=== PATIENT | female | born 1970 | race Caucasian/White ===

== ENCOUNTER 2023-01-17 15:17 | Outpatient (REF) | payer OTHER, SELFPAY ==
[2023-01-22 10:11] LABS: Age Gdln ACOG Testing Note (.); HPV Aptima Negative (Negative); IGP, Aptima HPV, rfx 16/18,45 Note (.)
== END 2023-01-17 15:18 | disposition home or self-care (01) ==
LOC: LAB 15:17
PROVIDERS: PCP Obstetrics & Gynecology; Visit Provider Obstetrics & Gynecology
DX: Z01.419 Encounter for gynecological examination (general) (routine) without abnormal findings (principal)
CPT/HCPCS: 87624; G0145

== ENCOUNTER 2024-01-23 20:02 | Outpatient (REF) | payer OTHER, SELFPAY ==
--- OUTSIDE RECORDS SUMMARY | 2024-01-23 20:06 | XMS_ITS | CCD ---
Author Organization [facility] Care Team Providers Care Associate Store Director Name Role Phone Chuckie Edward Jr. Unavailable [phone] Yaa Car Unavailable Hal Harry Unavailable Chuckie Edward Unavailable Demario Gimenez Unavailable Thom Beck Unavailable Porfirio Kent Unavailable Dex Mcclellan Unavailable DO Hal Harry Primary Care Provider MD Chuckie Edward Attending Provider [phone] WILEY Barry Emergency Provider DO Redd Morales Attending Provider XOCHILT Mcclellan Attending Provider [phone] DR NAMRATA ISAACS Admitting Unavailable DR NAMRATA ISAACS Attending Unavailable REQUEST, NONE LISTED Primary Care Unavaila DR NAMRATA Edwards Consulting Unavailable Armando Voss Unavailable DO Hal Harry Primary Care Provider XOCHILT Mcclellan Attending Provider DO Hal Harry Primary Care Provider MD Chuckie Edward Attending Provider DO Redd Morales Attending Provider Self, Referral Attending Provider Unavailable DO Hal Harry Primary Care Provider MD Chuckie Edward Attending Provider [phone] DO Hal Harry Primary Care Provider [phone] MD Terese Sneed Emergency Provider [phone] MD Ruiz Steward Admit Provider MD Ruiz Steward Attending Provider [phone] MD Denzel Lenz Attending Provider MapusKASSIEN Dex Pena Attending Provider [facility], DO Redd Miramontes Attending Provider [place]us, Dex K Admitting Unavailable Eleuterio, Tondra K Attending Unavailable Hal Harry Primary Care Unavailable Hal Harry Primary Care Unavailable Self, Referral Admitting Unavailable Self, Referral Attending Unavailable Piero Hal Primary Care Unavailable Ruiz Steward Admitting Unavailable Denzel Lenz [facility]ending [facility] Unavailable [facility], Redd Miramontes Attending Unavailable Piero Hal Primary Care Unavailable Piero Hal Primary Care Unavailable Chuckie Edward Admitting Unavailable Chuckie Edward Attending Unavailable Medications Current Medications Medication Drug Class(es) Dates Sig (Normalized) Sig (Original) acetaminophen 500 mg oral tablet (5 sources) Start: 11-03-2023 take 1000 mg by mouth every eight hours Acetaminophen Active 1000 MG PO Q8H 45 15 November 03, 2023 12:00am Allopurinol (20 sources) Xanthine Oxidase Inhibitor Start: 12-05-2023 take 1 tablet by mouth once daily Allopurinol Active 0 .ROUTE .COMPLEX December 05, 2023 8:13am TAKE 1 TABLET BY MOUTH ONCE DAILY FOR 90 DAYS Start: 06-22-2017 End: 12-05-2023 take 100 mg by mouth once daily Allopurinol Discontinued 100 MG PO Daily 90 90 May 04, 2023 11:13am October 20, 2023 10:48am FreeStyle Riky 14 Day Senso r - (17 sources) Start: 03-26-2020 FreeStyle Libr e 14 Day Sensor - 1 sensor SQ Change every 14 days for 84 days Mar, Active Start: 03-26-2020 FreeStyle Libr e 14 Day Sensor - 1 sensor Every 14 days for 84 days Mar, Active FreeStyle Riky 3 Sensor - (14 sources) Start: 02-10-2022 FreeStyle Libr e 3 Sensor - as directed SQ changed every 14 days for 28 days Jan, Active FreeStyle Riky 3 Sensor - USE DIRECTED SUBCUTANEOUSLY CHANGING EVERY 14 DAYS for 28 Active FreeStyle Riky 3 Sensor - as directed SQ changed every 14 days for 28 days Active 3 ml liraglutide 6 mg/ml pen injector (20 sources) GLP-1 Receptor Agonist Start: 12-04-2023 Liraglutide (Victoza 3-Raza) 0.6 mg/0.1 mL (18 mg/3 mL) pen injector Active 0 .ROUTE .COMPLEX December 04, 2023 3:28pm ADMINISTER 1.8mg SUBCUTANEOUSLY ONCE DAILY Start: 11-02-2023 End: 12-04-2023 Liraglutide (Victoza 3-Raza) 0.6 mg/0.1 mL (18 mg/3 mL) pen injector Discontinued 1.2 MG SUBCUT .daily November 03, 2023 12:00am December 04, 2023 3:28pm Start: 05-04-2023 End: 11-03-2023 Liraglutide (Victoza 3-Raza) 0.6 mg/0.1 mL (18 mg/3 mL) pen injector Discontinued 1.8 MG SUBCUT Daily November 02, 2023 12:00am November 03, 2023 2:31am Start: 10-27-2021 inject 1.8 mg by sub cutaneous injection once daily Victoza 18 MG/3ML 1.8mg Subcutaneous once daily for 90 day(s) Oct, Active inject 0.6 mg by sub cutaneous injection every week Saxenda 18 MG/3ML 0.6 mg and may increase weekly to full dose if no side effects and if necessary. Subcutaneous once daily for 30 day(s) Not-Taking metFORMIN hydrochloride 1000 mg oral tablet (20 sources) Biguanide Start: 05-04-2023 End: 08-18-2023 take 1000 mg by mouth twice daily at mealtime Metformin Active 1000 MG PO Twice daily with meals 180 August 18, 2023 10:06am Start: 06-22-2017 End: 05-04-2023 take 1000 mg by mouth once daily Metformin Discontinued 1000 MG PO Daily June 22, 2017 12:00am May 04, 2023 11:16am take 1 tablet by rodolfo th twice daily metFORMIN HCl 1000 MG 1 tablet with meal Orally bid Active 24 hr metoprolol succinate 100 mg extended release oral tablet (20 sources) beta-Adrenergic Eileen Start: 10-20-2023 take 1 tablet by mouth once daily Metoprolol Succinate Active 0 .ROUTE .COMPLEX October 20, 2023 8:00am TAKE 1 TABLET BY MOUTH ONCE DAILY FOR 90 DAYS Start: 05-04-2023 End: 10-20-2023 take 1 tablet by mouth once daily Metoprolol Succinate Discontinued 100 MG PO Daily May 04, 2023 11:17am October 20, 2023 8:00am FreeTextSi tablet Orally Once a day; Note: Source Status: Taking; Refills: 1; Qty: 90 Tablet; Provider: Piero Ibarra Start: 06-22-2017 End: 05-04-2023 take 50 mg by mouth once daily Metoprolol Succinate Di scontinued 50 MG PO Daily May 04, 2023 11:14am May 04, 2023 11:16am take 1 tablet by rodolfo every twenty-four hours Metoprolol Succinate ER 100 MG 1 tablet Orally Once a day for 90 days Active omeprazole 20 mg delayed release oral capsule (20 sources) Proton Pump Inhibitor Start: 07-28-2021 take 20 mg by mouth once daily Omeprazole Active 20 MG PO Daily July 28, 2021 12:00am Spironolactone (20 sources) Aldosterone Antagonist Start: 12-05-2023 take 1 tablet by mouth once daily Spironolactone Active 0 .ROUTE .COMPLEX December 05, 2023 8:13am TAKE 1 TABLET BY MOUTH ONCE DAILY FOR 90 DAYS Start: 06-22-2017 End: 12-05-2023 take 50 mg by mouth once daily Spironolactone Discontinued 50 MG PO Daily May 04, 2023 11:14am October 20, 2023 10:48am sucralfate 1000 mg oral tablet (20 sources) Aluminum Complex Start: 05-04-2023 take 1 tablet by mouth once daily Sucralfate (Carafate) 1 gram tablet Active 1 GM PO Daily May 04, 2023 1:00am FreeTextSi TABLET Orally ONE TIME A DAY; Note: Source Status: Refill; Refills: 11; Qty: 30 Tablet; Provider: Shanika Renteria Start: 07-30-2021 take 1 tablet by mouth once da enoch Carafate 1 GM 1 TABLET Orally ONE TIME A DAY for 30 days July, Active Start: 07-30-2021 take 1 tablet by mouth once da enoch Carafate 1 GM 1 TABLET Orally ONE TIME A DAY for 30 days July, Active Start: 07-30-2021 take 1 tablet by rodolfo th every eight hours Carafate 1 GM 1 TABLET Orally THREE TIMES A DAY for 30 day(s) July, Active Vitamin B-12 1000 MCG (3 sources) take 1 tablet by ordolfo th once daily Vitamin B-12 1000 MCG 1 tablet Orally Once a day for 30 day(s) Active Completed/Discontinued Medications Medication Drug Class(es) Dates Sig (Normalized) Sig (Original) [id number] 200 actuat albuterol 0.09 mg/actuat metered dose inhaler (13 sources) beta2-Adrenergic Agonist Start: 07-06-2017 End: 06-19-2018 take 1 puff(s) by inhalation every four to six hours Albuterol Sulfate (Proventil Hfa) 90 mcg/actuation Hfa Aerosol Inhaler Discontinued 2 PUFF INHALATION EVERY 4-6 HOURS July 06, 2017 12:00am June 19, 2018 3:37am with spacer amoxicillin 875 mg / clavulanate 125 mg oral tablet (9 sources) Penicillin-class Antibacterial Start: 11-03-2023 End: 11-09-2023 take 1 tablet by mouth twice daily Amoxicillin-Pot Clavulanate Discontinued 1 TAB PO Twice daily 02 16November 03, 2023 12:00am November 09, 2023 2:33pm Start: 04-26-2022 take 1 tablet by rodolfo th every twelve hours Amoxicillin-Pot Clavulanate 875-125 MG 1 tablet Orally every 12 hrs for 10 day(s) Apr, Active cephalexin 500 mg oral capsule (13 sources) Cephalosporin Antibacterial Start: 10-29-2021 End: 10-20-2023 take 500 mg by mouth every eight hours Cephalexin Discontinued 500 MG PO Q8H 01 10October 29, 2021 12:00am October 20, 2023 9:36am colestipol hydrochloride 1000 mg oral tablet (6 sources) Bile Acid Sequestrant Start: 07-30-2021 take 2 tablets by mouth every twenty-four hours Colestid 1 GM 2 tablets Orally Once a day for 30 day(s) July, Not-Taking diclofenac sodium 0.01 mg/mg topical gel (13 sources) Nonsteroidal Anti-inflammatory Drug Start: 03-06-2019 End: 08-13-2019 apply 4 g topically four times daily as needed Diclofenac Sodium (Voltaren) 1 % gel Discontinued 4 GM TOPICAL Four times daily March 06, 2019 1:00am August 13, 2019 7:21am apply to neck prn dicyclomine hydrochloride 20 mg oral tablet (8 sources) Anticholinergic Start: 07-07-2021 take 1 tablet by mouth every twelve hours Dicyclomine HCl 20 MG 1 tablet Orally bid for 30 day(s) Jun, Not-Taking famotidine 20 mg oral tablet (13 sources) Histamine-2 Receptor Antagonist Start: 06-22-2017 End: 06-19-2018 take 1 tablet by mouth twice daily Famotidine (Pepcid) 20 mg Tablet Discontinued 20 MG PO Twice daily June 22, 2017 12:00am June 19, 2018 3:37am FreeStyle Riky 14 Day [place] - (16 sources) Start: 03-26-2020 FreeStyle Riky 14 Day [place] - Use with 14 day sensor Daily for 365 days Mar, Not-Taking Start: 03-26-2020 FreeStyle Libr e 14 Day [place] - Use with 14 day sensor Daily for 365 days Mar, Active ibuprofen 200 mg oral tablet (13 sources) Nonsteroidal Anti-inflammatory Drug Start: 06-22-2017 End: 06-19-2018 Ibuprofen (Motrin Ib) 200 mg Tablet Discontinued 600 MG PO As Directed June 22, 2017 12:00am June 19, 2018 3:37am lisinopril 10 mg oral tablet (10 sources) Angiotensin Converting Enzyme Inhibitor Start: 07-10-2022 End: 10-20-2023 take 10 mg by mouth once daily Lisinopril Discontinued 10 MG PO Daily July 10, 2022 12:00am October 20, 2023 9:36am metaxalone 800 mg oral tablet (13 sources) Start: 03-06-2019 End: 08-13-2019 take 1 tablet by mouth three times daily Metaxalone (Skelaxin) 800 mg Tablet Discontinued 800 MG PO Three times daily March 06, 2019 1:00am August 13, 2019 7:21am predniSONE 10 mg oral tablet (13 sources) Start: 07-06-2017 End: 06-19-2018 take 60 mg by mouth once daily at mealtime Prednisone Discontinued 60 MG PO Daily July 06, 2017 12:00am June 19, 2018 3:37am administer with food or milk vitamin b12 0.05 mg oral tablet (20 sources) Vitamin B12 Start: 07-28-2021 End: 10-20-2023 take 1 tablet by mouth once daily Cyanocobalamin (Vitamin B-12) (Vitamin B-12) 50 mcg Tablet Discontinued 50 MCG PO Daily July 28, 2021 12:00am October 20, 2023 9:36am take 1 tablet by rodolfo th every twenty-four hours Vitamin B-12 1000 MCG 1 tablet Orally Once a day for 30 day(s) Active Problems Active Problems Problem Classification Problem Date Documented Da te Episodic/Chronic Abdominal pain (11 sources) Unspecified abdominal pain; Translations: [Left upper quadrant pain] Onset: 2 Resolved: 2 Episodic Administrative/social admission (11 sources) Dietary counseling and surveillance; Translations: [Patient encounter status] Onset: 1 Resolved: 2 Episodic Asthma (4 sources) Asthma; Translations: [Unspecified asthma, uncomplicated] 11-07-2023 Chronic Cardiac dysrhythmias (20 sources) Palpitations; Translations: [Palpitations] Onset: 4 08-13-2019 Episodic Chronic obstructive pulmonary disease and bronchiectasis (9 sources) Bronchitis; Translations: [Bronchitis, not specified as acute or chronic] 07-06-2017 Episodic Deficiency and other anemia (20 sources) Iron 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; Translations: [Iron deficiency anemia secondary to blood loss (chronic)] 11-07-2023 Chronic Deficiency and other anemia (9 sources) Iron deficiency anemia; Translations: [Iron deficiency anemia, unspecified] 07-28-2021 Episodic Diabetes mellitus with complications (20 sources) Hyperglycemia due to type 2 diabetes mellitus; Translations: [Type 2 diabetes mellitus with hyperglycemia] Onset: 1 Resolved: 2 Chronic Diabetes mellitus without complication (20 sources) Type 2 diabetes mellitus without complication; Translations: [Type 2 diabetes mellitus without complications] Onset: 2 Resolved: 2 Chronic Disorders of lipid metabolism (20 sources) Mixed hyperlipidemia; Translations: [Mixed hyperlipidemia] Onset: 1 Resolved: 2 Chronic E Codes: Natural/environment (6 sources) Dog bite - wound; Translations: [Bitten by dog, initial encounter] Onset: 4 11-03-2023 Episodic Esophageal disorders (20 sources) Gastroesophageal reflux disease; Translations: [Gastro-esophageal reflux disease without esophagitis] Onset: 2 Resolved: 2 Chronic Essential hypertension (20 sources) Essential hypertension; Translations: [Essential (primary) hypertension] Onset: 1 Resolved: 2 Chronic Gout and other crystal arthropathies (20 sources) Gout; Translations: [Gout, unspecified] Chronic Hypertension with complications and secondary hypertension (10 sources) Hypertensive urgency ; Translations: [Hypertensive urgency] 07-10-2022 Chronic Immunizations and screening for infectious disease (3 sources) Encounter for immunization; Translations: [Encounter for screening for human papillomavirus (HPV)] Onset: 1 Resolved: 2 Episodic Malaise and fatigue (9 sources) Asthenia; Translations: [Weakness] 11-26-2020 Episodic Menstrual disorders (20 sources) Menorrhagia; Translations: [Excessive and frequent menstruation with regular cycle] 11-07-2023 Chronic Nutritional deficiencies (20 sources) Vitamin D deficiency; Translations: [Vitamin D deficiency, unspecified] 11-07-2023 Chronic Nutritional deficiencies (19 sources) Deficiency of other specified B group vitamins; Translations: [Cobalamin deficiency] Onset: 1 Resolved: 2 Episodic Osteoarthritis (20 sources) Osteoarthritis of knee; Translations: [Osteoarthritis of knee, unspecified] Onset: 1 Resolved: 2 Chronic Other connective tissue disease (20 sources) Fibromyalgia; Translations: [Fibromyalgia] 11-07-2023 Episodic Other endocrine disorders (20 sources) Polycystic ovaries; Translations: [Polycystic ovarian syndrome] Chronic Other endocrine disorders (2 sources) Polycystic ovarian syndrome; Translations: [PCOS (polycystic ovarian syndrome) E28.2] Onset: 1 Resolved: 2 Chronic Other endocrine disorders (4 sources) Polycystic ovary syndrome; Translations: [Polycystic ovarian syndrome] 11-07-2023 Chronic Other gastrointestinal disorders (20 sources) Irritable bowel syndrome with diarrhea; Translations: [Irritable bowel syndrome with diarrhea] 11-07-2023 Chronic Other gastrointestinal disorders (3 sources) Irritable bowel syndrome with diarrhea Onset: 2 Resolved: 2 Chronic Other gastrointestinal disorders (20 sources) Diarrhea; Translations: [Diarrhea, unspecified] Episodic Other liver diseases (20 sources) Steatosis of liver; Translations: [Fatty (change of) liver, not elsewhere classified] 11-07-2023 Chronic Other liver diseases (2 sources) Fatty (change of) liver, not elsewhere classified; Translations: [Fatty liver K76.0] Onset: 1 Resolved: 2 Chronic Other lower respiratory disease (5 sources) Dyspnea on exertion; Translations: [Other forms of dyspnea] 11-03-2023 Episodic Other lower respiratory disease (5 sources) Other forms of dyspnea; Translations: [Other respiratory abnormalities] 11-03-2023 Episodic Other nervous system disorders (20 sources) Loss of taste; Translations: [Parageusia] Episodic Other nervous system disorders (20 sources) Sensory disorder of smell and/or taste; Translations: [Anosmia] Episodic Other nervous system disorders (20 sources) Paresthesia; Translations: [Paresthesia of skin] Episodic Other nutritional; endocrine; and metabolic disorders (20 sources) Metabolic disease; Translations: [Metabolic syndrome] Chronic Other nutritional; endocrine; and metabolic disorders (20 sources) Metabolic syndrome X; Translations: [Metabolic syndrome] 11-07-2023 Chronic Other nutritional; endocrine; and metabolic disorders (20 sources) Body mass index 40+ - severely obese; Translations: [Body mass index (BMI) 45.0-49.9, adult] 11-02-2023 Chronic Other nutritional; endocrine; and metabolic disorders (20 sources) Obesity; Translations: [Obesity, unspecified] Chronic Other nutritional; endocrine; and metabolic disorders (2 sources) Body mass index (BMI) 40.0-44.9, adult; Translations: [BMI 40.0-44.9, adult Z68.41] Onset: 1 Resolved: 2 Chronic Other nutritional; endocrine; and metabolic disorders (2 sources) Metabolic syndrome; Translations: [Metabolic syndrome E88.81] Onset: 1 Resolved: 2 Chronic Other nutritional; endocrine; and metabolic disorders (5 sources) Body mass index (BMI) 45.0-49.9, adult; Translations: [Body Mass Index 45.0-49.9, adult] Chronic Other screening for suspected conditions (not mental disorders or infectious disease) (20 sources) Encounter for screening for malignant neoplasm of cervix; Translations: [Raised cardiac enzyme or marker] Onset: 2 Episodic Residual codes; unclassified (20 sources) Obstructive sleep apnea syndrome; Translations: [Obstructive sleep apnea (adult) (pediatric)] 11-07-2023 Chronic Residual codes; unclassified (5 sources) Obstructive sleep apnea (adult) (pediatric); Translations: [Obstructive sleep apnea (adult)(pediatric)] Onset: 1 Resolved: 2 Chronic Spondylosis; intervertebral disc disorders; other back problems (20 sources) Cervical arthritis; Translations: [Spondylosis without myelopathy or radiculopathy, cervical region] Onset: 2 Resolved: 2 Chronic Spondylosis; intervertebral disc disorders; other back problems (11 sources) Spinal stenosis, cervical region; Translations: [Cervicalgia] Onset: 2 Resolved: 2 Episodic Sprains and strains (13 sources) Strain of neck muscle; Translations: [Strain of muscle, fascia and tendon at neck level, initial encounter] 03-06-2019 Episodic Unclassified (1 source) Encounter for screening mammogram for malignant neoplasm of breast; Translations: [Encounter for screening mammogram for malignant neoplasm of breast] Onset: 3 Urinary tract infections (9 sources) Urinary tract infectious disease; Translations: [Urinary tract infection, site not specified] 10-29-2021 Episodic Past or Other Problems Problem Classification Problem Date Documented Da te Episodic/Chronic Genitourinary symptoms and ill-defined conditions (1 source) Hematuria, unspecified Onset: 06-10-2021 Resolved: 06-10-2021 Episodic Other connective tissue disease (2 sources) Fibromyalgia; Translations: [Fibromyalgia M79.7] Onset: 01-09-2021 Resolved: 04-28-2021 Episodic Other nervous system disorders (1 source) Paresthesia of skin Onset: 04-06-2021 Resolved: 04-06-2021 Episodic Unclassified (1 source) Contact with and (suspected) exposure to covid-19 Z20.822 Onset: 09-10-2021 Resolved: 09-10-2021 Viral infection (1 source) COVID-19 Onset: 09-10-2021 Resolved: 09-10-2021 Results Test Name Value Interpretation Reference Range Facility Alanine aminotransferase [En zymatic activity/volume] in Serum or PlasmaOrdered By: Dex Mcclellan on 12-08-2023 ALT [Catalytic activity/Vol] 37 U/L Normal 7-52 [facility] Comment on above: Performed By: #### C KIMBERLY BLOUNT B12 ####[facility] [place] [address] Albumin [Mass/volume] in Ser um or Plasma by Bromocresol green (BCG) dye binding methoOrdered By: Dex Mcclellan on 12-08-2023 Albumin BCG dye [Mass/Vol] 4.0 g/dL 3.5-5.7 [facility] Alkaline phosphatase [Enzyma tic activity/volume] in Serum or PlasmaOrdered By: Dex Mcclellan on 12-08-2023 ALP [Catalytic activity/Vol] 60 U/L Normal 34-104 [facility] Comment on above: Performed By: #### C KIMBERLY BLOUNT B12 ####[facility] [id number] Aspartate aminotransferase [ Enzymatic activity/volume] in Serum or PlasmaOrdered By: Dex Mcclellan on 12-08-2023 AST [Catalytic activity/Vol] 33 U/L Normal 13-39 [facility] Comment on above: Performed By: #### C MP, KIMBERLY, B12 ####[address] Automated basophil %Ordered By: Redd Morales on 12-08-2023 Basophils/100 WBC (Bld) 0.5 % Normal . [facility] Comment on above: Order Comment: [email or web address] Performed By: #### P ILLAR CBC, PILLAR LIPID, PILLAR BMP, EBS A1C, PILLAR TSH ####[address] Automated basophil countOrde red By: Redd Morales on 12-08-2023 Basophils (Bld) [#/Vol] 0.1 10*3/uL Normal 0.0-0.2 [facility] Comment on above: Order Comment: [email or web address] Result Comment: PERF ORMED BY: [facility] [address] [place] [id number] PATHOLOGIST CALCIMINER KIRIT VARGAS M.D. Performed By: #### P ILLAR CBC, PILLAR LIPID, PILLAR BMP, EBS A1C, PILLAR TSH ####[address] Automated blood monocyte cou ntOrdered By: Redd Morales on 12-08-2023 Monocytes (Bld) [#/Vol] 0.4 10*3/uL Normal 0.0-0.8 [facility] Comment on above: Order Comment: [email or web address] Performed By: #### P ILLAR CBC, PILLAR LIPID, PILLAR BMP, EBS A1C, PILLAR TSH ####[address] Automated eosinophil %Ordere d By: Redd Morales on 12-08-2023 Eosinophils/100 WBC (Bld) 0.1 % Normal . [facility] Comment on above: Order Comment: [email or web address] Performed By: #### P ILLAR CBC, PILLAR LIPID, PILLAR BMP, EBS A1C, PILLAR TSH ####[place] [id number] [address] Automated eosinophil countOr dered By: Redd Morales on 12-08-2023 Eosinophils (Bld) [#/Vol] 0.0 10*3/uL Normal 0.0-0.45 [facility] Comment on above: Order Comment: [email or web address] Performed By: #### P ILLAR CBC, PILLAR LIPID, PILLAR BMP, EBS A1C, PILLAR TSH ####[address] Automated monocyte %Ordered By: Redd Morales on 12-08-2023 Monocytes/100 WBC (Bld) 4.1 % Normal . [facility] Comment on above: Order Comment: [email or web address] Performed By: #### P ILLAR CBC, PILLAR LIPID, PILLAR BMP, EBS A1C, PILLAR TSH ####[address] Automated neutrophil %Ordere d By: Redd Morales on 12-08-2023 Neutrophils/100 WBC (Bld) 65.4 % Normal . [facility] Comment on above: Order Comment: [email or web address] Performed By: #### P ILLAR CBC, PILLAR LIPID, PILLAR BMP, EBS A1C, PILLAR TSH ####[address] Bilirubin.total [Mass/volume ] in Serum or PlasmaOrdered By: Tondra Eleuterio on 12-08-2023 Bilirubin [Mass/Vol] 0.4 mg/dL Normal 0.3-1.0 [facility] Comment on above: Performed By: #### C KIMBERLY BLOUNT, B12 ####[address] Calcium [Mass/volume] in Ser um or PlasmaOrdered By: Tondra Mapus on 12-08-2023 Calcium [Mass/Vol] 9.3 mg/dL Normal 8.6-10.3 [facility] Comment on above: Performed By: #### C KIMBERLY BLOUNT B12 ####[address] [address] [place] Calcium [Mass/volume] in Ser um or PlasmaOrdered By: Redd Morales on 12-08-2023 Calcium [Mass/Vol] 9.3 mg/dL Normal 8.6-10.3 [facility] Comment on above: Order Comment: KEIRA ALEJOKW Performed By: #### P ILLAR CBC, PILLAR LIPID, PILLAR BMP, EBS A1C, PILLAR TSH ####[address] [address] [place] Carbon dioxide, total [Moles /volume] in Serum or PlasmaOrdered By: Dex Mcclellan on 12-08-2023 CO2 [Moles/Vol] 32.4 mmol/L High 21.0-31.0 [facility] Comment on above: Performed By: #### C KIMBERLY BLOUNT B12 ####[place] [id number] [facility] Carbon dioxide, total [Moles /volume] in Serum or PlasmaOrdered By: Redd Morales on 12-08-2023 CO2 [Moles/Vol] 31.2 mmol/L High 21.0-31.0 [facility] Comment on above: Order Comment: KEIRA ALEJOKW Performed By: #### P ILLAR CBC, PILLAR LIPID, PILLAR BMP, EBS A1C, PILLAR TSH ####[place] [id number] [place] Chloride [Moles/volume] in S roxie or PlasmaOrdered By: Tona Eleuterio on 12-08-2023 Chloride [Moles/Vol] 101 mmol/L Normal 98-107 [facility] Comment on above: Performed By: #### C KIMBERLY BLOUNT, B12 ####[address] [address] [place] Chloride [Moles/volume] in S roxie or PlasmaOrdered By: Redd Morales on 12-08-2023 Chloride [Moles/Vol] 100 mmol/L Normal 98-107 [facility] Comment on above: Order Comment: FASTCharbel [email or web address] Performed By: #### P ILLAR CBC, PILLAR LIPID, PILLAR BMP, EBS A1C, PILLAR TSH ####[facility] Cholesterol [Mass/volume] in Serum or PlasmaOrdered By: Redd Morales on 12-08-2023 Cholesterol [Mass/Vol] 172 mg/dL Normal 140-200 [facility] Comment on above: Chol less than 200 m g/dl low riskChol 201-239 mg/dl borderline riskChol 240 mg/dl and greater high risk Order Comment: FASTI [email or web address] Result Comment: Chol less than 200 mg/dl low risk Chol 201-239 mg/dl borderline risk Chol 240 mg/dl and greater high risk Performed By: #### P ILLAR CBC, PILLAR LIPID, PILLAR BMP, EBS A1C, PILLAR TSH ####[place] [id number] [address] Cholesterol in LDL Calc [Mas s/Vol]Ordered By: Redd Morales on 12-08-2023 Cholesterol in LDL [Mass/Vol] 87 mg/dL 0-100 [facility] Comment on above: LDL ATP III CLASSIFI CATIONLDL less than 100 mg/dL OptimalLDL 100-129 mg/dL Near or above optimalLDL 130-159 mg/dL Borderline highLDL 160-189 mg/dL HighLDL greater than 189 mg/dL Very high Cholesterol in VLDL Calc [Ma ss/Vol]Ordered By: Redd Morales on 12-08-2023 Cholesterol in VLDL [Mass/Vol] 49 mg/dL [facility] Comprehensive Metabolic Pane [place] 12-08-2023 Albumin [Mass/Vol] 4.0 g/dL Normal 3.5-5.7 [facility] Comment on above: Performed By: #### C KIMBERLY BLOUNT, B12 ####[place] [id number] [place] [id number] [facility] GFR/1.73 sq M.predicted MDRD (S/P/Bld) [Vol rate/Area] mL/min/{1.73_m2} Normal [facility] Comment on above: Performed By: #### C MINE, KIMBERLY, B12 ####[place] [id number] [facility] Creatinine [Mass/volume] in Serum or PlasmaOrdered By: Tondra Eleuterio on 12-08-2023 Creatinine [Mass/Vol] 0.70 mg/dL Normal 0.60-1.20 [facility] Comment on above: Performed By: #### C MINE, KIMBERLY, B12 ####[place] [id number] [facility] Creatinine [Mass/volume] in Serum or PlasmaOrdered By: Redd Morales on 12-08-2023 Creatinine [Mass/Vol] 0.70 mg/dL Normal 0.60-1.20 [facility] Comment on above: Order Comment: KEIRA CALDERAW Performed By: #### P ILLAR CBC, PILLAR LIPID, PILLAR BMP, EBS A1C, PILLAR TSH ####[place] [id number] [facility] Creatinine [Mass/volume] in UrineOrdered By: Dex Mcclellan on 12-08-2023 Creatinine (U) [Mass/Vol] 187.00 mg/dL [facility] Comment on above: No reference range e stablished EBS A1C with Estimated Ave G luon 12-08-2023 Glucose [Mass/Vol] 148 mg/dL Normal [facility] Comment on above: Result Comment: PERF ORMED BY: [facility] [address] [place] [id number] PATHOLOGIST CALCIMINER KIRIT VARGAS M.D. Performed By: #### P ILLAR CBC, PILLAR LIPID, PILLAR BMP, EBS A1C, PILLAR TSH ####[place] [id number] [facility] EBS A1C with Estimated Ave G luOrdered By: Redd Morales on 12-08-2023 HbA1c (Bld) [Mass fraction] 6.8 % High 4.3-5.6 [facility] Comment on above: Increased risk for d iabetes: 5.7 - 6.4diabetes: >6.4glycemic control for adults with diabetes: <7.0 Result Comment: Incr eased risk for diabetes: 5.7 - 6.4 diabetes: >6.4 glycemic control for adults with diabetes: <7.0 Performed By: #### P ILLAR CBC, PILLAR LIPID, PILLAR BMP, EBS A1C, PILLAR TSH ####[place] [phone] [address] Employee Basic Metabolic [place] 12-08-2023 GFR/1.73 sq M.predicted MDRD (S/P/Bld) [Vol rate/Area] mL/min/{1.73_m2} Normal [facility] Comment on above: Order Comment: [email or web address] [email or web address] Performed By: #### P ILLAR CBC, PILLAR LIPID, PILLAR BMP, EBS A1C, PILLAR TSH ####[place] [phone] [address] Employee Complete Blood Coun ton 12-08-2023 Mean Corpuscular HGB Conc 32.6 g/dL Normal 32.0-35.0 [facility] Comment on above: Order Comment: [email or web address] [email or web address] Performed By: #### P ILLAR CBC, PILLAR LIPID, PILLAR BMP, EBS A1C, PILLAR TSH ####[place] [phone] [address] NRBC% 0.1 /100{WBC} Normal 0-0.5 The [facility] Comment on above: Order Comment: [email or web address] [email or web address] Performed By: #### P ILLAR CBC, PILLAR LIPID, PILLAR BMP, EBS A1C, PILLAR TSH ####[place] [address] [place] [id number] [facility] Employee Lipid Profileon LDL Cholesterol,Calculated 87 mg/dL Normal 0-100 [facility] Comment on above: Order Comment: [email or web address] [email or web address] Result Comment: LDL ATP III CLASSIFICATION LDL less than 100 mg/dL Optimal LDL 100-129 mg/dL Near or above optimal LDL 130-159 mg/dL Borderline high LDL 160-189 mg/dL High LDL greater than 189 mg/dL Very high Performed By: #### P ILLAR CBC, PILLAR LIPID, PILLAR BMP, EBS A1C, PILLAR TSH ####[place] [phone] [address] Triglyceride w/Reflex 247 mg/dL High 0-149 [facility] Comment on above: Order Comment: [email or web address] [email or web address] Result Comment: TRIG ATP III CLASSIFICATION TRIG less than 150 mg/dL Normal TRIG 150-199 mg/dL Borderline high TRIG 200-500 mg/dL High TRIG greater than 500 mg/dL Very high Standard traceable to the Center for Disease Conrtrol and Prevention (CDC) test method. Performed By: #### P ILLAR CBC, PILLAR LIPID, PILLAR BMP, EBS A1C, PILLAR TSH ####[address] VLDL CHOLESTEROL 49 mg/dL Normal The [facility] Comment on above: Order Comment: [email or web address] [email or web address] Performed By: #### P ILLAR CBC, PILLAR LIPID, PILLAR BMP, EBS A1C, PILLAR TSH ####[address] Employee Thyroid Stim Hormon santos 12-08-2023 Employee Thyroid Stim Hormone 4.42 u[iU]/mL Normal 0.45-5.33 [facility] Comment on above: Order Comment: [email or web address] [email or web address] Result Comment: PERF ORMED BY: [facility] [address] [facility] [place] [address] PATHOLOGIST CALCIMINER KIRIT VARGAS M.D. Performed By: #### P ILLAR CBC, PILLAR LIPID, PILLAR BMP, EBS A1C, PILLAR TSH ####[place] [phone] [facility] Erythrocyte distribution wid th [Ratio] by Automated countOrdered By: Redd Morales on 12-08-2023 Erythrocyte distribution width (RBC) [Ratio] 16.3 % High 11.9-15.3 [facility] Comment on above: Order Comment: [email or web address] [email or web address] Performed By: #### P ILLAR CBC, PILLAR LIPID, PILLAR BMP, EBS A1C, PILLAR TSH ####[facility] [id number] [place] [address] [facility] Erythrocytes [#/volume] in B lood by Automated countOrdered By: Redd Morales on 12-08-2023 RBC (Bld) [#/Vol] 5.03 10*6/uL High 3.60-5.00 [facility] Comment on above: Order Comment: [email or web address] [email or web address] Performed By: #### P ILLAR CBC, PILLAR LIPID, PILLAR BMP, EBS A1C, PILLAR TSH ####[facility] [id number] [place] [address] [place] Glucose [Mass/volume] in Ser um or PlasmaOrdered By: Dex Mcclellan on 12-08-2023 Glucose [Mass/Vol] 137 mg/dL High 70-100 [facility] Comment on above: ADA recommended refe rence rangeRandom Glucose Reference Range is dependent on time and content of last meal. Glucose of more than 200 mg/dL in a nonstressed, ambulatory subject supports the diagnosis of Diabetes Mellitus. Result Comment: [place] Glucose Reference Range is dependent on time and content of last meal. Glucose of more than 200 mg/dL in a nonstressed, ambulatory subject supports the diagnosis of Diabetes Mellitus. ADA recommended reference range Performed By: #### C KIMBERLY BLOUNT, B12 ####[facility] [id number] [place] [address] [facility] Glucose [Mass/volume] in Ser um or PlasmaOrdered By: Redd Morales on 12-08-2023 Glucose [Mass/Vol] 136 mg/dL High 70-100 [facility] Comment on above: ADA recommended refe rence range Order Comment: [email or web address] [email or web address] Result Comment: ADA recommended reference range Performed By: #### P ILLAR CBC, PILLAR LIPID, PILLAR BMP, EBS A1C, PILLAR TSH ####[facility] [place] [address] [facility] Glucose mean value [Mass/vol ume] in Blood Estimated from glycated hemoglobinOrdered By: Redd Morales on 12-08-2023 Average glucose Estimated from glycated hemoglobin (Bld) [Mass/Vol] 148 mg/dL [facility] Hematocrit [Volume Fraction] of Blood by Automated countOrdered By: Redd Morales on 12-08-2023 Hematocrit (Bld) [Volume fraction] 38.6 % Normal 34.0-46.4 [facility] Comment on above: Order Comment: KEIRA PRATER.[email or web address] Performed By: #### P ILLAR CBC, PILLAR LIPID, PILLAR BMP, EBS A1C, PILLAR TSH ####[facility] [id number] [place] [id number] [facility] Hemoglobin [Mass/volume] in BloodOrdered By: Redd Morales on 12-08-2023 Hemoglobin (Bld) [Mass/Vol] 12.6 g/dL Normal 11.8-15.4 [facility] Comment on above: Order Comment: KEIRA PRATER.MyraKW Performed By: #### P ILLAR CBC, PILLAR LIPID, PILLAR BMP, EBS A1C, PILLAR TSH ####[place] [id number] [place] [phone] [facility] Leukocytes [#/volume] correc danyell for nucleated erythrocytes in Blood by Automated counOrdered By: Redd Morales on 12-08-2023 WBC corrected for nucl RBC Auto (Bld) [#/Vol] 10.7 10*3/uL 3.8-11.6 [facility] Leukocytes [#/volume] in Blo od by Automated countOrdered By: Redd Morales on 12-08-2023 WBC (Bld) [#/Vol] 10.7 10*3/uL Normal 3.8-11.6 [facility] Comment on above: Order Comment: KEIRA [email or web address].JKW Performed By: #### P ILLAR CBC, PILLAR LIPID, PILLAR BMP, EBS A1C, PILLAR TSH ####[facility] [id number] [place] [phone] [place] Lymphocytes [#/volume] in Bl ood by Automated countOrdered By: Redd Morales on 12-08-2023 Lymphocytes (Bld) [#/Vol] 3.2 10*3/uL Normal 1.00-4.8 [facility] Comment on above: Order Comment: KEIRA [email or web address].JKW Performed By: #### P ILLAR CBC, PILLAR LIPID, PILLAR BMP, EBS A1C, PILLAR TSH ####[address] Lymphocytes/100 leukocytes i n Blood by Automated countOrdered By: Redd Morales on 12-08-2023 Lymphocytes/100 WBC (Bld) 29.9 % Normal . [facility] Comment on above: Order Comment: [email or web address] [email or web address] Performed By: #### P ILLAR CBC, PILLAR LIPID, PILLAR BMP, EBS A1C, PILLAR TSH ####[address] MCH [Entitic mass] by Automa danyell countOrdered By: Redd Morales on 12-08-2023 MCH (RBC) [Entitic mass] 25.0 pg Normal 24.7-34.3 [facility] Comment on above: Order Comment: [email or web address] [email or web address] Performed By: #### P ILLAR CBC, PILLAR LIPID, PILLAR BMP, EBS A1C, PILLAR TSH ####[address] MCHC Auto (RBC) [Mass/Vol]Or dered By: Redd Morales on 12-08-2023 MCHC (RBC) [Mass/Vol] 32.6 g/dL 32.0-35.0 [facility] MCV [Entitic volume] by Auto mated countOrdered By: Redd Morales on 12-08-2023 MCV (RBC) [Entitic vol] 76.6 fL Low 80-100 [facility] Comment on above: Order Comment: [email or web address] [email or web address] Performed By: #### P ILLAR CBC, PILLAR LIPID, PILLAR BMP, EBS A1C, PILLAR TSH ####[address] MicroAlb Creat Ratio,Uon Creatinine, Urine (Random) 187.00 mg/dL Normal [facility] Comment on above: Result Comment: No r eference range established Performed By: #### C MP, URMACRERAT, B12 ####[address] Microalbumin/Creatinin e Ratio 5.9 mg/g Normal 0.0-30.0 [facility] Comment on above: Result Comment: 30-3 00 mg/g indicates an increased risk for diabetic nephropathy. Greater than 300 mg/g is consistent with clinical nephropathy. (Am. J. Kidney Disease 1995, 25:107) PERFORMED BY: [facility] [address] [place] [address] PATHOLOGIST CALCIMINER KIRIT VARGAS M.D. Performed By: #### C KIMBERLY BLOUNT, B12 ####[address] Microalbumin [Mass/volume] i n UrineOrdered By: Dex Mcclellan on 12-08-2023 Albumin DL <= 20 mg/L (U) [Mass/Vol] 1.1 mg/dL Normal 0.0-1.8 [facility] Comment on above: Performed By: #### C KIMBERLY BLOUNT, B12 ####[address] Neutrophils [#/volume] in Bl ood by Automated countOrdered By: Redd Morales on 12-08-2023 Neutrophils (Bld) [#/Vol] 7.0 10*3/uL Normal 1.8-7.7 [facility] Comment on above: Order Comment: KEIRA PRATER.MyraKW Performed By: #### P ILLAR CBC, PILLAR LIPID, PILLAR BMP, EBS A1C, PILLAR TSH ####[address] No Panel InformationOrdered By: Dex Mcclellan on 12-08-2023 Estimated GFR (CKD-EPI) > 60.0 mL/Min [facility] Creatinine Clearance (Chem N/A [facility] No Panel InformationOrdered By: Redd Morales on 12-08-2023 Estimated GFR (CKD-EPI) > 60.0 mL/Min [facility] Creatinine Clearance (Chem N/A [facility] Nucleated erythrocytes [Pres ence] in Blood by Automated countOrdered By: Redd Morales on 12-08-2023 Nucleated RBC Auto Ql (Bld) 0.1 /100{WBC} 0-0.5 [facility] Platelet mean volume [Entiti c volume] in Blood by Automated countOrdered By: Redd Morales on 12-08-2023 Platelet mean volume (Bld) [Entitic vol] 8.6 fL Normal 6.3-10.7 [facility] Comment on above: Order Comment: KEIRA PRATER.MyraKW Performed By: #### P ILLAR CBC, PILLAR LIPID, PILLAR BMP, EBS A1C, PILLAR TSH ####[address] [address] [place] Platelets [#/volume] in Bloo d by Automated countOrdered By: Redd Morales on 12-08-2023 Platelets (Bld) [#/Vol] 262 10*3/uL Normal 150-450 [facility] Comment on above: Order Comment: KEIRA PRTAER.MyraKW Performed By: #### P ILLAR CBC, PILLAR LIPID, PILLAR BMP, EBS A1C, PILLAR TSH ####[address] [address] [place] Potassium [Moles/volume] in Serum or PlasmaOrdered By: Dex Mcclellan on 12-08-2023 Potassium [Moles/Vol] 4.5 mmol/L Normal 3.5-5.1 [facility] Comment on above: Performed By: #### C MPKIMBERLY, B12 ####[address] [address] [place] Potassium [Moles/volume] in Serum or PlasmaOrdered By: Redd Morales on 12-08-2023 Potassium [Moles/Vol] 4.5 mmol/L Normal 3.5-5.1 [facility] Comment on above: Order Comment: KEIRA PRATER.JKW Performed By: #### P ILLAR CBC, PILLAR LIPID, PILLAR BMP, EBS A1C, PILLAR TSH ####[address] [address] [place] Protein [Mass/volume] in Ser um or PlasmaOrdered By: Dex Mcclellan on 12-08-2023 Protein [Mass/Vol] 6.9 g/dL Normal 6.4-8.9 [facility] Comment on above: Performed By: #### C KIMBERLY BLOUNT, B12 ####[address] Serum globulin measurement b y calculation (mass/volume)Ordered By: Dex Mcclellan on 12-08-2023 Globulin (S) [Mass/Vol] 2.9 g/dL [facility] Comment on above: Performed By: #### C KIMBERLY BLOUNT, B12 ####[address] Serum or plasma albumin/glob ulin mass ratioOrdered By: Dex Mcclellan on 12-08-2023 Albumin/Globulin [Mass ratio] 1.4 {ratio} [facility] Comment on above: Performed By: #### C KIMBERLY BLOUNT, B12 ####[address] Serum or plasma anion gap de terminationOrdered By: Dex Mcclellan on 12-08-2023 Anion gap [Moles/Vol] 11.1 mmol/L Normal 6.0-15.0 [facility] Comment on above: Performed By: #### C KIMBERLY BLOUNT, B12 ####[address] Serum or plasma anion gap de terminationOrdered By: Redd Morales on 12-08-2023 Anion gap [Moles/Vol] 12.3 mmol/L Normal 6.0-15.0 [facility] Comment on above: Order Comment: KEIRA SOTELO Performed By: #### P ILLAR CBC, PILLAR LIPID, PILLAR BMP, EBS A1C, PILLAR TSH ####[address] Serum or plasma high density lipoprotein (HDL) cholesterol measurementOrdered By: Redd Morales on 12-08-2023 Cholesterol in HDL [Mass/Vol] 36 mg/dL Normal 23-92 [facility] Comment on above: HDL CHOL ATP-III CLA SSIFICATION Cardiovascular RiskHDL > or equal to 60 mg/dL LOWHDL < 40 mg/dL HIGH Order Comment: KEIRA ALEJOKW Result Comment: HDL CHOL ATP-III CLASSIFICATION Cardiovascular Risk HDL > or equal to 60 mg/dL LOW HDL < 40 mg/dL HIGH Performed By: #### P ILLAR CBC, PILLAR LIPID, PILLAR BMP, EBS A1C, PILLAR TSH ####[place] [address] [place] [id number] [facility] Serum or plasma total choles terol/high density lipoprotein (HDL) cholesterol mass ratOrdered By: Redd Morales on 12-08-2023 Cholesterol.total/Chol esterol in HDL [Mass ratio] 4.8 {ratio} Normal <5.0 [facility] Comment on above: Order Comment: KEIRA ALEJOKW Performed By: #### P ILLAR CBC, PILLAR LIPID, PILLAR BMP, EBS A1C, PILLAR TSH ####[place] [id number] [facility] Sodium [Moles/volume] in Ser um or PlasmaOrdered By: Dex Mcclellan on 12-08-2023 Sodium [Moles/Vol] 140 mmol/L Normal 136-145 [facility] Comment on above: Performed By: #### C MPKIMBERLY, B12 ####[place] [id number] [facility] Sodium [Moles/volume] in Ser um or PlasmaOrdered By: Redd Morales on 12-08-2023 Sodium [Moles/Vol] 139 mmol/L Normal 136-145 [facility] Comment on above: Order Comment: KEIRA CALDERAW Performed By: #### P ILLAR CBC, PILLAR LIPID, PILLAR BMP, EBS A1C, PILLAR TSH ####[place] [id number] [facility] Thyrotropin [Units/volume] i n Serum or PlasmaOrdered By: Redd Morales on 12-08-2023 TSH Qn 4.42 m[IU]/L 0.45-5.33 [facility] Triglyceride [Mass/volume] i n Serum or PlasmaOrdered By: Redd Morales on 12-08-2023 Triglyceride [Mass/Vol] 247 mg/dL High 0-149 [facility] Comment on above: TRIG ATP III CLASSIF ICATIONTRIG less than 150 mg/dL NormalTRIG 150-199 mg/dL Borderline highTRIG 200-500 mg/dL High TRIG greater than 500 mg/dL Very highStandard traceable to the Center for Disease Conrtrol and Prevention (CDC) test method. Urea nitrogen [Mass/volume] in Serum or PlasmaOrdered By: Dex Mcclellan on 12-08-2023 Urea nitrogen [Mass/Vol] 11 mg/dL Normal 10-05 [facility] Comment on above: Performed By: #### C MP, URMACRERAT, B12 ####[place] [id number] [address] Urea nitrogen [Mass/volume] in Serum or PlasmaOrdered By: Redd Morales on 12-08-2023 Urea nitrogen [Mass/Vol] 11 mg/dL Normal 10-05 [facility] Comment on above: Order Comment: KEIRA CALDERAW Performed By: #### P ILLAR CBC, PILLAR LIPID, PILLAR BMP, EBS A1C, PILLAR TSH ####[facility] [id number] Urine microalbumin/creatinin e mass ratioOrdered By: Dex Mcclellan on 12-08-2023 Albumin/Creatinine DL <= 20 mg/L (U) [Mass ratio] 5.9 mg/g 0.0-30.0 [facility] Comment on above: 30-300 mg/g indicate s an increased risk for diabetic nephropathy. Greater than 300 mg/g is consistent with clinical nephropathy. (Am. J. Kidney Disease 1995, 25:107) Vitamin B12 ser/plasOrdered By: Dex Mcclellan on 12-08-2023 Cobalamin (Vitamin B12) [Mass/Vol] 195 pg/mL Normal 180-914 [facility] Comment on above: Result Comment: PERF ORMED BY: [facility] [address] [place] [id number] PATHOLOGIST CALCIMINER KIRIT VARGAS M.D. Performed By: #### C KIMBERLY BLOUNT, [facility] ####[facility] [id number] [place] [id number] [facility] Capillary blood glucose art urement by glucometer (mass/volume)Ordered By: Denzel Lenz on 11-03-2023 Glucose [Mass/Vol] 209 mg/dL Normal [facility] Comment on above: Random Glucose Refer ence Range is dependent on time and content of last meal. Glucose of more than 200 mg/dL in a nonstressed, ambulatory subject supports the diagnosis of Diabetes Mellitus. Result Comment: [place] om Glucose Reference Range is dependent on time and content of last meal. Glucose of more than 200 mg/dL in a nonstressed, ambulatory subject supports the diagnosis of Diabetes Mellitus. Performed By: #### G LULS ####Point of Care testing, Cholesterol [Mass/volume] in Serum or PlasmaOrdered By: Joann Del Cid on 11-03-2023 Cholesterol [Mass/Vol] 141 mg/dL Normal 140-200 [facility] Comment on above: Chol less than 200 m g/dl low riskChol 201-239 mg/dl borderline riskChol 240 mg/dl and greater high risk Result Comment: Chol less than 200 mg/dl low risk Chol 201-239 mg/dl borderline risk Chol 240 mg/dl and greater high risk Performed By: #### L IPID, HS TROP ####[facility] [id number] [place] [address] [facility] Cholesterol in LDL Calc [Mas s/Vol]Ordered By: Joann Del Cid on 11-03-2023 Cholesterol in LDL [Mass/Vol] 78 mg/dL 0-100 [facility] Comment on above: LDL ATP III CLASSIFI CATIONLDL less than 100 mg/dL OptimalLDL 100-129 mg/dL Near or above optimalLDL 130-159 mg/dL Borderline highLDL 160-189 mg/dL HighLDL greater than 189 mg/dL Very high Cholesterol in VLDL Calc [Ma ss/Vol]Ordered By: Joann Del Cid on 11-03-2023 Cholesterol in VLDL [Mass/Vol] 31 mg/dL [facility] ECH echo transthoracicon [facility] echo transthoracic [facility] [place] [address] [place] [address] Echocardiogram Signed Patient: Becki Messer MR#: [id number] 3 : 1970 Acct:[id number] Age/Sex: 53 / F ADM Date: 11/03/23 Loc: Room: [address] [place] [address] Type: ADM INOo Attending Dr: Denzel Lenz MD Ordering Provider: Denzel Lenz MD Date of Service: 11/03/23 [facility] transthoracic: baseline EF, pending discharge Copies to: MD Nico Stahl MD BSA: 2.4 m2 BP: 162/88 mmHg HR: 74 Reason For Study: baseline EF, pending discharge History: HLD, YOVANY, DM, HTN, tachycardia Interpretation Summary The left ventricular wall motion is normal. The left ventricular size and thickness are normal. Ejection Fraction = 50-55%. The LV ejection fraction is low normal . There is trace mitral regurgitation. There is trace tricuspid regurgitation. There is no comparison study available. Procedure/Quality: A two-dimensional transthoracic echocardiogram with color flow, Doppler and injection of contrast agent Definity was performed. A two- dimensional transthoracic echocardiogram with color flow and Doppler was performed. The study was technically good in quality. Left Ventricle: The left ventricular size and thickness are normal. Ejection Fraction = 50-55%. The LV ejection fraction is low normal . The left ventricular wall motion is normal. Left Atrium: The left atrium appears normal in size. The atrial septum appears normal. Right Atrium: The right atrium appears normal in size. Right Ventricle: The right ventricular size, thickness and function are normal. Aortic Valve: The aortic valve is normal in structure and function. No aortic regurgitation is present. Mitral Valve: The mitral valve is normal in structure and function. There is trace mitral regurgitation. Tricuspid Valve: The tricuspid valve is normal in structure and function. There is trace tricuspid regurgitation. Pulmonic Valve: The pulmonic valve is normal in structure and function. Arteries: The aortic root is normal size. Pericardium/Pleura: No pericardial effusion seen. There is no pleural effusion. IVC/Hepatic Veins: The inferior vena cava is normal in size, with a normal collapsibility index. Measurements with Normals IVSd: 0.93 cm (0.7-1.1 cm)LVIDd: 5.1 cm (3.7-5.4 cm) LVPWd: 0.89 cm (0.7-1.1 cm)LVIDs: 3.6 cm (2.3-3.6 cm) LA dimension: 3.5 cm (2.3-4.0 cm)Ao root diam: 3.1 cm(2.0-3.6 cm) asc Aorta Diam: 3.7 cm(2.1-3.4cm) Doppler with Normals RVSP(TR): 22.6 mmHg (18-35mmHg) LV V1 max: 87.8 cm/sec (0.7-1.7m/s)MV E max alexandru: 72.8 cm/sec(0.8-1.3m/s) MV A max alexandru: 57.8 cm/sec(0.0-0.0m/s) MV E/A: 1.3 (<1.5) MMode/2D Measurements Calculations TAPSE: 1.9 cm FS: 28.9 % Ao root area: LVOT diam: 2.0 cm RV S Alexandru: EDV(Teich): 7.7 cm2 LVOT area: 3.1 cm2 13.8 cm/sec 122.4 ml ESV(Teich): 54.8 ml EF(Teich): 55.2 % __ LVLd ap4: 8.2 cm SV(MOD-sp4): LAV(MOD-sp4): LA A2 area: 16.2 cm2 EDV(MOD-sp4): 73.0 ml 34.0 ml 139.0 ml LAV(MOD-sp2): LA A4 area: 15.1 cm2 LVLs ap4: 7.5 cm 40.3 ml LA length (vol): ESV(MOD-sp4): 5.2 cm 66.0 ml LA vol: 40.0 ml EF(MOD-sp4): 52.5 % LA vol index: 16.9 ml/m2 Doppler Measurements Calculations MV dec time: MV max PG: E/E' lat: 8.5 MV dec slope: 0.18 sec 64.0 mmHg E/E' med: 10.7 399.7 cm/sec2 __ Ao V2 max: LV V1 max PG: MR max alexandru: TV max P.0 mmHg 119.9 cm/sec 3.1 mmHg 399.7 cm/sec Ao max P.7 mmHgLV V1 mean PG: MR max PG: Ao mean P.9 mmHg 63.9 mmHg 3.9 mmHg LV V1 mean: Ao V2 mean: 66.6 cm/sec 95.3 cm/sec LV V1 VTI: 17.8 cm Ao V2 VTI: 24.4 cm DORIE(I,D): 2.2 cm2 DORIE(V,D): 2.2 cm2 __ TR max alexandru: 209.9 cm/sec TR max P.6 mmHg RAP systole: 5.0 mmHg ___ Transcribed By: HARDY Performed At: 11/03/23 1353 Signed By: Nico Munson MD 11/03/23 1537 Normal [facility] - [facility] Glucose Poct Glucometerson 0 11-03-2023 Commemt1 Glu2: Cleaned Meter Normal [facility] Comment on above: Result Comment: PERF ORMED BY: [facility] [address] [place] [address] PATHOLOGIST CALCIMINER KIRIT VARGAS M.D. Performed By: #### G LULS ####Point of Care testing, Glucose [Mass/Vol] 131 mg/dL Normal [facility] Comment on above: Result Comment: [place] Glucose Reference Range is dependent on time and content of last meal. Glucose of more than 200 mg/dL in a nonstressed, ambulatory subject supports the diagnosis of Diabetes Mellitus. PERFORMED BY: [facility] [address] [place] [address] PATHOLOGIST CALCIMINER KIRIT VARGAS M.D. Performed By: #### G LULS #### Point of Care testing , Lipid Panelon 11-03-2023 LDL Cholesterol,Calculated 78 mg/dL Normal 0-100 [facility] Comment on above: Result Comment: LDL ATP III CLASSIFICATION LDL less than 100 mg/dL Optimal LDL 100-129 mg/dL Near or above optimal LDL 130-159 mg/dL Borderline high LDL 160-189 mg/dL High LDL greater than 189 mg/dL Very high Performed By: #### L IPID, HS TROP ####[facility] [id number] Triglyceride w/Reflex 159 mg/dL High 0-149 [facility] Comment on above: Result Comment: TRIG ATP III CLASSIFICATION TRIG less than 150 mg/dL Normal TRIG 150-199 mg/dL Borderline high TRIG 200-500 mg/dL High TRIG greater than 500 mg/dL Very high Standard traceable to the Center for Disease Conrtrol and Prevention (CDC) test method. Performed By: #### L IPID, HS TROP ####[place] [id number] [place] [id number] [facility] VLDL CHOLESTEROL 31 mg/dL Normal [facility] Comment on above: Performed By: #### L IPID, HS TROP ####[facility] [place] [id number] [facility] No Panel InformationOrdered By: Denzel Lenz on 11-03-2023 Bedside Glucose Comment Glu2: cleaned meter [facility] Serum or plasma high density lipoprotein (HDL) cholesterol measurementOrdered By: Joann Del Cid on 11-03-2023 Cholesterol in HDL [Mass/Vol] 31 mg/dL Normal 23-92 [facility] Comment on above: HDL CHOL ATP-III CLA SSIFICATION Cardiovascular RiskHDL > or equal to 60 mg/dL LOWHDL < 40 mg/dL HIGH Result Comment: HDL CHOL ATP-III CLASSIFICATION Cardiovascular Risk HDL > or equal to 60 mg/dL LOW HDL < 40 mg/dL HIGH Performed By: #### L IPID, HS TROP ####[facility] [id number] [place] [id number] [facility] Serum or plasma total choles terol/high density lipoprotein (HDL) cholesterol mass ratOrdered By: Joann Del Cid on 11-03-2023 Cholesterol.total/Chol esterol in HDL [Mass ratio] 4.5 {ratio} Normal <5.0 [facility] Comment on above: Result Comment: PERF ORMED BY: [facility] [address] [address] PATHOLOGIST CALCIMINER KIRIT VARGAS M.D. Performed By: #### L IPID, HS TROP ####[place] [id number] [facility] Triglyceride [Mass/volume] i n Serum or PlasmaOrdered By: Joann Del Cid on 11-03-2023 Triglyceride [Mass/Vol] 159 mg/dL High 0-149 [facility] Comment on above: TRIG ATP III CLASSIF ICATIONTRIG less than 150 mg/dL NormalTRIG 150-199 mg/dL Borderline highTRIG 200-500 mg/dL High TRIG greater than 500 mg/dL Very highStandard traceable to the Center for Disease Conrtrol and Prevention (CDC) test method. Troponin I High Sensitivityo n 11-03-2023 Troponin I High Sensitivity 15.7 pg/mL High 0.0-15.0 [facility] Comment on above: Result Comment: PERF ORMED BY: [facility] [address] [place] [address] PATHOLOGIST CALCIMINER KIRIT VARGAS M.D. Performed By: #### L IPID, HS TROP ####[place] [id number] [facility] Troponin I High Sensitivity 17.5 pg/mL High 0.0-15.0 [facility] Comment on above: Result Comment: PERF ORMED BY: [facility] [address] [place] [address] PATHOLOGIST CALCIMINER KIRIT VARGAS M.D. Performed By: #### H S TROP ####[place] [id number] [facility] Troponin I.cardiac [Mass/vol ume] in Serum or Plasma by Detection limit <= 0.01 ng/Ordered By: Joann Del Cid on 11-03-2023 Troponin I.cardiac DL <= 0.01 ng/mL [Mass/Vol] 15.7 pg/mL High 0.0-15.0 [facility] Troponin I.cardiac [Mass/vol ume] in Serum or Plasma by Detection limit <= 0.01 ng/Ordered By: Terese Sneed on 11-03-2023 Troponin I.cardiac DL <= 0.01 ng/mL [Mass/Vol] 17.5 pg/mL High 0.0-15.0 [facility] XR chest 2V*on 11-03-2023 XR chest 2V* [address] [address] XRay Report Signed Patient: Becki Messer MR#: [id number] 3 : 1970 Acct:[id number] Age/Sex: 53 / F ADM Date: 11/03/23 Loc: Room: [address] [place] [address] Type: ADM INOo Attending Dr: Denzel Lenz MD Copies to: MD Denzel Kevin MD Ordering Provider: Terese Sneed MD Date of Service: 11/02/23 XR/XR chest 2V*: Animal Bite XR chest 2V* 11/02/2023 10:32 PM SIGNS AND SYMPTOMS: Animal Bite PROTOCOL: Frontal and lateral radiographs of the chest COMPARISON: 07/10/2022 FINDINGS: The trachea is midline. The heart and mediastinal structures are within normal limits. The lung parenchyma is clear. The bony thorax is intact. XR/XR chest 2V* IMPRESSION: No acute cardiopulmonary pathology. Impression dictated by: Devante Pat M.D.11/03/2023 9:42 AM Dictation Location: [place] [address] Transcribed By: [facility] 11/03/2342 Dictated By: Devante Pat II, MD 11/03/2341 Signed By: 11/03/23 09 Normal [facility] XR forearm LT 2V*on 11-03-19 XR forearm LT 2V* [address] [address] XRay Report Signed Patient: Becki Messer MR#: [id number] 3 : 1970 Acct:[id number] Age/Sex: 53 / F ADM Date: 11/03/23 Loc: Room: [address] [place] [address] Type: ADM INOo Attending Dr: Denzel Lenz MD Copies to: MD Denzel Kevin MD Ordering Provider: Terese Sneed MD Date of Service: 11/02/23 XR/XR forearm LT 2V*: Animal Bite, assess for FB XR forearm LT 2V* 11/02/2023 10:28 PM SIGNS AND SYMPTOMS: Animal Bite, assess for FB PROTOCOL: Frontal and lateral radiograph of the left forearm COMPARISON: None FINDINGS: The bones are in anatomic alignment. The joint spaces are preserved. There is no fracture. No radiopaque foreign body. There is nonspecific soft tissue swelling along the forearm. XR/XR forearm LT 2V* IMPRESSION: No fracture. No abnormal radiopaque foreign body. Impression dictated by: Devante Pat M.D.11/03/2023 9:41 AM Dictation Location: [place] [address] Transcribed By: [facility] 11/03/23 0941 Dictated By: Devante Pat II, MD 11/03/23940 Signed By: 11/03/23940 Normal [facility] Activated partial thrombopla stin time (aPTT) in platelet poor plasma by coagulation aOrdered By: Terese Sneed on 11-02-2023 aPTT Coag (PPP) [Time] 27.9 s 25.1-36.5 [facility] Comment on above: A hematocrit value g reater than 55% may lead to inaccurate results in coagulation testing. Patients having hematocrit values >55% require a special collection tube for coagulation studies. Please contact the laboratory at [phone] for redraw instructions. Automated basophil %Ordered By: Terese Sneed on 11-02-2023 Basophils/100 WBC (Bld) 0.7 % Normal . [facility] Comment on above: Performed By: #### H CGQUAL, TSH3, DDIMER, HS TROP, BMP, PT, CK, BNP, PTT, T4F, CBC #### [address] Automated basophil countOrde red By: Terese Sneed on 11-02-2023 Basophils (Bld) [#/Vol] 0.1 10*3/uL Normal 0.0-0.2 [facility] Comment on above: Result Comment: PERF ORMED BY: [place] [address] PATHOLOGIST CALCIMINER KIRIT VARGAS M.D. Performed By: #### H CGQUAL, TSH3, DDIMER, HS TROP, BMP, PT, CK, BNP, PTT, T4F, CBC #### [address] Automated blood monocyte cou ntOrdered By: Terese Sneed on 11-02-2023 Monocytes (Bld) [#/Vol] 0.4 10*3/uL Normal 0.0-0.8 [facility] Comment on above: Performed By: #### H CGQUAL, TSH3, DDIMER, HS TROP, BMP, PT, CK, BNP, PTT, T4F, CBC #### [address] Automated eosinophil %Ordere d By: Terese Sneed on 11-02-2023 Eosinophils/100 WBC (Bld) 0.1 % Normal . [facility] Comment on above: Performed By: #### H CGQUAL, TSH3, DDIMER, HS TROP, BMP, PT, CK, BNP, PTT, T4F, CBC #### [address] Automated eosinophil countOr dered By: Terese Sneed on 11-02-2023 Eosinophils (Bld) [#/Vol] 0.0 10*3/uL Normal 0.0-0.45 [facility] Comment on above: Performed By: #### H CGQUAL, TSH3, DDIMER, HS TROP, BMP, PT, CK, BNP, PTT, T4F, CBC #### [address] Automated monocyte %Ordered By: Terese Sneed on 11-02-2023 Monocytes/100 WBC (Bld) 4.3 % Normal . [facility] Comment on above: Performed By: #### H CGQUAL, TSH3, DDIMER, HS TROP, BMP, PT, CK, BNP, PTT, T4F, CBC #### [address] Automated neutrophil %Ordere d By: Terese Sneed on 11-02-2023 Neutrophils/100 WBC (Bld) 67.6 % Normal . [facility] Comment on above: Performed By: #### H CGQUAL, TSH3, DDIMER, HS TROP, BMP, PT, CK, BNP, PTT, T4F, CBC #### [address] BNP ser/plasOrdered By: Eugenia Sneed on 11-02-2023 Natriuretic peptide B (Bld) [Mass/Vol] 31.0 pg/mL Normal 5-100 [facility] Comment on above: Result Comment: PERF ORMED BY: [place] [address] PATHOLOGIST CALCIMINER KIRIT VARGAS M.D. Performed By: #### H CGQUAL, TSH3, DDIMER, HS TROP, BMP, PT, CK, BNP, PTT, T4F, CBC #### [address] Basic Metabolic Panelon 10-13 Creatinine Clr Calc Pharmacy 101.41 Normal [facility] Comment on above: Performed By: #### H CGQUAL, TSH3, DDIMER, HS TROP, BMP, PT, CK, BNP, PTT, T4F, CBC #### [address] GFR/1.73 sq M.predicted MDRD (S/P/Bld) [Vol rate/Area] mL/min/{1.73_m2} Normal [facility] Comment on above: Performed By: #### H CGQUAL, TSH3, DDIMER, HS TROP, BMP, PT, CK, BNP, PTT, T4F, CBC #### [address] [place] [address] [place] Calcium [Mass/volume] in Ser um or PlasmaOrdered By: Terese Sneed on 11-02-2023 Calcium [Mass/Vol] 8.9 mg/dL Normal 8.6-10.3 [facility] Comment on above: Performed By: #### H CGQUAL, TSH3, DDIMER, HS TROP, BMP, PT, CK, BNP, PTT, T4F, CBC #### [facility] [address] Carbon dioxide, total [Moles /volume] in Serum or PlasmaOrdered By: Terese Sneed on 11-02-2023 CO2 [Moles/Vol] 29.2 mmol/L Normal 21.0-31.0 [facility] Comment on above: Performed By: #### H CGQUAL, TSH3, DDIMER, HS TROP, BMP, PT, CK, BNP, PTT, T4F, CBC #### [facility] [address] Chloride [Moles/volume] in S roxie or PlasmaOrdered By: Terese Sneed on 11-02-2023 Chloride [Moles/Vol] 101 mmol/L Normal 98-107 [facility] Comment on above: Performed By: #### H CGQUAL, TSH3, DDIMER, HS TROP, BMP, PT, CK, BNP, PTT, T4F, CBC #### [facility] [address] Choriogonadotropin.beta subu nit [Units/volume] in Serum or PlasmaOrdered By: Terese Sneed on 11-02-2023 HCG.beta subunit Qn Negative [facility] Complete Blood Count Auto Di ffon 11-02-2023 Mean Corpuscular HGB Conc 33.1 g/dL Normal 32.0-35.0 [facility] Comment on above: Performed By: #### H CGQUAL, TSH3, DDIMER, HS TROP, BMP, PT, CK, BNP, PTT, T4F, CBC #### [facility] [address] [place] [address] [place] Monocytes/100 WBC (Bld) 21.09 % High 0.00-20.00 [facility] Comment on above: Result Comment: For adults in ED, MDW > 20.0 may be associated with a higher risk of sepsis during the first 12 hrs of hospital admission Performed By: #### H CGQUAL, TSH3, DDIMER, HS TROP, BMP, PT, CK, BNP, PTT, T4F, CBC #### [facility] [address] NRBC% 0.1 /100{WBC} Normal 0-0.5 [facility] Comment on above: Performed By: #### H CGQUAL, TSH3, DDIMER, HS TROP, BMP, PT, CK, BNP, PTT, T4F, CBC #### [facility] [address] Creatine kinase [Enzymatic a ctivity/volume] in Serum or PlasmaOrdered By: Terese Sneed on 11-02-2023 CK [Catalytic activity/Vol] 66 U/L Normal 30-223 [facility] Comment on above: Performed By: #### H CGQUAL, TSH3, DDIMER, HS TROP, BMP, PT, CK, BNP, PTT, T4F, CBC #### [address] Creatinine [Mass/volume] in Serum or PlasmaOrdered By: Terese Sneed on 11-02-2023 Creatinine [Mass/Vol] 0.93 mg/dL Normal 0.60-1.20 [facility] Comment on above: Performed By: #### H CGQUAL, TSH3, DDIMER, HS TROP, BMP, PT, CK, BNP, PTT, T4F, CBC #### [address] D-Dimer High Sensitivityon 0 11-02-2023 D-Dimer High Sensitivity < 200 Normal 0-243 [facility] Comment on above: Result Comment: The reference range for D-dimer is <243 ng/mL D-dimer units. D-dimer results must be used in conjunction with a clinical pretest probability (PTP) assessment model for deep vein thrombosis (DVT) and pulmonary embolism (PE). Results <230 ng/mL d-dimer units can be used as a negative predictor in patients with low or moderate probability for DVT/PE. Results above the exclusion threshold of 230 ng/ml D-dimer units for DVT/PE may indicate the need for further diagnostic testing. D-Dimer can be increased in hospitalized patients due to co-morbid conditions. A hematocrit value greater than 55% may lead to inaccurate results in coagulation testing. Patients having hematocrit values >55% require a special collection tube for coagulation studies. Please contact the laboratory at [phone] for redraw instructions. PERFORMED BY: [place] [address] PATHOLOGIST CALCIMINER KIRIT VARGAS M.D. Performed By: #### H CGQUAL, TSH3, DDIMER, HS TROP, BMP, PT, CK, BNP, PTT, T4F, CBC ####[facility] [id number] [place] [id number] [facility] ECG 12 lead ECGon 11-02-2023 ECG 12 lead ECG [facility] [place] [address] [place] [address] Electrocardiograph Report Signed Patient: Becki Messer MR#: [id number] 3 : 1970 Acct:[id number] Age/Sex: 53 / F ADM Date: 11/03/23 Loc: Room: [address] [place] [address] Type: DIS INOo Attending Dr: Denzel Lenz MD Ordering Provider: Terese Sneed MD Date of Service: 11/02/23 ECG/ECG 12 lead ECG: duplicate order Copies to: Test Reason : Blood Pressure : */* mmHG Vent. Rate : 127 BPM Atrial Rate : 127 BPM P-R Int : 136 ms QRS Dur : 96 ms QT Int : 336 ms P-R-T Axes : 61 -24 89 degrees QTcB Int : 488 ms Sinus tachycardia Nonspecific ST and T wave abnormality Abnormal ECG When compared with ECG of 02-Nov-2023 22:05, No significant change was found Confirmed by Terese Sneed MD ([id number]) on 11/03/2023 8:03:59 AM Referred By: Electronically Signed By: Terese Sneed MD REVISED DOCUMENT/11/11/2023/kh (corrected order) Transcribed By: MUS Signed By Terese Sneed MD 04/06 0622 Normal [facility] ECG 12 lead ECG [facility] [address] [place] [address] [place] [address] Electrocardiograph Report Signed Patient: Becki Messer MR#: [id number] 3 : 1970 Acct:[id number] Age/Sex: 53 / F ADM Date: 11/02/23 Loc: ER Room: Type: [facility] ER Attending Dr: Ordering Provider: Terese Sneed MD Date of Service: 11/02/23 ECG/ECG 12 lead ECG: Animal Bite Copies to: Test Reason : Blood Pressure : 176/100 mmHG Vent. Rate : 152 BPM Atrial Rate : 153 BPM P-R Int : * ms QRS Dur : 94 ms QT Int : 346 ms P-R-T Axes : * -21 63 degrees QTcB Int : 550 ms Supraventricular tachycardia Nonspecific ST abnormality Abnormal ECG When compared with ECG of 10-Jul-2022 01:27, Criteria for Septal infarct are no longer present st depression lead II, avf, V4-V6 Confirmed by Terese Sneed MD ([id number]) on 11/03/2023 1:30:27 AM Referred By: Electronically Signed By: Terese Sneed MD Transcribed By: MUS Signed By Terese Sneed MD 10/13 05/07 0130 Normal [facility] Erythrocyte distribution wid th [Ratio] by Automated countOrdered By: Terese Sneed on 11-02-2023 Erythrocyte distribution width (RBC) [Ratio] 16.1 % High 11.9-15.3 [facility] Comment on above: Performed By: #### H CGQUAL, TSH3, DDIMER, HS TROP, BMP, PT, CK, BNP, PTT, T4F, CBC #### [facility] [address] [place] [id number] [place] Erythrocytes [#/volume] in B lood by Automated countOrdered By: Terese Sneed on 11-02-2023 RBC (Bld) [#/Vol] 4.70 10*6/uL Normal 3.60-5.00 [facility] Comment on above: Performed By: #### H CGQUAL, TSH3, DDIMER, HS TROP, BMP, PT, CK, BNP, PTT, T4F, CBC #### [facility] [address] [place] [address] [place] Fibrin D-dimer [Presence] in Platelet poor plasma by Latex agglutinationOrdered By: Terese Sneed on 11-02-2023 Fibrin D-dimer LA Ql (PPP) < 200 ng/mL 0-243 [facility] Comment on above: The reference range for D-dimer is <243 ng/mL D-dimer units.D-dimer results must be used in conjunction with a clinicalpretest probability (PTP) assessment model for deep veinthrombosis (DVT) and pulmonary embolism (PE). Results <230ng/mL d-dimer units can be used as a negative predictor inpatients with low or moderate probability for DVT/PE.Results above the exclusion threshold of 230 ng/ml D-dimerunits for DVT/PE may indicate the need for furtherdiagnostic testing.D-Dimer can be increased in hospitalized patients due toco-morbid conditions.A hematocrit value greater than 55% may lead to inaccurate results in coagulation testing. Patients having hematocrit values >55% require a special collection tube for coagulation studies. Please contact the laboratory at [phone] for redraw instructions. Glucose [Mass/volume] in Ser um or PlasmaOrdered By: Terese Sneed on 11-02-2023 Glucose [Mass/Vol] 240 mg/dL High 70-100 [facility] Comment on above: ADA recommended refe rence rangeRandom Glucose Reference Range is dependent on time and content of last meal. Glucose of more than 200 mg/dL in a nonstressed, ambulatory subject supports the diagnosis of Diabetes Mellitus. Result Comment: [place] Glucose Reference Range is dependent on time and content of last meal. Glucose of more than 200 mg/dL in a nonstressed, ambulatory subject supports the diagnosis of Diabetes Mellitus. ADA recommended reference range Performed By: #### H CGQUAL, TSH3, DDIMER, HS TROP, BMP, PT, CK, BNP, PTT, T4F, CBC #### [facility] [address] [place] [address] [facility] HCG,Qualitative Serumon 10-13 HCG,Qualitative Serum Negative Normal [facility] Comment on above: Result Comment: PERF ORMED BY: [place] [address] PATHOLOGIST CALCIMINER KIRIT VARGAS M.D. Performed By: #### H CGQUAL, TSH3, DDIMER, HS TROP, BMP, PT, CK, BNP, PTT, T4F, CBC ####[facility] HbA1c HPLC (Bld) [Mass fract ion]on 11-02-2023 HbA1c (Bld) [Mass fraction] 6.9 % [facility] Hematocrit [Volume Fraction] of Blood by Automated countOrdered By: Terese Sneed on 11-02-2023 Hematocrit (Bld) [Volume fraction] 36.2 % Normal 34.0-46.4 [facility] Comment on above: Performed By: #### H CGQUAL, TSH3, DDIMER, HS TROP, BMP, PT, CK, BNP, PTT, T4F, CBC #### [address] Hemoglobin [Mass/volume] in BloodOrdered By: Terese Sneed on 11-02-2023 Hemoglobin (Bld) [Mass/Vol] 12.0 g/dL Normal 11.8-15.4 [facility] Comment on above: Performed By: #### H CGQUAL, TSH3, DDIMER, HS TROP, BMP, PT, CK, BNP, PTT, T4F, CBC #### [address] INR in Platelet poor plasma by Coagulation assayOrdered By: Terese Sneed on 11-02-2023 INR Coag (PPP) [Relative time] 1.0 {INR} Normal [facility] Comment on above: INR Therapeutic Rang e A) Pre- and Peroperative OAT started two weeks before surgery. NOT HIP SURGERY: 1.5 - 2.5 HIP SURGERY: 2 - 3B) Primary and secondary prevention of venous THROMBOSIS: 2 - 3C) Active venous thrombosis, pulmonary embolismand prevention of recurrent venous thrombosis: 2 - 3D) Prevention of arterial thromboembolismincluding patients with mechanical heart valves: 3 - 4.5 Result Comment: INR Therapeutic Range A) Pre- and Peroperative OAT started two weeks before surgery. NOT HIP SURGERY: 1.5 - 2.5 HIP SURGERY: 2 - 3 B) Primary and secondary prevention of venous THROMBOSIS: 2 - 3 C) Active venous thrombosis, pulmonary embolism and prevention of recurrent venous thrombosis: 2 - 3 D) Prevention of arterial thromboembolism including patients with mechanical heart valves: 3 - 4.5 Performed By: #### H CGQUAL, TSH3, DDIMER, HS TROP, BMP, PT, CK, BNP, PTT, T4F, CBC ####[facility] [id number] Leukocytes [#/volume] correc danyell for nucleated erythrocytes in Blood by Automated counOrdered By: Terese Sneed on 11-02-2023 WBC corrected for nucl RBC Auto (Bld) [#/Vol] 10.0 10*3/uL 3.8-11.6 [facility] Leukocytes [#/volume] in Blo od by Automated countOrdered By: Terese Sneed on 11-02-2023 WBC (Bld) [#/Vol] 10.0 10*3/uL Normal 3.8-11.6 [facility] Comment on above: Performed By: #### H CGQUAL, TSH3, DDIMER, HS TROP, BMP, PT, CK, BNP, PTT, T4F, CBC #### [facility] [address] [place] [address] [place] Lymphocytes [#/volume] in Bl ood by Automated countOrdered By: Terese Sneed on 11-02-2023 Lymphocytes (Bld) [#/Vol] 2.7 10*3/uL Normal 1.00-4.8 [facility] Comment on above: Performed By: #### H CGQUAL, TSH3, DDIMER, HS TROP, BMP, PT, CK, BNP, PTT, T4F, CBC #### [facility] [address] [place] [address] [place] Lymphocytes/100 leukocytes i n Blood by Automated countOrdered By: Terese Sneed on 11-02-2023 Lymphocytes/100 WBC (Bld) 27.3 % Normal . [facility] Comment on above: Performed By: #### H CGQUAL, TSH3, DDIMER, HS TROP, BMP, PT, CK, BNP, PTT, T4F, CBC #### [facility] [address] [place] [address] MCH [Entitic mass] by Automa danyell countOrdered By: Terese Sneed on 11-02-2023 MCH (RBC) [Entitic mass] 25.5 pg Normal 24.7-34.3 [facility] Comment on above: Performed By: #### H CGQUAL, TSH3, DDIMER, HS TROP, BMP, PT, CK, BNP, PTT, T4F, CBC #### [facility] [address] [place] [address] MCHC Auto (RBC) [Mass/Vol]Or dered By: Terese Sneed on 11-02-2023 MCHC (RBC) [Mass/Vol] 33.1 g/dL 32.0-35.0 [facility] MCV [Entitic volume] by Auto mated countOrdered By: Terese Sneed on 11-02-2023 MCV (RBC) [Entitic vol] 77.0 fL Low 80-100 [facility] Comment on above: Performed By: #### H CGQUAL, TSH3, DDIMER, HS TROP, BMP, PT, CK, BNP, PTT, T4F, CBC #### [address] Monocyte distribution width [Entitic volume] in Blood by AutomatedOrdered By: Terese Sneed on 11-02-2023 Monocyte distribution width Auto (Bld) [Entitic vol] 21.09 % High 0.00-20.00 [facility] Comment on above: For adults in ED, MD W > 20.0 may be associated with a higher risk of sepsis during the first 12 hrs of hospital admission Neutrophils [#/volume] in Bl ood by Automated countOrdered By: Terese Sneed on 11-02-2023 Neutrophils (Bld) [#/Vol] 6.8 10*3/uL Normal 1.8-7.7 [facility] Comment on above: Performed By: #### H CGQUAL, TSH3, DDIMER, HS TROP, BMP, PT, CK, BNP, PTT, T4F, CBC #### [facility] [address] No Panel InformationOrdered By: Terese Sneed on 11-02-2023 Estimated GFR (CKD-EPI) > 60.0 mL/Min [facility] Creatinine Clearance (Chem 101.41 [facility] No Panel Informationon 11-01 Bedside Glucose 175 [facility] Nucleated erythrocytes [Pres ence] in Blood by Automated countOrdered By: Terese Sneed on 11-02-2023 Nucleated RBC Auto Ql (Bld) 0.1 /100{WBC} 0-0.5 [facility] Partial Thromboplastin Timeo n 11-02-2023 aPTT Coag (Bld) [Time] 27.9 s Normal 25.1-36.5 Th e [facility] Comment on above: Result Comment: A he matocrit value greater than 55% may lead to inaccurate results in coagulation testing. Patients having hematocrit values >55% require a special collection tube for coagulation studies. Please contact the laboratory at [phone] for redraw instructions. Performed By: #### H CGQUAL, TSH3, DDIMER, HS TROP, BMP, PT, CK, BNP, PTT, T4F, CBC ####[facility] [id number] Platelet mean volume [Entiti c volume] in Blood by Automated countOrdered By: Terese Sneed on 11-02-2023 Platelet mean volume (Bld) [Entitic vol] 7.9 fL Normal 6.3-10.7 [facility] Comment on above: Performed By: #### H CGQUAL, TSH3, DDIMER, HS TROP, BMP, PT, CK, BNP, PTT, T4F, CBC #### [facility] [address] Platelets [#/volume] in Bloo d by Automated countOrdered By: Terese Sneed on 11-02-2023 Platelets (Bld) [#/Vol] 219 10*3/uL Normal 150-450 [facility] Comment on above: Performed By: #### H CGQUAL, TSH3, DDIMER, HS TROP, BMP, PT, CK, BNP, PTT, T4F, CBC #### [facility] [address] Potassium [Moles/volume] in Serum or PlasmaOrdered By: Terese Sneed on 11-02-2023 Potassium [Moles/Vol] 3.9 mmol/L Normal 3.5-5.1 [facility] Comment on above: Performed By: #### H CGQUAL, TSH3, DDIMER, HS TROP, BMP, PT, CK, BNP, PTT, T4F, CBC #### [facility] [address] Prothrombin time (PT)Ordered By: Terese Sneed on 11-02-2023 PT Coag (PPP) [Time] 11.9 s Normal 9.0-12.9 [facility] Comment on above: A hematocrit value g reater than 55% may lead to inaccurate results in coagulation testing. Patients having hematocrit values >55% require a special collection tube for coagulation studies. Please contact the laboratory at [phone] for redraw instructions. Result Comment: A he matocrit value greater than 55% may lead to inaccurate results in coagulation testing. Patients having hematocrit values >55% require a special collection tube for coagulation studies. Please contact the laboratory at [phone] for redraw instructions. Performed By: #### H CGQUAL, TSH3, DDIMER, HS TROP, BMP, PT, CK, BNP, PTT, T4F, CBC ####[facility] Serum or plasma anion gap de terminationOrdered By: Terese Sneed on 11-02-2023 Anion gap [Moles/Vol] 11.7 mmol/L Normal 6.0-15.0 [facility] Comment on above: Performed By: #### H CGQUAL, TSH3, DDIMER, HS TROP, BMP, PT, CK, BNP, PTT, T4F, CBC #### [facility] [address] Sodium [Moles/volume] in Ser um or PlasmaOrdered By: Terese Sneed on 11-02-2023 Sodium [Moles/Vol] 138 mmol/L Normal 136-145 [facility] Comment on above: Performed By: #### H CGQUAL, TSH3, DDIMER, HS TROP, BMP, PT, CK, BNP, PTT, T4F, CBC #### [facility] [address] Thyrotropin [Units/volume] i n Serum or PlasmaOrdered By: Terese Sneed on 11-02-2023 TSH Qn 5.24 m[IU]/L Normal 0.45-5.33 [facility] Comment on above: Performed By: #### H CGQUAL, TSH3, DDIMER, HS TROP, BMP, PT, CK, BNP, PTT, T4F, CBC ####[facility] [id number] Thyroxine (T4) free [Mass/vo lume] in Serum or PlasmaOrdered By: Terese Sneed on 11-02-2023 Free T4 [Mass/Vol] 0.76 ng/dL Normal 0.61-1.12 [facility] Comment on above: Performed By: #### H CGQUAL, TSH3, DDIMER, HS TROP, BMP, PT, CK, BNP, PTT, T4F, CBC ####[facility] [id number] Troponin I High Sensitivityo n 11-02-2023 Troponin I High Sensitivity 7.0 pg/mL Normal 0.0-15.0 [facility] Comment on above: Result Comment: PERF ORMED BY: [place] [address] PATHOLOGIST CALCIMINER KIRIT VARGAS M.D. Performed By: #### H CGQUAL, TSH3, DDIMER, HS TROP, BMP, PT, CK, BNP, PTT, T4F, CBC #### [facility] [address] Urea nitrogen [Mass/volume] in Serum or PlasmaOrdered By: Terese Sneed on 11-02-2023 Urea nitrogen [Mass/Vol] 12 mg/dL Normal 7-25 [facility] Comment on above: Performed By: #### H CGQUAL, TSH3, DDIMER, HS TROP, BMP, PT, CK, BNP, PTT, T4F, CBC #### [facility] [address] [place] [id number] [place] A1C HEMOGLOBINon 04-20-2023 HbA1c (Bld) [Mass fraction] 7.0 % [employer] Other Glucose - FINGER STICKon Glucose [Mass/Vol] 119 mg/dL [facility] [employer] Other HbA1c (Bld) [Mass fraction]o n 04-20-2023 A1C HEMOGLOBIN [facility] [employer] Other MM screening mammo BI w/CADo n 02-04-2023 MM screening mammo BI w/CAD [facility] [place] [address] [place] [id number] Mammography Report Signed Patient: Becki Messer MR#: [id number] 3 : 1970 Acct:[id number] Age/Sex: 52 / F ADM Date: 02/04/23 Loc: [place] Room: Type: [facility] Attending Dr: Referral Self Copies to: Hal Harry, SELF,REFERRAL Ordering Provider: SELF,REFERRAL Date of Service: 02/04/23 MM/MM screening mammo BI w/CAD: SCREENING CLINICAL DATA: Screening for malignancy. SCREENING MAMMOGRAM - FULL FIELD DIGITAL WITH TOMOSYNTHESIS AND CAD COMPARISON:Mammograms dating back to 2018 Tomosynthesis craniocaudal and mediolateral oblique views of both breasts were obtained using low- dose digital technique. This examination was reviewed with the aid of CAD. The breast tissue is composed of scattered fibroglandular densities. There are no dominant masses, typically malignant calcifications or architectural distortion. There has been no significant interval change. MM/MM screening mammo BI w/CAD IMPRESSION: NO MAMMOGRAPHIC EVIDENCE OF MALIGNANCY. ROUTINE FOLLOW-UP IS RECOMMENDED IN ONE YEAR. RESULT CODE: 1 Negative DENSITY CODE: 2 (approximately 25-50% glandular) FOLLOW UP: 1YR The false-negative rate of mammography is approximately 10-percent. Management of a palpable abnormality must be based on clinical grounds. Patient was entered into a reminder system with a target due date for the next mammogram. Impression dictated by: Nitesh Brantley Jr., D.O.02/04/2023 10:06 AM Dictation Location: [facility] Transcribed By: [facility] 02/04/23 1006 Dictated By: Nitesh Brantley Jr, DO 02/04/23 1002 Signed By: 02/04/23 1006 Normal [facility] Alanine aminotransferase [En zymatic activity/volume] in Serum or PlasmaOrdered By: Redd Morales on 12-17-2022 ALT [Catalytic activity/Vol] 36 U/L 7-52 [facility] Albumin [Mass/volume] in Ser um or Plasma by Bromocresol green (BCG) dye binding methoOrdered By: Redd Morales on 12-17-2022 Albumin BCG dye [Mass/Vol] 3.9 g/dL 3.5-5.7 [facility] Alkaline phosphatase [Enzyma tic activity/volume] in Serum or PlasmaOrdered By: Redd Morales on 12-17-2022 ALP [Catalytic activity/Vol] 57 U/L 34-104 [facility] Aspartate aminotransferase [ Enzymatic activity/volume] in Serum or PlasmaOrdered By: Redd Morales on 12-17-2022 AST [Catalytic activity/Vol] 27 U/L 13-39 [facility] Basophils Auto (Bld) [#/Vol] Ordered By: Redd Morales on 12-17-2022 Basophils (Bld) [#/Vol] 0.0 10*3/uL 0.0-0.2 [facility] Basophils/100 WBC Auto (Bld) Ordered By: Redd Morales on 12-17-2022 Basophils/100 WBC (Bld) 0.3 % . [facility] Bilirubin.total [Mass/volume ] in Serum or PlasmaOrdered By: Redd Morales on 12-17-2022 Bilirubin [Mass/Vol] 0.4 mg/dL 0.3-1.0 [facility] Calcium [Mass/volume] in Ser um or PlasmaOrdered By: Redd Morales on 12-17-2022 Calcium [Mass/Vol] 8.6 mg/dL 8.6-10.3 [facility] Carbon dioxide, total [Moles /volume] in Serum or PlasmaOrdered By: Redd Morales on 12-17-2022 CO2 [Moles/Vol] 29.1 mmol/L 21.0-31.0 [facility] Chloride [Moles/volume] in S roxie or PlasmaOrdered By: Redd Morales on 12-17-2022 Chloride [Moles/Vol] 101 mmol/L 98-107 [facility] Cholesterol [Mass/volume] in Serum or PlasmaOrdered By: Redd Morales on 12-17-2022 Cholesterol [Mass/Vol] 158 mg/dL 140-200 [facility] Comment on above: Chol less than 200 m g/dl low riskChol 201-239 mg/dl borderline riskChol 240 mg/dl and greater high risk Cholesterol in LDL Calc [Mas s/Vol]Ordered By: Redd Morales on 12-17-2022 Cholesterol in LDL [Mass/Vol] 80 mg/dL 0-100 [facility] Comment on above: LDL ATP III CLASSIFI CATIONLDL less than 100 mg/dL OptimalLDL 100-129 mg/dL Near or above optimalLDL 130-159 mg/dL Borderline highLDL 160-189 mg/dL HighLDL greater than 189 mg/dL Very high Cholesterol in VLDL Calc [Ma ss/Vol]Ordered By: Redd Morales on 12-17-2022 Cholesterol in VLDL [Mass/Vol] 41 mg/dL [facility] Creatinine [Mass/volume] in Serum or PlasmaOrdered By: Redd Morales on 12-17-2022 Creatinine [Mass/Vol] 0.77 mg/dL 0.60-1.20 [facility] Eosinophils Auto (Bld) [#/Vo l]Ordered By: Redd Morales on 12-17-2022 Eosinophils (Bld) [#/Vol] 0.0 10*3/uL 0.0-0.45 [facility] Eosinophils/100 WBC Auto (Bl d)Ordered By: Redd Morales on 12-17-2022 Eosinophils/100 WBC (Bld) 0.2 % . [facility] Erythrocyte distribution wid th Auto (RBC) [Ratio]Ordered By: Redd Morales on 12-17-2022 Erythrocyte distribution width (RBC) [Ratio] 15.9 % 11.9-15.3 [facility] Globulin Calc (S) [Mass/Vol] Ordered By: Redd Morales on 12-17-2022 Globulin (S) [Mass/Vol] 3.0 g/dL [facility] Glucose [Mass/volume] in Ser um or PlasmaOrdered By: Redd Morales on 12-17-2022 Glucose [Mass/Vol] 123 mg/dL 70-100 [facility] Comment on above: ADA recommended refe rence range Glucose mean value [Mass/vol ume] in Blood Estimated from glycated hemoglobinOrdered By: Redd Morales on 12-17-2022 Average glucose Estimated from glycated hemoglobin (Bld) [Mass/Vol] 154 mg/dL [facility] Hematocrit Auto (Bld) [Volum e fraction]Ordered By: Redd Morales on 12-17-2022 Hematocrit (Bld) [Volume fraction] 37.1 % 34.0-46.4 [facility] Hemoglobin [Mass/volume] in BloodOrdered By: Redd Morales on 12-17-2022 Hemoglobin (Bld) [Mass/Vol] 12.2 g/dL 11.8-15.4 [facility] Laboratory - Hematology and Cell countsOrdered By: Redd Morales on 12-17-2022 HbA1c (Bld) [Mass fraction] 7.0 % 4.3-5.6 [facility] Comment on above: Increased risk for d iabetes: 5.7 - 6.4diabetes: >6.4glycemic control for adults with diabetes: <7.0 Leukocytes [#/volume] correc danyell for nucleated erythrocytes in Blood by Automated counOrdered By: Redd Morales on 12-17-2022 WBC corrected for nucl RBC Auto (Bld) [#/Vol] 9.6 10*3/uL 3.8-11.6 [facility] Lymphocytes Auto (Bld) [#/Vo l]Ordered By: Redd Morales on 12-17-2022 Lymphocytes (Bld) [#/Vol] 2.8 10*3/uL 1.00-4.8 [facility] Lymphocytes/100 WBC Auto (Bl d)Ordered By: Redd Morales on 12-17-2022 Lymphocytes/100 WBC (Bld) 29.2 % . [facility] MCH Auto (RBC) [Entitic mass ]Ordered By: Redd Morales on 12-17-2022 MCH (RBC) [Entitic mass] 25.6 pg 24.7-34.3 [facility] MCHC Auto (RBC) [Mass/Vol]Or dered By: Redd Morales on 12-17-2022 MCHC (RBC) [Mass/Vol] 32.8 g/dL 32.0-35.0 [facility] MCV Auto (RBC) [Entitic vol] Ordered By: Redd Morales on 12-17-2022 MCV (RBC) [Entitic vol] 78.2 fL 80-100 [facility] Monocytes Auto (Bld) [#/Vol] Ordered By: Redd Morales on 12-17-2022 Monocytes (Bld) [#/Vol] 0.5 10*3/uL 0.0-0.8 [facility] Monocytes/100 WBC Auto (Bld) Ordered By: Redd Morales on 12-17-2022 Monocytes/100 WBC (Bld) 5.2 % . [facility] Neutrophils Auto (Bld) [#/Vo l]Ordered By: Redd Morales on 12-17-2022 Neutrophils (Bld) [#/Vol] 6.3 10*3/uL 1.8-7.7 [facility] Neutrophils/100 WBC Auto (Bl d)Ordered By: Redd Morales on 12-17-2022 Neutrophils/100 WBC (Bld) 65.1 % . [facility] No Panel InformationOrdered By: Redd Morales on 12-17-2022 Estimated GFR (CKD-EPI) > 60.0 mL/Min [facility] Nicotine Metabolite Negative Cutoff=25 [facility] Comment on above: Performed at: [address] [id number] Director: Don Camargo MD, Phone: [phone] Pharmacy Creatinine Clearance (Chem N/A [facility] Nucleated erythrocytes [Pres ence] in Blood by Automated countOrdered By: Redd Morales on 12-17-2022 Nucleated RBC Auto Ql (Bld) 0.1 /100{WBC} 0-0.5 [facility] Platelet mean volume Auto (B ld) [Entitic vol]Ordered By: Redd Morales on 12-17-2022 Platelet mean volume (Bld) [Entitic vol] 8.3 fL 6.3-10.7 [facility] Platelets Auto (Bld) [#/Vol] Ordered By: Redd Morales on 12-17-2022 Platelets (Bld) [#/Vol] 209 10*3/uL 150-450 [facility] Potassium [Moles/volume] in Serum or PlasmaOrdered By: Redd Morales on 12-17-2022 Potassium [Moles/Vol] 4.3 mmol/L 3.5-5.1 [facility] Protein [Mass/volume] in Ser um or PlasmaOrdered By: Redd Morales on 12-17-2022 Protein [Mass/Vol] 6.9 g/dL 6.4-8.9 [facility] RBC Auto (Bld) [#/Vol]Ordere d By: Redd Morales on 12-17-2022 RBC (Bld) [#/Vol] 4.74 10*6/uL 3.60-5.00 [facility] Serum or plasma albumin/glob ulin mass ratioOrdered By: Redd Morales on 12-17-2022 Albumin/Globulin [Mass ratio] 1.3 {ratio} [facility] Serum or plasma anion gap de terminationOrdered By: Redd Morales on 12-17-2022 Anion gap [Moles/Vol] 13.2 mmol/L 6.0-15.0 [facility] Serum or plasma high density lipoprotein (HDL) cholesterol measurementOrdered By: Redd Morales on 12-17-2022 Cholesterol in HDL [Mass/Vol] 37 mg/dL 23-92 [facility] Comment on above: HDL CHOL ATP-III CLA SSIFICATION Cardiovascular RiskHDL > or equal to 60 mg/dL LOWHDL < 40 mg/dL HIGH Serum or plasma total choles terol/high density lipoprotein (HDL) cholesterol mass ratOrdered By: Redd Morales on 12-17-2022 Cholesterol.total/Chol esterol in HDL [Mass ratio] 4.3 {ratio} <5.0 [facility] Sodium [Moles/volume] in Ser um or PlasmaOrdered By: Redd Morales on 12-17-2022 Sodium [Moles/Vol] 139 mmol/L 136-145 [facility] Thyrotropin [Units/volume] i n Serum or PlasmaOrdered By: Redd Morales on 12-17-2022 TSH Qn 3.57 m[IU]/L 0.45-5.33 [facility] Triglyceride [Mass/volume] i n Serum or PlasmaOrdered By: Redd Morales on 12-17-2022 Triglyceride [Mass/Vol] 207 mg/dL 0-149 [facility] Comment on above: TRIG ATP III CLASSIF ICATIONTRIG less than 150 mg/dL NormalTRIG 150-199 mg/dL Borderline highTRIG 200-500 mg/dL High TRIG greater than 500 mg/dL Very highStandard traceable to the Center for Disease Conrtrol and Prevention (CDC) test method. Urea nitrogen [Mass/volume] in Serum or PlasmaOrdered By: Redd Morales on 12-17-2022 Urea nitrogen [Mass/Vol] 11 mg/dL 7-25 [facility] WBC Auto (Bld) [#/Vol]Ordere d By: Redd Morales on 12-17-2022 WBC (Bld) [#/Vol] 9.6 10*3/uL 3.8-11.6 [facility] A1C HEMOGLOBINon 11-03-2022 HbA1c (Bld) [Mass fraction] 6.8 % [employer] Other Glucose - FINGER STICKon Glucose [Mass/Vol] 134 mg/dL [employer] Other HbA1c (Bld) [Mass fraction]o n 11-03-2022 A1C HEMOGLOBIN [employer] Other Creatinine [Mass/volume] in UrineOrdered By: Dex Mcclellan on 11-02-2022 Creatinine (U) [Mass/Vol] 134.0 mg/dL 11.0-20.0 [facility] Microalbumin [Mass/volume] i n UrineOrdered By: Dex Mcclellan on 11-02-2022 Albumin DL <= 20 mg/L (U) [Mass/Vol] 0.9 mg/dL 0.0-1.8 [facility] Urine microalbumin/creatinin e mass ratioOrdered By: Pbdra Mcclellan on 11-02-2022 Albumin/Creatinine DL <= 20 mg/L (U) [Mass ratio] 6.0 mg/g 0.0-30.0 [facility] Comment on above: 30-300 mg/g indicate s an increased risk for diabetic nephropathy. Greater than 300 mg/g is consistent with clinical nephropathy. (Am. J. Kidney Disease 1995, 25:107) Vitamin B12 ser/plasOrdered By: Dex Mcclellan on 11-02-2022 Cobalamin (Vitamin B12) [Mass/Vol] 322 pg/mL 180-914 [facility] A1C HEMOGLOBINon 02-10-2022 HbA1c (Bld) [Mass fraction] 6.7 % [facility] [employer] Other Glucose - FINGER STICKon Glucose [Mass/Vol] 141 mg/dL [facility] [employer] Other HbA1c (Bld) [Mass fraction]o n 02-10-2022 A1C HEMOGLOBIN [facility] [employer] Other PAP ACOG PANEL 2: 30 to 65on 01-17-2022 . . Normal [facility] Comment on above: Result Comment: Perf ormed at: BA Performed By: #### [id number] #### [facility] [address] [place] [address] Dr. Jaron Yu Age Gdln ACOG Testing 30-65 Normal [facility] Comment on above: Performed By: #### [id number] #### [facility] [address] [address] [address] Jaron Yu DIAGNOSIS: Comment [facility] Comment on above: Result Comment: NEGA TIVE FOR INTRAEPITHELIAL LESION OR MALIGNANCY. CELLULAR CHANGES ASSOCIATED WITH ATROPHY ARE PRESENT. Performed at: BA Performed By: #### [id number] #### [facility] [address] [place] [address] Dr. Jaron Yu HPV Aptima Negative Normal Negative [facility] Comment on above: Result Comment: This nucleic acid amplification test detects fourteen high-risk HPV types (16,18,31,33,35,39,45,51,52,56,58,59,66,68) without differentiation. Performed at: =G Performed By: #### [id number] #### [facility] [address] [place] [address] Dr. Jaron Yu HPV Genotype Reflex Comment Normal [facility] Comment on above: Result Comment: Crit eria not met, HPV Genotype not performed. Performed at: BA Performed By: #### [id number] #### [facility] [address] [place] [address] Dr. Jaron Yu Methodology: Comment Normal [facility] Comment on above: Result Comment: This liquid based ThinPrep(R) pap test was screened with the use of an image guided system. Performed at: WB Performed By: #### [id number] #### [facility] [address] [place] [address] Dr. Jaron Yu Note: Comment Normal [facility] Comment on above: Result Comment: The Pap smear is a screening test designed to aid in the detection of premalignant and malignant conditions of the uterine cervix. It is not a diagnostic procedure and should not be used as the sole means of detecting cervical cancer. Both false-positive and false-negative reports do occur. . Performed at: WB Performed By: #### [id number] #### [facility] [address] [place] [address] Dr. Jaron Yu Performed by: Comment Normal [facility] Comment on above: Result Comment: Ev Bey, Peanut Butter Maker Performed at: BA Performed By: #### [id number] #### [facility] [address] [place] [address] Dr. Jaron Yu Specimen adequacy: Comment Normal [facility] Comment on above: Result Comment: Sati sfactory for evaluation. No endocervical component is identified. Performed at: BA Performed By: #### [id number] #### [facility] [address] [place], [place] [address] Dr. Jaron Yu Albumin [Mass/volume] in Ser um or PlasmaOrdered By: Redd Morales on 12-04-2021 Albumin [Mass/Vol] 3.5 g/dL 3.2-5.5 [facility] Basophils Auto (Bld) [#/Vol] Ordered By: Redd Morales on 12-04-2021 Basophils (Bld) [#/Vol] 0.0 10*3/uL 0.0-0.2 [facility] Basophils/100 WBC Auto (Bld) Ordered By: Redd Morales on 12-04-2021 Basophils/100 WBC (Bld) 0.4 % . [facility] Blood hemoglobin measurement (mass/volume)Ordered By: Redd Morales on 12-04-2021 Hemoglobin (Bld) [Mass/Vol] 12.8 g/dL 11.8-15.4 [facility] Blood leukocytes automated c ount (number/volume)Ordered By: Redd Morales on 12-04-2021 WBC (Bld) [#/Vol] 9.0 10*3/uL 4.5-11.0 [facility] Cholesterol [Mass/volume] in Serum or PlasmaOrdered By: Redd Morales on 12-04-2021 Cholesterol [Mass/Vol] 184 mg/dL 140-200 [facility] Comment on above: Chol less than 200 m g/dl low risk Chol 201-239 mg/dl borderline risk Chol 240 mg/dl and greater high risk Cholesterol in LDL Calc [Mas s/Vol]Ordered By: Redd Morales on 12-04-2021 Cholesterol in LDL [Mass/Vol] 107 mg/dL 0-100 [facility] Comment on above: LDL ATP III CLASSIFI CATION LDL less than 100 mg/dL Optimal LDL 100-129 mg/dL Near or above optimal LDL 130-159 mg/dL Borderline high LDL 160-189 mg/dL High LDL greater than 189 mg/dL Very high Cholesterol in VLDL Calc [Ma ss/Vol]Ordered By: Redd Morales on 12-04-2021 Cholesterol in VLDL [Mass/Vol] 40 mg/dL [facility] Creatinine [Mass/volume] in UrineOrdered By: Dex Mcclellan on 12-04-2021 Creatinine (U) [Mass/Vol] 149.8 mg/dL [facility] Comment on above: No reference range e stablished Creatinine and Glomerular fi ltration rate.predicted panel (S/P/Bld)Ordered By: Redd Morales on 12-04-2021 Creatinine [Mass/Vol] 0.82 mg/dL 0.44-1.03 [facility] Eosinophils Auto (Bld) [#/Vo l]Ordered By: Redd Morales on 12-04-2021 Eosinophils (Bld) [#/Vol] 0.0 10*3/uL 0.0-0.45 [facility] Eosinophils/100 WBC Auto (Bl d)Ordered By: Redd Morales on 12-04-2021 Eosinophils/100 WBC (Bld) 0.1 % . [facility] Erythrocyte distribution wid th Auto (RBC) [Ratio]Ordered By: Redd Morales on 12-04-2021 Erythrocyte distribution width (RBC) [Ratio] 16.0 % 11.9-15.3 [facility] Estimated glomerular filtrat ion rate (GFR) non- AmericanOrdered By: Redd Morales on 12-04-2021 GFR/1.73 sq M.predicted among non-blacks MDRD (S/P/Bld) [Vol rate/Area] > 60 mL/Min [facility] Globulin Calc (S) [Mass/Vol] Ordered By: Redd Morales on 12-04-2021 Globulin (S) [Mass/Vol] 3.4 g/dL [facility] Glucose mean value [Mass/vol ume] in Blood Estimated from glycated hemoglobinOrdered By: Redd Morales on 12-04-2021 Average glucose Estimated from glycated hemoglobin (Bld) [Mass/Vol] 146 mg/dL [facility] Hematocrit Auto (Bld) [Volum e fraction]Ordered By: Redd Morales on 12-04-2021 Hematocrit (Bld) [Volume fraction] 39.2 % 34.0-46.4 [facility] Laboratory - Chemistry and C hemistry - challengeOrdered By: Dex Mcclellan on 12-04-2021 Cobalamin (Vitamin B12) [Mass/Vol] 1181 pg/mL 180-914 [facility] - Chemistry and C hemistry - challengeOrdered By: Redd Morales on 12-04-2021 Glucose [Mass/Vol] 129 mg/dL 70-100 [facility] Comment on above: ADA recommended refe rence range Laboratory - Hematology and Cell countsOrdered By: Redd Morales on 12-04-2021 HbA1c (Bld) [Mass fraction] 6.7 % 4.3-5.6 [facility] Comment on above: Increased risk for d iabetes: 5.7 - 6.4 diabetes: >6.4 glycemic control for adults with diabetes: <7.0 Nucleated RBC/100 WBC (Bld) [Ratio] 0.1 % 0-0.5 [facility] Lymphocytes Auto (Bld) [#/Vo l]Ordered By: Redd Morales on 12-04-2021 Lymphocytes (Bld) [#/Vol] 2.3 10*3/uL 1.00-4.8 [facility] Lymphocytes/100 WBC Auto (Bl d)Ordered By: Redd Morales on 12-04-2021 Lymphocytes/100 WBC (Bld) 25.7 % . [facility] MCH Auto (RBC) [Entitic mass ]Ordered By: Redd Morales on 12-04-2021 MCH (RBC) [Entitic mass] 25.5 pg 24.7-34.3 [facility] MCHC Auto (RBC) [Mass/Vol]Or dered By: Redd Morales on 12-04-2021 MCHC (RBC) [Mass/Vol] 32.5 g/dL 32.0-35.0 [facility] MCV Auto (RBC) [Entitic vol] Ordered By: Redd Morales on 12-04-2021 MCV (RBC) [Entitic vol] 78.3 fL 80-100 [facility] Monocyte %Ordered By: Redd Morales on 12-04-2021 Monocyte % 200 mg/dL 35-149 [facility] Comment on above: TRIG ATP III CLASSIF ICATION TRIG less than 150 mg/dL Normal TRIG 150-199 mg/dL Borderline high TRIG 200-500 mg/dL High TRIG greater than 500 mg/dL Very high Standard traceable to the Center for Disease Conrtrol and Prevention (CDC) test method. Monocytes Auto (Bld) [#/Vol] Ordered By: Redd Morales on 12-04-2021 Monocytes (Bld) [#/Vol] 0.5 10*3/uL 0.0-0.8 [facility] Monocytes/100 WBC Auto (Bld) Ordered By: Redd Morales on 12-04-2021 Monocytes/100 WBC (Bld) 5.7 % . [facility] Neutrophils Auto (Bld) [#/Vo l]Ordered By: Redd Morales on 12-04-2021 Neutrophils (Bld) [#/Vol] 6.1 10*3/uL 1.8-7.7 [facility] Neutrophils/100 WBC Auto (Bl d)Ordered By: Redd Morales on 12-04-2021 Neutrophils/100 WBC (Bld) 68.1 % . [facility] No Panel InformationOrdered By: Redd Morales on 12-04-2021 Estimated GFR () > 60 mL/Min [facility] Comment on above: GFR estimated refere nce range: According to KDOQI guidelines, <60 ml/min/1.73m2 is sufficient to diagnose a patient with chronic kidney disease. Pharmacy Creatinine Clearance (Chem N/A [facility] Platelet mean volume Auto (B ld) [Entitic vol]Ordered By: Redd Morales on 12-04-2021 Platelet mean volume (Bld) [Entitic vol] 8.6 fL 6.3-10.7 [facility] Platelets Auto (Bld) [#/Vol] Ordered By: Redd Morales on 12-04-2021 Platelets (Bld) [#/Vol] 245 10*3/uL 150-450 [facility] Protein [Mass/volume] in Ser um or PlasmaOrdered By: Redd Morales on 12-04-2021 Protein [Mass/Vol] 6.9 g/dL 6.1-7.9 [facility] RBC Auto (Bld) [#/Vol]Ordere d By: Redd Morales on 12-04-2021 RBC (Bld) [#/Vol] 5.01 10*6/uL 3.60-5.00 [facility] Serum or plasma alanine marmolejo otransferase measurement without P-5'-P (enzymatic activiOrdered By: Redd Morales on 12-04-2021 ALT No additional P-5'-P [Catalytic activity/Vol] 37 U/L 10-60 [facility] Serum or plasma albumin/glob ulin mass ratioOrdered By: Redd Morales on 12-04-2021 Albumin/Globulin [Mass ratio] 1.0 {ratio} [facility] Serum or plasma alkaline ana sphatase measurement (enzymatic activity/volume)Ordered By: Redd Morales on 12-04-2021 ALP [Catalytic activity/Vol] 67 U/L 32-92 [facility] Serum or plasma anion gap de terminationOrdered By: Redd Morales on 12-04-2021 Anion gap [Moles/Vol] 16.8 mmol/L 6.0-15.0 [facility] Serum or plasma aspartate am inotransferase measurement (enzymatic activity/volume)Ordered By: Redd Morales on 12-04-2021 AST [Catalytic activity/Vol] 27 U/L 10-42 [facility] Serum or plasma calcium art urement (mass/volume)Ordered By: Redd Morales on 12-04-2021 Calcium [Mass/Vol] 9.5 mg/dL 8.2-10.2 [facility] Serum or plasma chloride cheko surement (moles/volume)Ordered By: Redd Morales on 12-04-2021 Chloride [Moles/Vol] 97 mmol/L 95-114 [facility] Serum or plasma high density lipoprotein (HDL) cholesterol measurementOrdered By: Redd Morales on 12-04-2021 Cholesterol in HDL [Mass/Vol] 37 mg/dL 35-85 [facility] Comment on above: HDL CHOL ATP-III CLA SSIFICATION Cardiovascular Risk HDL > or equal to 60 mg/dL LOW HDL < 40 mg/dL HIGH Serum or plasma potassium me asurement (moles/volume)Ordered By: eRdd Morales on 12-04-2021 Potassium [Moles/Vol] 4.2 mmol/L 3.5-5.1 [facility] Serum or plasma sodium measu rement (moles/volume)Ordered By: Redd Morales on 12-04-2021 Sodium [Moles/Vol] 138 mmol/L 136-146 [facility] Serum or plasma total biliru bin measurement (mass/volume)Ordered By: Redd Morales on 12-04-2021 Bilirubin [Mass/Vol] 0.4 mg/dL 0.3-1.2 [facility] Serum or plasma total carbon dioxide measurement (moles/volume)Ordered By: Redd Morales on 12-04-2021 CO2 [Moles/Vol] 28.4 mmol/L 22.0-30.0 [facility] Serum or plasma total choles terol/high density lipoprotein (HDL) cholesterol mass ratOrdered By: Redd Morales on 12-04-2021 Cholesterol.total/Chol esterol in HDL [Mass ratio] 5.0 {ratio} <5.0 [facility] Serum or plasma urea nitroge n measurement (mass/volume)Ordered By: Redd Morales on 12-04-2021 Urea nitrogen [Mass/Vol] 10 mg/dL 12-04 [facility] TSH DL <= 0.005 mIU/L QnOrde red By: Redd Morales on 12-04-2021 TSH Qn 3.10 m[IU]/L 0.45-5.33 [facility] Urine microalbumin measureme nt with detection limit of 20 mg/L or less (mass/volume)Ordered By: Dex Mcclellan on 12-04-2021 Albumin DL <= 20 mg/L (U) [Mass/Vol] 0.4 mg/dL 0.0-1.8 [facility] Urine microalbumin/creatinin e mass ratioOrdered By: Dex Mcclellan on 12-04-2021 Albumin/Creatinine DL <= 20 mg/L (U) [Mass ratio] 2.0 mg/g 0.0-30.0 [facility] Comment on above: 30-300 mg/g indicate s an increased risk for diabetic nephropathy. Greater than 300 mg/g is consistent with clinical nephropathy. (Am. J. Kidney Disease 1995, 25:107) Urine culture routineOrdered By: KRISTINE PARK on 10-31-2021 Bacteria identified Cx Nom (U) 2 Days [facility] Albumin [Mass/volume] in Ser um or PlasmaOrdered By: PROVIDER TEMP on 10-29-2021 Albumin [Mass/Vol] 3.6 g/dL 3.2-5.5 [facility] Automated erythrocytes count in urine sediment (number/area)Ordered By: PROVIDER TEMP on 10-29-2021 RBC Auto (Urine sed) [#/Area] 5-9 [HPF] 0-4 [facility] Automated leukocytes count i n urine sediment (number/area)Ordered By: PROVIDER TEMP on 10-29-2021 WBC Auto (Urine sed) [#/Area] 10-19 [HPF] 0-4 [facility] Basophils Auto (Bld) [#/Vol] Ordered By: PROVIDER TEMP on 10-29-2021 Basophils (Bld) [#/Vol] 0.0 10*3/uL 0.0-0.2 [facility] Basophils/100 WBC Auto (Bld) Ordered By: PROVIDER TEMP on 10-29-2021 Basophils/100 WBC (Bld) 0.3 % . [facility] Bilirubin Test strip Ql (U)O rdered By: PROVIDER TEMP on 10-29-2021 Bilirubin Ql (U) Negative Negative [facility] Blood hemoglobin measurement (mass/volume)Ordered By: PROVIDER TEMP on 10-29-2021 Hemoglobin (Bld) [Mass/Vol] 13.3 g/dL 11.8-15.4 [facility] Blood leukocytes automated c ount (number/volume)Ordered By: PROVIDER TEMP on 10-29-2021 WBC (Bld) [#/Vol] 10.3 10*3/uL 4.5-11.0 [facility] Color Auto (U)Ordered By: WAYNE PARK on 10-29-2021 Color (U) Yellow Yellow [facility] Creatine kinase [Enzymatic a ctivity/volume] in Serum or PlasmaOrdered By: Schuyler Barry on 10-29-2021 CK [Catalytic activity/Vol] 63 U/L 22-269 [facility] Creatinine and Glomerular fi ltration rate.predicted panel (S/P/Bld)Ordered By: PROVIDER TEMP on 10-29-2021 Creatinine [Mass/Vol] 0.91 mg/dL 0.44-1.03 [facility] Eosinophils Auto (Bld) [#/Vo l]Ordered By: PROVIDER TEMP on 10-29-2021 Eosinophils (Bld) [#/Vol] 0.0 10*3/uL 0.0-0.45 [facility] Eosinophils/100 WBC Auto (Bl d)Ordered By: PROVIDER TEMP on 10-29-2021 Eosinophils/100 WBC (Bld) 0.2 % . [facility] Erythrocyte distribution wid th Auto (RBC) [Ratio]Ordered By: PROVIDER TEMP on 10-29-2021 Erythrocyte distribution width (RBC) [Ratio] 16.0 % 11.9-15.3 [facility] Estimated glomerular filtrat ion rate (GFR) non- AmericanOrdered By: PROVIDER TEMP on 10-29-2021 GFR/1.73 sq M.predicted among non-blacks MDRD (S/P/Bld) [Vol rate/Area] > 60 mL/Min [facility] Globulin Calc (S) [Mass/Vol] Ordered By: PROVIDER TEMP on 10-29-2021 Globulin (S) [Mass/Vol] 3.7 g/dL [facility] Hematocrit Auto (Bld) [Volum e fraction]Ordered By: PROVIDER TEMP on 10-29-2021 Hematocrit (Bld) [Volume fraction] 41.1 % 34.0-46.4 [facility] Ketones Auto test strip (U) [Mass/Vol]Ordered By: PROVIDER TEMP on 10-29-2021 Ketones (U) [Mass/Vol] Negative Negative [facility] - Hematology and Cell countsOrdered By: PROVIDER TEMP on 10-29-2021 Nucleated RBC/100 WBC (Bld) [Ratio] 0.1 % 0-0.5 [facility] - UrinalysisOrder ed By: PROVIDER TEMP on 10-29-2021 Hyaline casts LM Ql (Urine sed) 9-19 [LPF] 0-8 [facility] Lymphocytes Auto (Bld) [#/Vo l]Ordered By: PROVIDER TEMP on 10-29-2021 Lymphocytes (Bld) [#/Vol] 2.8 10*3/uL 1.00-4.8 [facility] Lymphocytes/100 WBC Auto (Bl d)Ordered By: PROVIDER TEMP on 10-29-2021 Lymphocytes/100 WBC (Bld) 27.5 % . [facility] MCH Auto (RBC) [Entitic mass ]Ordered By: PROVIDER TEMP on 10-29-2021 MCH (RBC) [Entitic mass] 25.5 pg 24.7-34.3 [facility] MCHC Auto (RBC) [Mass/Vol]Or dered By: PROVIDER TEMP on 10-29-2021 MCHC (RBC) [Mass/Vol] 32.4 g/dL 32.0-35.0 [facility] MCV Auto (RBC) [Entitic vol] Ordered By: PROVIDER TEMP on 10-29-2021 MCV (RBC) [Entitic vol] 78.6 fL 80-100 [facility] Monocytes Auto (Bld) [#/Vol] Ordered By: PROVIDER TEMP on 10-29-2021 Monocytes (Bld) [#/Vol] 0.5 10*3/uL 0.0-0.8 [facility] Monocytes/100 WBC Auto (Bld) Ordered By: PROVIDER TEMP on 10-29-2021 Monocytes/100 WBC (Bld) 5.1 % . [facility] Neutrophils Auto (Bld) [#/Vo l]Ordered By: PROVIDER TEMP on 10-29-2021 Neutrophils (Bld) [#/Vol] 6.9 10*3/uL 1.8-7.7 [facility] Neutrophils/100 WBC Auto (Bl d)Ordered By: PROVIDER TEMP on 10-29-2021 Neutrophils/100 WBC (Bld) 66.9 % . [facility] Nitrite Test strip Ql (U)Ord ered By: PROVIDER TEMP on 10-29-2021 Nitrite Ql (U) Negative Negative [facility] No Panel InformationOrdered By: PROVIDER TEMP on 10-29-2021 Estimated GFR () > 60 mL/Min [facility] Comment on above: GFR estimated refere nce range: According to KDOQI guidelines, <60 ml/min/1.73m2 is sufficient to diagnose a patient with chronic kidney disease. Pharmacy Creatinine Clearance (Chem 104.69 [facility] Platelet mean volume Auto (B ld) [Entitic vol]Ordered By: PROVIDER TEMP on 10-29-2021 Platelet mean volume (Bld) [Entitic vol] 8.4 fL 6.3-10.7 [facility] Platelets Auto (Bld) [#/Vol] Ordered By: PROVIDER TEMP on 10-29-2021 Platelets (Bld) [#/Vol] 248 10*3/uL 150-450 [facility] Protein Auto test strip (U) [Mass/Vol]Ordered By: PROVIDER TEMP on 10-29-2021 Protein (U) [Mass/Vol] Negative Negative Fi [facility] Protein [Mass/volume] in Ser um or PlasmaOrdered By: PROVIDER TEMP on 10-29-2021 Protein [Mass/Vol] 7.3 g/dL 6.1-7.9 [facility] RBC Auto (Bld) [#/Vol]Ordere d By: PROVIDER TEMP on 10-29-2021 RBC (Bld) [#/Vol] 5.23 10*6/uL 3.60-5.00 [facility] Serum or plasma alanine marmolejo otransferase measurement without P-5'-P (enzymatic activiOrdered By: PROVIDER TEMP on 10-29-2021 ALT No additional P-5'-P [Catalytic activity/Vol] 38 U/L 10-60 [facility] Serum or plasma albumin/glob ulin mass ratioOrdered By: PROVIDER TEMP on 10-29-2021 Albumin/Globulin [Mass ratio] 1.0 {ratio} [facility] Serum or plasma alkaline ana sphatase measurement (enzymatic activity/volume)Ordered By: PROVIDER TEMP on 10-29-2021 ALP [Catalytic activity/Vol] 58 U/L 32-92 [facility] Serum or plasma aspartate am inotransferase measurement (enzymatic activity/volume)Ordered By: PROVIDER TEMP on 10-29-2021 AST [Catalytic activity/Vol] 35 U/L 10-42 [facility] Serum or plasma calcium art urement (mass/volume)Ordered By: PROVIDER TEMP on 10-29-2021 Calcium [Mass/Vol] 9.6 mg/dL 8.2-10.2 [facility] Serum or plasma chloride cheko surement (moles/volume)Ordered By: PROVIDER TEMP on 10-29-2021 Chloride [Moles/Vol] 97 mmol/L 95-114 [facility] Serum or plasma creatine kin ase MB (CKMB)/total creatine kinase (CK) ratio by calculaOrdered By: PROVIDER TEMP on 10-29-2021 CK.MB Calc [Catalytic fraction] 2.3 % 0.00-2.50 [facility] Serum or plasma creatine kin ase MB measurement (mass/volume)Ordered By: PROVIDER TEMP on 10-29-2021 CK.MB [Mass/Vol] 1.5 ng/mL 0.6-6.3 [facility] Serum or plasma glucose art urement (mass/volume)Ordered By: PROVIDER TEMP on 10-29-2021 Glucose [Mass/Vol] 148 mg/dL 70-100 [facility] Comment on above: ADA recommended refe rence range Random Glucose Reference Range is dependent on time and content of last meal. Glucose of more than 200 mg/dL in a nonstressed, ambulatory subject supports the diagnosis of Diabetes Mellitus. Serum or plasma potassium me asurement (moles/volume)Ordered By: PROVIDER TEMP on 10-29-2021 Potassium [Moles/Vol] 4.1 mmol/L 3.5-5.1 [facility] Serum or plasma sodium measu rement (moles/volume)Ordered By: PROVIDER TEMP on 10-29-2021 Sodium [Moles/Vol] 136 mmol/L 136-146 [facility] Serum or plasma total biliru bin measurement (mass/volume)Ordered By: PROVIDER TEMP on 10-29-2021 Bilirubin [Mass/Vol] 0.3 mg/dL 0.3-1.2 [facility] Serum or plasma total carbon dioxide measurement (moles/volume)Ordered By: PROVIDER TEMP on 10-29-2021 CO2 [Moles/Vol] 27.6 mmol/L 22.0-30.0 [facility] Serum or plasma urea nitroge n measurement (mass/volume)Ordered By: PROVIDER TEMP on 10-29-2021 Urea nitrogen [Mass/Vol] 11 mg/dL 9-23 [facility] Specific gravity Auto test s trip (U) [Rel density]Ordered By: PROVIDER TEM on 10-29-2021 Specific gravity (U) [Rel density] 1.017 1.001-1.03 0 [facility] Squamous epithelial cells de tection in urine sediment by light microscopyOrdered By: PROVIDER TEMP on 10-29-2021 Epithelial cells.squamous LM Ql (Urine sed) 5-9 [HPF] 0-2 [facility] TSH DL <= 0.005 mIU/L QnOrde red By: Schuyler Barry on 10-29-2021 TSH Qn 1.86 m[IU]/L 0.45-5.33 [facility] Troponin I.cardiac [Mass/vol ume] in Serum or Plasma by High sensitivity methodOrdered By: Schuyler Barry on 10-29-2021 Troponin I.cardiac High sensitivity method [Mass/Vol] 4 pg/mL 0-15 [facility] Urine bacteria detection by automated methodOrdered By: PROVIDER TEMP on 10-29-2021 Bacteria Auto Ql (U) 2+ None Seen [facility] Urine clarity by refractomet ry automatedOrdered By: PROVIDER [facility] on 10-29-2021 Clarity Refractometry automated (U) Cloudy Clear [facility] Urine glucose measurement by automated test strip (mass/volume)Ordered By: PROVIDER TEM on 10-29-2021 Glucose Auto test strip (U) [Mass/Vol] Normal mg/dL Normal [facility] Urine hemoglobin detection b y automated test stripOrdered By: PROVIDER TEMP on 10-29-2021 Hemoglobin Auto test strip Ql (U) Negative Negative [facility] Urine leukocyte esterase det ection by automated test stripOrdered By: PROVIDER TEM on 10-29-2021 Leukocyte esterase Auto test strip Ql (U) 3+ Negative [facility] Urobilinogen Auto test strip (U) [Mass/Vol]Ordered By: PROVIDER TEMP on 10-29-2021 Urobilinogen (U) [Mass/Vol] Normal mg/dL Normal [facility] pH Auto test strip (U)Ordere d By: PROVIDER TEMP on 10-29-2021 pH (U) 6.5 [pH] 5.0-9.0 [facility] Urinalysis - AUTOMATEDon Appearance (U) clear [employer] Other Bilirubin Ql (U) Negative [employer] Other Color (U) yellow [facility] Other Glucose Ql (U) Negative [facility] Other Hemoglobin Ql (U) trace - intact Nor [employer] Other Ketones Ql (U) Negative [facility] Other Leukocyte esterase Test strip Ql (U) trace [facility] Other Nitrite Ql (U) Negative [facility] Other pH (U) 6.5 [pH] [facility] Other Protein Ql (U) Negative [facility] Other Specific gravity (U) [Rel density] 1.020 [facility] Other Urobilinogen (U) [Mass/Vol] 0.2EU/dL [facility] Other Urinalysis - AUTOMATED No rt [employer] Other A1C HEMOGLOBINon 04-28-2021 HbA1c (Bld) [Mass fraction] 6.5 % [facility] Other Glucose - FINGER STICKon Glucose [Mass/Vol] 111 mg/dL [facility] Other HbA1c (Bld) [Mass fraction]o n 04-28-2021 A1C HEMOGLOBIN [facility] Other Glucose - FINGER STICKon Glucose [Mass/Vol] 122 mg/dL [facility] Other Vital Signs Date Time Vital Sign Value Performing Clinician Facility 12-20-2023 16:07-0400 Diastolic blood pressure 86 mm[Hg] DO Hal Diallocki Work Phone: [facility] 12-20-2023 16:07-0400 Systolic blood pressure 128 mm[Hg] DO Hal Branlukascki Work Phone: [facility] 12-20-2023 07:19-0400 Body height 170.18 cm DO Hal Diallocki Work Phone: [facility] 12-20-2023 07:19-0400 Body mass index (BMI) [Ratio] 44.9 kg/m2 DO Hal Diallocki Work Phone: [facility] 12-20-2023 07:19-0400 Body weight 130.18 kg DO Hal Diallocki Work Phone: [facility] 12-20-2023 07:19-0400 Heart rate 98 /min DO Hal Diallocki Work Phone: [facility] 12-20-2023 07:19-0400 Respiratory rate 20 /min DO Hal Diallocki Work Phone: [facility] 11-09-2023 14:30-0400 Body weight 131.54 kg DO Hal Diallocki Work Phone: [facility] 11-09-2023 14:30-0400 Diastolic blood pressure 89 mm[Hg] DO Hal Branlukascki Work Phone: [facility] 11-09-2023 14:30-0400 Heart rate 94 /min DO Hal Branlukascki Work Phone: [facility] 11-09-2023 14:30-0400 Respiratory rate 20 /min DO Hal Branlukascki Work Phone: [facility] 11-09-2023 14:30-0400 SaO2% (BldA) [Mass fraction] 97 % DO Hal Yoelcki Work Phone: [facility] 11-09-2023 14:30-0400 Systolic blood pressure 142 mm[Hg] DO Hal Braniecki Work Phone: [facility] 11-03-2023 11:57-0400 Body temperature 97.8 [degF] DO Hal Braniecki Work Phone: [facility] 11-03-2023 11:57-0400 Diastolic blood pressure 81 mm[Hg] DO Hal Braniecki Work Phone: [facility] 11-03-2023 11:57-0400 Heart rate 75 /min DO Hal Braniecki Work Phone: [facility] 11-03-2023 11:57-0400 Respiratory rate 18 /min DO Hal Branlukascki Work Phone: [facility] 11-03-2023 11:57-0400 SaO2% (BldA) [Mass fraction] 96 % DO Hal Braniecki Work Phone: [facility] 11-03-2023 11:57-0400 Systolic blood pressure 130 mm[Hg] DO Hal Braniecki Work Phone: [facility] 11-03-2023 03:15-0400 Body height 170.18 cm DO Hal Braniecki Work Phone: [facility] 11-03-2023 03:15-0400 Body weight 132 kg DO Hal Braniecki Work Phone: [facility] 11-03-2023 02:31-0400 Diastolic blood pressure 69 mm[Hg] DO Hal Braniecki Work Phone: [facility] 11-03-2023 02:31-0400 Heart rate 86 /min DO Hal Braniecki Work Phone: [facility] 11-03-2023 02:31-0400 Respiratory rate 18 /min DO Hal Harry Work Phone: [facility] 11-03-2023 02:31-0400 SaO2% (BldA) [Mass fraction] 97 % DO Hal Harry Work Phone: [facility] 11-03-2023 02:31-0400 Systolic blood pressure 125 mm[Hg] DO Hal Harry Work Phone: [facility] 11-02-2023 22:01-0400 Body height 170.18 cm DO Hal Harry Work Phone: [facility] 11-02-2023 22:01-0400 Body temperature 98.3 [degF] DO Hal Harry Work Phone: [facility] 11-02-2023 22:01-0400 Body weight 132 kg DO Hal Harry Work Phone: [facility] 11-02-2023 16:18-0400 Diastolic blood pressure 84 mm[Hg] [facility] 11-02-2023 16:18-0400 Systolic blood pressure 129 mm[Hg] [facility] 11-02-2023 16:08-0400 Body height 170.[address] [facility] 11-02-2023 16:08-0400 Body mass index (BMI) [Ratio] 45.6 kg/m2 [facility] 11-02-2023 16:08-0400 Body weight 132.[address] [facility] 11-02-2023 16:08-0400 Heart rate 92 /min [facility] 11-02-2023 16:08-0400 Respiratory rate 18 /min [facility] 11-02-2023 16:08-0400 SaO2% (BldA) [Mass fraction] 96 % [facility] 04-20-2023 15:45-0500 Body height 170.18 cm Dex Mcclellan Other [facility] Other 04-20-2023 15:45-0500 Body mass index (BMI) [Ratio] 46.31 kg/m2 Tondra Mapus Other [facility] Other 04-20-2023 15:45-0500 Body weight 134.13 kg Tondra Mapus Other [facility] Other 04-20-2023 15:45-0500 Diastolic blood pressure 94 mm[Hg] Tondra Mapus Other [facility] Other 04-20-2023 15:45-0500 Respiratory rate 18 /min Tondra Mapus Other [facility] Other 04-20-2023 15:45-0500 SaO2% (BldA) [Mass fraction] 98 % Tondra Mapus Other [facility] Other 04-20-2023 15:45-0500 Systolic blood pressure 149 mm[Hg] Tondra Mapus Other [facility] Other 01-18-2023 11:15-0500 Body height 170.18 cm Armando Voss Other [facility] Other 01-18-2023 11:15-0500 Body mass index (BMI) [Ratio] 44.63 kg/m2 Armando Voss Other [facility] Other 01-18-2023 11:15-0500 Body weight 129.28 kg Armando Voss Other [facility] Other 01-18-2023 11:15-0500 Diastolic blood pressure 84 mm[Hg] Armando Voss Other [facility] Other 01-18-2023 11:15-0500 Systolic blood pressure 138 mm[Hg] Armando Voss Other [facility] Other 12-20-2022 15:30-0400 Body height 170.18 cm Hal Harry Other [facility] Other 12-20-2022 15:30-0400 Body mass index (BMI) [Ratio] 45.73 kg/m2 Hal Harry Other [facility] Other 12-20-2022 15:30-0400 Body weight 132.45 kg Hal Harry Other [facility] Other 12-20-2022 15:30-0400 Diastolic blood pressure 87 mm[Hg] Hal Harry Other [facility] Other 12-20-2022 15:30-0400 Respiratory rate 18 /min Hal Harry Other [facility] Other 12-20-2022 15:30-0400 SaO2% (BldA) [Mass fraction] 100 % Hal Harry Other [facility] Other 12-20-2022 15:30-0400 Systolic blood pressure 132 mm[Hg] Hal Harry Other [facility] Other 11-03-2022 15:45-0400 Body height 170.18 cm Dex Mcclellan Other [facility] Other 11-03-2022 15:45-0400 Body mass index (BMI) [Ratio] 45.34 kg/m2 Tondra Mapus Other [facility] Other 11-03-2022 15:45-0400 Body weight 131.32 kg Tondra Mapus Other [facility] Other 11-03-2022 15:45-0400 Diastolic blood pressure 91 mm[Hg] Tondra Mapus Other [facility] Other 11-03-2022 15:45-0400 Respiratory rate 18 /min Tondra Mapus Other [facility] Other 11-03-2022 15:45-0400 SaO2% (BldA) [Mass fraction] 98 % Tondra Mapus Other [facility] Other 11-03-2022 15:45-0400 Systolic blood pressure 143 mm[Hg] Tondra Mapus Other [facility] Other 02-10-2022 16:15-0500 Body height 170.18 cm Tondra Mapus Other [facility] Other 02-10-2022 16:15-0500 Body mass index (BMI) [Ratio] 46.09 kg/m2 Tondra Mapus Other [facility] Other 02-10-2022 16:15-0500 Body weight 133.49 kg Tondra Mapus Other [facility] Other 02-10-2022 16:15-0500 Diastolic blood pressure 89 mm[Hg] Tondra Mapus Other [facility] Other 02-10-2022 16:15-0500 Respiratory rate 18 /min Tondra Mapus Other [facility] Other 02-10-2022 16:15-0500 SaO2% (BldA) [Mass fraction] 97 % Tondra Mapus Other [facility] Other 02-10-2022 16:15-0500 Systolic blood pressure 155 mm[Hg] Tondra Mapus Other [facility] Other 01-19-2022 10:15-0500 Body height 170.18 cm Armando Voss Other [facility] Other 01-19-2022 10:15-0500 Body mass index (BMI) [Ratio] 46.36 kg/m2 Armando Voss Other [facility] Other 01-19-2022 10:15-0500 Body weight 134.27 kg Armando Voss Other [facility] Other 10-29-2021 22:52-0400 Diastolic blood pressure 97 mm[Hg] DO Hal Harry Work Phone: [facility] 10-29-2021 22:52-0400 Heart rate 80 /min DO Hal Diallocki Work Phone: [facility] 10-29-2021 22:52-0400 Respiratory rate 18 /min DO Hal Diallocki Work Phone: [facility] 10-29-2021 22:52-0400 SaO2% (BldA) [Mass fraction] 98 % DO Hal Vossi Work Phone: [facility] 10-29-2021 22:52-0400 Systolic blood pressure 166 mm[Hg] DO Hal Harry Work Phone: [facility] 10-29-2021 17:07-0400 Body height 170.18 cm DO Hal Harry Work Phone: [facility] 10-29-2021 17:07-0400 Body temperature 98.1 [degF] DO Hal Harry Work Phone: [facility] 10-29-2021 17:07-0400 Body weight 129.3 kg DO Hal Harry Work Phone: [facility] 08-27-2021 10:20-0400 Body height 170.18 cm Thom Beck Other [facility] Other 08-27-2021 10:20-0400 Body mass index (BMI) [Ratio] 45.42 kg/m2 Thom Beck Other [facility] Other 08-27-2021 10:20-0400 Body weight 131.54 kg Thom Beck Other [facility] Other 07-07-2021 16:30-0400 Body height 170.18 cm Demario Gimenez Other [facility] Other 07-07-2021 16:30-0400 Body mass index (BMI) [Ratio] 45.42 kg/m2 Demario Gimenez Other [facility] Other 07-07-2021 16:30-0400 Body weight 131.54 kg Demario Gimenez Other [facility] Other 06-10-2021 16:30-0400 Body height 170.18 cm Hal Harry Other [facility] Other 06-10-2021 16:30-0400 Body mass index (BMI) [Ratio] 45.1 kg/m2 Hal Harry Other [facility] Other 06-10-2021 16:30-0400 Body temperature 97.8 [degF] Hal Harry Other [facility] Other 06-10-2021 16:30-0400 Body weight 130.64 kg Hal Harry Other [facility] Other 06-10-2021 16:30-0400 Diastolic blood pressure 88 mm[Hg] Hal Harry Other [facility] Other 06-10-2021 16:30-0400 Respiratory rate 18 /min Hal Harry Other [facility] Other 06-10-2021 16:30-0400 Systolic blood pressure 130 mm[Hg] Hal Harry Other [facility] Other 04-28-2021 08:30-0500 Body height 170.18 cm Chuckie Edward Other [facility] Other 04-28-2021 08:30-0500 Body mass index (BMI) [Ratio] 46.09 kg/m2 Chuckie Edward Other [facility] Other 04-28-2021 08:30-0500 Body weight 133.49 kg Chuckie Edward Other [facility] Other 04-28-2021 08:30-0500 Diastolic blood pressure 87 mm[Hg] Chuckie Lockediff Other [facility] Other 04-28-2021 08:30-0500 Respiratory rate 18 /min Chuckie Edward Other [facility] Other 04-28-2021 08:30-0500 SaO2% (BldA) [Mass fraction] 99 % Chuckie Edward Other [facility] Other 04-28-2021 08:30-0500 Systolic blood pressure 132 mm[Hg] Chuckie Lockediff Other [facility] Other 04-06-2021 09:00-0500 Body height 170.18 cm Hal Nicoletwila Other [facility] Other 04-06-2021 09:00-0500 Body mass index (BMI) [Ratio] 45.42 kg/m2 Hal Nicoletwila Other [facility] Other 04-06-2021 09:00-0500 Body weight 131.54 kg Hal Nicoletwila Other [facility] Other 04-06-2021 09:00-0500 Diastolic blood pressure 82 mm[Hg] Hal Nicoletwila Other [facility] Other 04-06-2021 09:00-0500 Respiratory rate 20 /min Hal Nicoletwila Other [facility] Other 04-06-2021 09:00-0500 SaO2% (BldA) [Mass fraction] 98 % Hal Piero Other [facility] Other 04-06-2021 09:00-0500 Systolic blood pressure 136 mm[Hg] Hal Harry Other [facility] Other 01-09-2021 08:30-0400 Body height 170.18 cm Chuckie Edward Jr. Other [facility] Other 01-09-2021 08:30-0400 Body mass index (BMI) [Ratio] 44.57 kg/m2 Chuckie Edward Jr. Other [facility] Other 01-09-2021 08:30-0400 Body weight 129.09 kg Chuckie Edward Jr. Other [facility] Other 01-09-2021 08:30-0400 Diastolic blood pressure 84 mm[Hg] Chuckie Edward Jr. Other [facility] Other 01-09-2021 08:30-0400 Respiratory rate 18 /min Chuckie Edward Jr. Other [facility] Other 01-09-2021 08:30-0400 SaO2% (BldA) [Mass fraction] 97 % Chuckie Edward Jr. Other [facility] Other 01-09-2021 08:30-0400 Systolic blood pressure 119 mm[Hg] Chuckie Edward Jr. Other [facility] Other Encounters Encounter Date Encounter Type Care Provider Facility Start: 12-20-2023 End: 12-20-2023 ambulatory DO Hal Harry Work Phone: [facility] Work Phone: Start: 12-20-2023 End: 12-20-2023 Encounter for general adult medical examination without abnormal findings DO Hal Harry Work Phone: [facility] Start: 12-20-2023 End: 12-20-2023 Patient encounter procedure DO Hal Harry Work Phone[facility] Work Phone: Start: 12-08-2023 End: 12-08-2023 Departed Referred DO Hal Harry Work Phone: [facility] Start: 12-08-2023 End: 12-08-2023 Patient encounter procedure DO Hal Harry Work Phone: [facility] Start: 12-08-2023 End: 12-08-2023 ambulatory DO Hal Harry Work Phone: [facility] Work Phone: Start: 11-09-2023 End: 11-09-2023 ambulatory DO Hal Harry Work Phone: [facility] Work Phone: Start: 11-09-2023 End: 11-09-2023 Patient encounter procedure DO Hal Harry Work Phone: [facility] Work Phone: Start: 11-03-2023 End: 11-03-2023 ambulatory Hal Harry Facility:[facility] Start: 11-03-2023 End: 11-03-2023 Evaluation and management of inpatient DO Hal Harry Work Phone: [facility] [place] [facility] Work Phone: Start: 11-03-2023 End: 11-03-2023 observation encounter DO Hal Harry Work Phone: [facility] Work Phone: Start: 11-02-2023 End: 11-02-[address] [facility] Work Phone: Start: 11-02-2023 End: 11-02-2023 Patient encounter procedure [facility] Work Phone: Start: 04-20-2023 End: 04-20-2023 Discharged Recurring DO Hal Harry Work Phone: [facility] Work Phone: Start: 04-20-2023 (DM) Diabetes Tondebi Mcclellan [facility] Start: 04-20-2023 End: 04-20-2023 ambulatory DO Hal Harry Work Phone: [facility] Other Start: 02-04-2023 End: 02-04-2023 Patient encounter procedure DO Hal Harry Work Phone: [facility] Work Phone: Start: 02-04-2023 End: 02-04-2023 ambulatory DO Hal Harry Work Phone: [facility] Work Phone: Start: 01-27-2023 End: 01-27-2023 ambulatory Tondra Alexisus Other [facility] Other Start: 01-27-2023 Telephone encounter Tondra Alexisus [facility] Start: 01-18-2023 End: 01-18-2023 ambulatory Armando Voss Other [facility] Other Start: 01-18-2023 Patient encounter procedure Armando Voss [facility] G[facility] Start: 12-20-2022 End: 12-20-2022 ambulatory Hal Harry Other [facility] Other Start: 12-20-2022 Encounter for genera l adult medical examination without abnormal findings Hal Harry [facility] Start: 12-20-2022 Periodic preventive med est patient 40-64yrs Hal Harry [facility] Start: 12-17-2022 End: 12-17-2022 Departed Referred DO Hal Harry Work Phone: [facility]-Employee Benefit Screening Start: 12-07-2022 End: 12-07-2022 ambulatory Yaa Ponchoreza Other [facility] [employer] Other Start: 12-07-2022 Diabetic care education Yaa Car [facility] Start: 12-07-2022 Registered Recurring DO Yeison Harry Work Phone: [facility] Work Phone: Start: 11-03-2022 (DM) Diabetes Tondra Mapus [facility] Start: 11-03-2022 End: 11-03-2022 ambulatory Tondra Mapus Other [facility] [employer] Other Start: 11-02-2022 End: 11-02-2022 ambulatory DO Hal Harry Work Phone: [facility] Work Phone: Start: 11-02-2022 End: 11-02-2022 Patient encounter procedure DO Hal Harry Work Phone: [facility] [place] Work Phone: Start: 10-27-2022 End: 10-27-2022 ambulatory Hal Harry Other [facility] Other Start: 10-27-2022 Telephone encounter Hal Voss i [facility] Start: 07-22-2022 End: 07-22-2022 ambulatory Hal Harry Other [facility] Other Start: 07-22-2022 Telephone encounter Hal Voss i [facility] Start: 06-23-2022 End: 06-23-2022 ambulatory Hal Harry Other [facility] Other Start: 06-23-2022 Telephone encounter Hal Voss i [facility] Start: 05-13-2022 End: 05-13-2022 ambulatory Tondra Mapus Other [facility] Other Start: 05-13-2022 Telephone encounter Tondra Mapus [facility] Start: 04-29-2022 End: 04-29-2022 ambulatory Tondra Mapus Other [facility] Other Start: 04-29-2022 Telephone encounter Tondra Mapus [facility] Start: 03-01-2022 End: 03-01-2022 ambulatory Hal Harry Other [facility] Other Start: 03-01-2022 Telephone encounter Hal Voss i [facility] Start: 02-10-2022 (DM) Diabetes Tondra Mapus [facility] Start: 02-10-2022 End: 02-10-2022 ambulatory Tondra Mapus Other [facility] Other Start: 01-19-2022 End: 01-19-2022 ambulatory Armando Voss Other [facility] Other Start: 01-19-2022 Patient encounter procedure Armando Ditty [facility] Start: 01-11-2022 End: 01-11-[address] NAMRATA ISAACS Facility:[facility] Start: 12-04-2021 End: 12-04-2021 Patient encounter procedure DO Hal Harry Work Phone: [facility] Start: 12-04-2021 End: 12-04-2021 Departed Referred DO Hal Piero Work Phone: [facility]-Employee Benefit Screening Start: 11-30-2021 End: 11-30-2021 ambulatory Hal Diallomercy Other [facility] Other Start: 11-30-2021 Telephone encounter Hal Voss i [facility] Start: 10-29-2021 End: 10-29-2021 Emergency department patient visit DO Hal Piero Work Phone: [facility]-Emergency Room Start: 10-27-2021 Registered Recurring DO Yeison jacob Piero Work Phone: [facility] Start: 10-26-2021 End: 10-26-2021 ambulatory Tondra Mapus Other [facility] Other Start: 10-26-2021 Telephone encounter Tondra Mcclellan [facility] Start: 10-23-2021 End: 10-23-2021 ambulatory Chuckie Edward Other [facility] Other Start: 10-23-2021 Telephone encounter Chuckie Brewster [facility] Start: 09-10-2021 End: 09-10-2021 ambulatory Porfirio Kent Other [facility] Other Start: 09-10-2021 Office outpatient visit 5 minutes Porfirio Kent [facility] Start: 08-27-2021 End: 08-27-2021 ambulatory Thom Beck Other [facility] Other Start: 08-27-2021 Office outpatient ne w 30 minutes Thom Beck [facility] Start: 07-09-2021 End: 07-09-2021 ambulatory Chuckiewilliam Lockediff Other [facility] Other Start: 07-09-2021 Telephone encounter Chuckie [facility]umann [facility] Start: 07-07-2021 End: 07-07-2021 ambulatory Demario Gimenez Other [facility] Other Start: 07-07-2021 Office outpatient visit 25 minutes Demario Gimenez [facility] Start: 06-26-2021 End: 06-26-2021 ambulatory Chuckie Edward Other [facility] Other Start: 06-26-2021 Telephone encounter Chuckie baumann [facility] Start: 06-19-2021 End: 06-19-2021 ambulatory Hal Harry Other [facility] Other Start: 06-19-2021 Telephone encounter Hal Voss i [employer] Start: 06-10-2021 End: 06-10-2021 ambulatory Hal Harry Other [facility] Other Start: 06-10-2021 Office outpatient visit 25 minutes Hal Harry [facility] Start: 05-15-2021 End: 05-15-2021 ambulatory Hal Harry Other [facility] Other Start: 05-15-2021 Telephone encounter Hal Voss i [facility] Start: 04-28-2021 (DM) Diabetes Chuckie slaughter [facility] Start: 04-28-2021 End: 04-28-2021 ambulatory Chuckie Edward Other [facility] Other Start: 04-06-2021 End: 04-06-2021 ambulatory Hal Harry Other [facility] Other Start: 04-06-2021 Office outpatient visit 25 minutes Hal Piero [facility] [place] Start: 03-16-2021 ([facility] C Vac) [facility] Covid Vaccine Yaa Fitt [facility] Start: 03-16-2021 End: 03-16-2021 ambulatory Yaa Fitt Other [facility] Other Start: 02-10-2021 ([facility] C Vac) [facility] Covid Vaccine Yaa Fitt [facility] Start: 02-10-2021 End: 02-10-2021 ambulatory Yaa Fitt Other [facility] Other Start: 01-09-2021 (DM) Diabetes Chuckie Edward Jr. [facility] Endocrinology Procedures Date Procedure Procedure Detail Performing Clinician Start: 11-02-2023 Plain chest X-ray DO Penny Harry Work Phone: Start: 11-02-2023 Plain X-ray of left forearm DO Hal Dialloshanicecharbel Work Phone: Start: 02-04-2023 Screening mammograph y of bilateral breasts DO Hal Harry Work Phone: Urine culture DO Hal flores Work Phone: Plan of Treatment Date Care Activity Detail Author Start: 11-03-2023 End: 11-03-2023 [facility] Start: 11-03-2023 Hospital admission [facility] Start: 11-03-2023 [facility] Start: 11-02-2023 Plain chest X-ray XR chest 2V* [facility] Start: 11-02-2023 XR Chest 2 Views [facility] Start: 11-02-2023 Plain X-ray of left forearm XR forearm LT 2V* [facility] Start: 11-02-2023 XR Radius and Ulna - left 2 Views [facility] Start: 12-04-2021 [facility] Work Phone: Calculated LDL marely sterol level [facility] Cholesterol.total/Ch oleste rol in HDL [Mass Ratio] in Serum or Plasma [facility] Patient Education [facility] Work Phone: Patient referral [facility] Work Phone: VLDL cholesterol measurement [facility] Immunizations Immunization Date Immunization Notes Care Provider Samy mcdonald 12-14-2021 influenza, seasonal, injectable Hal Harry Other [facility] 03-16-2021 COVID-19 Pfizer Yaa Fitt Other [facility] 02-10-2021 COVID-19 Pfizer Yaa Fitt Other [facility] 12-24-2019 influenza, seasonal, injectable Chuckie Edward Jr. Other [facility] Payers Date Payer Category Payer Self-pay [id number] 1970 Unknown [id number] 1957 Unknown [id number] . [id number] Unknown [id number] [id number] Unknown [id number] Unknown [id number] [id number] Unknown [id number] 2.16.8 [id number] Unknown [id number] [id number] [id number] Social History Date Type Detail Facility Unknown if ever smoked [facility] [employer] Other Sex Assigned At Sex Assigned At Bir th [facility] Other Start: 10-29-2021 End: 11-03-2023 Tobacco smoking status NHIS Never smoked tobacco (finding) [facility] Start: 1970 Sex Assigned At Female F [facility] Medical Equipment Procedure Code Equipment Code Equipment Origin al Text Equipment Identifier Dates Start: 05-09-2019 Goals Date Patient Goal Desired Activity /State Functional Status Date Assessment Result Facility 11-03-2023 Functional status Patient at Baseline [facility] Work Phone: Mental Status Date Assessment Result Facility 11-03-2023 Cognitive function Cognitive Sta tus Patient at Baseline [facility] Work Phone: Clinical Notes 03-14-2019 to 11-03-2023 Note Date & Type Note Facility 11-03-2023 History and physi narendra note Note Date/Time November 03, 2023 2:23am [facility] [address] [place] [address] Hospitalist H&P Signed Patient: Becki Messer MR#: [id number] : 1970 Acct:[id number] Age/Sex: 53 / F Adm Date: 4 Loc: 3T Room: [address] [place] [address] Type: ADM INOo Attending Dr: Ruiz Steward MD Copies to: Hal Harry, MD Joann Dalton, ELEMENTARY ASSISTANT PRINCIPAL~ HPI DATE OF EXAMINATION: 11/03/23 CHIEF COMPLAINT: dog bite HISTORY OF PRESENT ILLNESS: Ms. Messer is a 53-year-old female with a PMH of T2DM, tachycardia, HTN, gout thatpresented to the emergency room for a dog bite to her left forearm. Patient states that her dog started fighting, 2 [place] ochoa's and she attempted to break them up and got bit on the arm. She denies chest pain, shortness of breath, fever or chills, nausea or vomiting. She states that she may have gotten worked up after getting the dogs apart and running around the yard after them. States she felt winded and tends after running after the dogs, denies these feelings at this time. She states that she usually takes her metoprolol at night before she goes to bed. She denies history of heart disease, family history of heart disease. Chest x-ray showed no acute cardiopulmonary process. X-ray of left forearm showed no acute fracture. EKG was sinus tachycardia at 152 bpm. Repeat EKG wassinus tachycardia at 127 bpm. CBC and coags were unremarkable, D-dimer less than 200. CMP with a glucose of 240. Initial troponin was 7, troponin was repeated and it was 17.5. Patient was medicated with Augmentin, 2 L saline bolus, acetaminophen and ibuprofen. She will be admitted as observation to the [facility] telemetry floor. Review of Systems Review of Systems Review of systems: A 10 point review of systems was obtained, negative unless noted in the HPI or below. [facility] Medical History BMI 45.0-49.9, adult Dietary counseling and surveillance Vitamin B 12 deficiency Mixed hyperlipidemia Sleep apnea Osteoarthritis Diabetes Gout Fibromyalgia Tachycardia HTN (hypertension) Surgical History Hx of cholecystectomy Family History Daughter Congenital anomaly of heart Tetralogy of fallot Father Family history of mental disorder [facility] Problem: Diagnosed with Mental Illness Mother Hypertension Other No significant family history Social History Marital Status: Household Members: spouse Housing: house Smoking Status: Never smoker Substance Use Type: None Meds Medications and Allergies Allergies No Known Allergies Allergy (Verified 11/02/23 21:57) Home Medications omeprazole 20 mg capsule,delayed release 20 mg PO DAILY 07/28/21 [History Confirmed 11/03/23] sucralfate 1 gram tablet (Carafate) 1 g PO DAILY 05/04/23 [History Confirmed 11/03/23] metformin 1,000 mg tablet 1,000 mg PO BID.WITH.MEALS #180 tabs 06/06/24 [Rx Confirmed 11/03/23] allopurinol 100 mg tablet 100 mg PO DAILY 90 days #90 tabs 10/20/23 [Rx Confirmed 11/03/23] metoprolol succinate 100 mg tablet,extended release 24 hr See Rx Instructions .Route .COMPLEX #90 tabs 10/20/23 [Rx Confirmed 11/03/23] spironolactone 50 mg tablet 50 mg PO DAILY 90 days #90 tabs 10/20/23 [Rx Confirmed 11/03/23] liraglutide 0.6 mg/0.1 mL (18 mg/3 mL) subcutaneous pen injector (Victoza 3-Raza)1.2 mg subcut .daily hs 11/03/23 [History Confirmed 11/03/23] Exam Physical Exam Vital Signs: Temp Pulse Resp BP Pulse Ox O2 Del Method 98.3 F 89 20 134/63 97 Room Air 11/02/23 22:01 11/03/23 02:00 11/03/23 02:00 11/03/23 02:00 11/03/23 02:00 11/03/23 02:00 Narrative: CONST- Appears well -developed and well nourished. Morbidly obese?BMI 45.6 HEAD - Normocephalic and atraumatic EENT-Sclera nonicteric, conjunctive are non-erythemic, moist oral mucosa, pharynx clear NECK-Supple, no cervical lymphadenopathy CARDIAC-tachycardic, regular rhythm, S1 & S2. PULM-diminished without wheeze or rhonchi, RA, no accessory muscle use or cough noted ABD - Soft. Bowel sounds are normal. No distention. No tenderness EXTREM-no edema BLE calves, nontender SKIN- W/D good turgor, dressing dry and intact to left forearm MS- MAEX4 spontaneously with equal with equal strength NEURO- A&Ox3 speech clear and tongue midline, equal facial symmetry, no focal motor deficits PSYCH-Mood, affect, and behavior appropriate Results - Hospitalist H&P Lab Results Labs: Laboratory Last Values Corrected WBC 10.0 X10E3/uL (3.8-11.6) 11/02/23 22:44 Uncorrected WBC Count 10.0 x10E3/uL (3.8-11.6) 11/02/23 22:44 RBC 4.70 X10E6/uL (3.60-5.00) 11/02/23 22:44 Hgb 12.0 g/dL (11.8-15.4) 11/02/23 22:44 Hct 36.2 % (34.0-46.4) 11/02/23 22:44 MCV 77.0 fl (80-100) L 11/02/23 22:44 MCH 25.5 pg (24.7-34.3) 11/02/23 22:44 MCHC 33.1 g/dL (32.0-35.0) 11/02/23 22:44 RDW 16.1 % (11.9-15.3) H 11/02/23 22:44 Plt Count 219 x10E3/uL (150-450) 11/02/23 22:44 MPV 7.9 fl (6.3-10.7) 11/02/23 22:44 Neut % (Auto) 67.6 % (.) 11/02/23 22:44 Lymph % (Auto) 27.3 % (.) 11/02/23 22:44 [place] % (Auto) 4.3 % (.) 11/02/23 22:44 Eos % (Auto) 0.1 % (.) 11/02/23 22:44 Baso % (Auto) 0.7 % (.) 11/02/23 22:44 Nucleat RBC Rel Count 0.1 /100 WBC (0-0.5) 11/02/23 22:44 Neut # (Auto) 6.8 x10E3/uL (1.8-7.7) 11/02/23 22:44 Lymph # (Auto) 2.7 x10E3/uL (1.00-4.8) 11/02/23 22:44 [place] # (Auto) 0.4 x10E3/uL (0.0-0.8) 11/02/23 22:44 Eos # (Auto) 0.0 x10E3/uL (0.0-0.45) 11/02/23 22:44 Baso # (Auto) 0.1 x10E3/uL (0.0-0.2) 11/02/23 22:44 Monocyte Dist Width 21.09 % (0.00-20.00) H 11/02/23 22:44 PT 11.9 Seconds (9.0-12.9) 11/02/23 22:44 INR 1.0 11/02/23 22:44 APTT 27.9 Seconds (25.1-36.5) 11/02/23 22:44 D-Dimer Quant (PE/DVT) < 200 ng/mL (0-243) 11/02/23 22:44 PHA Creatinine Clear 101.41 11/02/23 22:44 Sodium 138 mmol/L (136-145) 11/02/23 22:44 Potassium 3.9 mmol/L (3.5-5.1) 11/02/23 22:44 Chloride 101 mmol/L (98-107) 11/02/23 22:44 Carbon Dioxide 29.2 mmol/L (21.0-31.0) 11/02/23 22:44 Anion Gap 11.7 mEq/L (6.0-15.0) 11/02/23 22:44 BUN 12 mg/dL (7-25) 11/02/23 22:44 Creatinine 0.93 mg/dL (0.60-1.20) 11/02/23 22:44 Est GFR (CKD-EPI) > 60.0 mL/Min 11/02/23 22:44 Glucose 240 mg/dL (70-100) H 11/02/23 22:44 Calcium 8.9 mg/dL (8.6-10.3) 11/02/23 22:44 Total Creatine Kinase 66 U/L (30-223) 11/02/23 22:44 Troponin I High Sens 17.5 pg/mL (0.0-15.0) H 11/03/23 00:33 B-Natriuretic Peptide 31.0 pg/mL (5-100) 11/02/23 22:44 Free T4 0.76 ng/dL (0.61-1.12) 11/02/23 22:44 TSH 3rd Generation 5.24 uIU/mL (0.45-5.33) 11/02/23 22:44 HCG, Qual Negative 11/02/23 22:44 Assessment & Plan Assessment/Plan (1) Elevated troponin: (2) Tachycardia: (3) Diabetes mellitus: (4) HTN (hypertension): (5) Dog bite: Plan Elevated troponin?7, 17.5, likely demand ischemia from tachycardia ? Troponin in a.m. ? No complaints of chest pain, shortness of breath, back pain. It was reported that the patient had some dyspnea on ambulation to x-ray while in the ER. Tachycardia?initial EKG 152 bpm, patient takes metoprolol nightly, will make sure this is ordered Dog bite: continue Augmentin T2DM?fingersticks ACHS, SSI C, metformin, liraglutide, patient reports that her last A1c was yesterday and it was 6.9 with Tondra Mapus HTN?spironolactone Gout?allopurinol GERD?omeprazole and sucralfate DVT PPx?SCDs, ambulate Diet order?1800 ADA CODE STATUS?full code Attending Physician Attestation: I personally reviewed the history, performed the solis elements of the exam, formulated the plan of care and confirmed the written note. I agree with the findings and plan as documented in this note and have edited it if needed to reflect my findings and plan. Ruiz Barriga MD IP vs OBS Justification Based on differential dx, clinical care plan, and risk of adverse events, if untreated, in my clinical judgement this patient requires an acute care setting as: OBSERVATION because of an expectation of an under 2 midnight stay. Estimated length of stay (# of days): 1 Documented By: Joann Del Cid APRN 11/03/23222 Signed By: <Electronically signed by XOCHILT Del Cid> 11/03/235 <Electronically signed by Ruiz Steward MD> 11/03/23 0325 [facility] Work Phone: [phone]) 243-408402-07-2024 Evaluation note* Encounter Date Diagnosis Assessment Notes Treatment Notes Treatment Clinical Notes Apr, Hyperlipidemia, unspecified hyperlipidemia type (ICD-10 - E78.5) High cholesterol material was published 12/03 ldl 107, trig 200- above target- f/u with pcp for further recommendation. Apr, Type 2 diabetes mellitus without complication, without long-term current use of insulin (ICD-10 - E11.9) Managing type 2 diabetes material was published, Managing type 2 diabetes material was published 1. Controlled, a Type 2 diabetes with A1c of 7.0% 2. Blood glucose slightly higher. According to [employer] 3 cgm download 04/07/23-04/20/23: Avg glucose 144. >250-0%, >180-6%, 70-180-94%. <70-0%, <54-0%. CV 16.7%. Reviewed download with pt, glucose stable. Pt is tolerating ozempic 0.6mg plus 4 extra clicks once daily. Recommend she increase 1 extra click as tolerated until reaches 1.8mg once daily. Reviewed with pt target fasting am/meal to meal glucose 90/130; 2 hours after meal 140-180; bedtime 120/150. Pt verbalizes understanding. 3. Patient is alert, oriented and receptive to making changes or counseling. Notes: Seen for an assessment of current glucose pattern, changes in treatment plan, counseling and coordination of care related to diabetes, risks, and benefits of treatment, medications, side effects. Given handouts to reinforce concepts reviewed during counseling, see scanned notes. TOPICS REVIEWED: 1. Time was spent reviewing: a. Basic concepts of diabetes, progressive beta cell , concepts of basal/bolus/correct sharon insulin requirements. b. Nutrition: Concepts of healthy diet, encouraged to decrease saturated fat in diet and increase non-starchy vegetables and fruits in diet. BMI: Pt. needs to select one small change to decrease caloric intake or increase physical activity to help decrease weight. c. Correct treatment of hypoglycemia, carry a glucose source at all times on your person, in vehicles, and at bedside. Can use glucose tablets/4, four ounces of pop or juice equal to 15 G of carbohydrate. Blood glucose should be 100 mg/dl or higher when driving. d. ADA glucose goals for age and medical complexity reviewed e. Patient questions addressed 2. Activity/exercise: Encouraged to start any form of physical activity. Start low level and increase slowly to a minimal goal of 150 minutes/week. Limit activity to what is allowed by other issues such as cardiac, pulmonary or orthopedic restrictions. 3. Standards of care: Reminded to have an annual dilated eye exam, A1C every 3-6 months, urine testing for microalbumin once/year, check feet daily and report any cuts or sores that do not appear to be healing. 4. Meter: Plan to check blood glucose: Please check blood glucose levels 4 times/day. Back to back meals reveal effectiveness of bolus dosing. 5. [facility] Contact office if any issues or concerns with patterns of hypoglycemia, hyperglycemia, or diabetes medication issues. 6. Pres[place] [facility]. DME: [facility]-None at this time. 7. With use of current diabetes medications could cause anomalies, demise if become . Recommend use of contraception during use of these medications at this time. If considering would recommend stopping these medications and would need to notify provider immediately will need referral to maternal medicine for management of diabetes care. 8. Prescriptions will not be filled unless you are compliant with follow up appointments or have a follow up appointment scheduled as ordered by your provider. Refills should be requested at the time of your visit. 9. Reviewed cmp in [employer] 01/04 gfr >60 Apr, Hypertension, unspecified type (ICD-10 - I10) Hypertension material was published f/u with pcp for further recommendation Apr, Dietary counseling and surveillance (ICD-10 - Z71.3) Healthy eating material was published Apr, Vitamin B 12 deficiency (ICD-10 - E53.8) Good food sources of vitamin B12 material was published 11/03 vit b 12 322 Apr, BMI 45.0-49.9, adult (ICD-10 - Z68.42) Setting weight-loss goals material was published [facility] Other 11-16-2023 Evaluation note* Encounter Date Diagnosis Assessment Notes Treatment Notes Treatment Clinical Notes Jan, Type 2 diabetes mellitus without complication, without long-term current use of insulin (ICD-10 - E11.9) [facility] Other 11-07-2023 Evaluation note* Encounter Date Diagnosis Assessment Notes Treatment Notes Treatment Clinical Notes Jan, Gastroesophageal ref lux disease, esophagitis presence not specified (ICD-10 - K21.9) PATIENT DOING WELL WITH NO COMPLAINTS. PATIENT TO CONTINUE ON THE CRAFATE 1GM DAILY. Jan, Irritable bowel syndrome with diarrhea (ICD-10 - K58.0) [facility] Other 10-09-2023 Evaluation note* Encounter Date Diagnosis Assessment Notes Treatment Notes Treatment Clinical Notes Dec, Essential hypertension (ICD-10 - I10) Controlled. Continue current care. Dec, Wellness examination (ICD-10 - Z00.00) Patient encouraged to continue working on weight loss. Labs reviewed with patient. She is up to date on mammogram and Pap. 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 Dec, Mixed hyperlipidemia (ICD-10 - E78.2) Labs from [facility] screening reviewed -- TGs elevated but stable. Remainder of her labs essentially normal. She is aware of my recommendations to be on a statin, but she declines for now -- she will reconsider going forward. Dec, Gastroesophageal reflux disease, esophagitis presence not specified (ICD-10 - K21.9) Controlled with lifestyle modification. Continue current care. Dec, Obstructive sleep apnea (ICD-10 - G47.33) Contiue with CPAP. Weight loss strongly encouraged. Dec, Type 2 diabetes mellitus without complication, without long-term current use of insulin (ICD-10 - E11.9) Stable. 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 Continue with weight loss efforts. Yearly dilated eye exam. Check feet daily for sores/ulcers. She will notify me if i can be of any assistance. [facility] Other 08-23-2023 Evaluation note* Encounter Date Diagnosis Assessment Notes Treatment Notes Treatment Clinical Notes Oct, Hyperlipidemia, unspecified hyperlipidemia type (ICD-10 - E78.5) High cholesterol material was published 12/03 ldl 107, trig 200- above target- f/u with pcp for further recommendation. Oct, Type 2 diabetes mellitus without complication, without long-term current use of insulin (ICD-10 - E11.9) Managing type 2 diabetes material was published, Managing type 2 diabetes material was published 1. Controlled, a Type 2 diabetes with A1c of 6.8% 2. Blood glucose slightly higher. According to riky 3 cgm download 10/19/22-11/01/22: Avg glucose 143. >250-0%, >180-5%, 70-180-95%. <70-0%, <54-0%. CV 15.3%. Reviewed download with pt, glucose stable. Pt is tolerating ozempic 0.6mg oncde daily. Recommend she increase 1 extra click as tolerated until reaches 1.8mg once daily. Reviewed with pt target fasting am/meal to meal glucose 90/130; 2 hours after meal 140-180; bedtime 120/150. Pt verbalizes understanding. 3. Patient is alert, oriented and receptive to making changes or counseling. Notes: Seen for an assessment of current glucose pattern, changes in treatment plan, counseling and coordination of care related to diabetes, risks, and benefits of treatment, medications, side effects. Given handouts to reinforce concepts reviewed during counseling, see scanned notes. TOPICS REVIEWED: 1. Time was spent reviewing: a. Basic concepts of diabetes, progressive beta cell , concepts of basal/bolus/correct sharon insulin requirements. b. Nutrition: Concepts of healthy diet, encouraged to decrease saturated fat in diet and increase non-starchy vegetables and fruits in diet. BMI: Pt. needs to select one small change to decrease caloric intake or increase physical activity to help decrease weight. c. Correct treatment of hypoglycemia, carry a glucose source at all times on your person, in vehicles, and at bedside. Can use glucose tablets/4, four ounces of pop or juice equal to 15 G of carbohydrate. Blood glucose should be 100 mg/dl or higher when driving. d. ADA glucose goals for age and medical complexity reviewed e. Patient questions addressed 2. Activity/exercise: Encouraged to start any form of physical activity. Start low level and increase slowly to a minimal goal of 150 minutes/week. Limit activity to what is allowed by other issues such as cardiac, pulmonary or orthopedic restrictions. 3. Standards of care: Reminded to have an annual dilated eye exam, A1C every 3-6 months, urine testing for microalbumin once/year, check feet daily and report any cuts or sores that do not appear to be healing. 4. Meter: Plan to check blood glucose: Please check blood glucose levels 4 times/day. Back to back meals reveal effectiveness of bolus dosing. 5. [facility] Contact office if any issues or concerns with patterns of hypoglycemia, hyperglycemia, or diabetes medication issues. 6. Prescriptions: [facility] [place]: Will call when needed. 7. With use of current diabetes medications could cause anomalies, demise if become . Recommend use of contraception during use of these medications at this time. If considering would recommend stopping these medications and would need to notify provider immediately will need referral to maternal medicine for management of diabetes care. 8. Prescriptions will not be filled unless you are compliant with follow up appointments or have a follow up appointment scheduled as ordered by your provider. Refills should be requested at the time of your visit. Oct, Hypertension, unspecified type (ICD-10 - I10) Hypertension material was published f/u with pcp for further recommendation Oct, Dietary counseling and surveillance (ICD-10 - Z71.3) Healthy eating material was published Oct, Vitamin B 12 deficiency (ICD-10 - E53.8) Good food sources of vitamin B12 material was published 11/03 vit b 12 322 Oct, BMI 45.0-49.9, adult (ICD-10 - Z68.42) Setting weight-loss goals material was published [facility] Other 08-16-2023 Evaluation note* Encounter Date Diagnosis Assessment Notes Treatment Notes Treatment Clinical Notes Oct, Essential hypertension (ICD-10 - I10) [facility] Other 05-11-2023 Evaluation note* Encounter Date Diagnosis Assessment Notes Treatment Notes Treatment Clinical Notes July, Tachycardia (ICD-10 - R00.0) [facility] Other 04-12-2023 Evaluation note* Encounter Date Diagnosis Assessment Notes Treatment Notes Treatment Clinical Notes Jun, Essential hypertension (ICD-10 - I10) [facility] Other 02-16-2023 Evaluation note* Encounter Date Diagnosis Assessment Notes Treatment Notes Treatment Clinical Notes Apr, Type 2 diabetes mellitus without complication, without long-term current use of insulin (ICD-10 - E11.9) [facility] Other 12-19-2022 Evaluation note* Encounter Date Diagnosis Assessment Notes Treatment Notes Treatment Clinical Notes Feb, Essential hypertension (ICD-10 - I10) [facility] Other 11-30-2022 Evaluation note* Encounter Date Diagnosis Assessment Notes Treatment Notes Treatment Clinical Notes Jan, Hyperlipidemia, unspecified hyperlipidemia type (ICD-10 - E78.5) High cholesterol material was published 12/03 ldl 107, trig 200- above target- f/u with pcp for further recommendation. Jan, Type 2 diabetes mellitus without complication, without long-term current use of insulin (ICD-10 - E11.9) Managing type 2 diabetes material was published, Managing type 2 diabetes material was published 1. Controlled, a Type 2 diabetes with A1c of 6.7% 2. Blood glucose slightly higher. According to riky cgm download 01/28/22-02/10/22: Avg glucose 148. >250-0%, >180-12%, 70-180-88%. <70-0%, <54-0%. Reviewed download with pt, readings above target from higher glycemic meal. Pt did not start victoza- she reports she thought she would be able to change her eating habits on her own without the medicine; however, she does want to restart. Recommend dosing week 1 0.6 mg once daily; week 2 1.2mg once daily; week 3 and on 1.8mg once daily. Discussed with pt switching over to riky 3 when she finishes with riky 2 sensors- she is agreeable. Reviewed with pt she will need to download riky 3 mary. Pt verbalizes understanding. 3. Patient is alert, oriented and receptive to making changes or counseling. Notes: Seen for an assessment of current glucose pattern, changes in treatment plan, counseling and coordination of care related to diabetes, risks, and benefits of treatment, medications, side effects. Given handouts to reinforce concepts reviewed during counseling, see scanned notes. TOPICS REVIEWED: 1. Time was spent reviewing: a. Basic concepts of diabetes, progressive beta cell , concepts of basal/bolus/correct sharon insulin requirements. b. Nutrition: Concepts of healthy diet, encouraged to decrease saturated fat in diet and increase non-starchy vegetables and fruits in diet. BMI: Pt. needs to select one small change to decrease caloric intake or increase physical activity to help decrease weight. c. Correct treatment of hypoglycemia, carry a glucose source at all times on your person, in vehicles, and at bedside. Can use glucose tablets/4, four ounces of pop or juice equal to 15 G of carbohydrate. Blood glucose should be 100 mg/dl or higher when driving. d. ADA glucose goals for age and medical complexity reviewed e. Patient questions addressed 2. Activity/exercise: Encouraged to start any form of physical activity. Start low level and increase slowly to a minimal goal of 150 minutes/week. Limit activity to what is allowed by other issues such as cardiac, pulmonary or orthopedic restrictions. 3. Standards of care: Reminded to have an annual dilated eye exam, A1C every 3 months, urine testing for microalbumin once/year, check feet daily and report any cuts or sores that do not appear to be healing. 4. Meter: Plan to check blood glucose: Please check blood glucose levels 4 times/day. Back to back meals reveal effectiveness of bolus dosing. 5. [facility] Contact office if any issues or concerns with patterns of hypoglycemia, hyperglycemia, or diabetes medication issues. 6. Prescriptions: [facility] [place] riky 3 cgm. Pt reports she has victoza at home. 7. With use of current diabetes medications could cause anomalies, demise if become . Recommend use of contraception during use of these medications at this time. If considering would recommend stopping these medications and would need to notify provider immediately will need referral to maternal medicine for management of diabetes care. 8. Prescriptions will not be filled unless you are compliant with follow up appointments or have a follow up appointment scheduled as ordered by your provider. Refills should be requested at the time of your visit. Jan, Hypertension, unspecified type (ICD-10 - I10) Hypertension material was published f/u with pcp for further recommendation Jan, Dietary counseling and surveillance (ICD-10 - Z71.3) Healthy eating material was published Jan, Vitamin B 12 deficiency (ICD-10 - E53.8) Good food sources of vitamin B12 material was published 12/03 vit b 12 1181 Jan, BMI 45.0-49.9, adult (ICD-10 - Z68.42) Setting weight-loss goals material was published [facility] Other 11-08-2022 Evaluation note* Encounter Date Diagnosis Assessment Notes Treatment Notes Treatment Clinical Notes Jan, Bile acid esophageal reflux (ICD-10 - K21.9) PATIENT STATES THAT SHE DOES TAKE THE CARAFATE AND NO PROBLEMS AT THIS TIME. Jan, Irritable bowel syndrome with diarrhea (ICD-10 - K58.0) PATIENT STATES THAT SHE IS DOING WELL AT THIS TIME. [facility] Other 09-19-2022 Evaluation note* Encounter Date Diagnosis Assessment Notes Treatment Notes Treatment Clinical Notes Nov, Essential hypertension (ICD-10 - I10) [facility] Other 06-30-2022 Evaluation note* Encounter Date Diagnosis Assessment Notes Treatment Notes Treatment Clinical Notes Aug, Contact with and (suspected) exposure to covid-19 (ICD-10 - Z20.822) covid pos, see above. Aug, COVID (ICD-10 - U07.1) Informed pt of POS covid test. They are to contact the covid employee hotline regarding quarantine and RTW instructions. Pt understood and agreed to tx plan. [facility] Other 06-16-2022 Evaluation note* Encounter Date Diagnosis Assessment Notes Treatment Notes Treatment Clinical Notes Aug, Degenerative disc disease, cervical (ICD-10 - M50.30) Aug, Cervical stenosis of spine (ICD-10 - M48.02) I have independently reviewed the MRI of the cervical spine and the plain x-ray of the cervical spine and reports. The patient has some canal narrowing but no cord compression, no cord signal change, foramen are overall adequate. Clinically the patient has no radicular symptoms, she has more muscular neck pain I recommend she consider anti-inflammatories . She was also previously given tizanidine which she has not taken. I see no evidence for surgical intervention I talked to her about what we do take care of I think she fully understands and agrees. If she ever desires, pain management could be an appropriate referral in the future. Aug, Neck pain (ICD-10 - M54.2) [facility] Other 04-28-2022 Evaluation note* Encounter Date Diagnosis Assessment Notes Treatment Notes Treatment Clinical Notes Jun, Type 2 diabetes mellitus with hyperglycemia, without long-term current use of insulin (ICD-10 - E11.65) [facility] Other 04-26-2022 Evaluation note* Encounter Date Diagnosis Assessment Notes Treatment Notes Treatment Clinical Notes Jun, Irritable bowel syndrome with diarrhea (ICD-10 - K58.0) DOES EXPERIENCE SOME BLOATING UNDER RIBS NEVER A SOLID BOWEL MOVEMENT. Jun, GERD (gastroesophageal reflux disease) (ICD-10 - K21.9) Jun, LUQ abdominal pain (ICD-10 - R10.12) Jun, Other WILL START MEDICATION PROCEED WITH EGD/COLON [facility] Other 03-30-2022 Evaluation note* Encounter Date Diagnosis Assessment Notes Treatment Notes Treatment Clinical Notes May, Abdominal pain (ICD-10 - R10.9) Patient has had abdominal and flank pain intermittently for the past several weeks. She is found to have microscopic hematuria on UA. I have moderate suspicion for renal calculi, so I will send her for CT at this time. She is planning to see GI next month and I've encouraged her to keep that appt pending our findings. Immediate medical attention for change/worsening in the meantime. May, Hematuria, unspecified type (ICD-10 - R31.9) [facility] Other 02-15-2022 Evaluation note* Encounter Date Diagnosis Assessment Notes Treatment Notes Treatment Clinical Notes Apr, Type 2 diabetes mellitus with hyperglycemia, without long-term current use of insulin (ICD-10 - E11.65) 1. Uncontrolled, a Type 2 diabetes with A1c of 6.5 % 2. Blood glucose levels have averaged 107. 3. Patient is alert, oriented and receptive to making changes or counseling. Notes: Seen for an assessment of current glucose pattern, changes in treatment plan, counseling and coordination of care related to diabetes, risks, and benefits of treatment, medications, side effects. Given handouts to reinforce concepts reviewed during counseling, see scanned notes. TOPICS REVIEWED: 1. Time was spent reviewing: a. Basic concepts of diabetes, progressive beta cell , concepts of basal/bolus/correct sharon insulin requirements. b. Nutrition: Concepts of healthy diet, encouraged to decrease saturated fat in diet and increase non-starchy vegetables and fruits in diet. BMI: Pt. needs to select one small change to decrease caloric intake or increase physical activity to help decrease weight. c. Correct treatment of hypoglycemia, carry a glucose source at all times on your person, in vehicles, and at bedside. Can use glucose tablets/4, four ounces of pop or juice equal to 15 G of carbohydrate. Blood glucose should be 100 mg/dl or higher when driving. d. ADA glucose goals for age and medical complexity reviewed e. Patient questions addressed 2. Activity/exercise: Encouraged to start any form of physical activity. Start low level and increase slowly to a minimal goal of 150 minutes/week. Limit activity to what is allowed by other issues such as cardiac, pulmonary or orthopedic restrictions. 3. Standards of care: Reminded to have an annual dilated eye exam, A1C every 3 months, urine testing for microalbumin once/year, check feet daily and report any cuts or sores that do not appear to be healing. 4. Meter: Plan to check blood glucose: Please check blood glucose levels 1-4 times/day. Back to back meals reveal effectiveness of bolus dosing. 5. [facility]. Contact office if any issues or concerns with patterns of hypoglycemia, hyperglycemia, or diabetes medication issues. 6. Prescriptions: Requests 90 day supply of Metformin to [facility]. Apr, Hypertension, unspecified type (ICD-10 - I10) Apr, Mixed hyperlipidemia (ICD-10 - E78.2) Apr, BMI 40.0-44.9, adult (ICD-10 - Z68.41) Apr, Vitamin B12 deficiency (ICD-10 - E53.8) Apr, Dietary counseling and surveillance (ICD-10 - Z71.3) Apr, Fatty liver (ICD-10 - K76.0) Apr, Obstructive sleep apnea (ICD-10 - G47.33) Apr, Knee osteoarthritis (ICD-10 - M17.9) Apr, PCOS (polycystic ovarian syndrome) (ICD-10 - E28.2) Apr, Fibromyalgia (ICD-10 - M79.7) Apr, Metabolic syndrome (ICD-10 - E88.81) [facility] Other 01-24-2022 Evaluation note* Encounter Date Diagnosis Assessment Notes Treatment Notes Treatment Clinical Notes Mar, Essential hypertensi on (ICD-10 - I10) Controlled. Continue current care. Mar, Mixed hyperlipidemia (ICD-10 - E78.2) Labs from [facility] screening reviewed -- TGs elevatedbut stable. Remainder of her labs essentially normal. Mar, Gastroesophageal reflux disease, esophagitis presence not specified (ICD-10 - K21.9) Controlled with lifestyle modification. Continue current care. Mar, Obstructive sleep apnea (ICD-10 - G47.33) Contiue with CPAP. Mar, Type 2 diabetes mellitus without complication, without long-term current use of insulin (ICD-10 - E11.9) Greatly improved under Dr. Edward's management (documentation from most recent visits reviewed). Continue with weight loss efforts. Yearly dilated eye exam. Check feet daily for sores/ulcers. She will notify me if i can be of any assistance. Mar, Paresthesias (ICD-10 - R20.2) Patient is reporting episodes of intermittent dizziness, paresthesias, and weakness. She reports worsening frequency and severity. Exact etiology remains unclear. 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 [facility] Other 01-03-2022 Evaluation note* Encounter Date Diagnosis Assessment Notes Treatment Notes Treatment Clinical Notes Mar, Encounter for immunization (ICD-10 - Z23) Patient presents for COVID-19 vaccination #2. Pre-screening form answers evaluated with patient. Patient denies current illness or allergic reaction to component of COVID-19 vaccine. Patient provided with current copy of EUA. [facility] Other 11-30-2021 Evaluation note* Encounter Date Diagnosis Assessment Notes Treatment Notes Treatment Clinical Notes Jan, Encounter for immunization (ICD-10 - Z23) Patient presents for COVID-19 vaccination #1. Pre-screening form answers evaluated with patient. Patient denies current illness or allergic reaction to component of COVID-19 vaccine. Patient provided with current copy of EUA. PATIENT MONITORED FOR 15 MINUTES POST-VACCINATION WITHOUT ANY REACTION. [facility] Other 10-29-2021 Evaluation note* Encounter Date Diagnosis Assessment Notes Treatment Notes Treatment Clinical Notes Dec, Type 2 diabetes mellitus with hyperglycemia, without long-term current use of insulin (ICD-10 - E11.65) 1. Well controlled Type 2 diabetes with A1c of 6.3% on 11/06/2020 2. Blood glucose levels have good on her riky. 3. Patient is alert, oriented and receptive to making changes or counseling. Notes: Seen for an assessment of current glucose pattern, changes in treatment plan, counseling and coordination of care related to diabetes, risks, and benefits of treatment, medications, side effects. Given handouts to reinforce concepts reviewed during counseling, see scanned notes. TOPICS REVIEWED: 1. Time was spent reviewing: a. Basic concepts of diabetes, progressive beta cell , concepts of basal/bolus/correct sharon insulin requirements. b. Nutrition: Concepts of healthy diet, encouraged to decrease saturated fat in diet and increase non-starchy vegetables and fruits in diet. BMI: Pt. needs to select one small change to decrease caloric intake or increase physical activity to help decrease weight. c. Correct treatment of hypoglycemia, carry a glucose source at all times on your person, in vehicles, and at bedside. Can use glucose tablets/4, four ounces of pop or juice equal to 15 G of carbohydrate. Blood glucose should be 100 mg/dl or higher when driving. d. ADA glucose goals for age and medical complexity reviewed e. Patient questions addressed 2. Activity/exercise: Encouraged to start any form of physical activity. Start low level and increase slowly to a minimal goal of 150 minutes/week. Limit activity to what is allowed by other issues such as cardiac, pulmonary or orthopedic restrictions. 3. Standards of care: Reminded to have an annual dilated eye exam, A1C every 3 months, urine testing for microalbumin once/year, check feet daily and report any cuts or sores that do not appear to be healing. 4. Meter: Plan to check blood glucose: Please check blood glucose levels 1-4 times/day. Back to back meals reveal effectiveness of bolus dosing. 5. [facility]. Contact office if any issues or concerns with patterns of hypoglycemia, hyperglycemia, or diabetes medication issues. 6. Prescriptions: Metformin refill to [facility]. Dec, BMI 40.0-44.9, adult (ICD-10 - Z68.41) Dec, Vitamin B12 deficiency (ICD-10 - E53.8) Dec, Hypertension, unspecified type (ICD-10 - I10) Dec, Mixed hyperlipidemia (ICD-10 - E78.2) Dec, PCOS (polycystic ovarian syndrome) (ICD-10 - E28.2) Dec, Fibromyalgia (ICD-10 - M79.7) Dec, Knee osteoarthritis (ICD-10 - M17.9) Dec, Fatty liver (ICD-10 - K76.0) Dec, Dietary counseling and surveillance (ICD-10 - Z71.3) Dec, Obstructive sleep apnea (ICD-10 - G47.33) Dec, Metabolic syndrome (ICD-10 - E88.81) [facility] Other 01-01-2020 History general Narrative - Reported* Type Description Date Medical History DM II Medical History HTN Medical History Gout Medical History Fibromyalgia Medical History Asthma Surgical History cholecystectomy 2002 Surgical History D&C 03/2019 Surgical History Ablasion 06/08/2019 Hospitalization History kidney infection [facility] [employer] Other Chiil complaint+Reason for visit Narrative* Reason for Visit Diabetes mellitus Dietary counseling and surveillance HTN (hypertension) Mixed hyperlipidemia Vitamin B 12 deficiency [facility] Work Phone: evaluation noteNo InformationNortSCI-[facility] [employer] Payment Other evaluccgby noteNo assessment information available [facility] Work Phone: evaluation note* Diagnosis Onset Date Resolution Status Diabetes mellitus acute Dietary counseling and surveillance acute HTN (hypertension) acute Mixed hyperlipidemia acute Vitamin B 12 deficiency acut e [facility] Work Phone: Evaluation note* Diagnosis Onset Date Resolution Status BMI 45.0-49.9, adult acute Diabetes mellitus acute Dietary counseling and surveillance acute HTN (hypertension) acute Mixed hyperlipidemia acute Vitamin B 12 deficiency acut e Diabetes mellitus acute Dog bite acute Elevated troponin acute HTN (hypertension) acute Tachycardia acute [facility] Work Phone: evaluation note* Diagnosis Onset Date Resolution Status BMI 45.0-49.9, adult acute Diabetes mellitus acute Dietary counseling and surveillance acute HTN (hypertension) acute Mixed hyperlipidemia acute Vitamin B 12 deficiency acut e Diabetes mellitus acute Dog bite acute Dyspnea on exertion acute Elevated troponin acute HTN (hypertension) acute Tachycardia acute [facility] Work Phone: Evaluation note* Diagnosis Onset Date Resolution Status Mixed hyperlipidemia acute Vitamin B 12 deficiency acut e Dyspnea on exertion resolved Elevated troponin resolved [facility] Work Phone: Evaluation note* Diagnosis Onset Date Resolution Status Mixed hyperlipidemia acute Vitamin B 12 deficiency acut e Dyspnea on exertion resolved Elevated troponin resolved Tachycardia resolved Tachycardia resolved Elevated troponin noneactive [facility] Work Phone: Evaluation note* Diagnosis Onset Date Resolution Status Mixed hyperlipidemia acute Vitamin B 12 deficiency acut e Dyspnea on exertion resolved Elevated troponin resolved Tachycardia resolved Tachycardia resolved Elevated troponin noneactive Essential hypertension acute Gastroesophageal reflux disease acute Mixed hyperlipidemia acute Obstructive sleep apnea acut e [id number] acute Screening for colon cancer n oneactive Encounter for wellness examination noneactive Screening for breast cancer noneactive [facility] Work Phone: Hospital Discharge instructions Additional Instructions Continue to monitor glucose levels as before Change dressing daily: left arm- allow vashe moistened gauze soak on wound for 5 min., wipe free loose debris, apply hydrogel to wound bed, top with adaptic, 4x4's and [facility] Work [facility]: Reason for Referral Reason *FU 08/02 Frequent runs of sinus tachycardia Diagnosis 1 Tachycardia (R00.0) Referral Organization [facility] [place] Referring Provider First Name Hal Referring Provider Last Name Piero Referring Provider Specialty Family Prac mac Referred Organization [facility] enter Referred Provider Maria Antonia Parra Referred Address [address] [facility] [address] [place] [address] Referred Provider Specialty Internal Med icine Referral Priority Routine General Notes Lizz Viramontes 12:56:28 PM >received today, notes locked, attachments made, referral faxed Reason Persistent dizz iness, paresthesias, and weakness Diagnosis 1 Paresthesias (R20.2) Referral Organization [facility] [place] Referring Provider First Name Hal Referring Provider Last Name Piero Referring Provider Specialty Family Prac mac Referred Organization [facility] Referred Provider Bhupendra Evans Christophe r Referred Address [address] [place], [place],[address] Referred Provider Specialty Neurology Referral Priority Routine General Notes Lizz Viramontes 09:50:26 AM >received todayLizz Viramontes 04/06/2021 09:53:44 AM >attachments made, waiting for ntoes to be locked to fax Chief Complaint and Reason for Visit Chief Complaint DM shaky, muscle weakness Chief Complaint DM shaky, muscle weakness Pillars Chief Complaint E11.9 E53.8 Chief Complaint DM Pillars Screening Chief Complaint Screening DM Chief Complaint dog bite left arm Reason for Visit BMI 45.0-49.9, adult Diabetes mellitus Dietary counseling and surveillance HTN (hypertension) Mixed hyperlipidemia Vitamin B 12 deficiency Diabetes mellitus Dog bite Elevated troponin HTN (hypertension) Tachycardia Chief Complaint dog bite left arm Reason for Visit BMI 45.0-49.9, adult Diabetes mellitus Dietary counseling and surveillance HTN (hypertension) Mixed hyperlipidemia Vitamin B 12 deficiency Diabetes mellitus Dog bite Dyspnea on exertion Elevated troponin HTN (hypertension) Tachycardia Chief Complaint dog bite left [place] [facility] [place] Reason for Visit Mixed hyperlipidemia Vitamin B 12 deficiency Dyspnea on exertion Elevated troponin Chief Complaint dog bite left arm [facility] [place] bite E11.9 E53.8 just b12 pillars Reason for Visit Mixed hyperlipidemia Vitamin B 12 deficiency Dyspnea on exertion Elevated troponin Tachycardia Tachycardia Elevated troponin Chief Complaint dog bite left arm [facility] [place] bite E11.9 E53.8 just b12 pillars pillars Reason for Visit Mixed hyperlipidemia Vitamin B 12 deficiency Dyspnea on exertion Elevated troponin Tachycardia Tachycardia Elevated troponin Essential hypertension Gastroesophageal reflux disease Mixed hyperlipidemia Obstructive sleep apnea [id number] Screening for colon cancer Encounter for wellness examination Screening for breast cancer Advance Directives Advance Directive Response Recorded Date/ Time Advance Directives No January 10:18am Advance Directive Response Recorded Date/ Time Advance Directives No January 9:18am Summary Purpose Family History Relationship Condition Age at Onset Recorded Date/T jaime Not Specified No pertinent family history Unknown daughter Congenital anomaly of heart Unknown father Unknown Family history of mental disorder Unknown Not Specified Hypertension Unknown No Family History Records Found Additional Source Comments REASON FOR VISIT (unrecogniz ed section and content) DM follow up, pillars put in chartEMPLOYEE [employer] VACCINE #1EMPLOYEE PFIZER VACCINE #2pillars followed, failed BMI, glucose- patient has follow up with Dr Edward next month3 month Follow upReferral-NeuroNo InformationABDOMINAL PAIN, left sided abd pain, [id number] HERE FOR 1 YR FOLLOW UPDLC refill LibreRef by Dr. Evans Cervical Stenosis; [facility] VoicemailTKM ApptNo InformationPT HERE FOR FOLLOW UP EGD & COLONOSCOPY., PATIENT STATES THAT SHE IS DOING WELL ACID IS UNDER CONTROL AND THE DIARRHEA IS GONE.DM Follow up, Type 2 NIDDM riky cgm apt with [employer] ELEMENTARY ASSISTANT PRINCIPAL, KNITTING INSPECTOR-C, BC-ADMrefillTKM SensorsTKM Cancelled apptrefillcardiology referralrefillDM Follow up, Type 2 NIDDM riky 3 cgm apt with [employer] ELEMENTARY ASSISTANT PRINCIPAL, KNITTING INSPECTOR-C, BC-ADMEmployee DSME see LoripillarsPATIENT HERE FOR 1 YEAR FOLLOW UP. PATIENT WAS TO CONTINUE ON THE CARAFATETKM RefillDM 6month Follow up, Type 2 NIDDM riky 3 cgm apt with [employer] ELEMENTARY ASSISTANT PRINCIPAL, KNITTING INSPECTOR-C, BC-ADM Care Teams (unrecognized sec tion and content) Team Status: Active Member Role Status Dates Hal Harry DO Primary Care Provider Active Team Status: Inactive Member Role Status Dates Hal Harry DO Primary Care Provider Active Start: February 04, 2023 End: February 04, 2023 Referral Self Attending Provider Active Start: Zayra alexandra 2022 End: February 04, 2023 Team Status: Inactive Member Role Status Dates Hal Harry DO Primary Care Provider Active Start: April 20, 2023 End: April 20, 2023 Chuckie Edward MD Attending Provider Active Start: April 20, 2023 End: April 20, 2023 Team Status: Active Member Role Status Dates Hal Harry DO Primary Care Provider Active Chuckie Edward MD Attending Provider Active Team Status: Inactive Member Role Status Dates Hal Harry DO Primary Care Provider Active Redd Morales DO [facility] Attending Provider Active Team Status: Inactive Member Role Status Dates Hal Braniecki , DO Primary Care Provider Active Referral Self Attending Provider Active Team Status: Inactive Member Role Status Dates Hal Harry DO Primary Care Provider Active Dex Mcclellan APRN Attending Provider Active Team Status: Inactive Member Role Status Dates Hal Harry , Primary Care Provider Active Schuyler Barry PA-C Emergency Provider Active Team Status: Active Member Role Status Dates Hal Harry DO Primary Care Provider Active Dex Mcclellan APRN Attending Provider Active Team Status: Inactive Member Role Status Dates Hal Harry DO Primary Care Provider Active Start: November 02, 2023 End: November 02, 2023 Dex Mcclellan APRN Attending Provider Active Start: November 02, 2023 End: November 02, 2023 Team Status: Active Member Role Status Dates Hal Harry DO Primary Care Provider Active Start: November 03, 2023 Terese Sneed MD Emergency Provider Active Start: November 03, 2023 Ruiz Steward MD Admit Provider, A ttending Provider Active Start: November 03, 2023 Team Status: Inactive Member Role Status Dates Hal Harry DO Primary Care Provider Active Start: November 03, 2023 End: November 03, 2023 Terese Sneed MD Emergency Provider Active Start: November 03, 2023 End: November 03, 2023 Ruiz Steward MD Admit Provider Active Sta rt: November 03, 2023 End: November 03, 2023 Denzel Lenz MD Attending Provider Active Star t: November 03, 2023 End: November 03, 2023 Team Status: Inactive Member Role Status Dates Hal Harry DO Primary Care Prov ider, Attending Provider Active Start: November 09, 2023 End: November 09, 2023 Team Status: Active Member Role Status Dates Hal Harry DO Primary Care Provider Active Start: December 08, 2023 Dex Mcclellan APRN Attending Provider Active Start: December 08, 2023 Team Status: Inactive Member Role Status Dates Hal Harry DO Primary Care Provider Active Start: December 08, 2023 End: December 08, 2023 Redd JUAREZ , [facility] Attending Provider Active Start: December 08, 2023 End: December 08, 2023 Team Status: Inactive Member Role Status Dates Hal Harry DO Primary Care Provider Active Start: December 08, 2023 End: December 08, 2023 Dex Mcclellan APRN Attending Provider Active Start: December 08, 2023 End: December 08, 2023 Team Status: Inactive Member Role Status Dates Hal Harry DO Primary Care Prov ider, Attending Provider Active Start: December 20, 2023 End: December 20, 2023 Goals (unrecognized section and content) Goals may be documented in a n alternate section INFORMATION SOURCE (unrecogn ized section and content) DATE CREATED AUTHOR 01/17/2022 [facility] DATE CREATED AUTHOR 'S HELENEIZ ATION 12/21/2023 [facility] FOR RECORDS PERTAINING TO PATIENTS WHO ARE OR HAVE BEEN ENROLLED IN A CHEMICAL DEPENDENCY/SUBSTANCEABUSE PROGRAM, SOME INFORMATION MAY BE OMITTED. This clinical summary was aggregated from multiple sources. Caution should be exercised in using it in the provision of clinical care. This summary normalizes information from multiple sources, and as a consequence, information in this document may materially change the coding, format and clinical context of patient data. In addition, data may be omitted in some cases. CLINICAL DECISIONS SHOULD BE BASED ON THE PRIMARY CLINICAL RECORDS. [employer] provides no warranty or guarantee of the accuracy or completeness of information in this document.
== END 2024-01-23 20:03 | disposition home or self-care (01) ==
LOC: LAB 20:02
PROVIDERS: PCP Obstetrics & Gynecology; Visit Provider Obstetrics & Gynecology
DX: Z01.419 Encounter for gynecological examination (general) (routine) without abnormal findings (principal)
CPT/HCPCS: 87624; 88175

== ENCOUNTER 2025-01-29 20:11 | Outpatient (REF) | payer BC, SELFPAY ==
--- OUTSIDE RECORDS SUMMARY | 2025-01-29 20:17 | XMS_ITS | CCD ---
Author Organization [facility] Care Team Providers Care Change Management Manager Name Role Phone Chuckie Edward Jr. Unavailable [phone] Yaa Car Unavailable Yamila Narayanan Unavailable Chuckie Edward Unavailable Demario Gimenez Unavailable Thom Beck Unavailable Porfirio Kent Unavailable Dex Mcclellan Unavailable DO Yamila Narayanan Primary Care Provider MD Chuckie Edward Attending Provider [phone] WILEY Barry Emergency Provider [phone] DO Redd Morales Attending Provider XOCHILT Mcclellan Attending Provider DR PIYUSH CLEVELAND Admitting Unavailable DR PIYUSH CLEVELAND Attending Unavailable REQUEST, NONE LISTED Primary Care Unavaila DR PIYUSH Edwards Consulting Unavailable Armando Voss Unavailable DO Yamila Narayanan Primary Care Provider XOCHILT Mcclellan Attending Provider DO Yamila Narayanan Primary Care Provider MD Chuckie Edward Attending Provider DO Redd Morales Attending Provider Self, Referral Attending Provider Unavailable DO Yamila Narayanan Primary Care Provider MD Chuckie Edward Attending Provider [phone] DO Piero Yamila Primary Care Provider MD Terese Sneed Emergency Provider MD Ruiz Steward Admit Provider MD Ruiz Steward Attending Provider MD Denzel Lenz Attending Provider XOCHILT Mcclellan Attending Provider [facility], DO Redd Miramontes Attending Provider PIYUSH CLEVELAND Attending Unavailable Piero SHEPPARD, Yamila Ibarra Primary Care Provider Piero ORDONEZ, Yamila Primary Care Provider Bentley Solomon APRN Emergency Provider Piero ORDONEZ, Yamila A Primary Care Provider Piero ORDONEZ, Yamila Primary Care Provider Bentley Solomon APRN Emergency Provider Shell Linn MD Attending Provider Antionette Rae DO Emergency Provider SHELL LINN Attending Unavailable YAMILA NARAYANAN Primary Care Unavailable SHELL LINN Attending Unavailable SHELL LINN Referring Unavailable YAMILA NARAYANAN A Primary Care Unavailable Piero ORDONEZ, Yamila Primary Care Provider Shell Linn MD Attending Provider Hattie Brito Attending Provider [phone] Dex Mcclellan APRN Attending Provider Piero ORDONEZ, Yamila Primary Care Provider [facility] Redd ORDONEZ Attending Provider Yamila Narayanan DO Attending Provider Linn, Goff Attending Unavailable Braniecki, Yamila Primary Care Unavailable Linn, Goff Admitting Unavailable Linn, Goff Attending Unavailable Braniecki, Yamila Primary Care Unavailable Linn, Goff Admitting Unavailable Antionette Rae Attending Unavailable Braniecki, Yamila Primary Care Unavailable BrownAntionette M Admitting Unavailable Neha, Bentley Admitting Unavailable Neha, Bentley Attending Unavailable Braniecki, Yamila Primary Care Unavailable [facility], Redd [facility]ending Unavailable Braniecki, Yamila Primary Care Unavailable Kun - [facility], Redd P Admitting [facility] Attending Unavailable Braniecki, Yamila Primary Care Unavailable Braniecki, Yamila Primary Care Unavailable Cristofer, Piyush Admitting Unavailable Cristofer, Piyush Attending Unavailable Cristofer, Piyush Referring Unavailable Branlukascki, Yamila Primary Care Unavailable Mapus, Tondra K Admitting Unavailable Mapus, Tondra K Attending Unavailable Branyvani, Yamila Primary Care Unavailable Mapus, Tondra K Admitting Unavailable Mapus, Tondra K Attending Unavailable Piero ORDONEZ Yamila Primary Care Provider [phone] [place] Dex LEMON Attending Provider [phone] Piero DO Yamila Primary Care Provider [facility] Redd ORDONEZ Attending Provider [place] WRITING MANAGERDex Iverson Attending Provider [phone] YoelYamila madrid DO Attending Provider [phone] Armando Voss MD Attending Provider [phone] Allergies Allergy ClassificationReported Allergen(s)Allergy TypeDate of OnsetReaction(s) Facility (6 sources)methylPREDNISolone; Translations: [methylprednisolone]Drug Allergy 47-08-9039YobhqhmtcnrvEyviouayeMer[facility] ([facility] sources)semaglutide; Translations: [semaglutide]Propensity to adverse lfwwzuhtc62-16-5071SdpmxoVan Wert County Hospital Medications Current Medications MedicationDrug Class(es)DatesSig (Normalized)Sig (Original)amLODIPine 5 mg / valsartan 160 mg oral tablet (8 sources)Dihydropyridine Calcium Channel Lori, Angiotensin 2 Receptor BlockerStart: 06-21-2024 End: 31-93-6222demz 1 tablet by mouth once dailyAmlodipine-Valsartan 5-160 mg tablet Active 1 TAB PO Daily January 17, 2025 12:00am Complies withdrug therapyBlood-Glucose Sensor (Freestyle Riky 3 Plus Sensor) device (10 sources)Start: 25-34-2020Lxehu-Glucose Sensor (Freestyle Riky 3 Plus Sensor) device Active 0 .Route 08 14January 292:00am Type 2 diabetes mellitus without complications Use to monitor BG change every 15 daysStart: 15-45-4004Kxvaa-Glucose Sensor (Freestyle Riky 3 Plus Sensor) device Active 0 .Route 08 14January 2941:00am Type 2 diabetes mellitus without complications Use to monitor BG change every 15 daysStart: 22-06-1907Jmbjo- Glucose Sensor (Freestyle Riky 3 Plus Sensor) device Active 0 .Route January 30, 2024 1:00am Use to monitor BG change every 15 daysStart: 41-31-1521Mferj- Glucose Sensor (Freestyle Riky 3 Plus Sensor) device Active 0 .Route January 30, 2024 12:00am Use to monitor BG change every 15 daysContinuous Blood Gluc Sensor (FreeStyle Riky 3 Sensor) misc (4 sources)Start: 54-86-5534Dydtfbypcp Blood Gluc Sensor (FreeStyle Riky 3 Sensor) misc Inject 1 Units as directed in the morning and 1 Units at noon and 1 Units in the evening and 1 Units before bedtime. 11/01/2022 ActiveFreeStyle Riky 14 Day Sensor - (17 sources)Start: 79-94-6171GffaUsqmj Riky 14 Day Sensor - 1 sensor SQ Change every 14 days for 84 days Mar, ActiveStart: 31-20-8359XyykUnrbi Riky 14 Day Sensor - 1 sensor Every 14 days for 84 days Mar, ActiveFreeStyle Riky 3 Sensor - (14 sources)Start: 03-55-0925JtvxOdtjv Riky 3 Sensor - as directed SQ changed every 14 days for 28 days Jan, ActiveFreeStyle Riky 3 Sensor - USE DIRECTED SUBCUTANEOUSLY CHANGING EVERY 14 DAYS for 28 ActiveFreeStyle Riky 3 Sensor - as directed SQ changed every 14 days for 28 days Zejdvk95 hr metoprolol succinate 100 mg extended release oral tablet (20 sources)beta-Adrenergic BlockerStart: 05-10-2024 End: 08-30-6724zzms 1 tablet by mouth once dailymetoprolol succinate XL (Toprol XL) 200 mg 24 hr tablet Indications: Palpitations Take 1 tablet (200 mg) by mouth once daily. Do not crush or chew. 90 tablet 3 05/10/2024 05/10/2025 Active Start: 10-20-2023 End: 75-43-3665lcmm 1 tablet by mouth once dailyMetoprolol Succinate 100 mg tablet extended release 24 hr Active 0 .ROUTE .COMPLEX 90 April 16, 2024 8:06am TAKE 1 TABLET BY MOUTH ONCE DAILY FOR 90 DAYS Complies with drug therapy Start: 05-04-2023 End: 67-68-2650ywdm 1 tablet by mouth once dailyMetoprolol Succinate 100 mg tablet extended release 24 hr Discontinued 100 MG PO Daily 90 90 May 04, 2023 10:17am October 20, 2023 7:00am FreeTextSi tablet Orally Once a day; Note: Source Status: Taking; Refills: 1; Qty: 90 Tablet; Provider: Piero Hong AStart: 77-34-4787zjxz 1 tablet by mouth every twenty-four hours in the morningmetoprolol succinate XL (Toprol-XL) 100 MG 24 hr tablet Take 100 mg by mouth in the morning. 10/27/2022 ActiveStart: 06-22-2017 End: 14-07-4397ctbo 1 tablet by mouth once dailyMetoprolol Succinate 50 mg tablet extended release 24 hr Discontinued 50 MG PO Daily 90 90 May 04, 2023 10:14am May 04, 2023 10:16amTirzepatide (3 sources)Start: 24-42-0418Bkmjfngnlja (Mounjaro) 7.5 mg/0.5 mL pen injector Active 7.5 MG SUBCUT every week 6 0 December 3:49pm Obstructive sleep apnea syndrome Type 2 diabetes mellitus without complications Obstructive sleep apnea (adult) (pediatric) Complies with drug therapyStart: 01-02-2025 End: 51-69-6439Ozsqzwlrrhn (Mounjaro) 7.5 mg/0.5 mL pen injector Discontinued 7.5 MG SUBCUT every week 6 0 2024 11:00pm January 02, 2025 3:50pm Type 2 diabetes mellitus without complicationsStart: 23-51-1187Mklxpsubfai (Mounjaro) 7.5 mg/0.5 mL pen injector Active 7.5 MG SUBCUT every week 6 0 December 12:00am Type 2 diabetes mellitus without complications Complies with drug therapyVitamin B-12 1000 MCG (3 sources)take 1 tablet by mouth once dailyVitamin B-12 1000 MCG 1 tablet Orally Once a day for 30 day(s) Active Completed/Discontinued Medications MedicationDrug Class(es)DatesSig (Normalized)Sig (Original)acetaminophen 500 mg oral tablet (15 sources)Start: 11-03-2023 End: 23-35-5910rhln 1-3 tablets by mouth every eight hours as needed for pain Acetaminophen 500 mg Tablet Discontinued 1000 MG PO Q8H as needed for Pain Scale 1 - 3 or fever 45 15 0 November 02, 2023 11:00pm June 12, 2024 1:14pmStart: 39-37-6784zfyr 1000 mg by mouth every eight hoursAcetaminophen Active 1000 MG PO Q8H 45 15 November 03, 2023 12:65zwllk817371 200 actuat albuterol 0.09 mg/actuat metered dose inhaler (20 sources)beta2-Adrenergic AgonistStart: 07-06-2017 End: 71-22-6429lnpu 1 puff(s) by inhalation every four to six hours as needed for wheezingAlbuterol Sulfate (Proventil Hfa) 90 mcg/actuation Hfa Aerosol Inhaler Discontinued 2 PUFF INHALATION EVERY 4-6 HOURS as needed for Shortness Of Breath Or Wheezing 1 0 July 05, 2017 11:00pm June 19, 2018 2:37am with spacerallopurinol 100 mg oral tablet (20 sources)Xanthine Oxidase InhibitorStart: 06-20-2024 End: 10-41-8540uglk 1 tablet by mouth once dailyAllopurinol 100 mg tablet Discontinued 100 MG PO Daily 90 1 December 06, 2024 3:43pm December 31, 2024 1:30pmStart: 12-05-2023 End: 35-35-6040fhzn 1 tablet by mouth once dailyAllopurinol 100 mg tablet Discontinued 0 .ROUTE .COMPLEX June 12, 2024 1:14pm June 20, 2024 3:16pm TAKE 1 TABLET BY MOUTH ONCE DAILYStart: 70-54-7637cejb 1 tablet by mouth once dailyAllopurinol Active 0 .ROUTE .COMPLEX December 05, 2023 8:13am TAKE 1 TABLET BY MOUTH ONCE DAILY FOR 90 DAYSStart: 06-22-2017 End: 72-69-9038ruqj 1 tablet by mouth once dailyAllopurinol 100 mg tablet Discontinued 100 MG PO Daily 90 90 May 04, 2023 10:13am October 20, 2023 9:48amamoxicillin 875 mg / clavulanate 125 mg oral tablet (19 sources)Penicillin-class AntibacterialStart: 11-03-2023 End: 29-62-7435pegk 1 tablet by mouth twice dailyAmoxicillin-Pot Clavulanate 875-125 mg Tablet Discontinued 1 TAB PO Twice daily 12 6 0 October 11:00pm November 09, 2023 1:33pmStart: 57-96-8024mxyr 1 tablet by mouth every twelve hoursAmoxicillin-Pot Clavulanate 875-125 MG 1 tablet Orally every 12 hrs for 10 day(s) Apr, Activecephalexin 500 mg oral capsule (20 sources)Cephalosporin AntibacterialStart: 10-29-2021 End: 51-53-8986pcre 1 capsule by mouth every eight hoursCephalexin 500 mg capsule Discontinued 500 MG PO Q8H 21 7 0 October 28, 2021 11:00pm October 20, 2023 8:36amcolestipol hydrochloride 1000 mg oral tablet (6 sources)Bile Acid SequestrantStart: 05-97-0992vikf 2 tablets by mouth every twenty-four hoursColestid 1 GM 2 tablets Orally Once a day for 30 day(s) July, Not-Takingdexamethasone 1 mg oral tablet (8 sources)CorticosteroidStart: 06-12-2024 End: 70-59-8448bxkp 1 tablet by mouth once dailyDexamethasone 1 mg tablet Discontinued 1 MG PO Daily 1 0 June 11, 2024 11:00pm June 20, 2024 10:34am Primary hypertension Essential (primary) hypertensiondiclofenac sodium 0.01 mg/mg topical gel (20 sources)Nonsteroidal Anti-inflammatory DrugStart: 03-06-2019 End: 03-22-7001uznsl 4 g topically four times daily as neededDiclofenac Sodium (Voltaren) 1 % gel Discontinued 4 GM TOPICAL Four times daily 100 0 March 06, 2019 12:00am August 13, 2019 6:21am apply to neck prndicyclomine hydrochloride 20 mg oral tablet (8 sources)AnticholinergicStart: 16-79-5982jjha 1 tablet by mouth every twelve hoursDicyclomine HCl 20 MG 1 tablet Orally bid for 30 day(s) Jun, Not-Takingfamotidine 20 mg oral tablet (20 sources)Histamine-2 Receptor AntagonistStart: 06-22-2017 End: 53-75-6658daak 1 tablet by mouth twice dailyFamotidine (Pepcid) 20 mg Tablet Discontinued 20 MG PO Twice daily 20 0 June 21, 2017 11:00pm June 19, 2018 2:37amFreeStyle Riky 14 Day Lott - (16 sources)Start: 08-68-9459YfsqKzfnb Riky 14 Day Lott - Use with 14 day sensor Daily for 365 days Mar, Not-TakingStart: 79-70-5840WydkMkshe Riky 14 Day Lott - Use with 14 day sensor Daily for 365 days Mar, Activeibuprofen 200 mg oral tablet (20 sources)Nonsteroidal Anti-inflammatory DrugStart: 06-22-2017 End: 77-52-9488Qxfypkwkm (Motrin Ib) 200 mg Tablet Discontinued 600 MG PO As Directed as needed for Pain June 21, 2017 11:00pm June 19, 2018 2:37am3 ml liraglutide 6 mg/ml pen injector (20 sources)GLP-1 Receptor AgonistStart: 09-25-2024 End: 68-47-5555Acdtdcunqsc (Victoza 3-Raza) 0.6 mg/0.1 mL (18 mg/3 mL) pen injector Discontinued 1.8 MG SUBCUT Daily September 25, 2024 2:46pm September 25, 2024 3:31pmStart: 06-20-2024 End: 47-98-8926Agfmstfqasc (Victoza 3-Raza) 0.6 mg/0.1 mL (18 mg/3 mL) pen injector Discontinued 0 MG .ROUTE .COMPLEX June 19, 2024 11:00pm September 25, 2024 2:46pm ADMINISTER 1.6mg SUBCUTANEOUSLY ONCE DAILYStart: 12-04-2023 End: 15-69-9525Ckzmwjzmnth (Victoza 3-Raza) 0.6 mg/0.1 mL (18 mg/3 mL) pen injector Discontinued 0 .ROUTE .COMPLEX 07 06January 30, 2024 9:21am June 20, 2024 10:35am ADMINISTER 1.8mg SUBCUTANEOUSLY ONCE DAILYStart: 11-02-2023 End: 31-43-2154Zomfyutjlex (Victoza 3-Raza) 0.6 mg/0.1 mL (18 mg/3 mL) pen injector Discontinued 1.2 MG SUBCUT .daily November 02, 2023 11:00pm December 04, 2023 2:28pmStart: 05-04-2023 End: 92-91-3066Jflqmsuaujz (Victoza 3-Raza) 0.6 mg/0.1 mL (18 mg/3 mL) pen injector Discontinued 1.8 MG SUBCUT Daily 09 04November 01, 2023 11:00pm November 03, 2023 1:31am Diabetes mellitus Type 2 diabetes mellituswithout complicationsStart: 72-46-9579gukmhg 0.6 mg by subcutaneous injection in the morningVictoza 18 MG/3ML injection Inject 0.6 mg under the skin in the morning. 09/17/2022 ActiveStart: 14-01-3669piyvib 1.8 mg by subcutaneous injection once dailyVictoza 18 MG/3ML 1.8mg Subcutaneous once daily for 90 day(s) Oct, ActiveVictoza 3-Raza 0.6 mg/0.1 mL (18 mg/3 mL) injection Inject 0.1 mL (0.6 mg) under the skin once daily. Activeinject 0.6 mg by subcutaneous injection every weekSaxenda 18 MG/3ML 0.6 mg and may increase weekly to full dose if no side effects and if necessary. Subcutaneous once daily for 30 day(s) Not-Taking lisinopril 10 mg oral tablet (20 sources)Angiotensin Converting Enzyme InhibitorStart: 07-10-2022 End: 71-04-0027gumv 1 tablet by mouth once dailyLisinopril 10 mg tablet Discontinued 10 MG PO Daily 30 0 July 09, 2022 11:00pm October 20, 2023 8 :36ammetaxalone 800 mg oral tablet (20 sources)Start: 03-06-2019 End: 45-43-5452lwxw 1 tablet by mouth three times daily as needed for muscle spasmsMetaxalone (Skelaxin) 800 mg Tablet Discontinued 800 MG PO Three times daily as needed for Muscle Spasm 10 March 06, 2019 12:00am August 13, 2019 6:21ammetFORMIN hydrochloride 1000 mg oral tablet (20 sources)BiguanideStart: 05-04-2023 End: 34-33-7809iekn 1 tablet by mouth twice daily at mealtimeMetformin 1,000 mg tablet Discontinued 1000 MG PO Twice daily with meals 180 0 September 25, 2024 3:33pm January 02, 2025 3:02pm Diabetes mellitus Type 2 diabetes mellitus without complicationsStart: 06-22-2017 End: 15-05-9194jiox 1 tablet by mouth once dailyMetformin 1,000 mg Tablet Extended Release 24hr Discontinued 1000 MG PO Daily June 21, 2017 11:00pm May 04, 2023 10:16ammethylPREDNISolone 4 mg oral tablet (5 sources)CorticosteroidStart: 10-30-2024 End: 99-88-6501nijr 1 tablet by mouth onceMethylprednisolone (Medrol (Raza)) 4 mg tablets,dose pack Discontinued 0 PO per package directions October 29, 2024 11:00pm November 13, 2024 6:13am PO PER PKG DIR for 6 daysomeprazole 20 mg delayed release oral capsule (20 sources)Proton Pump InhibitorStart: 07-28-2021 End: 11-78-5956hcia 1 capsule by mouth once dailyOmeprazole 20 mg capsule,delayed release(DR/EC) Discontinued 20 MG PO Daily 90 90 1 November 3:42pm December 31, 2024 1:30pmtake 1 capsule by mouth twice daily omeprazole (PriLOSEC) [address] capsule Take 1 capsule (20 mg) by mouth 2 times a day. ActivepredniSONE 10 mg oral tablet (20 sources)Start: 07-06-2017 End: 66-59-9824Nxigygmget 10 mg Tablet Discontinued 60 MG PO Daily 30 0 July 05, 2017 11:00pm June 19, 2018 2:37am administer with food or milkStart: 07-06-2017 End: 58-30-8168osqg 60 mg by mouth once daily at mealtimePrednisone Discontinued 60 MG PO Daily July 06, 2017 12:00am June 19, 2018 3:37am administer with food or milkspironolactone 50 mg oral tablet (20 sources)Aldosterone AntagonistStart: 12-05-2023 End: 70-92-3862hmbs 1 tablet by mouth once dailySpironolactone 50 mg tablet Discontinued 0 .ROUTE .COMPLEX 90 December 06, 2024 3:42pm 2024 1:30pm TAKE 1 TABLET BY MOUTH ONCE DAILY FOR 90 DAYSStart: 75-73-1386yelt 1 tablet by mouth once dailySpironolactone Active 0 .ROUTE .COMPLEX 90 December 05, 2023 8:13am TAKE 1 TABLET BY MOUTH ONCE DAILY FOR 90 DAYSStart: 06-22-2017 End: 67-59-3714xrqp 1 tablet by mouth once dailySpironolactone 50 mg tablet Discontinued 50 MG PO Daily 90 90 1 May 04, 2023 10:14am October 20, 2023 9:48amsucralfate 1000 mg oral tablet (20 sources)Aluminum ComplexStart: 07-30-2021 End: 23-92-3532toro 1 tablet by mouth once dailySucralfate (Carafate) 1 gram tablet Discontinued 1 GM PO Daily May 04, 2023 12:00am January 11, 2024 9:48am FreeTextSi TABLET Orally ONE TIME A DAY; Note: Source Status: Refill; Refills:11; Qty: 30 Tablet; Provider: Shanika Roberts JStart: 07-30-2021 take 1 tablet by mouth once dailyCarafate 1 GM 1 TABLET Orally ONE TIME A DAY for 30 days July, ActiveStart: 27-92-0575dvnq 1 tablet by mouth every eight hoursCarafate 1 GM 1 TABLET Orally THREE TIMES A DAY for 30 day(s) July, ActiveTirzepatide (5 sources)Start: 09-25-2024 End: 67-46-5117Kkvjftjbqoy (Mounjaro) 2.5 mg/0.5 mL pen injector Discontinued 2.5 MG SUBCUT every week 2 September 24, 2024 11:00pm December 06, 2024 11:37am Obstructive sleep apnea syndrome Type 2 diabetes mellitus without complications Obstructive sleep apnea (adult) (pediatric) for 4 weeksStart: 09-25-2024 End: 01-32-7987Ozkdiwgvmcw (Mounjaro) 2.5 mg/0.5 mL pen injector Discontinued 2.5 MG SUBCUT every week 2 September 25, 2024 12:00am December 06, 2024 12:37pm Obstructive sleep apnea syndrome Type 2 diabetes mellitus without complications Obstructive sleep apnea (adult) (pediatric) for 4 weeksStart: 46-12-3396Uiaryqmklst (Mounjaro) 2.5 mg/0.5 mL pen injector Active 2.5 MG SUBCUT every week 2 September 252:00am for 4 weeks Complies with drug therapy Start: 92-66-4472Uxcknfpejjw (2 sources)Start: 12-06-2024 End: 63-52-4507Swrlkqnsuka (Mounjaro) 5 mg/0.5 mL pen injector Discontinued 5 MG SUBCUT every week 6 December 05, 2024 11:00pm January 02, 2025 3:01pm Type 2 diabetes mellitus without complicationsStart: 12-06-2024 End: 82-94-6596Cdbhnzcwhju (Mounjaro) 5 mg/0.5 mL pen injector Discontinued 5 MG SUBCUT every week 6 December 06, 2024 12:00am January 02, 2025 4:01pm Type 2 diabetes mellitus without complicationsvitamin b12 0.05 mg oral tablet (20 sources)Vitamin O44Zpfnu: 07-28-2021 End: 17-28-0814yxug 1 tablet by mouth once dailyCyanocobalamin (Vitamin B-12) (Vitamin B-12) 50 mcg Tablet Discontinued 50 MCG PO Daily July 27, 2021 11:00pm October 20, 2023 8:36amtake 1 tablet by mouth every twenty-four hoursVitamin B- 12 1000 MCG 1 tablet Orally Once a day for 30 day(s) Active Problems Active Problems Problem ClassificationProblemDateDocumented DateEpisodic/ChronicAbdominal pain (11 sources)Unspecified abdominal pain; Translations: [Left upper quadrant pain] Onset: 06-10-2021 Resolved: 71-68-4594FjwrgynqIiwbwszrzerixh/social admission (19 sources)Dietary counseling and surveillance; Translations: [Patient encounter status]Onset: 01-09-2021 Resolved: 82-99-4521ZudgdeveHumgia (14 sources)Asthma; Translations: [Unspecified asthma, uncomplicated]11-07-2023 ChronicCardiac dysrhythmias (6 sources)Supraventricular tachycardia; Translations: [SVT (supraventricular tachycardia)]Onset: 570237-12-9588NanjhfxDfuzuuu dysrhythmias (20 sources)Palpitations; Translations: [Palpitations]Onset: 05-07-2024 92-17-5806WxdpqmytXnkvrvz obstructive pulmonary disease and bronchiectasis (9 sources)Bronchitis; Translations: [Bronchitis, not specified as acute or chronic]76-10-3216ZfakchyfHjuvggyade and other anemia (20 sources)Iron 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; Translations: [Iron deficiency anemia secondary to blood loss (chronic)]01-33-6834WmgvjvbGpkstxvpfn and other anemia (9 sources)Iron deficiency anemia; Translations: [Iron deficiency anemia, unspecified]50-95-6937EfvvownsDzhspnch mellitus with complications (20 sources)Hyperglycemia due to type 2 diabetes mellitus; Translations: [Type 2 diabetes mellitus with hyperglycemia]Onset: 01-09-2021 Resolved: 15-61-0082HfrktojNypwpyvp mellitus without complication (20 sources)Type 2 diabetes mellitus without complication; Translations: [Type 2 diabetes mellitus without complications]Onset: 04-06-2021 Resolved: 54-30-3374WgmilgtGigwyarco of lipid metabolism (20 sources)Mixed hyperlipidemia; Translations: [Mixed hyperlipidemia]Onset: 01-09-2021 Resolved: 87-93-1686CxukvdlO Codes: Natural/environment (5 sources)Dog bite - wound; Translations: [Bitten by dog, initial encounter] 19-39-6842PbonesqrJqdfvhncsy disorders (20 sources)Gastroesophageal reflux disease; Translations: [Gastro-esophageal reflux disease without esophagitis]Onset: 04-06-2021 Resolved: 52-77-2693ZzkrshrXphukwlev hypertension (20 sources)Essential hypertension; Translations: [Essential (primary) hypertension]Onset: 01-09-2021 Resolved: 41-05-9706TprrqnbWmdl and other crystal arthropathies (20 sources)Gout; Translations: [Gout, unspecified]ChronicHypertension with complications and secondary hypertension (20 sources)Hypertensive urgency ; Translations: [Hypertensive urgency] 65-98-5034LgtdfmlRpchchaatwcdd and screening for infectious disease (3 sources)Encounter for immunization; Translations: [Encounter for screening for human papillomavirus (HPV)]Onset: 02-10-2021 Resolved: 12-77-4098ZezlwkddQpwzlzb and fatigue (9 sources)Asthenia; Translations: [Weakness]25-66-0119JabpngkwJracaoohq disorders (20 sources)Menorrhagia; Translations: [Excessive and frequent menstruation with regular cycle]10-21-5501RqkpuksNmxvxijmamf deficiencies (20 sources)Vitamin D deficiency; Translations: [Vitamin D deficiency, unspecified]38-95-6049TcqlkagDrfglvbhxwp deficiencies (20 sources)Deficiency of other specified B group vitamins; Translations: [Cobalamin deficiency]Onset: 01-09-2021 Resolved: 02-30-9647PpkzdvxwWugugwlqtdtjlg (20 sources)Osteoarthritis of knee; Translations: [Osteoarthritis of knee, unspecified]Onset: 01-09-2021 Resolved: 28-21-9789XotdwujThkgw circulatory disease (7 sources)Elevated blood pressure; Translations: [Elevated blood-pressure reading, without diagnosis of hypertension]68-73-9375MjqqdogiDtdyb connective tissue disease (20 sources)Fibromyalgia; Translations: [Fibromyalgia]86-65-9311VomkvekuPkcov endocrine disorders (20 sources)Polycystic ovaries; Translations: [Polycystic ovarian syndrome] ChronicOther endocrine disorders (2 sources)Polycystic ovarian syndrome; Translations: [PCOS (polycystic ovarian syndrome) E28.2]Onset: 01-09-2021 Resolved: 46-79-8860ScsbrvfJhlpp endocrine disorders (15 sources)Polycystic ovary syndrome; Translations: [Polycystic ovarian syndrome]77-14-7511AvmhofdEmral gastrointestinal disorders (20 sources)Irritable bowel syndrome with diarrhea; Translations: [Irritable bowel syndrome with diarrhea]44-85-8466WxhosdsSrwpd gastrointestinal disorders (3 sources)Irritable bowel syndrome with diarrheaOnset: 07-07-2021 Resolved: 90-24-4383SgpezmjExxud gastrointestinal disorders (20 sources)Diarrhea; Translations: [Diarrhea, unspecified]EpisodicOther liver diseases (20 sources)Steatosis of liver; Translations: [Fatty (change of) liver, not elsewhere classified]58-60-2060YpfcnkwOnnio liver diseases (2 sources)Fatty (change of) liver, not elsewhere classified; Translations: [Fatty liver K76.0]Onset: 01-09-2021 Resolved: 56-26-5521OfpkquwWuemy lower respiratory disease (15 sources)Dyspnea on exertion; Translations: [Other forms of dyspnea] 84-21-5204SvwfqrcpGhcpi lower respiratory disease (5 sources)Other forms of dyspnea; Translations: [Other respiratory abnormalities]19-93-6149PlqtctyxSrqpz nervous system disorders (20 sources)Loss of taste; Translations: [Parageusia]EpisodicOther nervous system disorders (20 sources)Sensory disorder of smell and/or taste; Translations: [Anosmia] EpisodicOther nervous system disorders (20 sources)Paresthesia; Translations: [Paresthesia of skin]EpisodicOther nutritional; endocrine; and metabolic disorders (20 sources)Metabolic disease; Translations: [Metabolic syndrome]ChronicOther nutritional; endocrine; and metabolic disorders (20 sources)Metabolic syndrome X; Translations: [Metabolic syndrome]11-07-2023 ChronicOther nutritional; endocrine; and metabolic disorders (20 sources)Body mass index 40+ - severely obese; Translations: [Body mass index (BMI) 45.0-49.9, adult]Onset: 289981-74-1829YfiajqoAlxmn nutritional; endocrine; and metabolic disorders (20 sources)Obesity; Translations: [Obesity, unspecified]ChronicOther nutritional; endocrine; and metabolic disorders (4 sources)Body mass index (BMI) 40.0-44.9, adult; Translations: [BMI 40.0-44.9, adult Z68.41]Onset: 01-09-2021 Resolved: 84-39-0190QsuebktQbduj nutritional; endocrine; and metabolic disorders (2 sources)Metabolic syndrome; Translations: [Metabolic syndrome E88.81]Onset: 01-09-2021 Resolved: 64-88-1559SszhglbZmjqc nutritional; endocrine; and metabolic disorders (9 sources)Body mass index (BMI) 45.0-49.9, adult; Translations: [Body Mass Index 45.0-49.9, adult]Onset: 64-73-3389EzhkhloLsqjc nutritional; endocrine; and metabolic disorders (2 sources)Morbid obesity; Translations: [Morbid (severe) obesity due to excess calories]65-70-0200ZwstlwhXhjwj screening for suspected conditions (not mental disorders or infectious disease) (20 sources)Encounter for screening for malignant neoplasm of cervix; Translations: [Raised cardiac enzyme or marker]Onset: 69-34-9639MbioxrdrKwfrkwdn codes; unclassified (20 sources)Obstructive sleep apnea syndrome; Translations: [Obstructive sleep apnea (adult) (pediatric)]Onset: 174245-51-3493AeyyjjaRpsmrczt codes; unclassified (7 sources)Obstructive sleep apnea (adult) (pediatric); Translations: [Obstructive sleep apnea (adult)(pediatric)]Onset: 01-09-2021 Resolved: 50-65-0305OwiorunGzggrvwd codes; unclassified (2 sources)Postmenopausal state; Translations: [Asymptomatic menopausal state] 69-82-6151BeukuwkeTdwjerzg codes; unclassified (4 sources)Never smoked tobacco; Translations: [Other specified health status] Onset: 610720-53-7065XiwuihkoZzihhglm codes; unclassified (12 sources)Other specified health status; Translations: [Intolerance of continuous positive airway pressure (CPAP) ventilation]Onset: 34-58-5348Oevqzcwg Spondylosis; intervertebral disc disorders; other back problems (20 sources)Cervical arthritis; Translations: [Spondylosis without myelopathy or radiculopathy, cervical region]Onset: 08-27-2021 Resolved: 91-38-7456PhennzvUufipfuqhhn; intervertebral disc disorders; other back problems (11 sources)Spinal stenosis, cervical region; Translations: [Cervicalgia]Onset: 08-27-2021 Resolved: 74-90-3117AqjjbkcuOshynzy and strains (20 sources)Strain of neck muscle; Translations: [Strain of muscle, fascia and tendon at neck level, initial encounter]29-86-1852CqjtkkgjDaksqkwhmdcx (1 source)Supraventricular tachycardia, unspecified; Translations: [Supraventricular tachycardia, unspecified]Onset: 27-24-6158Coftxunyfaiz (1 source)Supraventricular tachycardia, unspecified (CMS-HCC); Translations: [Supraventricular tachycardia, unspecified (CMS-HCC)]Onset: 25-88-3413Qvkyzyj tract infections (9 sources)Urinary tract infectious disease; Translations: [Urinary tract infection, site not specified]54-25-7085Rkhtkaeh Past or Other Problems Problem ClassificationProblemDateDocumented DateEpisodic/ChronicGenitourinary symptoms and ill-defined conditions (1 source)Hematuria, unspecifiedOnset: 06-10-2021 Resolved: 41-60-4265KzotbeqdIvnvs connective tissue disease (2 sources)Fibromyalgia; Translations: [Fibromyalgia M79.7]Onset: 01-09-2021 Resolved: 96-91-3301LszwwysbOianv nervous system disorders (1 source)Paresthesia of skinOnset: 04-06-2021 Resolved: 12-41-9864FfnmmwdoZwzjskricpax (1 source)Contact with and (suspected) exposure to covid-19 Z20.822Onset: 09-10-2021 Resolved: 30-54-8115Kpleyclkwrmf (1 source)Supraventricular tachycardia, unspecified; Translations: [Supraventricular tachycardia, unspecified]Onset: 24-95-0577Smgedgosghib (1 source)Supraventricular tachycardia, unspecified (CMS-HCC); Translations: [Supraventricular tachycardia, unspecified (CMS-HCC)]Onset: 07-74-0531Cteak infection (1 source)COVID-19Onset: 09-10-2021 Resolved: 09-10-2021 Results Test NameValueInterpretationReference VxwvjLbzbuvfjWqV3a HPLC (Bld) [Mass fraction]Ordered By: Dex Mcclellan on 61-36-7266XmJ0p (Bld) [Mass fraction]7.8 % [facility] HospitalNo Panel InformationOrdered By: Dex Mcclellan on 58-30-6165Bmfldsm Ponquao960VihchwlotMemorial Health System Marietta Memorial HospitalAlanine aminotransferase [Enzymatic activity/volume] in Serum or PlasmaOrdered By: Redd Morales on 48-45-8960WST [Catalytic activity/Vol]37 U/L7-52[facility] HospitalComment on above:Performed By: #### PILLAR LIPID, PILLAR CBC, PILLAR CMP, EBS A1C ####[address] [place] [address] USAAlbumin [Mass/volume] in Serum or Plasma by Bromocresol green (BCG) dye binding methoOrdered By: Redd Morales on 37-51-0016Nciqzvr BCG dye [Mass/Vol] 3.9 g/dL3.5-5.7FCincinnati Shriners HospitalAlkaline phosphatase [Enzymatic activity/volume] in Serum or PlasmaOrdered By: Redd Morales on 85-17-6591QRZ [Catalytic activity/Vol]53 U/F87-236LcwdezgisMemorial Health System Marietta Memorial HospitalComment on above:Performed By: #### PILLAR LIPID, PILLAR CBC, PILLAR CMP, EBS A1C ####[address] [place] [address] [place] Aspartate aminotransferase [Enzymatic activity/volume] in Serum or PlasmaOrdered By: Redd Morales on 05-78-3169DIE [Catalytic activity/Vol]30 U/G62-97BryrzkpuuMemorial Health System Marietta Memorial HospitalComment on above:Performed By: #### PILLAR LIPID, PILLAR CBC, PILLAR CMP, EBS A1C ####[address] [place] [address] USABasophils [#/volume] in Blood by Automated count Ordered By: Redd Morales on 61-60-4611Rhsvoiqkt (Bld) [#/Vol]0.0 10*3/uL0.0-0.2 [facility] HospitalComment on above:Result Comment: PERFORMED BY: [facility] [address] [place] [address] PATHOLOGIST BALLROOM DANCER FARSHAD WHITTAKER M.D.Performed By: #### PILLAR LIPID, PILLAR CBC, PILLAR CMP, EBS A1C ####[facility] [address] [place] [id number] USABasophils/100 leukocytes in Blood by Automated countOrdered By: Redd Morales on 48-43-7004Bwqdfwhaa/100 WBC (Bld)0.3 %.[facility] HospitalComment on above:Performed By: #### PILLAR LIPID, PILLAR CBC, PILLAR CMP, EBS A1C ####[address] Bilirubin.total [Mass/volume] in Serum or PlasmaOrdered By: Redd Morales on 54-74-8469Gtfwzhgpx [Mass/Vol]0.4 mg/dL0.3-1.0[facility] Comment on above:Performed By: #### PILLAR LIPID, PILLAR CBC, PILLAR CMP, EBS A1C ####[facility] Blood estimated average glucose determination by estimation from glycated hemoglobinOrdered By: Redd Morales on 50-67-1299Tizfjra glucose Estimated from glycated hemoglobin (Bld) [Mass/Vol]169 mg/dLMemorial Health System [facility] Hospital Calcium [Mass/volume] in Serum or PlasmaOrdered By: Redd Morales on 11-08-2024 Calcium [Mass/Vol]8.7 mg/dL8.6-10.3FCincinnati Shriners HospitalComment on above:Performed By: #### PILLAR LIPID, PILLAR CBC, PILLAR CMP, EBS A1C ####[address] [place] [address] USACarbon dioxide, total [Moles/volume] in Serum or PlasmaOrdered By: Redd Morales on 25-96-2072ZY3 [Moles/Vol]28.2 mmol/L21.0-31.0[facility] Comment on above:Performed By: #### PILLAR LIPID, PILLAR CBC, PILLAR CMP, EBS A1C ####[facility] [address] [place] [address] [place] Chloride [Moles/volume] in Serum or PlasmaOrdered By: Redd Morales on 11-08-2024 Chloride [Moles/Vol]100 mmol/R03-680TrgcqbzmlMemorial Health System Marietta Memorial HospitalComment on above:Performed By: #### PILLAR LIPID, PILLAR CBC, PILLAR CMP, EBS A1C ####[facility] [address] [place] [address] [place] Cholesterol [Mass/volume] in Serum or PlasmaOrdered By: Redd Morales on 11-08-2024 Cholesterol [Mass/Vol]153 mg/dT743-436WwclrdzcqMemorial Health System Marietta Memorial HospitalComment on above:Chol less than 200 mg/dl low riskChol 201-239 mg/dl borderline riskChol 240 mg/dl and greater high riskResult Comment: Chol less than 200 mg/dl low risk Chol 201-239 mg/dl borderline risk Chol 240 mg/dl and greater high riskPerformed By: #### PILLAR LIPID, PILLAR CBC, PILLAR CMP, EBS A1C ####[address] [place] [address] USACholesterol in HDL [Mass/volume] in Serum or Plasma Ordered By: Redd Morales on 75-78-8738Iridjmtrlhk in HDL [Mass/Vol]32 mg/dL23-92 [facility] HospitalComment on above:HDL CHOL ATP-III CLASSIFICATION Cardiovascular RiskHDL > or equal to 60 mg/dL LOWHDL < 40 mg/dL HIGHResult Comment: HDL CHOL ATP-III CLASSIFICATION Cardiovascular Risk HDL > or equal to 60 mg/dL LOW HDL < 40 mg/dL HIGHPerformed By: #### PILLAR LIPID, PILLAR CBC, PILLAR CMP, EBS A1C ####[address] [address] [place] Cholesterol in LDL Calc [Mass/Vol]Ordered By: Redd Morlaes on 11-08-2024 Cholesterol in LDL [Mass/Vol]76 mg/dL0-100[facility] Comment on above:LDL ATP III CLASSIFICATIONLDL less than 100 mg/dL OptimalLDL 100-129 mg/dL Near or above sxvltetKME238-155 mg/dL Borderline highLDL 160-189 mg/dL HighLDL greater than 189 mg/dL Very highCholesterol in VLDL Calc [Mass/Vol]Ordered By: Redd Morales on 40-79-8884Hocpxptiigu in VLDL [Mass/Vol]44 mg/dLMemorial Health System Marietta Memorial HospitalCreatinine [Mass/volume] in Serum or PlasmaOrdered By: Redd Morales on 31-07-6779Szbwspiyff [Mass/Vol]0.66 mg/dL 0.60-1.20[facility] HospitalComment on above:Performed By: #### PILLAR LIPID, PILLAR CBC, PILLAR CMP, EBS A1C ####[address] [place] [address] USACreatinine [Mass/volume] in Urine Ordered By: Dex Mcclellan on 03-27-7813Kefncqmtkd (U) [Mass/Vol]172.00 mg/dL [facility] HospitalComment on above:No reference range established EBS A1C with Estimated Ave Gluon 99-46-8928Uocllar [Mass/Vol]169 mg/dLNormalThe [facility] Physician GroupComment on above:Result Comment: PERFORMED BY: [facility] [address] [place], [place] [id number] PATHOLOGIST BALLROOM DANCER FARSHAD WHITTAKER M.D.Performed By: #### PILLAR LIPID, PILLAR CBC, PILLAR CMP, EBS A1C ####[address] [place] [address] USAEmployee Comp Metabolic Panelon 43-33-2827Dhmxpsk [Mass/Vol]3.9 g/dLNormal 3.5-5.7[facility] Physician [facility] HospitalComment on above:Performed By: #### PILLAR LIPID, PILLAR CBC, PILLAR CMP, EBS A1C ####[address] [place] [address] USAGFR/1.73 sq M.predicted MDRD (S/P/Bld) [Vol rate/Area]mL/min/{1.73_m2}NormalThe [facility] Physician [facility] HospitalComment on above: Performed By: #### PILLAR LIPID, PILLAR CBC, PILLAR CMP, EBS A1C ####[address] [place] [address] USAEmployee Complete Blood Counton 57-95-6973Vlxs Corpuscular HGB Conc32.6 g/gIUmtuao32.0-35.0[facility] Physician GroupComment on above:Performed By: #### PILLAR LIPID, PILLAR CBC, PILLAR CMP, EBS A1C ####[place] [id number] USANRBC%0.0 /100{WBC}Normal0-0.5The [facility] Physician GroupComment on above:Performed By: #### PILLAR LIPID, PILLAR CBC, PILLAR CMP, EBS A1C ####[place] [address] USAWhite Blood Count9.3 [CFU]/mLNormal3.8-11.6[facility] Comment on above:Performed By: #### PILLAR LIPID, PILLAR CBC, PILLAR CMP, EBS A1C ####[phone] [place] Employee Lipid Profileon 70-75-2081UJQ Cholesterol,Yccbgowmdx18 mg/dLNormal0-100 [facility] Physician GroupComment on above:Result Comment: LDL ATP III CLASSIFICATION LDL less than 100 mg/dL Optimal LDL 100-129 mg/dL Near or above optimal LDL 130-159 mg/dL Borderline high LDL 160-189 mg/dL High LDL greater than 189 mg/dL Very highPerformed By: #### PILLAR LIPID, PILLAR CBC, PILLAR CMP, EBS A1C ####[id number] USATriglyceride w/Pydbaj880 mg/dLHigh0-149[facility] Physician GroupComment on above:Result Comment: TRIG ATP III CLASSIFICATION TRIG less than 150 mg/dL Normal TRIG 150-199 mg/dL Borderline high TRIG 200-500 mg/dL High TRIG greater than 500 mg/dL Very high Standard traceable to the Center for Disease Conrtrol and Prevention (CDC) test method.Performed By: #### PILLAR LIPID, PILLAR CBC, PILLAR CMP, EBS A1C ####[place] [address] USAVLDL APFZEIGXQFO52 mg/dLNoAtrium Health Harrisburg Physician GroupComment on above:Performed By: #### PILLAR LIPID, PILLAR CBC, PILLAR CMP, EBS A1C ####[id number] [place] Eosinophils [#/volume] in Blood by Automated countOrdered By: Redd Morales on 18-41-5897Qqcepdzxsno (Bld) [#/Vol]0.0 10*3/uL0.0-0.45[facility] HospitalComment on above:Performed By: #### PILLAR LIPID, PILLAR CBC, PILLAR CMP, EBS A1C ####[place] [address] USAEosinophils/100 leukocytes in Blood by Automated countOrdered By: Redd Morales on 21-60-0035Lhjjxfpubgf/100 WBC (Bld)0.1 %.[facility] Comment on above:Performed By: #### PILLAR LIPID, PILLAR CBC, PILLAR CMP, EBS A1C ####[phone] [place] Erythrocyte distribution width [Ratio] by Automated countOrdered By: Redd Morales on 76-55-6737Tjpkdfhonrq distribution width (RBC) [Ratio]16.4 %High11.9-15.3 [facility] HospitalComment on above:Performed By: #### PILLAR LIPID, PILLAR CBC, PILLAR CMP, EBS A1C ####[address] [id number] USAErythrocytes [#/volume] in Blood by Automated countOrdered By: Redd Morales on 19-07-2231NXK (Bld) [#/Vol]4.82 10*6/uL3.60-5.00 [facility] HospitalComment on above:Performed By: #### PILLAR LIPID, PILLAR CBC, PILLAR CMP, EBS A1C ####[id number] USAGlomerular filtration rate [Volume Rate/Area] in Serum, Plasma or Blood by CreatinineOrdered By: Redd Morales on 11-08-2024 Glomerular filtration rate [Volume Rate/Area] in Serum, Plasma or Blood by Creatinine> 60.0 mL/MinMemorial Health System Marietta Memorial HospitalGlucose [Mass/volume] in Serum or PlasmaOrdered By: Redd Morales on 51-45-7900Rknlkvn [Mass/Vol]144 mg/dL Yypp16-435ExcvuicbmMemorial Health System Marietta Memorial HospitalComment on above:ADA recommended reference rangeResult Comment: ADA recommended reference rangePerformed By: #### PILLAR LIPID, PILLAR CBC, PILLAR CMP, EBS A1C ####[address] [place] [address] USAHematocrit [Volume Fraction] of Blood by Automated countOrdered By: Redd Morales on 79-37-3676Wikeiwhlhd (Bld) [Volume fraction]37.0 %34.0-46.4FCincinnati Shriners HospitalComment on above: Performed By: #### PILLAR LIPID, PILLAR CBC, PILLAR CMP, EBS A1C ####[address] [address] USAHemoglobin A1c measurementOrdered By: Redd Morales on 10-31-5210LiY4m (Bld) [Mass fraction]7.5 % High4.3-5.6FCincinnati Shriners HospitalComment on above:Increased risk for diabetes: 5.7 - 6.4diabetes: >6.4glycemic control for adults with diabetes: &l t;7.0Result Comment: Increased risk for diabetes: 5.7 - 6.4 diabetes: >6.4 glycemic control for adults with diabetes: <7.0Performed By: #### PILLAR LIPID, PILLAR CBC, PILLAR CMP, EBS A1C ####[address] [address] USAHemoglobin [Mass/volume] in BloodOrdered By: Redd Morales on 01-87-4653Eiozfyxbro (Bld) [Mass/Vol]12.1 g/dL11.8-15.4FCincinnati Shriners HospitalComment on above:Performed By: #### PILLAR LIPID, PILLAR CBC, PILLAR CMP, EBS A1C ####[address] [place] [address] USALeukocytes [#/volume] corrected for nucleated erythrocytes in Blood by Automated counOrdered By: Redd Morales on 28-56-1379BAD corrected for nucl RBC Auto (Bld) [#/Vol]9.3 10*3/uL3.8-11.6FCincinnati Shriners HospitalLeukocytes [#/volume] in Blood by Automated countOrdered By: Redd Morales on 64-92-1688VRQ (Bld) [#/Vol]9.3 10*3/uL3.8-11.6FCincinnati Shriners HospitalComment on above:Performed By: #### PILLAR LIPID, PILLAR CBC, PILLAR CMP, EBS A1C ####[address] [address] USALymphocytes [#/volume] in Blood by Automated countOrdered By: Redd Morales on 57-70-2700Coovvksyftj (Bld) [#/Vol]2.7 10*3/uL1.00-4.8[facility] HospitalComment on above:Performed By: #### PILLAR LIPID, PILLAR CBC, PILLAR CMP, EBS A1C ####[address] [address] USALymphocytes/100 leukocytes in Blood by Automated countOrdered By: Redd Morales on 49-55-8410Mmoadpncyyu/100 WBC (Bld)28.9 %. [facility] HospitalComment on above:Performed By: #### PILLAR LIPID, PILLAR CBC, PILLAR CMP, EBS A1C ####[address] [address] USAMCH [Entitic mass] by Automated countOrdered By: Redd Morales on 66-12-1985IKL (RBC) [Entitic mass]25.0 pg24.7-34.3FCincinnati Shriners HospitalComment on above:Performed By: #### PILLAR LIPID, PILLAR CBC, PILLAR CMP, EBS A1C ####[address] [address] [facility] Auto (RBC) [Mass/Vol]Ordered By: Redd Morales on 68-55-0779BYRM (RBC) [Mass/Vol]32.6 g/dL32.0-35.0[facility] HospitalMCV [Entitic volume] by Automated countOrdered By: Redd Morales on 63-00-1070ZJX (RBC) [Entitic vol]76.6 oDKry29-162OcfaxqlowMemorial Health System Marietta Memorial HospitalComment on above:Performed By: #### PILLAR LIPID, PILLAR CBC, PILLAR CMP, EBS A1C ####[address] [place] [id number] USAMicroAlb Creat Ratio,Uon 54-60-5594Wmoyosxibc, Urine (Random)172.00 mg/dL NormalThe [facility] Physician GroupComment on above:Result Comment: No reference range establishedPerformed By: #### KIMBERLY, B12 ####[place] [id number] USAMicroalbumin/Creatinine Ratio 11.0 mg/gNormal0.0-30.0[facility] Physician GroupComment on above:Result Comment: 30-300 mg/g indicates an increased risk for diabetic nephropathy. Greater than 300 mg/g is consistent with clinical nephropathy. (Am. J. Kidney Disease 1995, 25:107) PERFORMED BY: [facility] [address] [place] [id number] PATHOLOGIST BALLROOM DANCER FARSHAD WHITTAKER M.D.Performed By: #### URBAUDILIORET, B12 ####[place] [phone] USAMicroalbumin [Mass/volume] in UrineOrdered By: Dex Mcclellan on 66-86-6694Oofvunq DL <= 20 mg/L (U) [Mass/Vol] 1.9 mg/dLHigh0.0-1.8[facility] HospitalComment on above:Performed By: #### URMACRET, B12 ####[place] [phone] USAMonocytes [#/volume] in Blood by Automated count Ordered By: Redd Morales on 11-85-4195Onqvyosov (Bld) [#/Vol]0.4 10*3/uL0.0-0.8 [facility] HospitalComment on above:Performed By: #### PILLAR LIPID, PILLAR CBC, PILLAR CMP, EBS A1C ####[address] [place] [address] USAMonocytes/100 leukocytes in Blood by Automated countOrdered By: Redd Morales on 86-27-8148Vjaparhbt/100 WBC (Bld)4.6 %.[facility] HospitalComment on above:Performed By: #### PILLAR LIPID, PILLAR CBC, PILLAR CMP, EBS A1C ####[address] [address] USANeutrophils [#/volume] in Blood by Automated count Ordered By: Redd Morales on 25-85-3755Bjyirgvsnws (Bld) [#/Vol]6.2 10*3/uL1.8-7.7 [facility] HospitalComment on above:Performed By: #### PILLAR LIPID, PILLAR CBC, PILLAR CMP, EBS A1C ####[address] [address] USANeutrophils/100 leukocytes in Blood by Automated countOrdered By: Redd Morales on 69-24-7962Jafgizgzflp/100 WBC (Bld)66.1 %.[facility] HospitalComment on above:Performed By: #### PILLAR LIPID, PILLAR CBC, PILLAR CMP, EBS A1C ####[address] [address] USANo Panel InformationOrdered By: Redd Morales on 90-99-2784Vsdajubd Creatinine Clearance (ChemN/[facility] Health CenterNucleated erythrocytes [Presence] in Blood by Automated countOrdered By: Redd Morales on 04-48-9339Dssxuwdjz RBC Auto Ql (Bld)0.0 /100{WBC}0-0.5FCincinnati Shriners HospitalPlatelet mean volume [Entitic volume] in Blood by Automated countOrdered By: Redd Morales on 19-02-8718Sbdsbgeu mean volume (Bld) [Entitic vol]8.2 fL6.3-10.7FCincinnati Shriners HospitalComment on above: Performed By: #### PILLAR LIPID, PILLAR CBC, PILLAR CMP, EBS A1C ####[address] [place] [address] USAPlatelets [#/volume] in Blood by Automated countOrdered By: Redd Morales on 52-10-1904Ycbmqmryt (Bld) [#/Vol]261 10*3/cL120-579AqlbprazqMemorial Health System Marietta Memorial HospitalComment on above: Performed By: #### PILLAR LIPID, PILLAR CBC, PILLAR CMP, EBS A1C ####[address] [address] USAPotassium [Moles/volume] in Serum or PlasmaOrdered By: Redd Morales on 20-16-3628Qxiebffyc [Moles/Vol]4.5 mmol/L3.5-5.1FCincinnati Shriners HospitalComment on above: Performed By: #### PILLAR LIPID, PILLAR CBC, PILLAR CMP, EBS A1C ####[address] [address] USAProtein [Mass/volume] in Serum or PlasmaOrdered By: Redd Morales on 57-92-4690Dzmfcdz [Mass/Vol]6.9 g/dL6.4-8.9[facility] HospitalComment on above:Performed By: #### PILLAR LIPID, PILLAR CBC, PILLAR CMP, EBS A1C ####[address] [address] USASerum globulin measurement by calculation (mass/volume)Ordered By: Redd Morales on 60-67-6904Abmcyrho (S) [Mass/Vol]3.0 g/dLMemorial Health System Marietta Memorial HospitalComment on above:Performed By: #### PILLAR LIPID, PILLAR CBC, PILLAR CMP, EBS A1C ####[address] [address] USASerum or plasma albumin/globulin mass ratioOrdered By: Redd Morales on 36-61-1338Wdnmggc/Globulin [Mass ratio]1.3 {ratio}[facility] HospitalComment on above: Performed By: #### PILLAR LIPID, PILLAR CBC, PILLAR CMP, EBS A1C ####[address] [place] [address] USASerum or plasma anion gap determinationOrdered By: Redd Morales on 56-25-6791Ncwld gap [Moles/Vol]14.3 mmol/L6.0-15.0[facility] HospitalComment on above:Performed By: #### PILLAR LIPID, PILLAR CBC, PILLAR CMP, EBS A1C ####[address] [place] [phone] USASerum or plasma total cholesterol/high density lipoprotein (HDL) cholesterol mass ratOrdered By: Redd Morales on 77-74-5438Ggfmlfnkodr.total/Cholesterol in HDL [Mass ratio]4.8 {ratio} <5.0[facility] HospitalComment on above:Result Comment: PERFORMED BY: [facility] [address] [place] [id number] PATHOLOGIST BALLROOM DANCER FARSHAD WHITTAKER M.D.Performed By: #### PILLAR LIPID, PILLAR CBC, PILLAR CMP, EBS A1C ####[address] [place] [address] USASodium [Moles/volume] in Serum or PlasmaOrdered By: Redd Morales on 11-08-2024 Sodium [Moles/Vol]138 mmol/K788-638DszajmyvaMemorial Health System Marietta Memorial HospitalComment on above:Performed By: #### PILLAR LIPID, PILLAR CBC, PILLAR CMP, EBS A1C ####[address] [place] [address] [place] Triglyceride [Mass/volume] in Serum or PlasmaOrdered By: Redd Morales on 98-02-2917Imzwznecuawb [Mass/Vol]223 mg/dLHigh0-149[facility] HospitalComment on above:TRIG ATP III CLASSIFICATIONTRIG less than 150 mg/dL NormalTRIG 150-199 mg/dL Borderline highTRIG 200-500 mg/dL High TRIG greater than 500 mg/dL Very highStandard traceable to the Center for Disease Conrtrol and Prevention (CDC) test method.Urea nitrogen [Mass/volume] in Serum or Plasma Ordered By: Redd Morales on 25-65-7056Xbzc nitrogen [Mass/Vol]8 mg/dL10-05[facility] HospitalComment on above:Performed By: #### PILLAR LIPID, PILLAR CBC, PILLAR CMP, EBS A1C ####[facility] [address] [place] [address] USAUrine microalbumin/creatinine mass ratioOrdered By: Dex Mcclellan on 59-05-0118Zrfsaxi/Creatinine DL <= 20 mg/L (U) [Mass ratio]11.0 mg/g0.0-30.0[facility] Memorial HospitalComment on above:30-300 mg/g indicates an increased risk for diabetic nephropathy. Greater than 300 mg/g is consistent with clinical nephropathy. (Am. J. Kidney Disease 1995, 25:107) Vitamin B12 ser/plasOrdered By: Dex Mcclellan on 42-68-9514Ceuvwdttp (Vitamin B12) [Mass/Vol]178 pg/vDIgl038-186ZvwsraehmMemorial Health System Marietta Memorial HospitalComment on above:Result Comment: PERFORMED BY: [facility] [address] [place] [id number] PATHOLOGIST BALLROOM DANCER FARSHAD WHITTAKER M.D.Performed By: #### URMACRERAT, B12 ####[facility] [place] [address] IXTKyK5p HPLC (Bld) [Mass fraction]Ordered By: Dex Mcclellan on 45-09-3263FoD7p (Bld) [Mass fraction]7.4 % [facility] HospitalNo Panel InformationOrdered By: Dex Mcclellan on 11-18-8382Ewmhphz Zhfeahs819RyhjuxgwjMemorial Health System Marietta Memorial HospitalBasic Metabolic Panelon 46-32-6525VTG/1.73 sq M.predicted MDRD (S/P/Bld) [Vol rate/Area] mL/min/{1.73_m2}NormalThe [facility] Physician GroupComment on above:Performed By: #### BMP ####[address] [place] [address] USACalcium [Mass/volume] in Serum or PlasmaOrdered By: Shell Farrellim on 64-03-7469Lfygfiu [Mass/Vol]9.3 mg/dLNormal8.6-10.3FCincinnati Shriners HospitalComment on above:Result Comment: PERFORMED BY: [facility] [address] [place] [address] PATHOLOGIST BALLROOM DANCER PRISCILA ORTIZ M.D.Performed By: #### BMP ####[address] [address] USACarbon dioxide, total [Moles/volume] in Serum or PlasmaOrdered By: Shell Isidroahim on 17-85-0025LG9 [Moles/Vol]32.2 mmol/LHigh21.0-31.0[facility] HospitalComment on above:Performed By: #### BMP ####[address] [address] USAChloride [Moles/volume] in Serum or PlasmaOrdered By: Shell Isidroahim on 14-87-1129Suzavicc [Moles/Vol]98 mmol/KErhbuj78-224MqldeesqrMemorial Health System Marietta Memorial HospitalComment on above:Performed By: #### BMP ####[address] [address] USACreatinine [Mass/volume] in Serum or PlasmaOrdered By: Shell Isidroahim on 76-58-7285Puphiswzkb [Mass/Vol]0.72 mg/dL Normal0.60-1.20[facility] HospitalComment on above:Performed By: #### BMP ####[address] [address] USAGlucose [Mass/volume] in Serum or PlasmaOrdered By: Shell Isidroahim on 55-51-6250Etvtrus [Mass/Vol]175 mg/qBIsxx09-341JpvioioftMemorial Health System Marietta Memorial Hospital Comment on above:ADA recommended reference rangeRandom Glucose Reference Range is dependent on time and content of last meal. Glucose of more than 200 mg/dL in a nonstressed, ambulatory subject supports the diagnosisof Diabetes Mellitus. Result Comment: Random Glucose Reference Range is dependent on time and content of last meal. Glucose of more than 200 mg/dL in a nonstressed, ambulatory subject supports the diagnosis of Diabetes Mellitus. ADA recommended reference rangePerformed By: #### BMP ####[address] [address] USANo Panel InformationOrdered By: Shell Linn on 57-28-3530Fbbtoeiey GFR (CKD-EPI)> 60.0 mL/MinMemorial Health System Marietta Memorial HospitalPharmacy Creatinine Clearance (ChemN/[facility] CenterPotassium [Moles/volume] in Serum or PlasmaOrdered By: Shell Linn on 64-49-9360Gczqtauxm [Moles/Vol]4.6 mmol/LNormal3.5-5.1FCincinnati Shriners HospitalComment on above:Performed By: #### BMP ####[address] [address] USASerum or plasma anion gap determinationOrdered By: Shell Linn on 48-12-4839Achzs gap [Moles/Vol] 13.4 mmol/LNormal6.0-15.0[facility] HospitalComment on above: Performed By: #### BMP ####[address] [address] USASodium [Moles/volume] in Serum or PlasmaOrdered By: Shell Linn on 80-96-5057Dpfioj [Moles/Vol]139 mmol/FYzzprh433-728QnapdtplpMemorial Health System Marietta Memorial HospitalComment on above:Performed By: #### BMP ####[address] [address] USAUrea nitrogen [Mass/volume] in Serum or PlasmaOrdered By: Shell Linn on 91-67-9784Zpaz nitrogen [Mass/Vol]13 mg/dLNormal7-25[facility] HospitalComment on above:Performed By: #### BMP ####[address] [address] USAECG 12 lead ECGon 60-58-9731BTA 12 lead ECGCLEVELAND CLINIC CHIL[facility] Main [address] [address] Electrocardiograph Report Signed Patient: Becki Mseser MR#: [id number] 3 : 1970 Acct:[id number] Age/Sex: 53 / F ADM Date: 06/20/24 Loc: ER Room: Type: [facility] ER Attending Dr: Ordering Provider: Antionette Rae DO Date of Service: 06/20/2412/06/1102 ECG/ECG 12 lead ECG: Recheck/Abnormal Lab/Rx Copies to: Test Reason : Blood Pressure : 176/93 mmHG Vent. Rate : 101 BPM Atrial Rate : 101 BPM P-R Int : 138 ms QRS Dur : 100 ms QT Int : 360 ms P-R-T Axes : 69 -36 34 degrees QTcB Int : 466 ms Sinus tachycardia Left axis deviation Nonspecific ST abnormality Confirmed by Farhad ANDERSON DO ([id number]) on 06/20/2024 4:19:10 PM Referred By: Electronically Signed By: Farhad ANDERSON DO Transcribed By: MUS Signed By Farhad Anderson DO 0 06/20/[address] [place] [address] Physician EzfkpIhL1b HPLC (Bld) [Mass fraction] on 32-27-9389PcB7v (Bld) [Mass fraction]Hemoglobin A1c/Hemoglobin.total in Blood by HPLCMemorial Health System Marietta Memorial HospitalNo Panel Informationon 84-84-4094Ovypdpi Xybmpxv514LnspdftbdMemorial Health System Marietta Memorial HospitalCA Event Wind Turbine Machinist Monitoringon 03-91-0115PS Event Wind Turbine Machinist MonitoringCLEVELAND CLINIC CH[facility] Main [address] [address] Cardiac Event Monitor Signed Patient: Becki Messer MR#: [id number] 3 : 1970 Acct:[id number] Age/Sex: 53 / F ADM Date: 05/17/24 Loc: EL Room: Type: [facility] CLI Attending Dr: Shell Linn MD Copies to: Shell Linn MD, [facility] Ordering Provider: Shell Linn MD, [facility] Date of Service: 05/17/24 CA/CA Event Wind Turbine Machinist Monitoring: svt ORDERED BY: Shell Linn DO The patient is 53 years old with palpitations and history of SVT. The patient was monitored from 05/17/2024 to 05/31/2024. The rhythm strips were reviewed and demonstrated sinus rhythm mechanism. The heart rate ranged between 54 beats per minute, sinus bradycardia and 164 beats per minute, sinus tachycardia. There were 2 SVT runs noted. One event for 13 beats at a heart rate 124 beats per minute, which was the longest and the fastest. Rare premature atrial complexes were noted, rare PVCs were seen, 1 event of ventricular couplet and 1 event of ventricular triplet The patient's diary had multiple entries for symptoms of fluttering and heart racing, while active. No significant arrhythmias were noted. Transcribed By: ALDAIR 06/11/24 0636 Dictated By: Shell Linn MD, [facility] 06/10/24 1436 Signed By: 06/13/24 1025[facility] Physician GroupAlanine aminotransferase [Enzymatic activity/volume] in Serum or PlasmaOrdered By: Bentley Solomon on 15-82-5211YQH [Catalytic activity/Vol]Alanine aminotransferase [Enzymatic activity/volume] in Serum or PlasmaHigh7-52[facility] Albumin [Mass/volume] in Serum or Plasma by Bromocresol green (BCG) dye binding methoOrdered By: Bentley Solomon on 15-39-3385Nppoxhx BCG dye [Mass/Vol]Albumin [Mass/volume] in Serum or Plasma by Bromocresol green (BCG) dye binding metho 3.5-5.7FCincinnati Shriners HospitalAlkaline phosphatase [Enzymatic activity/volume] in Serum or PlasmaOrdered By: Bentley Solomon on 88-38-1098EUI [Catalytic activity/Vol]Alkaline phosphatase [Enzymatic activity/volume] in Serum or Csglpn89-675BhzouimxgMemorial Health System Marietta Memorial HospitalAppearance of UrineOrdered By: Bentley Solomon on 39-51-3756Hlfhluosan (U)Urine appearanceAbRegency Hospital Cleveland EastAspartate aminotransferase [Enzymatic activity/volume] in Serum or PlasmaOrdered By: Bentley Solomon on 94-44-9027VFT [Catalytic activity/Vol]Aspartate aminotransferase [Enzymatic activity/volume] in Serum or ZjzglsTocs89-65CdxchtvyuMemorial Health System Marietta Memorial HospitalB-Type Natriuretic Peptideon 89-03-0385Fddkbcnfhjd peptide B (Bld) [Mass/Vol]12.0 pg/mLNormal5-100 [facility] Physician GroupComment on above:Result Comment: PERFORMED BY: [facility] [address] [place] [address] PATHOLOGIST BALLROOM DANCER PRISCILA ORTIZ M.D.Performed By: #### PT, HS TROP, CBC, BNP, CMP, CK, DDIMER ####[facility] [address] [id number] [facility] Bacteria [Presence] in Urine by AutomatedOrdered By: Bentley Solomon on 88-84-2615Cyabvldt Auto Ql (U)Bacteria [Presence] in Urine by AutomatedHighNone SeenMemorial Health System Marietta Memorial HospitalBasophils Auto (Bld) [#/Vol]Ordered By: Bentley Solomon on 27-56-2291Cnybihrja (Bld) [#/Vol]Automated basophil count 0.0-0.2FCincinnati Shriners HospitalBasophils/100 WBC Auto (Bld)Ordered By: Bentley Solomon on 78-73-6957Eownywrvy/100 WBC (Bld)Automated basophil %. [facility] HospitalBilirubin Test strip Ql (U)Ordered By: Bentley Solomon on 77-00-4600Fbvotamfd Ql (U)Bilirubin.total [Presence] in Urine by Test stripNegativeMemorial Health System Marietta Memorial HospitalBilirubin.total [Mass/volume] in Serum or PlasmaOrdered By: Bentley Solomon on 81-51-7607Cdiuhsanb [Mass/Vol] Bilirubin.total [Mass/volume] in Serum or Plasma0.3-1.0[facility] HospitalCOVID Cepheid NegativeOrdered By: Bentley Solomon on 05-07-2024 SARS-CoV-2 (COVID-19) Ab IA QlCOVID CepheidNegativeMemorial Health System Marietta Memorial HospitalComment on above:This is a duplicate Cepheid Xpert Xpress CoV-2/Flu/RSV Plus RNA by RT-PCR result to be used for statistical tracking purpose only. COVID-19 / Flu A/B / RSV PCRon 39-79-8549XQHG-CoV-2 (COVID-19) RNA DEVI+probe Ql (Unsp spec)COVID-19 Cepheid Result Negative for SARS-CoV-2 RNA by RT-PCR Flu A Cepheid Result Positive for Flu A RNA by RT-PCR Flu B Cepheid Result Negative for Flu B RNA by RT-PCR RSV Cepheid Result Negative for RSV RNA by RT-PCR COVID19 Blank Space Reference: Negative COVID19 Blank Space Cepheid Disclaimer The Cepheid Xpert Xpress CoV-2/Flu/RSV Plus has Cepheid Disclaimer not been FDA cleared or approved; this test has Cepheid Disclaimer been authorized by FDA under an EUA for use by Cepheid Disclaimer authorized laboratories; this test has been Cepheid Disclaimer authorized only for the simultaneous qualitative Cepheid Disclaimer detection and differentiation of nucleic acids from Cepheid Disclaimer SARS-CoV-2, influenza A, influenza B, and Cepheid Disclaimer respiratory syncytial virus (RSV), and not for any Cepheid Disclaimer other viruses or pathogens; and this test is only Cepheid Disclaimer authorized for the duration of the declaration that Cepheid Disclaimer circumstances exist justifying the authorization of Cepheid Disclaimer emergency use of in vitro diagnostic tests for Cepheid Disclaimer detection and/or diagnosis of COVID-19 under Cepheid Disclaimer Section 564(b)(1) of the Act, 21 U.S.C. 360bbb- Cepheid Disclaimer 3(b)(1), unless the authorization is terminated or Cepheid Disclaimer revoked sooner. PERFORMED BY: [facility] [place] [address] PATHOLOGIST BALLROOM DANCER PRISCILA ORTIZ M.D.[facility] Physician GroupComment on above: Performed By: #### COVID19 FLU RSV, CEPHEID NEG ####[address] [place] [address] USACalcium [Mass/volume] in Serum or PlasmaOrdered By: Bentley Solomon on 30-20-4600Hdngwdt [Mass/Vol]Calcium [Mass/volume] in Serum or Plasma8.6-10.3FCincinnati Shriners HospitalCarbon dioxide, total [Moles/volume] in Serum or PlasmaOrdered By: Bentley Solomon on 23-82-9620ON0 [Moles/Vol]Carbon dioxide, total [Moles/volume] in Serum or Plasma 21.0-31.0[facility] HospitalCepheid COVID PCR Negativeon 52-30-1664AWVP-CoV-2 (COVID-19) RNA DEVI+probe Ql (Unsp spec)NegativeNormal NegativeThe [facility] Physician GroupComment on above:Result Comment: This is a duplicate CepNovopyxisid Xpert Xpress CoV-2/Flu/RSV Plus RNA by RT-PCR result to be used for statistical tracking purpose only. PERFORMED BY: [place] [address] PATHOLOGIST BALLROOM DANCER PRISCILA ORTIZ M.D.Performed By: #### COVID19 FLU RSV, CEPHEID NEG ####[address] [place] [address] [place] Chloride [Moles/volume] in Serum or PlasmaOrdered By: Bentley Solomon on 15-15-6519Dfbsjdvm [Moles/Vol]Chloride [Moles/volume] in Serum or Nrfqqa29-922 [facility] HospitalColor Auto (U)Ordered By: Bentley Solomon on 71-22-6278Twekk (U)Color of Urine by AutoYellowMemorial Health System Marietta Memorial Hospital Complete Blood Count Auto Diffon 90-08-8683Dzaujptvl (Bld) [#/Vol]0.0 10*3/uL Normal0.0-0.2The [facility] Physician GroupComment on above:Result Comment: PERFORMED BY: [facility] [address] [place] [address] PATHOLOGIST BALLROOM DANCER PRISCILA ORTIZ M.D.Performed By: #### PT, HS TROP, CBC, BNP, CMP, CK, DDIMER #### [place] [address] USABasophils/100 WBC (Bld)0.7 %Normal.The [facility] Physician GroupComment on above:Performed By: #### PT, HS TROP, CBC, BNP, CMP, CK, DDIMER #### [place] [address] USAEosinophils (Bld) [#/Vol]0.0 10*3/uLNormal0.0-0.45The [facility] Physician GroupComment on above:Performed By: #### PT, HS TROP, CBC, BNP, CMP, CK, DDIMER #### [place] [address] USAEosinophils/100 WBC (Bld)0.4 %Normal.The [facility] Physician GroupComment on above:Performed By: #### PT, HS TROP, CBC, BNP, CMP, CK, DDIMER #### [place] [address] USAErythrocyte distribution width (RBC) [Ratio]16.2 %High 11.9-15.3The [facility] Physician GroupComment on above:Performed By: #### PT, HS TROP, CBC, BNP, CMP, CK, DDIMER #### [place] [address] USAHematocrit (Bld) [Volume fraction]36.8 %Rxzgbk59.0-46.4The [facility] Physician GroupComment on above:Performed By: #### PT, HS TROP, CBC, BNP, CMP, CK, DDIMER #### [place] [address] USAHemoglobin (Bld) [Mass/Vol]12.2 g/zIUawtfj72.8-15.4The [facility] Physician GroupComment on above:Performed By: #### PT, HS TROP, CBC, BNP, CMP, CK, DDIMER #### [place] [address] USALymphocytes (Bld) [#/Vol]1.6 10*3/uLNormal1.00-4.8The [facility] Physician GroupComment on above:Performed By: #### PT, HS TROP, CBC, BNP, CMP, CK, DDIMER #### [place] [address] USALymphocytes/100 WBC (Bld)26.1 %Normal.The [facility] Physician GroupComment on above:Performed By: #### PT, HS TROP, CBC, BNP, CMP, CK, DDIMER #### [address] StreetMCH (RBC) [Entitic mass]25.0 dcWmzqdj79.7-34.3The [facility] Physician GroupComment on above:Performed By: #### PT, HS TROP, CBC, BNP, CMP, CK, DDIMER #### [address] (RBC) [Entitic vol]75.3 jHZay23-461Dha [facility] Physician GroupComment on above:Performed By: #### PT, HS TROP, CBC, BNP, CMP, CK, DDIMER #### [place] [address] USAMean Corpuscular HGB Conc33.2 g/xJMmzwxx64.0-35.0The [facility] Physician GroupComment on above:Performed By: #### PT, HS TROP, CBC, BNP, CMP, CK, DDIMER #### [place] [address] USAMonocytes (Bld) [#/Vol]0.6 10*3/uLNormal0.0-0.8The [facility] Physician GroupComment on above:Performed By: #### PT, HS TROP, CBC, BNP, CMP, CK, DDIMER #### [place] [address] USAMonocytes/100 WBC (Bld)21.90 %High0.00-20.00The [facility] Physician GroupComment on above:Result Comment: For adults in ED, MDW > 20.0 may be associated with a higher risk of sepsis during the first 12 hrs of hospital admissionPerformed By: #### PT, HS TROP, CBC, BNP, CMP, CK, DDIMER #### [place] [address] USAMonocytes/100 WBC (Bld)10.2 %Normal.The [facility] Physician GroupComment on above:Performed By: #### PT, HS TROP, CBC, BNP, CMP, CK, DDIMER #### [place] [address] USANeutrophils (Bld) [#/Vol]3.8 10*3/uLNormal1.8-7.7The [facility] Physician GroupComment on above:Performed By: #### PT, HS TROP, CBC, BNP, CMP, CK, DDIMER #### [place] [address] USANeutrophils/100 WBC (Bld)62.6 %Normal.The [facility] Physician GroupComment on above:Performed By: #### PT, HS TROP, CBC, BNP, CMP, CK, DDIMER #### [place] [address] USANRBC%0.1 /100{WBC}Normal0-0.5The [facility] Physician Group Comment on above:Performed By: #### PT, HS TROP, CBC, BNP, CMP, CK, DDIMER #### [place] [address] USAPlatelet mean volume (Bld) [Entitic vol]7.7 fLNormal 6.3-10.7The [facility] Physician GroupComment on above:Performed By: #### PT, HS TROP, CBC, BNP, CMP, CK, DDIMER #### [place] [address] USAPlatelets (Bld) [#/Vol]198 10*3/fPMddulz508-326Dzr [facility] Physician GroupComment on above:Performed By: #### PT, HS TROP, CBC, BNP, CMP, CK, DDIMER #### [facility] [address] [place] [address] USARBC (Bld) [#/Vol]4.89 10*6/uLNormal3.60-5.00The [facility] Physician GroupComment on above:Performed By: #### PT, HS TROP, CBC, BNP, CMP, CK, DDIMER #### [facility] [address] [place] [address] USAWBC (Bld) [#/Vol]6.1 10*3/uLNormal3.8-11.6The [facility] Physician GroupComment on above:Performed By: #### PT, HS TROP, CBC, BNP, CMP, CK, DDIMER #### [place] [address] USAComprehensive Metabolic Panelon 11-14-5183Jriykov [Mass/Vol]4.1 g/dLNormal3.5-5.7The [facility] Physician GroupComment on above: Performed By: #### PT, HS TROP, CBC, BNP, CMP, CK, DDIMER ####[place] [address] USAAlbumin/Globulin [Mass ratio] 1.2 {ratio}NormalThe [facility] Physician GroupComment on above:Performed By: #### PT, HS TROP, CBC, BNP, CMP, CK, DDIMER ####[place] [address] USAALP [Catalytic activity/Vol]59 U/L Qkxtyz04-440Xdx [facility] Physician GroupComment on above:Performed By: #### PT, HS TROP, CBC, BNP, CMP, CK, DDIMER ####[place] [address] USAALT [Catalytic activity/Vol]63 U/LHigh7-52The [facility] Physician GroupComment on above:Performed By: #### PT, HS TROP, CBC, BNP, CMP, CK, DDIMER ####[place] [address] USAAnion gap [Moles/Vol]13.6 mmol/LNormal6.0-15.0The [facility] Physician GroupComment on above:Performed By: #### PT, HS TROP, CBC, BNP, CMP, CK, DDIMER ####[place] [address] USAAST [Catalytic activity/Vol]62 U/YIgrw19-23Hqb [facility] Physician GroupComment on above:Performed By: #### PT, HS TROP, CBC, BNP, CMP, CK, DDIMER ####[place] [address] USABilirubin [Mass/Vol]0.3 mg/dLNormal0.3-1.0The [facility] Physician GroupComment on above:Performed By: #### PT, HS TROP, CBC, BNP, CMP, CK, DDIMER ####[place] [address] USACalcium [Mass/Vol]9.3 mg/dLNormal8.6-10.3The [facility] Physician GroupComment on above:Performed By: #### PT, HS TROP, CBC, BNP, CMP, CK, DDIMER ####[place] [address] USAChloride [Moles/Vol]100 mmol/WLiwmky89-443Bnq [facility] Physician GroupComment on above:Performed By: #### PT, HS TROP, CBC, BNP, CMP, CK, DDIMER ####[place] [address] USACO2 [Moles/Vol]26.3 mmol/UIyektr13.0-31.0The [facility] Physician GroupComment on above:Performed By: #### PT, HS TROP, CBC, BNP, CMP, CK, DDIMER ####[place] [address] USACreatinine [Mass/Vol]0.77 mg/dLNormal0.60-1.20The [facility] Physician GroupComment on above:Performed By: #### PT, HS TROP, CBC, BNP, CMP, CK, DDIMER ####[address] [place] [id number] USACreatinine Clr Calc Xgerekxu239.25NormAdventHealth Lake Mary ER Physician GroupComment on above:Result Comment: PERFORMED BY: [facility] [address] [place] [id number] PATHOLOGIST BALLROOM DANCER PRISCILA ORTIZ M.D.Performed By: #### PT, HS TROP, CBC, BNP, CMP, CK, DDIMER ####[place] [id number] [place] GFR/1.73 sq M.predicted MDRD (S/P/Bld) [Vol rate/Area]mL/min/{1.73_m2}NormalThe [facility] Physician GroupComment on above:Performed By: #### PT, HS TROP, CBC, BNP, CMP, CK, DDIMER ####[place] [address] USAGlobulin (S) [Mass/Vol]3.5 g/dLNoAtrium Health Harrisburg Physician GroupComment on above:Performed By: #### PT, HS TROP, CBC, BNP, CMP, CK, DDIMER ####[place] [id number] USAGlucose [Mass/Vol]167 mg/rEElzu80-911Bio [facility] Physician GroupComment on above:Result Comment: Random Glucose Reference Range is dependent on time and content of last meal. Glucose of more than 200 mg/dL in a nonstressed, ambulatory subject supports the diagnosis of Diabetes Mellitus. ADA recommended reference rangePerformed By: #### PT, HS TROP, CBC, BNP, CMP, CK, DDIMER ####[place] [id number] USAPotassium [Moles/Vol]3.9 mmol/LNormal3.5-5.1The [facility]ician Group Comment on above:Performed By: #### PT, HS TROP, CBC, BNP, CMP, CK, DDIMER ####[place] [address] USAProtein [Mass/Vol]7.6 g/dLNormal6.4-8.9The [facility] Physician [facility] HospitalComment on above: Performed By: #### PT, HS TROP, CBC, BNP, CMP, CK, DDIMER ####[address] [place] [address] USASodium [Moles/Vol]136 mmol/L Fbqknm818-568Lcl [facility] CenterComment on above:Performed By: #### PT, HS TROP, CBC, BNP, CMP, CK, DDIMER ####[facility] [address] [id number] USAUrea nitrogen [Mass/Vol]11 mg/dLNormal7-25The [facility] GroupComment on above:Performed By: #### PT, HS TROP, CBC, BNP, CMP, CK, DDIMER ####[address] [place] [address] USACreatine Kinaseon 71-10-7973EG [Catalytic activity/Vol]56 U/CGaepvc68-732Cms [facility] Physician [facility] HospitalComment on above: Performed By: #### PT, HS TROP, CBC, BNP, CMP, CK, DDIMER ####[facility] [address] [place] [address] USACreatine kinase [Enzymatic activity/volume] in Serum or PlasmaOrdered By: Bentley Solomon on 52-51-9197RE [Catalytic activity/Vol]Creatine kinase [Enzymatic activity/volume] in Serum or Ksrqcd80-264IkrdhttliMemorial Health System [facility] Memorial HospitalCreatinine [Mass/volume] in Serum or PlasmaOrdered By: Bentley Solomon on 29-06-9736Qhbthvsbkj [Mass/Vol]Creatinine [Mass/volume] in Serum or Plasma0.60-1.20[facility] HospitalD- Dimer High Sensitivityon 56-79-4512L-Dimer High Sensitivity<949Wxivdi2-155Drf [facility] CenterComment on above:Result Comment: The reference range for D-dimer is [...] coagulation studies. Please contact the laboratory at [phone] for redraw instructions. PERFORMED BY: [facility] [address] [place] [address] PATHOLOGIST BALLROOM DANCER PRISCILA ORTIZ M.D.Performed By: #### PT, HS TROP, CBC, BNP, CMP, CK, DDIMER ####[address] [place] [address] [place] Dipstick and Microscopicon 94-92-3039Mxsrmuffoq (U)CloudyCritically abnormal ClearThe [facility] Physician GroupComment on above:Order Comment: Name Collection Type:: VoidedPerformed By: #### ADDONUAPLUS, CUU ####[address] [facility], [id number] USABacteria,Urine1+High None SeenThe [facility] Physician GroupComment on above:Order Comment: Name Collection Type:: VoidedPerformed By: #### ADDONUAPLUS, CUU ####[address] [facility], [id number] USABilirubin,Urine NegativeNormalNegativeThe [facility] Physician GroupComment on above:Order Comment: Name Collection Type:: VoidedPerformed By: #### ADDONUAPLUS, CUU ####[address] [facility], [id number] USAColor (U)YellowNormalYellowThe [facility] Physician GroupComment on above:Order Comment: Name Collection Type:: VoidedPerformed By: #### ADDONUAPLUS, CUU ####[place] [address] [facility], [id number] USAGlucose Ql (U)NormalNormalNormalThe [facility] Physician GroupComment on above:Order Comment: Name Collection Type:: VoidedPerformed By: #### ADDONUAPLUS, CUU ####[address], [place]L[address] USAHyaline Casts,UrineNoneNormal0-8The [facility] Physician GroupComment on above:Order Comment: Name Collection Type:: VoidedPerformed By: #### ADDONUAPLUS, CUU ####[address] USAKetones Ql (U)NegativeNormalNegativeBaptist Health Wolfson Children'S Hospital Physician GroupComment on above:Order Comment: Name Collection Type:: VoidedPerformed By: #### ADDONUAPLUS, CUU ####[address] [place] Leukocyte esterase Test strip Ql (U)2+HighNegativeThe [facility] Comment on above:Order Comment: Name Collection Type:: VoidedPerformed By: #### ADDJULIO CESARPLUS, CUU ####[address] [address] USAMucus,UrineRareNormalThe [facility] Physician GroupComment on above: Order Comment: Name Collection Type:: VoidedResult Comment: PERFORMED BY: [place] [address] PATHOLOGIST BALLROOM DANCER PRISCILA ORTIZ M.D.Performed By: #### GUY, CUU ####[address] USANitrite,UrineNegative NormalNegativeBaptist Health Wolfson Children'S Hospital Physician GroupComment on above:Order Comment: Name Collection Type:: VoidedPerformed By: #### ADDONUAPLUS, CUU ####[address] USAOccult Blood,Urine NegativeNormalNegativeThe [facility] Physician GroupComment on above:Order Comment: Name Collection Type:: VoidedResult Comment: PERFORMED BY: [address] [address] PATHOLOGIST BALLROOM DANCER PRISCILA ORTIZ M.D.Performed By: #### GUY, CUU ####[place] [address] [address] [place], [id number] USApH (U)6.0 [pH]Normal 5.0-9.0The [facility] Physician GroupComment on above:Order Comment: Name Collection Type:: VoidedPerformed By: #### ADDJULIO CESARPLUS, CUU ####[place] [address] [address], [id number] USAProtein,UrineTraceHigh NegativeThe [facility] Physician GroupComment on above:Order Comment: Name Collection Type:: VoidedPerformed By: #### STEVENPLUS, CUU ####[place] [address] [address], [id number] USARBC,Azfwi7-0Iphuay4-7 The [facility] Physician GroupComment on above:Order Comment: Name Collection Type:: VoidedPerformed By: #### STEVENPLUS, CUU ####[place] [address] [place], [place] USASpecificy Barwick,Urine1.022Normal 1.001-1.030The [facility] Physician GroupComment on above:Order Comment: Name Collection Type:: VoidedPerformed By: #### ADDJULIO CESARPLUS, CUU ####[place] [address] [place], [id number] USASquamous Epithelial Cell,Toaxb5-8Cvyx8-9Htr [facility] Physician GroupComment on above:Order Comment: Name Collection Type:: VoidedPerformed By: #### ADDONUAPLUS, CUU ####[place] [address] [place] [place], [id number] USAUrobilinogen,Urine NormalNormalNormalThe [facility] Physician GroupComment on above:Order Comment: Name Collection Type:: VoidedPerformed By: #### ADDONUAPLUS, CUU ####[place] [address] [address], [place] USAWBC,Frrkt9-4Bbfa9-1Jpx [facility] Physician GroupComment on above:Order Comment: Name Collection Type:: VoidedPerformed By: #### GUYGUNNAR ####[facility] [address] [place], [place] USAECG 12 lead ECGon 22-80-5144INH 12 lead ECGCLEVELAND [facility] [address] [place] [address] [place] [address] Electrocardiograph Report Signed Patient: Becki Messer MR#: [id number] 3 : 1970 Acct:[id number] Age/Sex: 53 / F ADM Date: 05/07/24 Loc: ER Room: Type[facility] ER Attending Dr: Ordering Provider: Bentley Solomon APRN Date of Service: 05/07/24 ECG/ECG 12 lead ECG: Heart Racing Copies to: Test Reason : Blood Pressure : 166/97 mmHG Vent. Rate : 110 BPM Atrial Rate : 110 BPM P-R Int : 130 ms QRS Dur : 98 ms QT Int : 338 ms P-R-T Axes : 74 -3 -2 degrees QTcB Int : 457 ms Sinus tachycardia Confirmed by Farhad ANDERSON DO ([id number]) on 05/07/2024 3:29:01 PM Referred By: Electronically Signed By: Farhad ANDERSON DO Transcribed By: MUS Signed By Farhad Anderson DO 0 05/07/24 1529NoAtrium Health Harrisburg Physician GroupEosinophils Auto (Bld) [#/Vol] Ordered By: Bentley Solomon on 70-72-5144Efqyelpctey (Bld) [#/Vol]Automated eosinophil count0.0-0.45[facility] HospitalEosinophils/100 WBC Auto (Bld)Ordered By: Bentley Solomon on 18-35-4926Gbviyxoygtr/100 WBC (Bld) Automated eosinophil %.[facility] HospitalEpithelial cells.squamous [#/area] in Urine sediment by Automated countOrdered By: Bentley Solomon on 87-65-8661Duwbagudrl cells.squamous Auto (Urine sed) [#/Area] Epithelial cells.squamous [#/area] in Urine sediment by Automated countHigh0-2 [facility] HospitalErythrocyte distribution width Auto (RBC) [Ratio]Ordered By: Bentley Solomon on 14-57-2126Iyczrfjnatt distribution width (RBC) [Ratio]Erythrocyte distribution width [Ratio] by Automated countHigh 11.9-15.3FCincinnati Shriners HospitalErythrocytes [#/area] in Urine sediment by Automated countOrdered By: Bentley Solomon on 02-92-2271UGS Auto (Urine sed) [#/Area]Erythrocytes [#/area] in Urine sediment by Automated count 0-4FCincinnati Shriners HospitalFibrin D-dimer [Presence] in Platelet poor plasma by Latex agglutinationOrdered By: Bentley Solomon on 97-71-0073Kaqaho D- dimer LA Ql (PPP)Fibrin D-dimer [Presence] in Platelet poor plasma by Latex agglutination0-243[facility] Memorial HospitalComment on above:The reference range for D-dimer is <243 ng/mL D-dimer units.D-dimer results must be used in conjunction with a clinicalpretest probability (PTP) assessment model for deep veinthrombosis (DVT) and pulmonary embolism (PE). Results <230ng/mL d- dimer units can be used as a negative predictor inpatients with low or moderate probability for DVT/PE.Results above the exclusion threshold of 230 ng/ml D- dimerunits for DVT/PE may indicate the need for furtherdiagnostic testing.D- Dimer can be increased in hospitalized patients due toco-morbid conditions.A hematocrit value greater than 55% may lead to inaccurate results in coagulation testing. Patients having hematocrit values >55% require a special collection tube for coagulation studies. Please contact the laboratory at [phone] for redraw instructions.Globulin Calc (S) [Mass/Vol]Ordered By: Bentley Solomon on 38-62-8377Krpwxfsf (S) [Mass/Vol]Serum globulin measurement by calculation (mass/volume)[facility] HospitalGlucose [Mass/volume] in Serum or PlasmaOrdered By: Bentley Solomon on 97-39-4354Zozeslq [Mass/Vol]Glucose [Mass/volume] in Serum or FaqlbnVztb31-877EqsrtdmzaMemorial Health System Marietta Memorial Hospital Comment on above:ADA recommended reference rangeRandom Glucose Reference Range is dependent on time and content of last meal. Glucose of more than 200 mg/dL in a nonstressed, ambulatory subject supports the diagnosisof Diabetes Mellitus. Glucose [Mass/volume] in Urine by Test stripOrdered By: Bentley Solomon on 02-94-5753Jynmycd Test strip (U) [Mass/Vol]Glucose [Mass/volume] in Urine by Test stripNormalMemorial Health System Marietta Memorial HospitalHematocrit Auto (Bld) [Volume fraction]Ordered By: Bentley Solomon on 83-77-3471Erpnsavdjq (Bld) [Volume fraction]Hematocrit [Volume Fraction] of Blood by Automated count34.0-46.4 [facility] HospitalHemoglobin Test strip Ql (U)Ordered By: Bentley Solomon on 16-53-8707Qdliegkudf Ql (U)Hemoglobin [Presence] in Urine by Test stripNegSycamore Medical CenterHemoglobin [Mass/volume] in Blood Ordered By: Bentley Solomon on 68-22-9591Vcckbcuvaw (Bld) [Mass/Vol]Hemoglobin [Mass/volume] in Blood11.8-15.4FCincinnati Shriners HospitalHyaline casts [#/area] in Urine sediment by Automated countOrdered By: Bentley Solomon on 07-83-9968Wvhualv casts Auto (Urine sed) [#/Area]Hyaline casts [#/area] in Urine sediment by Automated count0-8[facility] HospitalINR in Platelet poor plasma by Coagulation assayOrdered By: Bentley Solomon on 20-68-1344VVM Coag (PPP) [Relative time]INR in Platelet poor plasma by Coagulation assayMemorial Health System Marietta Memorial HospitalComment on above:INR Therapeutic Range A) Pre- and Peroperative OAT started two weeks before surgery. NOT HIP SURGERY: 1.5 - 2.5 HIP SURGERY: 2 - 3B) Primary and secondary prevention of venous THROMBOSIS: 2 - 3C) Active venous thrombosis, pulmonary embolismand prevention of recurrent venous thrombosis: 2 - 3D) Prevention of arterial thromboembolismincluding patients with mechanical heart valves: 3 - 4.5Ketones Test strip Ql (U)Ordered By: Bentley Solomon on 63-80-8081Javlawz Ql (U)Ketones [Presence] in Urine by Test stripNegSycamore Medical CenterLeukocyte esterase [Presence] in Urine by Test stripOrdered By: Bentley Solomon on 19-96-9259Amjfgghql esterase Test strip Ql (U)Leukocyte esterase [Presence] in Urine by Test strip HighNegativeMemorial Health System Marietta Memorial HospitalLeukocytes [#/area] in Urine sediment by Automated countOrdered By: Bentley Solomon on 98-59-2585RQJ Auto (Urine sed) [#/Area]Leukocytes [#/area] in Urine sediment by Automated countHigh 0-4FCincinnati Shriners HospitalLeukocytes [#/volume] corrected for nucleated erythrocytes in Blood by Automated counOrdered By: Bentley Solomon on 25-03-0854GSY corrected for nucl RBC Auto (Bld) [#/Vol]Leukocytes [#/volume] corrected for nucleated erythrocytes in Blood by Automated coun3.8-11.6FCincinnati Shriners HospitalLymphocytes Auto (Bld) [#/Vol]Ordered By: Bentley Solomon on 37-02-2514Uznsqjvbsmh (Bld) [#/Vol]Lymphocytes [#/volume] in Blood by Automated count1.00-4.8[facility] HospitalLymphocytes/100 WBC Auto (Bld)Ordered By: Bentley Solomon on 43-77-7772Vyefytlbmul/100 WBC (Bld) Lymphocytes/100 leukocytes in Blood by Automated count.[facility] Auto (RBC) [Entitic mass]Ordered By: Bentley Solomon on 02-25-6951XHN (RBC) [Entitic mass]MCH [Entitic mass] by Automated count24.7-34.3 [facility] Auto (RBC) [Mass/Vol]Ordered By: Bentley Solomon on 07-03-9680LIWF (RBC) [Mass/Vol]MCHC [Mass/volume] by Automated count 32.0-35.0[facility] HospitalV Auto (RBC) [Entitic vol]Ordered By: Bentley Solomon on 25-41-0780HZB (RBC) [Entitic vol]MCV [Entitic volume] by Automated kwisyGfd35-039YkmcncxsrMemorial Health System Marietta Memorial HospitalMonocyte distribution width [Entitic volume] in Blood by AutomatedOrdered By: Bentley Solomon on 67-64-6033Wkyedhio distribution width Auto (Bld) [Entitic vol]Monocyte distribution width [Entitic volume] in Blood by AutomatedHigh0.00-20.00[facility] HospitalComment on above:For adults in ED, MDW > 20.0 may be associated with a higher risk of sepsis during the first 12 hrs of hospital admissionMonocytes Auto (Bld) [#/Vol]Ordered By: Bentley Solomon on 05-07-2024 Monocytes (Bld) [#/Vol]Automated blood monocyte count0.0-0.8[facility] HospitalMonocytes/100 WBC Auto (Bld)Ordered By: Bentley Solomon on 01-63-5674Amgojsnup/100 WBC (Bld)Automated monocyte %.[facility] HospitalMucus [Presence] in Urine by AutomatedOrdered By: Bentley Solomon on 13-15-4468Hqobt Auto Ql (U)Mucus [Presence] in Urine by AutomatedMemorial Health System Marietta Memorial HospitalNatriuretic peptide B [Mass/Vol]Ordered By: Bentley Solomon on 13-58-6381Sicafmcgvau peptide B (Bld) [Mass/Vol]BNP ser/plas5-100 [facility] Memorial HospitalNeutrophils Auto (Bld) [#/Vol]Ordered By: Bentley Solomon on 45-27-7130Pjyhgkxpjod (Bld) [#/Vol]Neutrophils [#/volume] in Blood by Automated count1.8-7.7FCincinnati Shriners HospitalNeutrophils/100 WBC Auto (Bld)Ordered By: Bentley Solomon on 22-35-5534Dutbswktdzj/100 WBC (Bld) Automated neutrophil %.[facility] Memorial HospitalNitrite Test strip Ql (U)Ordered By: Bentley Solomon on 05-98-5627Awoqboy Ql (U)Nitrite [Presence] in Urine by Test stripNegativeMemorial Health System Marietta Memorial HospitalNo Panel Information Ordered By: Bentley Solomon on 40-41-1397Cvnjqcxoq GFR (CKD-EPI)> 60.0 mL/Min [facility] HospitalPharmacy Creatinine Clearance (Vzdw470.25 [facility] HospitalNucleated erythrocytes [Presence] in Blood by Automated countOrdered By: Bentley Solomon on 56-73-9064Kltwqweig RBC Auto Ql (Bld)Nucleated erythrocytes [Presence] in Blood by Automated count0-0.5FCincinnati Shriners HospitalPlatelet mean volume Auto (Bld) [Entitic vol]Ordered By: Bentley Solomon on 05-42-5681Xbedlujz mean volume (Bld) [Entitic vol]Platelet mean volume [Entitic volume] in Blood by Automated count6.3-10.7FCincinnati Shriners HospitalPlatelets Auto (Bld) [#/Vol]Ordered By: Bentley Solomon on 31-55-8051Jifwvfruz (Bld) [#/Vol]Platelets [#/volume] in Blood by Automated -005WeryhfpmyMemorial Health System Marietta Memorial HospitalPotassium [Moles/volume] in Serum or PlasmaOrdered By: Bentley Solomon on 79-03-9402Imigenhxi [Moles/Vol]Potassium [Moles/volume] in Serum or Plasma3.5-5.1FCincinnati Shriners HospitalProtein Test strip (U) [Mass/Vol]Ordered By: Bentley Solomon on 08-32-8335Dbuzksu (U) [Mass/Vol]Protein [Mass/volume] in Urine by Test stripHighNegativeMemorial Health System Marietta Memorial HospitalProtein [Mass/volume] in Serum or PlasmaOrdered By: Bentley Solomon on 59-69-4423Bctzlhs [Mass/Vol]Protein [Mass/volume] in Serum or Plasma6.4-8.9[facility] HospitalProthrombin Time INRon 05-07-2024 INR Coag (PPP) [Relative time]1.0 {INR}NormalThe [facility] Comment on above:Result Comment: INR Therapeutic Range A) Pre- and [...] patients with mechanical heart valves: 3 - 4.5Performed By: #### PT, HS TROP, CBC, BNP, CMP, CK, DDIMER ####[facility] [address] [place] [address] USAPT Coag (PPP) [Time]11.7 sNormal9.0-12.9The [facility] Physician GroupComment on above:Result Comment: A hematocrit value greater than 55% may lead to inaccurate results in coagulation testing. Patients having hematocrit values >55% require a special collection tube for coagulation studies. Please contact the laboratory at [phone] for redraw instructions.Performed By: #### PT, HS TROP, CBC, BNP, CMP, CK, DDIMER ####[facility] [address] [place] [id number] [facility] Prothrombin time (PT)Ordered By: Bentley Solomon on 16-05-5601DE Coag (PPP) [Time]Prothrombin time (PT)9.0-12.9[facility] Memorial HospitalComment on above:A hematocrit value greater than 55% may lead to inaccurate results in coagulation testing. Patientshaving hematocrit values >55% require a special collection tube for coagulation studies. Please contact the laboratory at [phone] for redraw instructions.RBC Auto (Bld) [#/Vol]Ordered By: Bentley Solomon on 73-46-7064MAL (Bld) [#/Vol]Erythrocytes [#/volume] in Blood by Automated count3.60-5.00[facility] HospitalRespiratory specimen influenza A virus, influenza B virus, respiratory syncytical virOrdered By: Bentley Solomon on 66-16-1938DBRI-CoV-2 (COVID-19) RNA DEVI+probe Ql (Unsp spec) Respiratory specimen influenza A virus, influenza B virus, respiratory syncytical [facility] CampusARS-CoV-2 (COVID-19) RNA DEVI+probe Ql (Unsp spec)Respiratory specimen influenza A virus, influenza B virus, respiratory syncytical [facility] West Campuserum or plasma albumin/globulin mass ratioOrdered By: Bentley Solomon on 05-07-2024 Albumin/Globulin [Mass ratio]Serum or plasma albumin/globulin mass ratio [facility] Hospitalerum or plasma anion gap determinationOrdered By: Bentley Solomon on 54-01-4340Nvsjk gap [Moles/Vol]Serum or plasma anion gap determination6.0-15.0Pro[facility] Hospitalodium [Moles/volume] in Serum or PlasmaOrdered By: Bentley Solomon on 88-38-0162Vokzjy [Moles/Vol]Sodium [Moles/volume] in Serum or Itlxni365-977YzghctfrcMemorial Health System Marietta Memorial Hospital Specific gravity Test strip (U) [Rel density]Ordered By: Bentley Solomon on 36-21-0690Lnnkojra gravity (U) [Rel density]Specific gravity of Urine by Test strip1.001-1.030[facility] HospitalTroponin I High Sensitivityon 14-89-1228Jmrfcaof I High Spajgtummyo9Mmuvpa8-98Ftm [facility] Comment on above:Result Comment: The Troponin units of report have been changed to meet the Chest Pain Accreditation requirement, element EC5.M1l2. Troponin units are changed from pg/ml to ng/L. Also, the decimal is removed and results are in whole numbers. PERFORMED BY: [place] [address] PATHOLOGIST BALLROOM DANCER PRISCILA ORTIZ M.D.Performed By: #### PT, HS TROP, CBC, BNP, CMP, CK, DDIMER ####[facility] [address] Troponin I.cardiac [Mass/volume] in Serum or Plasma by Detection limit <= 0.01 ng/Ordered By: Bentley Solomon on 32-87-8272Merydaeq I.cardiac DL <= 0.01 ng/mL [Mass/Vol]Troponin I.cardiac [Mass/volume] in Serum or Plasma by Detection limit <= 0.01 ng/0-15[facility] HospitalComment on above:The Troponin units of report have been changed to meet the Chest Pain Accreditation requirement, element EC5.M1l2. Troponin units are changed from pg/ml to ng/L. Also, the decimal is removed and results are in whole numbers.Urea nitrogen [Mass/volume] in Serum or PlasmaOrdered By: Bentley Solomon on 77-23-7548Snpa nitrogen [Mass/Vol]Urea nitrogen [Mass/volume] in Serum or Plasma7-[facility] Memorial HospitalUrine Cultureon 47-46-2778Guuugiam identified Cx Nom (U) 30,000 colonies/ml mixed bacterial skin contaminants 2 Days PERFORMED BY: [address] [place] [address] PATHOLOGIST BALLROOM DANCER PRISCILA ORTIZ M.D.[facility] Physician GroupComment on above: Performed By: #### GUNNAR TOVAR ####[facility] [address] [place], [place] USAUrine cultureOrdered By: Bentley Solomon on 23-39-7671Ogsdtaoc identified Cx Nom (U)Urine cultureMemorial Health System Marietta Memorial HospitalUrobilinogen Test strip (U) [Mass/Vol]Ordered By: Bentley Solomon on 31-91-1787Ijpkeavkoltz (U) [Mass/Vol]Urobilinogen [Mass/volume] in Urine by Test stripNormalMemorial Health System Marietta Memorial HospitalWBC Auto (Bld) [#/Vol]Ordered By: Bentley Solomon on 43-60-9219RLG (Bld) [#/Vol]Leukocytes [#/volume] in Blood by Automated count3.8-11.6FCincinnati Shriners HospitalX-ray reportOrdered By: Devante Pat on 79-30-0543Ycoeg reportCLEVELAND CLINIC CH[facility] [address] [place] [address] [place] [address] XRay Report Signed Patient: Becki Messer MR#: [id number] : 1970 Acct:[id number] Age/Sex: 53 / F ADM Date: 5 Loc: ER Room: [facility] ER Attending Dr: Copies to: Bentley Solomon APRN~ Ordering Provider: Bentley Solomon APRN Date of Service: 05/07/24 XR/XR chest 2V*: Upper Respiratory Infection XR chest 2V* 05/07/2024 2:46 PM SIGNS AND SYMPTOMS: Runny nose, sore throat, weakness with myalgia PROTOCOL: Frontal and lateral radiograph of the chest COMPARISON: 11/02/2023 FINDINGS: The trachea is midline. The heart and mediastinal structures are within normal limits. The lung parenchyma is clear. The bony thorax is intact. Degenerativechanges are noted in the thoracic spine andshoulders. There is evidence of prior cholecystectomy. XR/XR chest 2V* IMPRESSION: No acute cardiopulmonary pathology. Impression dictated by: Devante Pat M.D.05/07/2024 3:36 PM Dictation Location: RADIO-PC-19 Transcribed By: AMBROSIO 05/07/241535 Dictated By: Devante Pat II, MD 05/07/241534 Signed By: 05/07/24 153 [facility] Work Phone: XR chest 2V*on 19-95-6186JK chest 2V*[facility] [address] [place] [address] [place] [address] XRay Report Signed Patient: Becki Messer MR#: [id number] 3 : 1970 Acct:[id number] Age/Sex: 53 / F ADM Date: 05/07/24 Loc: ER Room: [facility] ER Attending Dr: Copies to: Bentley Solomon APRN Ordering Provider: Bentley Solomon APRN Date of Service: 05/07/24 XR/XR chest 2V*: Upper Respiratory Infection XR chest 2V* 05/07/2024 2:46 PM SIGNS AND SYMPTOMS: Runny nose, sore throat, weakness with myalgia PROTOCOL: Frontal and lateral radiograph of the chest COMPARISON: 11/02/2023 FINDINGS: The trachea is midline. The heart and mediastinal structures are within normal limits. The lung parenchyma is clear. The bony thorax is intact. Degenerative changes are noted in the thoracic spi ne and shoulders. There is evidence of prior cholecystectomy. XR/XR chest 2V* IMPRESSION: No acute cardiopulmonary pathology. Impression dictated by: Devante Pat M.D.05/07/2024 3:36 PM Dictation Location: RADIO-PC-19 Transcribed By: AMBROSIO 05/07/241535 Dictated By: Devante Pat II, MD 05/07/241534 Signed By: 05/07/24 1536[facility] Physician GrouppH Test strip (U)Ordered By: Bentley Solomon on 99-38-0430pX (U)pH of Urine by Test strip5.0-9.0[facility] HospitalMM screening mammo BI w/CADon 72-17-2163YS screening mammo BI w/CADCLEVELAND [facility] [place] [address] [place] [address] Mammography Report Signed Patient: Becki Messer MR#: [id number] 3 : 1970 Acct:[id number] Age/Sex: 53 / F ADM Date: 02/06/24 Loc: [place] Room: Type: [facility] Attending Dr: Piyush Cleveland DO Copies to: Piyush Narayanan DO Ordering Provider: Piyush Cleveland Date of Service: 02/06/24 MM/MM screening mammo BI w/CAD: Z12.31 CLINICAL DATA: Screening for malignancy. BILATERAL SCREENING MAMMOGRAMS - FULL FIELD DIGITAL WITH TOMOSYNTHESIS AND CAD Tomosynthesis craniocaudal and mediolateral oblique views of both breasts were obtained using low- dose digital technique. Comparison is made to prior studies from January 20, 2019 through February 04, 2023. This examination was reviewed with the aid of CAD. The breast parenchyma has been largely replaced by fat. Benign calcifications are noted. A right intramammary lymph node and similar left asymmetry are again seen. There are no developing masses, typically malignant calcifications or architectural distortion. There has been no significant interval change. MM/MM screening mammo BI w/CAD IMPRESSION: NO MAMMOGRAPHIC EVIDENCE OF MALIGNANCY. ROUTINE FOLLOW-UP IS RECOMMENDED IN ONE YEAR. RESULT CODE: 2 Benign Findings(s) DENSITY CODE: 1 (<25% glandular) FOLLOW UP: 1YR The false-negative rate of mammography is approximately 10-percent. Management of a palpable abnormality must be based on clinical grounds. Patient was entered into a reminder system with a target due date for the next mammogram. Impression dictated by: Fariha Otero M.D.02/07/2024 8:18 AM Dictation Location: [facility] Transcribed By: [facility] 02/07/24817 Dictated By: Fariha Otero MD 02/07/24811 Signed By: 02/07/24 08[facility] Physician GroupIGP,APTIMA HPV,AGE GDLNon 10-35-0755UCH GDLN ACOG TESTINGNote.NOMS HealthcareComment on above:TESTS RESULT FLAG UNITS REF RANGE LAB Clinician Provided Cytology Information Source.............Cervix;Endocervix No. of containers..01 ThinPrep Vial Age Algo ACOG Jannette... FLAG LEGEND: L-Low Normal,H-High Normal,LL-Alert Low,HH-Alert High <-Panic Low,>-Panic High,A-Abnormal,AA-Critical Abnormal Performed at: 01 =[address] [address] Johana Galvan MD, HPV APTIMANegativeNegativeNOMS HealthcareComment on above:This nucleic acid amplification test detects fourteen high- risk HPV types (16,18,31,33,35,39,45,51,52,56,58,59,66,68) without differentiation. Performed at: [address] [address] [id number] Speech Writer: Johana Galvan MD, Phone: [phone] Performed at: [address] [id number] Speech Writer: Johana Galvan MD, Phone: [phone] IGP, APTIMA HPV, RFX 16/18,45NoteRamilaUINTAH BASIN MEDICAL CENTER HealthcareComment on above:TESTS RESULT FLAG UNITS REF RANGE LAB DIAGNOSIS: 02 NEGATIVE FOR INTRAEPITHELIAL LESION OR MALIGNANCY. Specimen adequacy: 02 Satisfactory for evaluation. Endocervical and/or squamous metaplastic cells (endocervical component) are present. Performed by: 02 Michael Garcia, Floor Broker (ASCP) . 02 Note: Note 02 The Pap smear is a screening test designed to aid in the detection of premalignant and malignant conditions of the uterine cervix. It is not a diagnostic procedure and should not be used as the sole means of detecting cervical cancer. Both false-positive and false-negative reports do occur. Test Methodology: Note 02 This liquid based ThinPrep(R) pap test was screened with the use of an image guided system. HPV Genotype Reflex Note 02 Criteria not met, HPV Genotype not performed. FLAG LEGEND: L-Low Normal,H-High Normal,LL-Alert Low,HH-Alert High <-Panic Low,>-Panic High,A-Abnormal,AA-Critical Abnormal Performed at: 02 [address] [facility] [address] [place] [address] Johana Galvan MD, BRUSH-SPATULA CERVIX ENDOCERVIX CLINISYNCNOMS HealthcareAlanine aminotransferase [Enzymatic activity/volume] in Serum or PlasmaOrdered By: Dex Mcclellan on 64-50-7447QES [Catalytic activity/Vol]37 U/LNormal7-52[facility] HospitalComment on above: Performed By: #### B12, CMP, URMACRERAT ####[facility] [address] [place] [address] USAAlbumin [Mass/volume] in Serum or Plasma by Bromocresol green (BCG) dye binding methoOrdered By: Dex Mcclellan on 12-08-2023 Albumin BCG dye [Mass/Vol]4.0 g/dL3.5-5.7FCincinnati Shriners Hospital Alkaline phosphatase [Enzymatic activity/volume] in Serum or PlasmaOrdered By: Dex Mcclellan on 68-89-7828BXY [Catalytic activity/Vol]60 U/DBpgyea81-500 [facility] HospitalComment on above:Performed By: #### B12, CMP, URMACRERAT ####[facility] [place] [address] USAAspartate aminotransferase [Enzymatic activity/volume] in Serum or Plasma Ordered By: Dex Mcclellan on 42-24-6705TPT [Catalytic activity/Vol]33 U/LNormal 13-39[facility] HospitalComment on above:Performed By: #### B12, CMP, URMACRERAT ####[facility] [address] [place] [address] USAAutomated basophil %Ordered By: Redd Morales on 14-94-6765Kzerftrjm/100 WBC (Bld)0.5 %Normal.[facility] HospitalComment on above:Order Comment: FASTING.JKWPerformed By: #### PILLAR CBC, PILLAR LIPID, PILLAR BMP, EBS A1C, PILLAR TSH #### [facility] [address] [place] [address] USAAutomated basophil countOrdered By: Redd Morales on 64-64-6277Lofzmttrh (Bld) [#/Vol]0.1 10*3/uLNormal0.0-0.2FCincinnati Shriners HospitalComment on above:Order Comment: FASTING.JKWResult Comment: PERFORMED BY: [facility] [address] [place] [address] PATHOLOGIST BALLROOM DANCER KIRIT VARGAS M.D.Performed By: #### PILLAR CBC, PILLAR LIPID, PILLAR BMP, EBS A1C, PILLAR TSH #### [facility] [address] [place] [address] USAAutomated blood monocyte countOrdered By: Reddjohnathon Morales on 59-92-6810Krtkyzmyr (Bld) [#/Vol]0.4 10*3/uLNormal0.0-0.8[facility] HospitalComment on above:Order Comment: FASTING.JKWPerformed By: #### PILLAR CBC, PILLAR LIPID, PILLAR BMP, EBS A1C, PILLAR TSH #### [facility] [address] [place] [address] USAAutomated eosinophil %Ordered By: Redd Morales on 12-08-2023 Eosinophils/100 WBC (Bld)0.1 %Normal.[facility] HospitalComment on above:Order Comment: FASTING.JKWPerformed By: #### PILLAR CBC, PILLAR LIPID, PILLAR BMP, EBS A1C, PILLAR TSH #### [facility] [address] [place] [address] USAAutomated eosinophil countOrdered By: Redd Morales on 33-83-6921Omlwnxhuwlt (Bld) [#/Vol]0.0 10*3/uLNormal0.0-0.45[facility] HospitalComment on above:Order Comment: FASTING.JKWPerformed By: #### PILLAR CBC, PILLAR LIPID, PILLAR BMP, EBS A1C, PILLAR TSH #### [facility] [address] [place] [address] USAAutomated monocyte %Ordered By: Redd Morales on 12-08-2023 Monocytes/100 WBC (Bld)4.1 %Normal.[facility] HospitalComment on above:Order Comment: FASTING.JKWPerformed By: #### PILLAR CBC, PILLAR LIPID, PILLAR BMP, EBS A1C, PILLAR TSH #### [facility] [address] [place], [place] [address] USAAutomated neutrophil %Ordered By: Redd Morales on 12-08-2023 Neutrophils/100 WBC (Bld)65.4 %Normal.[facility] HospitalComment on above:Order Comment: FASTING.JKWPerformed By: #### PILLAR CBC, PILLAR LIPID, PILLAR BMP, EBS A1C, PILLAR TSH #### [facility] [address] [place] [address] USABilirubin.total [Mass/volume] in Serum or PlasmaOrdered By: Tondra Mapus on 54-35-2070Mwzvwmhjz [Mass/Vol]0.4 mg/dLNormal0.3-1.0 [facility] HospitalComment on above:Performed By: #### B12, CMP, URMACRERAT ####[facility] [place] [address] USACalcium [Mass/volume] in Serum or PlasmaOrdered By: Tondra Mapus on 39-40-6919Nyaodsn [Mass/Vol]9.3 mg/dLNormal8.6-10.3FCincinnati Shriners HospitalComment on above:Performed By: #### B12, CMP, URMACRERAT ####[address] [address] USACalcium [Mass/volume] in Serum or PlasmaOrdered By: Reddjohnathon Morales on 36-67-2163Xtbvcsx [Mass/Vol]9.3 mg/dLNormal8.6-10.3FCincinnati Shriners HospitalComment on above:Order Comment: FASTING.JKWPerformed By: #### PILLAR CBC, PILLAR LIPID, PILLAR BMP, EBS A1C, PILLAR TSH #### [facility] [address] [place] [id number] USACarbon dioxide, total [Moles/volume] in Serum or Plasma Ordered By: Tondra Mapus on 86-63-8602EA3 [Moles/Vol]32.4 mmol/LHigh21.0-31.0 [facility] HospitalComment on above:Performed By: #### B12, CMP, URMACRERAT ####[facility] [place] [address] USACarbon dioxide, total [Moles/volume] in Serum or PlasmaOrdered By: Redd Kuns on 33-86-3636QU8 [Moles/Vol]31.2 mmol/LHigh21.0-31.0[facility] HospitalComment on above:Order Comment: FASTING.JKWPerformed By: #### PILLAR CBC, PILLAR LIPID, PILLAR BMP, EBS A1C, PILLAR TSH #### [facility] [address] [place] [address] USAChloride [Moles/volume] in Serum or PlasmaOrdered By: Dex Mcclellan on 05-95-2401Werhkjqk [Moles/Vol]101 mmol/AItrdtz71-731VcwgmekdeMemorial Health System Marietta Memorial HospitalComment on above:Performed By: #### B12, CMP, URMACRERAT ####[facility] [address] [place] [address] [place] Chloride [Moles/volume] in Serum or PlasmaOrdered By: Redd Morales on 12-08-2023 Chloride [Moles/Vol]100 mmol/PJvhroe09-538Hvl[address] [place] [address] Comment on above:Order Comment: FASTING.JKWPerformed By: #### PILLAR CBC, PILLAR LIPID, PILLAR BMP, EBS A1C, PILLAR TSH #### [facility] [address] [place] [address] USACholesterol [Mass/volume] in Serum or PlasmaOrdered By: Redd Morales on 50-75-0570Klykxlmzudh [Mass/Vol]172 mg/yIXiokax770-110ItvyfixbwMemorial Health System Marietta Memorial HospitalComment on above:Chol less than 200 mg/dl low riskChol 201-239 mg/dl borderline riskChol 240 mg/dl and greater high riskOrder Comment: FASTING.JKWResult Comment: Chol less than 200 mg/dl low risk Chol 201-239 mg/dl borderline risk Chol 240 mg/dl and greater high riskPerformed By: #### PILLAR CBC, PILLAR LIPID, PILLAR BMP, EBS A1C, PILLAR TSH #### [facility] [address] [place] [address] USACholesterol in LDL Calc [Mass/Vol]Ordered By: Redd Morales on 81-02-1286Lqeakcbdqju in LDL [Mass/Vol]87 mg/dL0-100[facility] HospitalComment on above:LDL ATP III CLASSIFICATIONLDL less than 100 mg/dL OptimalLDL 100-129 mg/dL Near or above xwdpiteXGJ325-159 mg/dL Borderline highLDL 160-189 mg/dL HighLDL greater than 189 mg/dL Very highCholesterol in VLDL Calc [Mass/Vol]Ordered By: Redd Morales on 85-76-2140Kexhggjopey in VLDL [Mass/Vol]49 mg/dLMemorial Health System Marietta Memorial HospitalComprehensive Metabolic Panel on 56-19-8865Axtsmtt [Mass/Vol]4.0 g/dLNormal3.5-5.7[facility] Physician GroupComment on above:Performed By: #### B12, CMP, URMACRERAT ####[facility] [address] [place] [address] USAGFR/1.73 sq M.predicted MDRD (S/P/Bld) [Vol rate/Area]mL/min/{1.73_m2}NormalThe [facility] Physician [facility] HospitalComment on above:Performed By: #### B12, CMP, URMACRERAT ####[facility] [address] [place] [address] [place] Creatinine [Mass/volume] in Serum or PlasmaOrdered By: Dex Mcclellan on 29-81-2434Wkkibklagw [Mass/Vol]0.70 mg/dLNormal0.60-1.20[facility] HospitalComment on above:Performed By: #### B12, CMP, URMACRERAT ####[facility] [address] [place] [id number] [place] Creatinine [Mass/volume] in Serum or PlasmaOrdered By: Redd Morales on 12-08-2023 Creatinine [Mass/Vol]0.70 mg/dLNormal0.60-1.20[facility] Comment on above:Order Comment: FASTING.JKWPerformed By: #### PILLAR CBC, PILLAR LIPID, PILLAR BMP, EBS A1C, PILLAR TSH #### [facility] [address] [place] [address] USACreatinine [Mass/volume] in UrineOrdered By: Dex Mcclellan on 48-90-7172Kqfkusulsb (U) [Mass/Vol]187.00 mg/dLMemorial Health System Marietta Memorial HospitalComment on above:No reference range establishedEBS A1C with Estimated Ave Gluon 45-15-1459Rjovkiw [Mass/Vol]148 mg/dLNormalThe [facility] Physician Group Comment on above:Result Comment: PERFORMED BY: [address] [place] [id number] PATHOLOGIST BALLROOM DANCER KIRIT VARGAS M.D.Performed By: #### PILLAR CBC, PILLAR LIPID, PILLAR BMP, EBS A1C, PILLAR TSH #### [facility] [address] [place], [place] [address] USAEBS A1C with Estimated Ave GluOrdered By: Redd Morales on 50-08-6997XuW2p (Bld) [Mass fraction]6.8 %High4.3-5.6FCincinnati Shriners HospitalComment on above:Increased risk for diabetes: 5.7 - 6.4diabetes: >6.4glycemic control for adults with diabetes: <7.0Result Comment: Increased risk for diabetes: 5.7 - 6.4 diabetes: >6.4 glycemic control for adults with diabetes: <7.0Performed By: #### PILLAR CBC, PILLAR LIPID, PILLAR BMP, EBS A1C, PILLAR TSH #### [facility] [address] [place], [place] [address] USAEmployee Basic Metabolic Panelon 70-67-3496NZC/1.73 sq M.predicted MDRD (S/P/Bld) [Vol rate/Area]mL/min/{1.73_m2}NormalThe [facility] Physician GroupComment on above:Order Comment: FASTING.JKWPerformed By: #### PILLAR CBC, PILLAR LIPID, PILLAR BMP, EBS A1C, PILLAR TSH #### [facility] [address] [place], [place] [address] USAEmployee Complete Blood Counton 22-60-0345Pioq Corpuscular HGB Conc32.6 g/iWCcoeft27.0-35.0[facility] Physician GroupComment on above: Order Comment: FASTING.JKWPerformed By: #### PILLAR CBC, PILLAR LIPID, PILLAR BMP, EBS A1C, PILLAR TSH #### [facility] [address] [place] [address] USANRBC%0.1 /100{WBC}Normal0-0.5[facility] Comment on above:Order Comment: FASTING.JKWPerformed By: #### PILLAR CBC, PILLAR LIPID, PILLAR BMP, EBS A1C, PILLAR TSH #### [facility] [address] [place] [address] USAEmployee Lipid Profileon 79-04-0357NHK Cholesterol,Gvudtmhwtm52 mg/dLNormal0-100[facility] Physician GroupComment on above:Order Comment: FASTING.JKWResult Comment: LDL ATP III CLASSIFICATION LDL less than 100 mg/dL Optimal LDL 100-129 mg/dL Near or above optimal LDL 130-159 mg/dL Borderline high LDL 160-189 mg/dL High LDL greater than 189 mg/dL Very highPerformed By: #### PILLAR CBC, PILLAR LIPID, PILLAR BMP, EBS A1C, PILLAR TSH #### [facility] [address] [place] [address] USATriglyceride w/Smplpw510 mg/dLHigh0-149[facility] Physician GroupComment on above:Order Comment: FASTING.JKWResult Comment: TRIG ATP III CLASSIFICATION TRIG less than 150 mg/dL Normal TRIG 150-199 mg/dL Borderline high TRIG 200-500 mg/dL High TRIG greater than 500 mg/dL Very high Standard traceable to the Center for Disease Conrtrol and Prevention (CDC) test method.Performed By: #### PILLAR CBC, PILLAR LIPID, PILLAR BMP, EBS A1C, PILLAR TSH #### [facility] [address] [place] [address] USAVLDL GHAVZIXNYAA37 mg/dLNormalThe [facility] Physician GroupComment on above:Order Comment: FASTING.JKWPerformed By: #### PILLAR CBC, PILLAR LIPID, PILLAR BMP, EBS A1C, PILLAR TSH #### [facility] [address] [place] [address] USAEmployee Thyroid Stim Hormoneon 04-32-6790Bcqixdhk Thyroid Stim Hormone4.42 u[iU]/mLNormal0.45-5.33[facility] Physician GroupComment on above:Order Comment: FASTING.JKWResult Comment: PERFORMED BY: [place] [address] PATHOLOGIST BALLROOM DANCER KIRIT VARGAS M.D.Performed By: #### PILLAR CBC, PILLAR LIPID, PILLAR BMP, EBS A1C, PILLAR TSH #### [place] [id number] USAErythrocyte distribution width [Ratio] by Automated count Ordered By: Redd Morales on 49-94-9804Pjvaqpwsezo distribution width (RBC) [Ratio] 16.3 %High11.9-15.3FCincinnati Shriners HospitalComment on above:Order Comment: FASTING.JKWPerformed By: #### PILLAR CBC, PILLAR LIPID, PILLAR BMP, EBS A1C, PILLAR TSH #### [place] [id number] USAErythrocytes [#/volume] in Blood by Automated countOrdered By: Redd Morales on 24-89-5353HBH (Bld) [#/Vol]5.03 10*6/uLHigh3.60-5.00[facility] HospitalComment on above:Order Comment: FASTING.JKWPerformed By: #### PILLAR CBC, PILLAR LIPID, PILLAR BMP, EBS A1C, PILLAR TSH #### [facility] [address] [place], [place] [address] USAGlucose [Mass/volume] in Serum or PlasmaOrdered By: Dex Mcclellan on 25-17-1862Mlcvvst [Mass/Vol]137 mg/hWPsfg86-029MebvqnukuMemorial Health System Marietta Memorial HospitalComment on above:ADA recommended reference rangeRandom Glucose Reference Range is dependent on time and content of last meal. Glucose of more than 200 mg/dL in a nonstressed, ambulatory subject supports the diagnosisof Diabetes Mellitus.Result Comment: Random Glucose Reference Range is dependent on time and content of last meal. Glucose of more than 200 mg/dL in a nonstressed, ambulatory subject supports the diagnosis of Diabetes Mellitus. ADA recommended reference rangePerformed By: #### B12, CMP, URMACRERAT ####[facility] [address] [place] [address] USAGlucose [Mass/volume] in Serum or PlasmaOrdered By: Redd Morales on 36-43-5941Sobtjlg [Mass/Vol]136 mg/tLHerv82-788FgpxnpyqiMemorial Health System Marietta Memorial HospitalComment on above: ADA recommended reference rangeOrder Comment: FASTING.JKWResult Comment: ADA recommended reference rangePerformed By: #### PILLAR CBC, PILLAR LIPID, PILLAR BMP, EBS A1C, PILLAR TSH #### [facility] [address] [place] [address] USAGlucose mean value [Mass/volume] in Blood Estimated from glycated hemoglobinOrdered By: Redd Morales on 11-25-1171Ubctllk glucose Estimated from glycated hemoglobin (Bld) [Mass/Vol]148 mg/dLMemorial Health System Marietta Memorial HospitalHematocrit [Volume Fraction] of Blood by Automated countOrdered By: Redd Morales on 76-52-2964Gvdmtiqclr (Bld) [Volume fraction]38.6 %Lhfstd54.0-46.4 [facility] HospitalComment on above:Order Comment: FASTING.JKW Performed By: #### PILLAR CBC, PILLAR LIPID, PILLAR BMP, EBS A1C, PILLAR TSH #### [facility] [address] [place] [address] USAHemoglobin [Mass/volume] in BloodOrdered By: Redd Morales on 66-43-7368Apdjrgrswc (Bld) [Mass/Vol]12.6 g/qILisjbu94.8-15.4FCincinnati Shriners HospitalComment on above:Order Comment: FASTING.JKWPerformed By: #### PILLAR CBC, PILLAR LIPID, PILLAR BMP, EBS A1C, PILLAR TSH #### [facility] [address] [place] [address] USALeukocytes [#/volume] corrected for nucleated erythrocytes in Blood by Automated counOrdered By: Redd Morales on 48-02-6445SUC corrected for nucl RBC Auto (Bld) [#/Vol]10.7 10*3/uL3.8-11.6FCincinnati Shriners HospitalLeukocytes [#/volume] in Blood by Automated countOrdered By: Redd Morales on 30-67-0681HRU (Bld) [#/Vol]10.7 10*3/uLNormal3.8-11.6FCincinnati Shriners HospitalComment on above:Order Comment: FASTING.JKWPerformed By: #### PILLAR CBC, PILLAR LIPID, PILLAR BMP, EBS A1C, PILLAR TSH #### [facility] [address] [place] [address] USALymphocytes [#/volume] in Blood by Automated countOrdered By: Redd Morales on 87-29-6784Mdzsrpknukh (Bld) [#/Vol]3.2 10*3/uLNormal1.00-4.8 [facility] HospitalComment on above:Order Comment: FASTING.JKW Performed By: #### PILLAR CBC, PILLAR LIPID, PILLAR BMP, EBS A1C, PILLAR TSH #### [facility] [address] [place] [address] USALymphocytes/100 leukocytes in Blood by Automated count Ordered By: Redd Morales on 59-33-1786Xkhblbidepg/100 WBC (Bld)29.9 %Normal. [facility] HospitalComment on above:Order Comment: FASTING.JKW Performed By: #### PILLAR CBC, PILLAR LIPID, PILLAR BMP, EBS A1C, PILLAR TSH #### [facility] [address] [place] [address] [facility] [Entitic mass] by Automated countOrdered By: Redd Morales on 84-21-0128FQK (RBC) [Entitic mass]25.0 ouGvjwzr39.7-34.3FCincinnati Shriners HospitalComment on above:Order Comment: FASTING.JKWPerformed By: #### PILLAR CBC, PILLAR LIPID, PILLAR BMP, EBS A1C, PILLAR TSH #### [facility] [address] [place] [address] [facility] Auto (RBC) [Mass/Vol]Ordered By: Redd Andrew on 03-17-6168UJMB (RBC) [Mass/Vol]32.6 g/dL32.0-35.0[facility] Memorial HospitalMCV [Entitic volume] by Automated countOrdered By: Redd Morales on 26-82-6573SFZ (RBC) [Entitic vol]76.6 lYFqo06-668JohvcrjubMemorial Health System Marietta Memorial HospitalComment on above:Order Comment: FASTING.JKWPerformed By: #### PILLAR CBC, PILLAR LIPID, PILLAR BMP, EBS A1C, PILLAR TSH #### [facility] [address] [place] [address] USAMicroAlb Creat Ratio,Uon 81-34-0596Gfobzkauct, Urine (Random)187.00 mg/dLNormAdventHealth Lake Mary ER Physician GroupComment on above:Result Comment: No reference range establishedPerformed By: #### B12, CMP, URMACRERAT ####[place] [address] [address] Microalbumin/Creatinine Ratio5.9 mg/gNormal0.0-30.0[facility] Comment on above:Result Comment: 30-300 mg/g indicates an increased risk for diabetic nephropathy. Greater than 300 mg/g is consistent with clinical nephropathy. (Am. J. Kidney Disease 1995, 25:107) PERFORMED BY: [facility] [address] [place] [address] PATHOLOGIST BALLROOM DANCER KIRIT VARGAS M.D.Performed By: #### B12, CMP, URMACRERAT ####[place] [address] [place] [id number] USAMicroalbumin [Mass/volume] in UrineOrdered By: Dex Mcclellan on 74-01-8333Yhpifnw DL <= 20 mg/L (U) [Mass/Vol] 1.1 mg/dLNormal0.0-1.8[facility] HospitalComment on above: Performed By: #### B12, CMP, URMACRERAT ####[place] [address] [place] [address] USANeutrophils [#/volume] in Blood by Automated countOrdered By: Redd Morales on 00-58-7725Krmohzfsrsx (Bld) [#/Vol]7.0 10*3/uL Normal1.8-7.7FCincinnati Shriners HospitalComment on above:Order Comment: FASTING.JKWPerformed By: #### PILLAR CBC, PILLAR LIPID, PILLAR BMP, EBS A1C, PILLAR TSH #### [facility] [address] [place] [address] USANo Panel InformationOrdered By: Dex Mcclellan on 12-08-2023 Estimated GFR (CKD-EPI)> 60.0 mL/MinMemorial Health System Marietta Memorial HospitalPharmacy Creatinine Clearance (ChemN/AFCincinnati Shriners HospitalNo Panel InformationOrdered By: Redd Morales on 96-33-9377Gmrpxnorl GFR (CKD-EPI)> 60.0 mL/MinMemorial Health System Marietta Memorial HospitalPharmacy Creatinine Clearance (ChemN/A [facility] HospitalNucleated erythrocytes [Presence] in Blood by Automated countOrdered By: Redd Morales on 58-39-0449Gghwhkjhl RBC Auto Ql (Bld) 0.1 /100{WBC}0-0.5FCincinnati Shriners HospitalPlatelet mean volume [Entitic volume] in Blood by Automated countOrdered By: Redd Morales on 05-97-4848Iheepfya mean volume (Bld) [Entitic vol]8.6 fLNormal6.3-10.7FCincinnati Shriners HospitalComment on above:Order Comment: FASTING.JKWPerformed By: #### PILLAR CBC, PILLAR LIPID, PILLAR BMP, EBS A1C, PILLAR TSH #### [facility] [address] [place] [address] USAPlatelets [#/volume] in Blood by Automated countOrdered By: Redd Morales on 88-51-0731Edjhzgyev (Bld) [#/Vol]262 10*3/eHZostrb544-919 [facility] HospitalComment on above:Order Comment: FASTING.JKW Performed By: #### PILLAR CBC, PILLAR LIPID, PILLAR BMP, EBS A1C, PILLAR TSH #### [facility] [address] [place] [address] USAPotassium [Moles/volume] in Serum or PlasmaOrdered By: Tondra Mapus on 16-83-4623Dpdpcggdm [Moles/Vol]4.5 mmol/LNormal3.5-5.1FCincinnati Shriners HospitalComment on above:Performed By: #### B12, CMP, URMACRERAT ####[facility] [place] [id number] [place] Potassium [Moles/volume] in Serum or PlasmaOrdered By: Redd Morales on 12-08-2023 Potassium [Moles/Vol]4.5 mmol/LNormal3.5-5.1FCincinnati Shriners Hospital Comment on above:Order Comment: FASTING.JKWPerformed By: #### PILLAR CBC, PILLAR LIPID, PILLAR BMP, EBS A1C, PILLAR TSH #### [facility] [address] [place] [address] USAProtein [Mass/volume] in Serum or PlasmaOrdered By: Tondra Mapus on 23-87-5576Mcxubjo [Mass/Vol]6.9 g/dLNoformerly [facility]6.4-8.9[facility] HospitalComment on above:Performed By: #### B12, CMP, URMACRERAT ####[place] [address] USASerum globulin measurement by calculation (mass/volume)Ordered By: Tondra Mapus on 33-92-4630Vnfqnqhm (S) [Mass/Vol]2.9 g/dLNoOhioHealth Van Wert Hospital Comment on above:Performed By: #### B12, CMP, URMACRERAT ####[place] [id number] USASerum or plasma albumin/globulin mass ratioOrdered By: Tondra Mapus on 12-08-2023 Albumin/Globulin [Mass ratio]1.4 {ratio}NormalMemorial Health System Marietta Memorial Hospital Comment on above:Performed By: #### B12, CMP, URMACRERAT ####[place] [address] [place] [id number] USASerum or plasma anion gap determinationOrdered By: Dex Mcclellan on 31-13-3605Dswrq gap [Moles/Vol]11.1 mmol/LNormal6.0-15.0[facility] HospitalComment on above:Performed By: #### B12, CMP, URMACRERAT ####[facility] [address] [place] [address] USASerum or plasma anion gap determinationOrdered By: Redd Morales on 43-25-7519Lbhcl gap [Moles/Vol]12.3 mmol/LNormal6.0-15.0[facility] HospitalComment on above:Order Comment: FASTING.JKWPerformed By: #### PILLAR CBC, PILLAR LIPID, PILLAR BMP, EBS A1C, PILLAR TSH #### [facility] [address] [place] [address] USASerum or plasma high density lipoprotein (HDL) cholesterol measurementOrdered By: Redd Morales on 51-89-6405Iczxnjdxjnm in HDL [Mass/Vol]36 mg/ySRhwfai45-41M[address] [place], [place] [address]Comment on above:HDL CHOL ATP- III CLASSIFICATION Cardiovascular RiskHDL > or equal to 60 mg/dL LOWHDL < 40 mg/dL HIGHOrder Comment: FASTING.JKWResult Comment: HDL CHOL ATP-III CLASSIFICATION Cardiovascular Risk HDL > or equal to 60 mg/dL LOW HDL < 40 mg/dL HIGHPerformed By: #### PILLAR CBC, PILLAR LIPID, PILLAR BMP, EBS A1C, PILLAR TSH #### [facility] [address] [id number] USASerum or plasma total cholesterol/high density lipoprotein (HDL) cholesterol mass ratOrdered By: Redd Morales on 12-08-2023 Cholesterol.total/Cholesterol in HDL [Mass ratio]4.8 {ratio}Normal<5.0[facility] HospitalComment on above:Order Comment: FASTING.JKWPerformed By: #### PILLAR CBC, PILLAR LIPID, PILLAR BMP, EBS A1C, PILLAR TSH #### [facility] [address] [id number] USASodium [Moles/volume] in Serum or PlasmaOrdered By: Dex Mcclellan on 56-77-9066Afhsck [Moles/Vol]140 mmol/TRrjnur880-059GxfpystrlMemorial Health System Marietta Memorial HospitalComment on above:Performed By: #### B12, CMP, URMACRERAT ####[facility] [id number] [id number] USASodium [Moles/volume] in Serum or PlasmaOrdered By: Redd Morales on 16-13-2020Curdmp [Moles/Vol]139 mmol/CNyulpz733-841KnwjmypubMemorial Health System Marietta Memorial HospitalComment on above:Order Comment: FASTING.JKWPerformed By: #### PILLAR CBC, PILLAR LIPID, PILLAR BMP, EBS A1C, PILLAR TSH #### [facility] [address] [place] [address] USAThyrotropin [Units/volume] in Serum or PlasmaOrdered By: Redd Morales on 52-33-2391OTJ Qn4.42 m[IU]/L0.45-5.33[facility] HospitalTriglyceride [Mass/volume] in Serum or PlasmaOrdered By: Redd Morales on 05-79-1902Wlavdhqwtvsh [Mass/Vol]247 mg/dLHigh0-149[facility] HospitalComment on above:TRIG ATP III CLASSIFICATIONTRIG less than 150 mg/dL NormalTRIG 150-199 mg/dL Borderline highTRIG 200-500 mg/dL High TRIG greater than 500 mg/dL Very highStandard traceable to the Center for Disease Conrtrol and Prevention (CDC) test method.Urea nitrogen [Mass/volume] in Serum or Plasma Ordered By: Dex Mcclellan on 20-91-5762Iodg nitrogen [Mass/Vol]11 mg/dLNormal7 [facility] HospitalComment on above:Performed By: #### B12, CMP, URMACRERAT ####[facility] [id number] [id number] USAUrea nitrogen [Mass/volume] in Serum or PlasmaOrdered By: Redd Morales on 86-20-8023Ctgb nitrogen [Mass/Vol]11 mg/dLNormal7[facility] HospitalComment on above:Order Comment: FASTING.JKWPerformed By: #### PILLAR CBC, PILLAR LIPID, PILLAR BMP, EBS A1C, PILLAR TSH #### [facility] [address] [place] [address] USAUrine microalbumin/creatinine mass ratioOrdered By: Dex Mcclellan on 60-80-7708Chzzmat/Creatinine DL <= 20 mg/L (U) [Mass ratio]5.9 mg/g 0.0-30.0[facility] HospitalComment on above:30-300 mg/g indicates an increased risk for diabetic nephropathy. Greater than 300 mg/g is consistent with clinical nephropathy. (Am. J. Kidney Disease 1995, 25:107)Vitamin B12 ser/plasOrdered By: Dex Mcclellan on 55-81-6935Zkbyesbbs (Vitamin B12) [Mass/Vol] 195 pg/cHTbsosu730-005SjefngtrsMemorial Health System Marietta Memorial HospitalComment on above:Result Comment: PERFORMED BY: [facility] [address] [place] [address] PATHOLOGIST BALLROOM DANCER KIRIT VARGAS M.D.Performed By: #### B12, CMP, URMACRERAT ####[facility] [address] [place] [address] USACholesterol [Mass/volume] in Serum or PlasmaOrdered By: Joann Del Cid on 99-86-0394Ukzwcnkqfzv [Mass/Vol]141 mg/gH929-713SxtfbonogMemorial Health System Marietta Memorial HospitalComment on above:Chol less than 200 mg/dl low riskChol 201-239 mg/dl borderline riskChol 240 mg/dl and greater high riskCholesterol in LDL Calc [Mass/Vol]Ordered By: Joann Del Cid on 11-03-2023 Cholesterol in LDL [Mass/Vol]78 mg/dL0-100[facility] Comment on above:LDL ATP III CLASSIFICATIONLDL less than 100 mg/dL OptimalLDL 100-129 mg/dL Near or above xydbbhuZWQ641-827 mg/dL Borderline highLDL 160-189 mg/dL HighLDL greater than 189 mg/dL Very highCholesterol in VLDL Calc [Mass/Vol]Ordered By: Joann Del Cid on 57-46-5318Irkklwgrzrs in VLDL [Mass/Vol]31 mg/dLMemorial Health System Marietta Memorial HospitalGlucose Glucometer (BldC) [Mass/Vol] Ordered By: Denzel Lenz on 54-96-1898Iwmyjlz [Mass/Vol]209 mg/dLMemorial Health System Marietta Memorial HospitalComment on above:Random Glucose Reference Range is dependent on time and content of last meal. Glucose of more than 200 mg/dL in a nonstressed, ambulatory subject supports the diagnosis of Diabetes Mellitus.No Panel InformationOrdered By: Denzel Lenz on 66-48-2422Cmuyzhw Glucose Comment Glu2: cleaned meterProMedica Defiance Regional Hospitalerum or plasma high density lipoprotein (HDL) cholesterol measurementOrdered By: Joann Del Cid on 11-03-2023 Cholesterol in HDL [Mass/Vol]31 mg/eL10-42XqwqdycyfMemorial Health System Marietta [facility] Hospital Comment on above:HDL CHOL ATP-III CLASSIFICATION Cardiovascular RiskHDL > or equal to 60 mg/dL LOWHDL < 40 mg/dL HIGHSerum or plasma total cholesterol/high density lipoprotein (HDL) cholesterol mass ratOrdered By: Joann Del Cid on 55-33-4990Jivrxbaiwop.total/Cholesterol in HDL [Mass ratio]4.5 {ratio}<5.0 [facility] HospitalTriglyceride [Mass/volume] in Serum or Plasma Ordered By: Joann Del Cid on 66-49-5859Fvnxmmalitso [Mass/Vol]159 mg/dLHigh0-149 [facility] HospitalComment on above:TRIG ATP III CLASSIFICATIONTRIG less than 150 mg/dL NormalTRIG 150-199 mg/dL Borderline highTRIG 200-500 mg/dL High TRIG greater than 500 mg/dL Very highStandard traceable to the Center for Disease Conrtrol and Prevention (CDC) test method. Troponin I.cardiac [Mass/volume] in Serum or Plasma by Detection limit <= 0.01 ng/Ordered By: Joann Del Cid on 37-76-8196Bvusgsvd I.cardiac DL <= 0.01 ng/mL [Mass/Vol]15.7 pg/mLHigh0.0-15.0[facility] HospitalTroponin I.cardiac [Mass/volume] in Serum or Plasma by Detection limit <= 0.01 ng/Ordered By: Terese Sneed on 15-53-7389Imokjqfd I.cardiac DL <= 0.01 ng/mL [Mass/Vol] 17.5 pg/mLHigh0.0-15.0[facility] HospitalActivated partial thromboplastin time (aPTT) in platelet poor plasma by coagulation aOrdered By: Terese Sneed on 46-44-8691cQBG Coag (PPP) [Time]27.9 s25.1-36.5FCincinnati Shriners HospitalComment on above:A hematocrit value greater than 55% may lead to inaccurate results in coagulation testing. Patientshaving hematocrit values >55% require a special collection tube for coagulation studies. Please c ontact the laboratory at [phone] for redraw instructions.Basophils Auto (Bld) [#/Vol]Ordered By: Terese Sneed on 43-69-8327Vgevpzayn (Bld) [#/Vol]0.1 10*3/uL0.0-0.2FCincinnati Shriners HospitalBasophils/100 WBC Auto (Bld) Ordered By: Terese Sneed on 56-10-2741Lbixfnivb/100 WBC (Bld)0.7 %.[facility] HospitalCalcium [Mass/volume] in Serum or PlasmaOrdered By: Terese Sneed on 81-55-9923Gxdkgxs [Mass/Vol]8.9 mg/dL8.6-10.3FCincinnati Shriners HospitalCarbon dioxide, total [Moles/volume] in Serum or Plasma Ordered By: Terese Sneed on 53-50-2916HV9 [Moles/Vol]29.2 mmol/L21.0-31.0 [facility] HospitalChloride [Moles/volume] in Serum or Plasma Ordered By: Terese Sneed on 88-25-0925Kwdfeuil [Moles/Vol]101 mmol/L98-107 [facility] HospitalChoriogonadotropin.beta subunit [Units/volume] in Serum or PlasmaOrdered By: Terese Sneed on 45-44-8655IHE.beta subunit Qn NegativeMemorial Health System Marietta Memorial HospitalCreatine kinase [Enzymatic activity/volume] in Serum or PlasmaOrdered By: Terese Sneed on 37-31-9035RS [Catalytic activity/Vol]66 U/R12-690VmekplvzaMemorial Health System Marietta Memorial HospitalCreatinine [Mass/volume] in Serum or PlasmaOrdered By: Terese Sneed on 11-02-2023 Creatinine [Mass/Vol]0.93 mg/dL0.60-1.20[facility] Eosinophils Auto (Bld) [#/Vol]Ordered By: Terese Sneed on 11-02-2023 Eosinophils (Bld) [#/Vol]0.0 10*3/uL0.0-0.45[facility] Eosinophils/100 WBC Auto (Bld)Ordered By: Terese Sneed on 11-02-2023 Eosinophils/100 WBC (Bld)0.1 %.[facility] HospitalErythrocyte distribution width Auto (RBC) [Ratio]Ordered By: Terese Sneed on 11-02-2023 Erythrocyte distribution width (RBC) [Ratio]16.1 %High11.9-15.3FCincinnati Shriners HospitalFibrin D-dimer [Presence] in Platelet poor plasma by Latex agglutinationOrdered By: Terese Sneed on 42-74-6799Fbxplp D-dimer LA Ql (PPP)< 200 ng/mL0-243[facility] HospitalComment on above:The reference range for D-dimer is <243 ng/mL D-dimer units.D-dimer results must be used in conjunction with a clinicalpretest probability (PTP) assessment model for deep veinthrombosis (DVT) and pulmonary embolism (PE). Results <230ng/mL d- dimer units can be used as a negative predictor inpatients with low or moderate probability for DVT/PE.Results above the exclusion threshold of 230 ng/ml D- dimerunits for DVT/PE may indicate the need for furtherdiagnostic testing.D- Dimer can be increased in hospitalized patients due toco-morbid conditions.A hematocrit value greater than 55% may lead to inaccurate results in coagulation testing. Patients having hematocrit values >55% require a special collection tube for coagulation studies. Please contact the laboratory at [phone] for redraw instructions.Glucose [Mass/volume] in Serum or PlasmaOrdered By: Terese Sneed on 61-81-4065Pyxptdo [Mass/Vol]240 mg/pZBcuf16-029OjniqekttMemorial Health System Marietta Memorial HospitalComment on above:ADA recommended reference rangeRandom Glucose Reference Range is dependent on time and content of last meal. Glucose of more than 200 mg/dL in a nonstressed, ambulatory subject supports the diagnosisof Diabetes Mellitus.HbA1c HPLC (Bld) [Mass fraction]on 51-07-5528JaZ0d (Bld) [Mass fraction]6.9 %[facility] HospitalHematocrit Auto (Bld) [Volume fraction]Ordered By: Terese Sneed on 71-26-8394Wrvnxtpjmf (Bld) [Volume fraction]36.2 %34.0-46.4FCincinnati Shriners HospitalHemoglobin [Mass/volume] in BloodOrdered By: Terese Sneed on 84-67-6475Mfyqenwerw (Bld) [Mass/Vol]12.0 g/dL11.8-15.4FCincinnati Shriners HospitalINR in Platelet poor plasma by Coagulation assayOrdered By: Terese Sneed on 57-51-5978GZV Coag (PPP) [Relative time]1.0 {INR}[facility] HospitalComment on above:INR Therapeutic Range A) Pre- and Peroperative OAT started two weeks before surgery. NOT HIP SURGERY: 1.5 - 2.5 HIP SURGERY: 2 - 3B) Primary and secondary prevention of venous THROMBOSIS: 2 - 3C) Active venous thrombosis, pulmonary embolismand prevention of recurrent venous thrombosis: 2 - 3D) Preve ntion of arterial thromboembolismincluding patients with mechanical heart valves: 3 - 4.5Leukocytes [#/volume] corrected for nucleated erythrocytes in Blood by Automated counOrdered By: Terese Sneed on 16-77-9880WMX corrected for nucl RBC Auto (Bld) [#/Vol]10.0 10*3/uL3.8-11.6FCincinnati Shriners HospitalLymphocytes Auto (Bld) [#/Vol]Ordered By: Terese Sneed on 11-02-2023 Lymphocytes (Bld) [#/Vol]2.7 10*3/uL1.00-4.8[facility] Lymphocytes/100 WBC Auto (Bld)Ordered By: Terese Sneed on 11-02-2023 Lymphocytes/100 WBC (Bld)27.3 %.[facility] HospitalMCH Auto (RBC) [Entitic mass]Ordered By: Terese Sneed on 12-77-0004ZIR (RBC) [Entitic mass] 25.5 pg24.7-34.3FCincinnati Shriners HospitalMCHC Auto (RBC) [Mass/Vol] Ordered By: Terese Sneed on 52-26-1463MGVK (RBC) [Mass/Vol]33.1 g/dL32.0-35.0 [facility] HospitalMCV Auto (RBC) [Entitic vol]Ordered By: Terese Sneed on 06-72-5505IXR (RBC) [Entitic vol]77.0 xDVcx19-783UlogwvcqxMemorial Health System Marietta Memorial HospitalMonocyte distribution width [Entitic volume] in Blood by Automated Ordered By: Terese Sneed on 74-72-0455Ilfyhlwf distribution width Auto (Bld) [Entitic vol]21.09 %High0.00-20.00[facility] HospitalComment on above:For adults in ED, MDW > 20.0 may be associated with a higher risk of sepsis during the first 12 hrs of hospital admissionMonocytes Auto (Bld) [#/Vol] Ordered By: Terese Sneed on 25-17-8371Gruzqxyos (Bld) [#/Vol]0.4 10*3/uL 0.0-0.8[facility] HospitalMonocytes/100 WBC Auto (Bld)Ordered By: Terese Sneed on 99-15-8772Kszowhbnn/100 WBC (Bld)4.3 %.[facility] HospitalNatriuretic peptide B [Mass/Vol]Ordered By: Terese Sneed on 37-02-9362Fdjdmihqije peptide B (Bld) [Mass/Vol]31.0 pg/mL5-100[facility] HospitalNeutrophils Auto (Bld) [#/Vol]Ordered By: Terese Sneed on 44-33-9415Zevyxzamagl (Bld) [#/Vol]6.8 10*3/uL1.8-7.7FCincinnati Shriners HospitalNeutrophils/100 WBC Auto (Bld)Ordered By: Terese Sneed on 34-00-6623Lkwqknywmic/100 WBC (Bld)67.6 %.[facility] HospitalNo Panel InformationOrdered By: Terese Sneed on 35-69-2356Obqvxzdlo GFR (CKD-EPI) > 60.0 mL/MinMemorial Health System Marietta Memorial HospitalPharmacy Creatinine Clearance (Jwet009.41[facility] HospitalNo Panel Informationon 11-02-2023 Bedside Tzjlzoz817EatehwfqbMemorial Health System Marietta Memorial HospitalNucleated erythrocytes [Presence] in Blood by Automated countOrdered By: Terese Sneed on 11-02-2023 Nucleated RBC Auto Ql (Bld)0.1 /100{WBC}0-0.5FCincinnati Shriners Hospital Platelet mean volume Auto (Bld) [Entitic vol]Ordered By: Terese Sneed on 98-10-2360Nyoycmvz mean volume (Bld) [Entitic vol]7.9 fL6.3-10.7FCincinnati Shriners HospitalPlatelets Auto (Bld) [#/Vol]Ordered By: Terese Sneed on 64-72-8222Wijfjyejq (Bld) [#/Vol]219 10*3/rS047-603HjwlpbjptMemorial Health System Marietta Memorial HospitalPotassium [Moles/volume] in Serum or PlasmaOrdered By: Terese Sneed on 35-73-6373Cxfkbrxpj [Moles/Vol]3.9 mmol/L3.5-5.1FCincinnati Shriners HospitalProthrombin time (PT)Ordered By: Terese Sneed on 26-42-3579PF Coag (PPP) [Time]11.9 s9.0-12.9[facility] HospitalComment on above:A hematocrit value greater than 55% may lead to inaccurate results in coagulation testing. Patientshaving hematocrit values >55% require a special collection tube for coagulation studies. Please contact the laboratory at [phone] for redraw instructions.RBC Auto (Bld) [#/Vol]Ordered By: Terese Sneed on 68-44-9919LCL (Bld) [#/Vol]4.70 10*6/uL3.60-5.00[facility] Hospitalerum or plasma anion gap determinationOrdered By: Terese Sneed on 00-80-7020Mmclf gap [Moles/Vol]11.7 mmol/L6.0-15.0[facility] Hospitalodium [Moles/volume] in Serum or PlasmaOrdered By: Terese Sneed on 46-89-4491Tqhmjw [Moles/Vol]138 mmol/P729-095BddgxrtziMemorial Health System Marietta Memorial Hospital Thyrotropin [Units/volume] in Serum or PlasmaOrdered By: Terese Sneed on 88-15-2983GLY Qn5.24 m[IU]/L0.45-5.33[facility] HospitalThyroxine (T4) free [Mass/volume] in Serum or PlasmaOrdered By: Terese Sneed on 06-89-1161Rrcg T4 [Mass/Vol]0.76 ng/dL0.61-1.12[facility] Urea nitrogen [Mass/volume] in Serum or PlasmaOrdered By: Terese Sneed on 84-79-8507Bsdp nitrogen [Mass/Vol]12 mg/dL7-[facility] WBC Auto (Bld) [#/Vol]Ordered By: Terese Sneed on 02-06-6543RJJ (Bld) [#/Vol] 10.0 10*3/uL3.8-11.6FCincinnati Shriners HospitalA1C HEMOGLOBINon 04-20-2023 HbA1c (Bld) [Mass fraction]7.0 %[employer] [facility] [employer] Other Glucose - FINGER STICKon 14-97-3790Uyatgvj [Mass/Vol] 119 mg/dLNoTreSensa Other HbA1c (Bld) [Mass fraction]on 92-72-4965U7Z HEMOGLOBIN [employer] Other Cytology Cervical or vaginal smear or scraping study Ordered By: Kathy Ware on 86-94-4970ZXDEMercy Hospital WashingtonAlanine aminotransferase [Enzymatic activity/volume] in Serum or PlasmaOrdered By: Redd Morales on 48-03-2553RME [Catalytic activity/Vol]36 U/L7-52[facility] HospitalAlbumin [Mass/volume] in Serum or Plasma by Bromocresol green (BCG) dye binding methoOrdered By: Redd Morales on 81-63-0219Tmrxgue BCG dye [Mass/Vol]3.9 g/dL3.5-5.7FCincinnati Shriners HospitalAlkaline phosphatase [Enzymatic activity/volume] in Serum or PlasmaOrdered By: Redd Morales on 40-60-5689BOD [Catalytic activity/Vol]57 U/H40-026NwnfhbtjhMemorial Health System Marietta Memorial HospitalAspartate aminotransferase [Enzymatic activity/volume] in Serum or PlasmaOrdered By: Redd Morales on 81-66-9317DCM [Catalytic activity/Vol]27 U/H00-66WegsotygfMemorial Health System Marietta Memorial HospitalBasophils Auto (Bld) [#/Vol]Ordered By: Redd Morales on 12-17-2022 Basophils (Bld) [#/Vol]0.0 10*3/uL0.0-0.2FCincinnati Shriners Hospital Basophils/100 WBC Auto (Bld)Ordered By: Redd Morales on 73-34-0785Goteunmhf/100 WBC (Bld)0.3 %.[facility] HospitalBilirubin.total [Mass/volume] in Serum or PlasmaOrdered By: Redd Morales on 08-82-5919Gimhbpzfn [Mass/Vol]0.4 mg/dL0.3-1.0[facility] HospitalCalcium [Mass/volume] in Serum or PlasmaOrdered By: Redd Morales on 48-65-0095Qusawwg [Mass/Vol]8.6 mg/dL8.6-10.3 [facility] HospitalCarbon dioxide, total [Moles/volume] in Serum or PlasmaOrdered By: Redd Morales on 32-83-8835VS3 [Moles/Vol]29.1 mmol/L21.0-31.0 [facility] HospitalChloride [Moles/volume] in Serum or Plasma Ordered By: Redd Morales on 07-20-4912Lybfhroo [Moles/Vol]101 mmol/L98-107 [facility] HospitalCholesterol [Mass/volume] in Serum or Plasma Ordered By: Redd Morales on 14-36-9301Ifxitnwsogh [Mass/Vol]158 mg/dM696-918 [facility] HospitalComment on above:Chol less than 200 mg/dl low riskChol 201-239 mg/dl borderline riskChol 240 mg/dl and greater high risk Cholesterol in LDL Calc [Mass/Vol]Ordered By: Redd Morales on 12-17-2022 Cholesterol in LDL [Mass/Vol]80 mg/dL0-100[facility] Comment on above:LDL ATP III CLASSIFICATIONLDL less than 100 mg/dL OptimalLDL 100-129 mg/dL Near or above jcigxwlKHO421-715 mg/dL Borderline highLDL 160-189 mg/dL HighLDL greater than 189 mg/dL Very highCholesterol in VLDL Calc [Mass/Vol]Ordered By: Rded Morales on 25-67-9576Hznndtqbxiq in VLDL [Mass/Vol]41 mg/dLMemorial Health System Marietta Memorial HospitalCreatinine [Mass/volume] in Serum or PlasmaOrdered By: Redd Morales on 76-05-8477Tlhrhvqhlh [Mass/Vol]0.77 mg/dL 0.60-1.20[facility] HospitalEosinophils Auto (Bld) [#/Vol]Ordered By: Redd Morales on 82-17-6720Ylqmeplefrq (Bld) [#/Vol]0.0 10*3/uL0.0-0.45 [facility] HospitalEosinophils/100 WBC Auto (Bld)Ordered By: Redd Morales on 92-99-7336Zkifjpwdnif/100 WBC (Bld)0.2 %.[facility] HospitalErythrocyte distribution width Auto (RBC) [Ratio]Ordered By: Redd Morales on 85-26-7222Lsmcqxboaoc distribution width (RBC) [Ratio]15.9 %11.9-15.3FCincinnati Shriners HospitalGlobulin Calc (S) [Mass/Vol]Ordered By: Redd Morales on 25-03-2312Dswxwoyv (S) [Mass/Vol]3.0 g/dLMemorial Health System Marietta [facility] Hospital Glucose [Mass/volume] in Serum or PlasmaOrdered By: Redd Morales on 12-17-2022 Glucose [Mass/Vol]123 mg/mW42-391GlqnemwtnMemorial Health System Marietta Memorial HospitalComment on above:ADA recommended reference rangeGlucose mean value [Mass/volume] in Blood Estimated from glycated hemoglobinOrdered By: Redd Morales on 05-26-4587Ofhxncz glucose Estimated from glycated hemoglobin (Bld) [Mass/Vol]154 mg/dLMemorial Health System Marietta Memorial HospitalHematocrit Auto (Bld) [Volume fraction]Ordered By: Redd Morales on 40-15-7244Segdjrcxie (Bld) [Volume fraction]37.1 %34.0-46.4FCincinnati Shriners HospitalHemoglobin [Mass/volume] in BloodOrdered By: Redd Morales on 43-36-2955Vcvnzdllwf (Bld) [Mass/Vol]12.2 g/dL11.8-15.4FCincinnati Shriners HospitalLaboratory - Hematology and Cell countsOrdered By: Redd Morales on 01-31-7891TkE8z (Bld) [Mass fraction]7.0 %4.3-5.6FCincinnati Shriners HospitalComment on above:Increased risk for diabetes: 5.7 - 6.4diabetes: >6.4glycemic control for adults with diabetes: <7.0Leukocytes [#/volume] corrected for nucleated erythrocytes in Blood by Automated counOrdered By: Redd Morales on 14-82-3787LBM corrected for nucl RBC Auto (Bld) [#/Vol]9.6 10*3/uL 3.8-11.6FCincinnati Shriners HospitalLymphocytes Auto (Bld) [#/Vol]Ordered By: Redd Morales on 46-38-0748Kmetyzpdqli (Bld) [#/Vol]2.8 10*3/uL1.00-4.8 [facility] HospitalLymphocytes/100 WBC Auto (Bld)Ordered By: Redd Morales on 20-28-5179Xwspoxlmgbs/100 WBC (Bld)29.2 %.[facility] HospitalH Auto (RBC) [Entitic mass]Ordered By: Redd Morales on 42-44-9260NMS (RBC) [Entitic mass]25.6 pg24.7-34.3FCincinnati Shriners HospitalMCHC Auto (RBC) [Mass/Vol]Ordered By: Redd Morales on 08-66-6663KEIY (RBC) [Mass/Vol]32.8 g/dL 32.0-35.0[facility] HospitalMCV Auto (RBC) [Entitic vol]Ordered By: Redd Morales on 63-70-6102VGL (RBC) [Entitic vol]78.2 jK88-323ZnbqseoihMemorial Health System Marietta Memorial HospitalMonocytes Auto (Bld) [#/Vol]Ordered By: Redd Morales on 26-03-3656Xmwcnttxj (Bld) [#/Vol]0.5 10*3/uL0.0-0.8[facility] HospitalMonocytes/100 WBC Auto (Bld)Ordered By: Redd Morales on 12-17-2022 Monocytes/100 WBC (Bld)5.2 %.[facility] HospitalNeutrophils Auto (Bld) [#/Vol]Ordered By: Redd Morales on 12-05-3501Zohzbzfwcxb (Bld) [#/Vol]6.3 10*3/uL1.8-7.7FCincinnati Shriners HospitalNeutrophils/100 WBC Auto (Bld) Ordered By: Redd Morales on 97-97-6216Kfonezyaftp/100 WBC (Bld)65.1 %.[facility] HospitalNo Panel InformationOrdered By: Redd Morales on 12-17-2022 Estimated GFR (CKD-EPI)> 60.0 mL/MinMemorial Health System Marietta Memorial HospitalNicotine MetaboliteNegativeCutoff=25[facility] HospitalComment on above: Performed at: [facility] [id number] Director: Don Camargo MD, Phone: [phone] Creatinine Clearance (ChemN/[facility] CenterNucleated erythrocytes [Presence] in Blood by Automated countOrdered By: Redd Morales on 12-17-2022 Nucleated RBC Auto Ql (Bld)0.1 /100{WBC}0-0.5FCincinnati Shriners Hospital Platelet mean volume Auto (Bld) [Entitic vol]Ordered By: Rded Morales on 95-62-8628Gwxqsoxb mean volume (Bld) [Entitic vol]8.3 fL6.3-10.7FCincinnati Shriners HospitalPlatelets Auto (Bld) [#/Vol]Ordered By: Redd Morales on 24-31-9305Scpfvnvyy (Bld) [#/Vol]209 10*3/xN769-427HxvlihcvfMemorial Health System Marietta Memorial HospitalPotassium [Moles/volume] in Serum or PlasmaOrdered By: Redd Morales on 42-31-8329Nzvtwubjj [Moles/Vol]4.3 mmol/L3.5-5.1FCincinnati Shriners HospitalProtein [Mass/volume] in Serum or PlasmaOrdered By: Redd Morales on 99-72-2301Pmakskh [Mass/Vol]6.9 g/dL6.4-8.9[facility] HospitalRBC Auto (Bld) [#/Vol]Ordered By: Redd Morales on 41-77-3970XRQ (Bld) [#/Vol]4.74 10*6/uL3.60-5.00[facility] Hospitalerum or plasma albumin/globulin mass ratioOrdered By: Redd Morales on 22-86-3907Miyjcrs/Globulin [Mass ratio]1.3 {ratio}[facility] Hospitalerum or plasma anion gap determinationOrdered By: Redd Morales on 47-59-9328Pacga gap [Moles/Vol]13.2 mmol/L6.0-15.0[facility] Hospitalerum or plasma high density lipoprotein (HDL) cholesterol measurementOrdered By: Redd Morales on 12-17-2022 Cholesterol in HDL [Mass/Vol]37 mg/kQ30-58KhmtjvaxwMemorial Health System [facility] Hospital Comment on above:HDL CHOL ATP-III CLASSIFICATION Cardiovascular RiskHDL > or equal to 60 mg/dL LOWHDL < 40 mg/dL HIGHSerum or plasma total cholesterol/high density lipoprotein (HDL) cholesterol mass ratOrdered By: Redd Morales on 82-37-4107Aaclosyhnuu.total/Cholesterol in HDL [Mass ratio]4.3 {ratio}<5.0 [facility] Hospitalodium [Moles/volume] in Serum or PlasmaOrdered By: Redd Morales on 89-76-0245Wulkij [Moles/Vol]139 mmol/P324-163UazefwwefMemorial Health System Marietta Memorial HospitalThyrotropin [Units/volume] in Serum or PlasmaOrdered By: Redd Morales on 03-25-5448RSZ Qn3.57 m[IU]/L0.45-5.33[facility] HospitalTriglyceride [Mass/volume] in Serum or PlasmaOrdered By: Redd Morales on 56-98-5691Xdqyifuljoys [Mass/Vol]207 mg/dL0-149[facility] Comment on above:TRIG ATP III CLASSIFICATIONTRIG less than 150 mg/dL NormalTRIG 150-199 mg/dL Borderline highTRIG 200-500 mg/dL High TRIG greater than 500 mg/dL Very highStandard traceable to the Center for Disease Conrtrol and Prevention (CDC) test method.Urea nitrogen [Mass/volume] in Serum or PlasmaOrdered By: Redd Morales on 71-44-0339Rngn nitrogen [Mass/Vol]11 mg/dL7-[facility] HospitalWBC Auto (Bld) [#/Vol]Ordered By: Redd Morales on 08-76-2948ILF (Bld) [#/Vol]9.6 10*3/uL3.8-11.6FCincinnati Shriners HospitalA1C HEMOGLOBIN on 20-85-6892ImM7l (Bld) [Mass fraction]6.8 %Alphion Other Glucose - FINGER STICKon 98-96-2780Umluufx [Mass/Vol] 134 mg/dLNort Lateral SV Other HbA1c (Bld) [Mass fraction]on 33-57-5490P3F HEMOGLOBIN Alphion Other Creatinine [Mass/volume] in UrineOrdered By: Dex Mcclellan on 05-48-7852Thzuyqlenr (U) [Mass/Vol]134.0 mg/dL11.0-20.0[facility] HospitalMicroalbumin [Mass/volume] in UrineOrdered By: Tondra Mapus on 99-35-7507Bwlhlmn DL <= 20 mg/L (U) [Mass/Vol]0.9 mg/dL0.0-1.8[facility] HospitalUrine microalbumin/creatinine mass ratioOrdered By: Tondra Mapus on 28-02-7515Nptlkrj/Creatinine DL <= 20 mg/L (U) [Mass ratio]6.0 mg/g0.0-30.0[facility] HospitalComment on above:30-300 mg/g indicates an increased risk for diabetic nephropathy. Greater than 300 mg/g is consistent with clinical nephropathy. (Am. J. Kidney Disease 1995, 25:107) Vitamin B12 ser/plasOrdered By: Pb Eleuterio on 66-61-5842Rwhnxmrga (Vitamin B12) [Mass/Vol]322 pg/nV000-643HzxiopfyiMemorial Health System Marietta Memorial HospitalA1C HEMOGLOBINon 46-00-3791HpD5i (Bld) [Mass fraction]6.7 %[facility] Other Glucose - FINGER STICKon 72-59-0144Gdovsgz [Mass/Vol] 141 mg/dLNortLankenau Medical Center [facility]kt[place] Other HbA1c (Bld) [Mass fraction]on 25-09-7806I7R HEMOGLOBIN [facility] Other PAP ACOG PANEL 2: 30 to 65on 01-17-2022..NormalThe [facility] Hospital - WestComment on above:Result Comment: Performed at: BAPerformed By: #### [id number] #### [facility] [address] [place] [address] Dr. Jaron Rosenbaum Gdln ACOG Zvtyakv09-08NattsaMpiVan Wert County HospitalComment on above:Performed By: #### [id number] #### [facility] [address] [place] [address] Dr. Jaron YuDIAGNOSIS:CommentKettering Health Preble on above: Result Comment: NEGATIVE FOR INTRAEPITHELIAL LESION OR MALIGNANCY. CELLULAR CHANGES ASSOCIATED WITH ATROPHY ARE PRESENT. Performed at: BAPerformed By: #### [id number] #### [facility] [address] [place] [address] Dr. Jaron Munoz AptimaNegativeNormalNegativeOhiohealth Shelby HospitalComcorewell health reed city hospital on above:Result Comment: This nucleic acid amplification test detects fourteen high-risk HPV types (16,18,31,33,35,39,45,51,52,56,58,59,66,68) without differentiation. Performed at: =GPerformed By: #### [id number] #### [facility] [address] [place] [address] Dr. Jaron Munoz Genotype ReflexComRiverside Methodist Hospital on above:Result Comment: Criteria not met, HPV Genotype not performed. Performed at: [facility] By: #### [id number] #### [facility] [address] [place] [address] Dr. Jaron YuMethodology:CommentKettering Health Preble on above: Result Comment: This liquid based ThinPrep(R) pap test was screened with the use of an image guided system. Performed at: [facility] Hospitalformed By: #### [id number] #### [facility] [address] [place] [address] Dr. Jaron YuNote:CommentKettering Health Preble on above:Result Comment: The Pap smear is a screening test designed to aid in the detection of premalignant and malignant conditions of the uterine cervix. It is not a diagnostic procedure and should not be used as the sole means of detecting cervical cancer. Both false-positive and false-negative reports do occur. . Performed at: [facility] By: #### [id number] #### [facility] [address] [place] [address] Dr. Jaron YuPerformed by:CommentKettering Health Preble on above: Result Comment: Jesenia Bey, Floor Broker Performed at: [facility] By: #### [id number] #### [facility] [address] [place] [address] Dr. Jaron YuSpecimen adequacy:[facility] on above:Result Comment: Satisfactory for evaluation. No endocervical component is identified. Performed at: [facility] Phoenixformed By: #### [id number] #### [facility] [address] [place] [address] Dr. Jaron YuAlbumin [Mass/volume] in Serum or PlasmaOrdered By: Redd Morales on 63-33-4495Jcmlfip [Mass/Vol]3.5 g/dL3.2-5.5FCincinnati Shriners Hospital Basophils Auto (Bld) [#/Vol]Ordered By: Redd Morales on 80-37-8318Bmyviciqd (Bld) [#/Vol]0.0 10*3/uL0.0-0.2FCincinnati Shriners HospitalBasophils/100 WBC Auto (Bld)Ordered By: Redd Morales on 61-38-4868Wxueqxbpi/100 WBC (Bld)0.4 %.[facility] HospitalBlood hemoglobin measurement (mass/volume)Ordered By: Redd Morales on 43-70-5152Hommzchxwz (Bld) [Mass/Vol]12.8 g/dL11.8-15.4FCincinnati Shriners HospitalBlst. cloud hospital leukocytes automated count (number/volume)Ordered By: Redd Morales on 12-93-3998HEF (Bld) [#/Vol]9.0 10*3/uL4.5-11.0[facility] HospitalCholesterol [Mass/volume] in Serum or PlasmaOrdered By: Redd Morales on 14-73-0641Bjssdobafry [Mass/Vol]184 mg/rY444-985SfaxkmbbzMemorial Health System Marietta Memorial HospitalComment on above:Chol less than 200 mg/dl low risk Chol 201-239 mg/dl borderline risk Chol 240 mg/dl and greater high riskCholesterol in LDL Calc [Mass/Vol]Ordered By: Redd Moralse on 15-35-1354Crkepqohzsg in LDL [Mass/Vol]107 mg/dL0-100[facility] HospitalComment on above:LDL ATP III CLASSIFICATION LDL less than 100 mg/dL Optimal LDL 100-129 mg/dL Near or above optimal LDL 130-159 mg/dL Borderline high LDL 160-189 mg/dL High LDL greater than 189 mg/dL Very highCholesterol in VLDL Calc [Mass/Vol]Ordered By: Redd Morales on 58-34-6314Zzotyynbxww in VLDL [Mass/Vol]40 mg/dLMemorial Health System Marietta Memorial HospitalCreatinine [Mass/volume] in UrineOrdered By: Dex Mcclellan on 75-36-2543Adcmptquep (U) [Mass/Vol]149.8 mg/dLMemorial Health System Marietta Memorial HospitalComment on above:No reference range establishedCreatinine and Glomerular filtration rate.predicted panel (S/P/Bld)Ordered By: Redd Morales on 12-04-2021 Creatinine [Mass/Vol]0.82 mg/dL0.44-1.03[facility] Eosinophils Auto (Bld) [#/Vol]Ordered By: Redd Morales on 02-46-7703Jyxukdhkwde (Bld) [#/Vol]0.0 10*3/uL0.0-0.45[facility] HospitalEosinophils/100 WBC Auto (Bld)Ordered By: Redd Morales on 82-45-7850Huakdlejkkp/100 WBC (Bld)0.1 %.[facility] HospitalErythrocyte distribution width Auto (RBC) [Ratio]Ordered By: Redd Morales on 76-95-9523Wrojmvfmhni distribution width (RBC) [Ratio]16.0 %11.9-15.3FCincinnati Shriners HospitalEstimated glomerular filtration rate (GFR) non- AmericanOrdered By: Redd Morales on 12-04-2021 GFR/1.73 sq M.predicted among non-blacks MDRD (S/P/Bld) [Vol rate/Area]> 60 mL/MinMemorial Health System Marietta Memorial HospitalGlobulin Calc (S) [Mass/Vol]Ordered By: Redd Morales on 88-42-7494Korqzjhm (S) [Mass/Vol]3.4 g/dLMemorial Health System Marietta Memorial HospitalGlucose mean value [Mass/volume] in Blood Estimated from glycated hemoglobinOrdered By: Redd Morales on 24-67-8077Wcvtgig glucose Estimated from glycated hemoglobin (Bld) [Mass/Vol]146 mg/dLMemorial Health System Marietta Memorial Hospital Hematocrit Auto (Bld) [Volume fraction]Ordered By: Redd Morales on 12-04-2021 Hematocrit (Bld) [Volume fraction]39.2 %34.0-46.4FCincinnati Shriners HospitalLaboratory - Chemistry and Chemistry - challengeOrdered By: Dex Mclcellan on 91-75-6823Nnryejwln (Vitamin B12) [Mass/Vol]1181 pg/rF959-163XvlldrdogMemorial Health System Marietta Memorial HospitalLaboratory - Chemistry and Chemistry - challengeOrdered By: Redd Morales on 76-32-3112Kngxrar [Mass/Vol]129 mg/wK41-680ZwkawpqlqMemorial Health System Marietta Memorial HospitalComment on above:ADA recommended reference rangeLaboratory - Hematology and Cell countsOrdered By: Redd Morales on 35-09-5336LlK8p (Bld) [Mass fraction]6.7 %4.3-5.6FCincinnati Shriners HospitalComment on above:Increased risk for diabetes: 5.7 - 6.4 diabetes: >6.4 glycemic control for adults with diabetes: <7.0Nucleated RBC/100 WBC (Bld) [Ratio]0.1 %0-0.5FCincinnati Shriners HospitalLymphocytes Auto (Bld) [#/Vol] Ordered By: Redd Morales on 61-85-3622Hmfdmsdvzkh (Bld) [#/Vol]2.3 10*3/uL1.00-4.8 [facility] HospitalLymphocytes/100 WBC Auto (Bld)Ordered By: Redd Morales on 66-11-6619Wnkfkuknzex/100 WBC (Bld)25.7 %.[facility] HospitalH Auto (RBC) [Entitic mass]Ordered By: Redd Morales on 24-38-9699GNL (RBC) [Entitic mass]25.5 pg24.7-34.3FCincinnati Shriners HospitalMCHC Auto (RBC) [Mass/Vol]Ordered By: Redd Morales on 82-85-3452NWDU (RBC) [Mass/Vol]32.5 g/dL 32.0-35.0[facility] HospitalMCV Auto (RBC) [Entitic vol]Ordered By: Redd Morales on 45-78-1101BWB (RBC) [Entitic vol]78.3 dA43-013WdzfcudzyMemorial Health System Marietta Memorial HospitalMonocyte %Ordered By: Redd Morales on 10-16-9708Sjmuzgql % 200 mg/iM09-693FoddlsievMemorial Health System Marietta Memorial HospitalComment on above:TRIG ATP III CLASSIFICATION TRIG less than 150 mg/dL Normal TRIG 150-199 mg/dL Borderline high TRIG 200-500 mg/dL High TRIG greater than 500 mg/dL Very high Standard traceable to the Center for Disease Conrtrol and Prevention (CDC) test method.Monocytes Auto (Bld) [#/Vol]Ordered By: Redd Morales on 10-95-9169Tzegqzijo (Bld) [#/Vol]0.5 10*3/uL0.0-0.8[facility] HospitalMonocytes/100 WBC Auto (Bld)Ordered By: Redd Morales on 63-13-7595Nxkotbzqz/100 WBC (Bld)5.7 %. [facility] HospitalNeutrophils Auto (Bld) [#/Vol]Ordered By: Redd Morales on 92-86-3266Minbghtobui (Bld) [#/Vol]6.1 10*3/uL1.8-7.7FCincinnati Shriners HospitalNeutrophils/100 WBC Auto (Bld)Ordered By: Redd Morales on 69-11-5320Qbfjeuuoqdu/100 WBC (Bld)68.1 %.[facility] HospitalNo Panel InformationOrdered By: Redd Morales on 13-40-1446Eypiovyed GFR ()> 60 mL/MinMemorial Health System Marietta Memorial HospitalComment on above:GFR estimated reference range: According to KDOQI guidelines, <60 ml/min/1.73m2 is sufficient todiagnose a patient with chronic kidney disease.Pharmacy Creatinine Clearance (ChemN/[facility] CenterPlatelet mean volume Auto (Bld) [Entitic vol]Ordered By: eRdd Morales on 38-47-3887Zfddttdn mean volume (Bld) [Entitic vol]8.6 fL6.3-10.7FCincinnati Shriners HospitalPlatelets Auto (Bld) [#/Vol]Ordered By: Redd Morales on 52-71-3956Upqondgzt (Bld) [#/Vol]245 10*3/uE280-563ZjadxkxkxMemorial Health System Marietta Memorial HospitalProtein [Mass/volume] in Serum or PlasmaOrdered By: Redd Morales on 49-49-2998Qqxisss [Mass/Vol]6.9 g/dL6.1-7.9 [facility] HospitalRBC Auto (Bld) [#/Vol]Ordered By: Redd Morales on 63-30-7475ULN (Bld) [#/Vol]5.01 10*6/uL3.60-5.00[facility] Hospitalerum or plasma alanine aminotransferase measurement without P-5'-P (enzymatic activiOrdered By: Redd Morales on 00-26-2711YBZ No additional P-5'-P [Catalytic activity/Vol]37 U/F39-34KpmqpwexnProMedica Defiance Regional Hospitalerum or plasma albumin/globulin mass ratioOrdered By: Redd Morales on 12-04-2021 Albumin/Globulin [Mass ratio]1.0 {ratio}[facility] Hospitalerum or plasma alkaline phosphatase measurement (enzymatic activity/volume)Ordered By: Redd Morales on 92-46-6234VUD [Catalytic activity/Vol]67 U/D24-77AdtiiresrProMedica Defiance Regional Hospitalerum or plasma anion gap determinationOrdered By: Redd Morales on 43-61-4603Eywwt gap [Moles/Vol]16.8 mmol/L6.0-15.0[facility] Hospitalerum or plasma aspartate aminotransferase measurement (enzymatic activity/volume)Ordered By: Redd Morales on 41-96-1317OZF [Catalytic activity/Vol] 27 U/X25-64TvbnevhhhProMedica Defiance Regional Hospitalerum or plasma calcium measurement (mass/volume)Ordered By: Redd Morales on 77-43-1578Mstfdff [Mass/Vol]9.5 mg/dL 8.2-10.2FSt. John of God Hospitalerum or plasma chloride measurement (moles/volume)Ordered By: Redd Morales on 28-42-2012Tjzjanfu [Moles/Vol]97 mmol/L 95-114Pro[facility] Hospitalerum or plasma high density lipoprotein (HDL) cholesterol measurementOrdered By: Redd Morales on 82-98-4694Qdfvyckihgz in HDL [Mass/Vol]37 mg/eM82-11MpgpeqafnMemorial Health System Marietta Memorial HospitalComment on above:HDL CHOL ATP-III CLASSIFICATION Cardiovascular Risk HDL > or equal to 60 mg/dL LOW HDL < 40 mg/dL HIGHSerum or plasma potassium measurement (moles/volume)Ordered By: Redd Morales on 07-94-7322Hvrmyrqsg [Moles/Vol]4.2 mmol/L3.5-5.1FSt. John of God Hospitalerum or plasma sodium measurement (moles/volume)Ordered By: Redd Morales on 46-97-3631Ldwhpz [Moles/Vol]138 mmol/R632-020OwgzbvtngProMedica Defiance Regional Hospitalerum or plasma total bilirubin measurement (mass/volume) Ordered By: Redd Morales on 53-16-8157Fsinpwbec [Mass/Vol]0.4 mg/dL0.3-1.2 [facility] Hospitalerum or plasma total carbon dioxide measurement (moles/volume)Ordered By: Redd Morales on 92-07-9671IV3 [Moles/Vol] 28.4 mmol/L22.0-30.0[facility] Hospitalerum or plasma total cholesterol/high density lipoprotein (HDL) cholesterol mass ratOrdered By: Redd Morales on 83-24-2163Xscyjlceijo.total/Cholesterol in HDL [Mass ratio]5.0 {ratio} <5.0Pro[facility] Hospitalerum or plasma urea nitrogen measurement (mass/volume)Ordered By: Redd Morales on 82-54-6191Xcya nitrogen [Mass/Vol]10 mg/dL9-[facility] HospitalTSH DL <= 0.005 mIU/L QnOrdered By: Redd Morales on 80-70-2037SXP Qn3.10 m[IU]/L0.45-5.33[facility] HospitalUrine microalbumin measurement with detection limit of 20 mg/L or less (mass/volume)Ordered By: Dex Mcclellan on 54-47-8867Uvauqbn DL <= 20 mg/L (U) [Mass/Vol]0.4 mg/dL0.0-1.8[facility] HospitalUrine microalbumin/creatinine mass ratioOrdered By: Dex Mcclellan on 12-04-2021 Albumin/Creatinine DL <= 20 mg/L (U) [Mass ratio]2.0 mg/g0.0-30.0[facility] HospitalComment on above:30-300 mg/g indicates an increased risk for diabetic nephropathy. Greater than 300 mg/g is consistent with clinical nephropathy. (Am. J. Kidney Disease 1995, 25:107)Urine culture routineOrdered By: PROVIDER TEMP on 54-53-3046Jnqxkgxa identified Cx Nom (U)2 DaysMemorial Health System Marietta Memorial HospitalAlbumin [Mass/volume] in Serum or PlasmaOrdered By: PROVIDER TEMP on 74-91-9657Ccvncak [Mass/Vol]3.6 g/dL3.2-5.5FCincinnati Shriners HospitalAutomated erythrocytes count in urine sediment (number/area) Ordered By: PROVIDER TEMP on 34-37-7771ZEP Auto (Urine sed) [#/Area]5-9 [HPF]0-4 [facility] HospitalAutomated leukocytes count in urine sediment (number/area)Ordered By: PROVIDER TEMP on 27-82-6352JLB Auto (Urine sed) [#/Area]10-19 [HPF]0-4FCincinnati Shriners HospitalBasophils Auto (Bld) [#/Vol]Ordered By: PROVIDER TEMP on 76-10-8111Plowppqcg (Bld) [#/Vol]0.0 10*3/uL 0.0-0.2FCincinnati Shriners HospitalBasophils/100 WBC Auto (Bld)Ordered By: PROVIDER TEMP on 23-30-0943Smqznkmfg/100 WBC (Bld)0.3 %.[facility] HospitalBilirubin Test strip Ql (U)Ordered By: PROVIDER TEMP on 10-29-2021 Bilirubin Ql (U)NegativeNegativeMemorial Health System Marietta Memorial HospitalBlood hemoglobin measurement (mass/volume)Ordered By: PROVIDER TEMP on 10-29-2021 Hemoglobin (Bld) [Mass/Vol]13.3 g/dL11.8-15.4FCincinnati Shriners Hospital Blood leukocytes automated count (number/volume)Ordered By: PROVIDER TEMP on 00-98-0526VWV (Bld) [#/Vol]10.3 10*3/uL4.5-11.0[facility] Color Auto (U)Ordered By: PROVIDER TEMP on 75-67-3950Ltiqo (U)YellowYellow [facility] HospitalCreatine kinase [Enzymatic activity/volume] in Serum or PlasmaOrdered By: Schuyler Barry on 66-54-2970XM [Catalytic activity/Vol] 63 U/A59-123ThivrwodkMemorial Health System Marietta Memorial HospitalCreatinine and Glomerular filtration rate.predicted panel (S/P/Bld)Ordered By: PROVIDER TEMP on 10-29-2021 Creatinine [Mass/Vol]0.91 mg/dL0.44-1.03[facility] Eosinophils Auto (Bld) [#/Vol]Ordered By: PROVIDER TEMP on 68-01-3074Cdenwabhbrc (Bld) [#/Vol]0.0 10*3/uL0.0-0.45[facility] Eosinophils/100 WBC Auto (Bld)Ordered By: PROVIDER TEMP on 10-29-2021 Eosinophils/100 WBC (Bld)0.2 %.[facility] HospitalErythrocyte distribution width Auto (RBC) [Ratio]Ordered By: PROVIDER TEMP on 10-29-2021 Erythrocyte distribution width (RBC) [Ratio]16.0 %11.9-15.3FCincinnati Shriners HospitalEstimated glomerular filtration rate (GFR) non- Ordered By: PROVIDER TEMP on 46-23-5574XOW/1.73 sq M.predicted among non-blacks MDRD (S/P/Bld) [Vol rate/Area]> 60 mL/MinMemorial Health System Marietta Memorial Hospital Globulin Calc (S) [Mass/Vol]Ordered By: PROVIDER TEMP on 96-63-2597Qtugbczi (S) [Mass/Vol]3.7 g/dLMemorial Health System Marietta Memorial HospitalHematocrit Auto (Bld) [Volume fraction]Ordered By: PROVIDER TEMP on 90-82-2569Gqiznhqyvr (Bld) [Volume fraction]41.1 %34.0-46.4FCincinnati Shriners HospitalKetones Auto test strip (U) [Mass/Vol]Ordered By: PROVIDER TEMP on 58-70-0633Bjtnxjh (U) [Mass/Vol] NegativeNegativeMemorial Health System Marietta Memorial HospitalLaboratory - Hematology and Cell countsOrdered By: PROVIDER TEMP on 89-51-2081Ynlpaknos RBC/100 WBC (Bld) [Ratio]0.1 %0-0.5FCincinnati Shriners HospitalLaboratory - UrinalysisOrdered By: PROVIDER TEMP on 70-93-0808Sseymkc casts LM Ql (Urine sed)9-19 [LPF]0-8 [facility] HospitalLymphocytes Auto (Bld) [#/Vol]Ordered By: PROVIDER TEMP on 93-69-6285Ekuccscswii (Bld) [#/Vol]2.8 10*3/uL1.00-4.8[facility] HospitalLymphocytes/100 WBC Auto (Bld)Ordered By: PROVIDER TEMP on 50-14-4219Kejdfjbyrub/100 WBC (Bld)27.5 %.[facility] MCH Auto (RBC) [Entitic mass]Ordered By: PROVIDER TEMP on 79-75-5554EQJ (RBC) [Entitic mass]25.5 pg24.7-34.3FCincinnati Shriners HospitalMCHC Auto (RBC) [Mass/Vol]Ordered By: PROVIDER TEMP on 85-99-9660PJUT (RBC) [Mass/Vol]32.4 g/dL 32.0-35.0[facility] HospitalMCV Auto (RBC) [Entitic vol]Ordered By: PROVIDER TEMP on 38-35-7115UEF (RBC) [Entitic vol]78.6 lL74-332GifsfhcuoMemorial Health System Marietta Memorial HospitalMonocytes Auto (Bld) [#/Vol]Ordered By: PROVIDER TEMP on 11-70-3478Uilepkeig (Bld) [#/Vol]0.5 10*3/uL0.0-0.8[facility] HospitalMonocytes/100 WBC Auto (Bld)Ordered By: PROVIDER TEMP on 10-29-2021 Monocytes/100 WBC (Bld)5.1 %.[facility] HospitalNeutrophils Auto (Bld) [#/Vol]Ordered By: PROVIDER TEMP on 71-87-9264Errkkxyrltn (Bld) [#/Vol]6.9 10*3/uL1.8-7.7FCincinnati Shriners HospitalNeutrophils/100 WBC Auto (Bld) Ordered By: PROVIDER TEMP on 13-59-2000Tgkhdhkqzwj/100 WBC (Bld)66.9 %.[facility] HospitalNitrite Test strip Ql (U)Ordered By: PROVIDER TEMP on 85-34-1180Xlcgtda Ql (U)NegativeNegativeMemorial Health System Marietta Memorial HospitalNo Panel InformationOrdered By: PROVIDER TEMP on 81-40-6395Dyunahade GFR ()> 60 mL/MinMemorial Health System Marietta Memorial HospitalComment on above:GFR estimated reference range: According to KDOQI guidelines, <60 ml/min/1.73m2 is sufficient todiagnose a patient with chronic kidney disease.Pharmacy Creatinine Clearance (Vtgh243.69[facility] HospitalPlatelet mean volume Auto (Bld) [Entitic vol]Ordered By: PROVIDER TEMP on 96-37-8022Vvxmlzzs mean volume (Bld) [Entitic vol]8.4 fL6.3-10.7FCincinnati Shriners HospitalPlatelets Auto (Bld) [#/Vol]Ordered By: PROVIDER TEMP on 23-31-4624Vpzxipoxu (Bld) [#/Vol]248 10*3/jQ738-539EnuhbwjbpMemorial Health System Marietta Memorial HospitalProtein Auto test strip (U) [Mass/Vol]Ordered By: PROVIDER TEMP on 74-77-8803Cfrbtgf (U) [Mass/Vol]Negative NegativeMemorial Health System Marietta Memorial HospitalProtein [Mass/volume] in Serum or PlasmaOrdered By: PROVIDER TEMP on 86-62-3766Hijdfdi [Mass/Vol]7.3 g/dL6.1-7.9 [facility] HospitalRBC Auto (Bld) [#/Vol]Ordered By: PROVIDER TEMP on 60-14-2645XKI (Bld) [#/Vol]5.23 10*6/uL3.60-5.00[facility] Hospitalerum or plasma alanine aminotransferase measurement without P-5'-P (enzymatic activiOrdered By: PROVIDER TEMP on 70-97-4974JPF No additional P-5'-P [Catalytic activity/Vol]38 U/R81-54ZmscsizneProMedica Defiance Regional Hospitalerum or plasma albumin/globulin mass ratioOrdered By: PROVIDER TEMP on 10-29-2021 Albumin/Globulin [Mass ratio]1.0 {ratio}[facility] Hospitalerum or plasma alkaline phosphatase measurement (enzymatic activity/volume)Ordered By: PROVIDER TEMP on 68-31-7315UNS [Catalytic activity/Vol]58 U/W45-17NoucqomttProMedica Defiance Regional Hospitalerum or plasma aspartate aminotransferase measurement (enzymatic activity/volume)Ordered By: PROVIDER TEMP on 26-72-2903LOI [Catalytic activity/Vol]35 U/V23-94ZqulnzqimProMedica Defiance Regional Hospitalerum or plasma calcium measurement (mass/volume)Ordered By: PROVIDER TEMP on 78-51-5029Norildx [Mass/Vol]9.6 mg/dL8.2-10.2FSt. John of God Hospitalerum or plasma chloride measurement (moles/volume)Ordered By: PROVIDER TEMP on 10-29-2021 Chloride [Moles/Vol]97 mmol/L05-834AxzdvsesiProMedica Defiance Regional Hospitalerum or plasma creatine kinase MB (CKMB)/total creatine kinase (CK) ratio by calcula Ordered By: PROVIDER TEMP on 80-16-3975LG.MB Calc [Catalytic fraction]2.3 % 0.00-2.50[facility] Hospitalerum or plasma creatine kinase MB measurement (mass/volume)Ordered By: PROVIDER TEMP on 46-44-5255HK.MB [Mass/Vol] 1.5 ng/mL0.6-6.3FSt. John of God Hospitalerum or plasma glucose measurement (mass/volume)Ordered By: PROVIDER TEMP on 54-57-0045Yhgggin [Mass/Vol]148 mg/vO84-043JqkxunyxpMemorial Health System Marietta Memorial HospitalComment on above:ADA recommended reference range Random Glucose Reference Range is dependent on time and content of last meal. Glucose of more than 200 mg/dL in a nonstressed, ambulatory subject supports the diagnosis of Diabetes Mellitus.Serum or plasma potassium measurement (moles/volume)Ordered By: PROVIDER TEMP on 50-20-1601Xecgfhsyq [Moles/Vol]4.1 mmol/L3.5-5.1FSt. John of God Hospitalerum or plasma sodium measurement (moles/volume)Ordered By: PROVIDER TEMP on 25-32-8113Inzciv [Moles/Vol]136 mmol/Q824-366FoshguzxbProMedica Defiance Regional Hospitalerum or plasma total bilirubin measurement (mass/volume)Ordered By: PROVIDER TEMP on 51-41-1915Wxlikmjib [Mass/Vol]0.3 mg/dL0.3-1.2FSt. John of God Hospitalerum or plasma total carbon dioxide measurement (moles/volume)Ordered By: PROVIDER TEMP on 70-05-3570YM7 [Moles/Vol]27.6 mmol/L22.0-30.0[facility] Serum or plasma urea nitrogen measurement (mass/volume)Ordered By: PROVIDER TEMP on 44-08-6872Ppjo nitrogen [Mass/Vol]11 mg/dL9-23[facility] Hospitalpecific gravity Auto test strip (U) [Rel density]Ordered By: PROVIDER TEMP on 13-55-5203Lzgyfxis gravity (U) [Rel density]1.0171.001-1.030[facility] Hospitalquamous epithelial cells detection in urine sediment by light microscopyOrdered By: PROVIDER TEMP on 12-90-9768Rhaqljyzqo cells.squamous LM Ql (Urine sed)5-9 [HPF]0-2FCincinnati Shriners HospitalTSH DL <= 0.005 mIU/L QnOrdered By: Schuyler Barry on 28-39-3012KZL Qn1.86 m[IU]/L0.45-5.33 [facility] HospitalTroponin I.cardiac [Mass/volume] in Serum or Plasma by High sensitivity methodOrdered By: Schuyler Barry on 91-74-5617Bvetkahb I.cardiac High sensitivity method [Mass/Vol]4 pg/mL0-15[facility] HospitalUrine bacteria detection by automated methodOrdered By: PROVIDER TEMP on 47-58-0467Ftgsgkuz Auto Ql (U)2+None SeenMemorial Health System Marietta Memorial HospitalUrine clarity by refractometry automatedOrdered By: PROVIDER TEMP on 97-68-4872Ppasamu Refractometry automated (U)CloudyCleMetroHealth Cleveland Heights Medical CenterUrine glucose measurement by automated test strip (mass/volume) Ordered By: PROVIDER TEMP on 18-99-7166Kdgkaio Auto test strip (U) [Mass/Vol] Normal mg/dLNoOhioHealth Van Wert HospitalUrine hemoglobin detection by automated test stripOrdered By: PROVIDER TEMP on 81-73-2314Bgfkthvnoc Auto test strip Ql (U)NegativeNegativeMemorial Health System Marietta Memorial HospitalUrine leukocyte esterase detection by automated test stripOrdered By: PROVIDER TEMP on 02-53-0653Wcgrhaexx esterase Auto test strip Ql (U)3+NegativeMemorial Health System Marietta Memorial HospitalUrobilinogen Auto test strip (U) [Mass/Vol]Ordered By: PROVIDER TEMP on 93-47-6990Ymocxagbnquw (U) [Mass/Vol]Normal mg/dLNoOhioHealth Van Wert HospitalpH Auto test strip (U)Ordered By: PROVIDER TEMP on 27-78-7297nM (U)6.5 [pH]5.0-9.0[facility] HospitalUrinalysis - AUTOMATEDon 70-25-3157Crkckujyxl (U)clearNort Lateral SV Other Bilirubin Ql (U)Negativeskyrockit [facility] Other Color (U)yellowNoTreSensa Other Glucose Ql (U)NegativeTreSensa Other Hemoglobin Ql (U)trace - intactskyrockit [facility] Other Ketones Ql (U)Rentables Other Leukocyte esterase Test strip Ql (U)traceAlphion Other Nitrite Ql (U)Rentables Other pH (U)6.5 [pH][facility] Other Protein Ql (U)Rentables Other Specific gravity (U) [Rel density]1.020Anthony [facility] Other Urobilinogen (U) [Mass/Vol]0.2EU/dLTreSensa Other Urinalysis - AUTOMATEDAlphion Other A1C HEMOGLOBINon 39-17-8394XeL5b (Bld) [Mass fraction] 6.5 %[facility] Other Glucose - FINGER STICKon 23-88-6619Awawnrs [Mass/Vol] 111 mg/dLAlphion Other HbA1c (Bld) [Mass fraction]on 94-60-2221I1O HEMOGLOBIN [facility] Other Glucose - FINGER STICKon 90-67-2320Wlqibbg [Mass/Vol] 122 mg/dLTreSensa Other Vital Signs Date TimeVital SignValuePerforming GikyinjskQpkesurb70-55-3380 14:43-0500Body ojjrte516.64 cmMatthew Braniecki DO Work Phone: 1(319)[address]11-06-2025 14:43-0500 Body mass index (BMI) [Ratio]46.3 kg/u2Qqwzdvu Braniecki DO Work Phone: 1(968)[address]11-06-2025 14:43-0500 Body .18 kgMatthew Braniecki DO Work Phone: 1(567)[address] [place], [place] 4730211-06-2025 14:43-0500 Diastolic blood elvmmefo30 mm[Hg]Yamila Diallocki DO Work Phone: 4(617)[address]11-06-2025 14:43-0500 Heart fcsx276 /minMatthew Braniecki DO Work Phone: 1(562)[address] [place], [place] 4730211-06-2025 14:43-0500 Systolic blood rgoaluuu923 mm[Hg]Yamila Diallocki DO Work Phone: 8(448)[address]10-22-2025 15:33-0400 Diastolic blood mdwsilox38 mm[Hg]Yamila Diallocki DO Work Phone: 3(120)7-[address] [place], [place] 7166610-22-2025 15:33-0400 Systolic blood inzfyeql424 mm[Hg]Yamila Diallocki DO Work Phone: 9(311)[address]10-22-2025 15:27-0400 Body .64 cmMatthew Braniecki DO Work Phone: 8(050)[address]10-22-2025 15:27-0400 Body mass index (BMI) [Ratio]46.6 kg/m3Tflgaso Braniecki DO Work Phone: 7(640)4-[address] [place], [place] 7166610-22-2025 15:27-0400 Body cgywkm920.1 kgMatthew Braniecki DO Work Phone: 1(984)[address] [place], [place] 4730210-22-2025 15:27-0400 Heart uvyd136 /minMatthew Braniecki DO Work Phone: [address] [place], [place] 4730210-22-2025 15:27-0400 Respiratory rate18 /minMatthew Braniecki DO Work Phone: [address] [place], [place] 4730210-22-2025 15:27-0400 SaO2% (BldA) [Mass fraction]97 %Yamila Vossi DO Work Phone: 1(159)[address] [place], [place] 4730209-02-2025 08:25-0400 Body rplnet835.64 cmMatthew Braniecki DO Work Phone: 1(701)[address] [place], [place] 4730209-02-2025 08:25-0400 Body mass index (BMI) [Ratio]47 kg/c2Zfyqkec Braniecki DO Work Phone: [address] [place], [place] 4730209-02-2025 08:25-0400 Body wskkat325.99 kgMatthew Braniecki DO Work Phone: 1(128)[address] [place], [place] 4730209-02-2025 08:25-0400 Diastolic blood gmgywuqg44 mm[Hg]Yamila Vossi DO Work Phone: 1(969)[address] [place], [place] 4730209-02-2025 08:25-0400 Heart rate92 /minMatthew Braniecki DO Work Phone: 1(770)[address] [place], [place] 4730209-02-2025 08:25-0400 Respiratory rate18 /minMatthew Braniecki DO Work Phone: 1(641)[address] [place], [place] 4730209-02-2025 08:25-0400 SaO2% (BldA) [Mass fraction]99 %Yamila Vossi DO Work Phone: 1(864)[address] [place], [place] 4730209-02-2025 08:25-0400 Systolic blood hobiccjy370 mm[Hg]Yamila Vossi DO Work Phone: 1(639)[address]07-15-2025 15:44-0400 Body paqskq335.64 cmMatthew Braniecki DO Work Phone: 1(782)[address] [place], [place] 4730207-15-2025 15:44-0400 Diastolic blood mm[Hg]Yamila Vossi DO Work Phone: 1(844)[address]07-15-2025 15:44-0400 Heart bctx059 /minMatthew Braniecki DO Work Phone: 1(295)[address]07-15-2025 15:44-0400 Respiratory rate18 /minMatthew Braniecki DO Work Phone: 1(056)[address] [place], [place] 4730207-15-2025 15:44-0400 SaO2% (BldA) [Mass fraction]97 %Yamila Vossi DO Work Phone: 1(222)[address] [place], [place] 4730207-15-2025 15:44-0400 Systolic blood qljgzhto716 mm[Hg]Yamila Vossi DO Work Phone: 1(960)[address]06-17-2025 13:56-0400 Body tddsev975.64 cmMatthew Braniecki DO Work Phone: 1(677)[address]06-17-2025 13:56-0400 Body mass index (BMI) [Ratio]47.9 kg/g2Iexkdnw Braniecki DO Work Phone: 1(181)[address]06-17-2025 13:56-0400 Body xxypcz178.71 kgMatthew Braniecki DO Work Phone: 1(592)[address]06-17-2025 13:56-0400 Diastolic blood imxgivax21 mm[Hg]Yamila Vossi DO Work Phone: 1(419)[address]06-17-2025 13:56-0400 Heart rate98 /minMattelba Narayanan DO Work Phone: 1(481)[address]06-17-2025 13:56-0400 SaO2% (BldA) [Mass fraction]97 %Yamila Piero DO Work Phone: 1(782)[address]06-17-2025 13:56-0400 Systolic blood mm[Hg]Yamila Nicoletwila DO Work Phone: 1(938)[address]05-21-2025 11:44-0400 Body kuqour102.2 cmShell Linn MD Work Phone: 9(361)[address]05-21-2025 11:44-0400 Body mass index (BMI) [Ratio]45.45 kg/d4YhietaShell Linn MD Work Phone: 0(070)[address]05-21-2025 11:44-0400 Body ueaqli759.63 kgShell Linn MD Work Phone: 4(855)[address]05-21-2025 11:44-0400 Diastolic blood niadamhy16 mm[Hg]Shell Linn MD Work Phone: 4(168)[address]05-21-2025 11:44-0400 Heart rate84 /Jennifer Linn MD Work Phone: 2(794)[address]05-21-2025 11:44-0400 Systolic blood mkcyqutw284 mm[Hg]Shell Linn MD Work Phone: 6(012)[address]04-09-2025 11:10-0400 Body pocmer408.64 cmMattelba Narayanan DO Work Phone: 9(307)[address]04-09-2025 11:10-0400 Body kohudvvcfsm30.3 [degF]Yamila Narayanan DO Work Phone: 1(407)[address]04-09-2025 11:10-0400 Body crtyez741 kgMatthew Yoelcki DO Work Phone: 1(833)[address]04-09-2025 11:10-0400 Diastolic blood cgfluwfc83 mm[Hg]Yamila Vossi DO Work Phone: 1(849)[address]04-09-2025 11:10-0400 Heart ohxn797 /minMatthew Braniecki DO Work Phone: 1(065)[address] [place], [place] 4730204-09-2025 11:10-0400 Respiratory rate20 /minMatthew Coreyiecki DO Work Phone: 1(775)[address] [place], [place] 4730204-09-2025 11:10-0400 SaO2% (BldA) [Mass fraction]98 %Yamila Vossi DO Work Phone: 1(336)[address]04-09-2025 11:10-0400 Systolic blood hvufnamq364 mm[Hg]Yamila Vossi DO Work Phone: 1(921)[address] [place], [place] 4730204-01-2025 14:52-0400 Diastolic blood vxdkweiq61 mm[Hg]Yamila Vossi DO Work Phone: 1(127)[address]04-01-2025 14:52-0400 Systolic blood armlznuc004 mm[Hg]Yamila Vossi DO Work Phone: 1(863)[address]04-01-2025 14:13-0400 Body yveexp151.18 cmMatthew Coreyiecki DO Work Phone: 1(060)[address]04-01-2025 14:13-0400 Body mass index (BMI) [Ratio]45.8 kg/l1Mqpluel Braniecki DO Work Phone: 1(554)[address]04-01-2025 14:13-0400 Body .6 kgMatthew Braniecki DO Work Phone: 1(515)[address] [place], [place] 4730204-01-2025 14:13-0400 Heart rate92 /minMatthew Braniecki DO Work Phone: 1(002)1-[address] [place], [place] 7166604-01-2025 14:13-0400 Respiratory rate18 /minMatthew Braniecki DO Work Phone: 1(930)4-[address] [place], [place] 7166604-01-2025 14:13-0400 SaO2% (BldA) [Mass fraction]98 %Yamila Branyvani DO Work Phone: 1(099)[address]02-27-2025 09:16-0500 Body .2 cmShell Linn MD Work Phone: 1(613)026-[address] [place], [place] 2614302-27-2025 09:16-0500 Body mass index (BMI) [Ratio]44.64 kg/x0DqnyjdShell Linn MD Work Phone: 1(128)396-[address] [place], [place] 2614302-27-2025 09:16-0500 Body .28 kgShell Linn MD Work Phone: 1(471)[address] [place], [place] 2614302-27-2025 09:16-0500 Diastolic blood avqiwfuj20 mm[Hg]Shell Linn MD Work Phone: 1(502)[address] [place], [place] 2614302-27-2025 09:16-0500 Heart rate96 /minShell Linn MD Work Phone: 2(662)[address] [place], [place] 2614302-27-2025 09:16-0500 Systolic blood yrpujfoy954 mm[Hg]Shell Linn MD Work Phone: 1(336)[address] [place], [place] 2614302-24-2025 15:57-0500 Heart mowf531 /minMatthew Braniecki DO Work Phone: 1(350)[address]02-24-2025 15:57-0500 Respiratory rate20 /minMatthew Braniecki DO Work Phone: 6(350)[address] [place], [place] 7166602-24-2025 15:57-0500 SaO2% (BldA) [Mass fraction]96 %Yamila Narayanan DO Work Phone: 1(572)9-[address] [place], [place] 7166602-24-2025 14:19-0500 Body wakjkp202.18 cmMattelba Narayanan DO Work Phone: 1(123)[address]02-24-2025 14:19-0500 Body .25 kgMatthececil Narayanan DO Work Phone: 1(143)[address] [place], [place] 4730202-24-2025 14:18-0500 Body tutecxvpfiu60.2 [degF]Yamila Narayanan DO Work Phone: 1(690)[address] [place], [place] 4730202-24-2025 14:18-0500 Diastolic blood hrfpnukp03 mm[Hg]Yamila Narayanan DO Work Phone: 1(459)[address]02-24-2025 14:18-0500 Systolic blood kfoklbkj442 mm[Hg]Yamila Narayanan DO Work Phone: 1(164)[address]11-11-2024 15:19-0500 Body mass index (BMI) [Ratio]45.55 kg/y8Qpmpp Cristofer DO Work Phone: [facility]Tuxsf[facility]exip71[facility]94-3174 15:19-0500Body bcpbyp632.91 kgCorey Cristofer DO Work Phone: [facility] WashingtonGptmudyjbx03-03-9979 15:19-0500Diastolic blood imaveord09 mm[Hg]Piyush Cristofer DO Work Phone: [facility] WashingtonJyatsrpmzd36-43-3189 15:19-0500Systolic blood bcvylypu045 mm[Hg]Piyush Cristofer DO Work Phone: [facility] WashingtonYchbjsufgt57-81-7345 16:07-0400Diastolic blood mm[Hg]DO Yamila Narayanan Work Phone: 1(114)4-[address] [place], [place] 7166610-08-2024 16:07-0400 Systolic blood ecopqman285 mm[Hg]DO Yamila Diallocki Work Phone: 1(944)[address] [place], [place] 4730210-08-2024 07:19-0400 Body rhhcey774.18 cmDO Yamila Vossi Work Phone: 1(762)[address] [place], [place] 4730210-08-2024 07:19-0400 Body mass index (BMI) [Ratio]44.9 kg/m2DO Yamila Vossi Work Phone: 1(857)[address] [place], [place] 4730210-08-2024 07:19-0400 Body ntixji842.18 kgDO Yamila Vossi Work Phone: 1(526)[address] [place], [place] 4730210-08-2024 07:19-0400 Heart rate98 /minDO Yamila Diallocki Work Phone: 1(431)[address] [place], [place] 4730210-08-2024 07:19-0400 Respiratory rate20 /minDO Yamila Vossi Work Phone: 1(051)[address] [place], [place] 4730208-28-2024 14:30-0400 Body ochzjg788.54 kgDO Yamila Vossi Work Phone: 1(368)[address] [place], [place] 4730208-28-2024 14:30-0400 Diastolic blood qakhmolt84 mm[Hg]DO Yamila Vossi Work Phone: 1(395)[address] [place], [place] 4730208-28-2024 14:30-0400 Heart rate94 /minDO Yamila Diallocki Work Phone: 1(968)[address] [place], [place] 4730208-28-2024 14:30-0400 Respiratory rate20 /minDO Yamila Diallocki Work Phone: 1(788)[address] [place], [place] 4730208-28-2024 14:30-0400 SaO2% (BldA) [Mass fraction]97 %DO Yamila Diallocki Work Phone: 1(345)[address] [place], [place] 4730208-28-2024 14:30-0400 Systolic blood bafnqepf819 mm[Hg]DO Yamila Branlukascki Work Phone: 1(607)[address]08-22-2024 11:57-0400 Body lolovodcobx29.8 [degF]DO Yamila Narayanan Work Phone: 1(063)[address]08-22-2024 11:57-0400 Diastolic blood oioefhky51 mm[Hg]DO Yamila Narayanan Work Phone: 1(433)[address] [place], [place] 4730208-22-2024 11:57-0400 Heart rate75 /minDO Yamila Narayanan Work Phone: 1(700)[address] [place], [place] 4730208-22-2024 11:57-0400 Respiratory rate18 /minDO Yamila Vossi Work Phone: 1(484)[address] [place], [place] 4730208-22-2024 11:57-0400 SaO2% (BldA) [Mass fraction]96 %DO Yamila Narayanan Work Phone: 1(669)[address] [place], [place] 4730208-22-2024 11:57-0400 Systolic blood zraktjbt411 mm[Hg]DO Yamila Narayanan Work Phone: 1(840)[address] [place], [place] 4730208-22-2024 03:15-0400 Body ixsncu461.18 cmDO Yamila Narayanan Work Phone: 1(599)[address]08-22-2024 03:15-0400 Body wouzve800 kgDO Yamila Narayanan Work Phone: 1(714)[address]08-22-2024 02:31-0400 Diastolic blood qhilxokl83 mm[Hg]DO Yamila Narayanan Work Phone: 1(449)[address]08-22-2024 02:31-0400 Heart rate86 /minDO Yamila Vossi Work Phone: 1(092)[address]08-22-2024 02:31-0400 Respiratory rate18 /minDO Yamila Vossi Work Phone: 1(862)[address] [place], [place] 4730208-22-2024 02:31-0400 SaO2% (BldA) [Mass fraction]97 %DO Yamila Narayanan Work Phone: [facility]08-22-2024 02:31-0400 Systolic blood esdibkuk753 mm[Hg]DO Yamila Narayanan Work Phone: [facility]08-21-2024 22:01-0400 Body yeyxjs254.18 cmDO Yamila Narayanan Work Phone: [address] [place], [place] 0246008-21-2024 22:01-0400 Body brslrkollse27.3 [degF]DO Yamila Narayanan Work Phone: [address] [place], [place] 0246008-21-2024 22:01-0400 Body kgDO Yamilareagan Narayanan Work Phone: [facility]08-21-2024 16:18-0400 Diastolic blood sidqxgmu60 mm[Hg][facility]08-21-2024 16:18-0400Systolic blood gsiqpbvx518 mm[Hg][facility] 11-02-2023 16:08-0400Body swehwi691.18 cmMem[facility] 11-02-2023 16:08-0400Body mass index (BMI) [Ratio]45.6 kg/o4DabzkrddtMemorial Health System [facility]etta [facility] Hospital08-21-2024 16:08-0400Body xfebea965.1 kgMemorial Health System [facility]08-21-2024 16:08-0400Heart rate92 /[facility] 11-02-2023 16:08-0400Respiratory rate18 /[facility] 11-02-2023 16:08-0405SrR3% (BldA) [Mass fraction]96 %[facility]02-07-2024 15:45-0500Body dvxade832.18 cmTondra Mapus Other [facility] Other [id number] 15:45-0500Body mass index (BMI) [Ratio] 46.31 kg/x4Gxicih Mapus Other [facility] Other 02-07-2024 15:45-0500Body .13 kgTondra Mapus Other [facility] Other 02-07-2024 15:45-0500Diastolic blood mm[Hg] Tondra Mapus Other [facility] Other 02-07-2024 15:45-0500Respiratory rate18 /minTondra Mapus Other [facility] Other 02-07-2024 15:45-5509IhJ2% (BldA) [Mass fraction]98 % Tondra Mapus Other [facility] Other 02-07-2024 15:45-0500Systolic blood gzgetlzy150 mm[Hg] Tondra Mapus Other [facility] Other 11-07-2023 11:15-0500Body yumyjk305.18 cmCameron Ditty Other [facility] Other 11-07-2023 11:15-0500Body mass index (BMI) [Ratio] 44.63 kg/e4Brnccef Ditty Other [facility] Other 11-07-2023 11:15-0500Body .28 kgCameron Ditty Other [facility] Other 11-07-2023 11:15-0500Diastolic blood dvzwyfdg10 mm[Hg] Armando Voss Other [facility] Other 11-07-2023 11:15-0500Systolic blood vlrqgyck551 mm[Hg] Armando Voss Other [facility] Other 10-09-2023 15:30-0400Body bfnwoq355.18 cmMattelba Yoelmercy Other [facility] Other 10-09-2023 15:30-0400Body mass index (BMI) [Ratio] 45.73 kg/w3Rvjjaikkaty Diallomercy Other [facility] Other 10-09-2023 15:30-0400Body tyrutx955.45 kgMattelba Diallomercy Other [facility] Other 10-09-2023 15:30-0400Diastolic blood mm[Hg] Yamila Nicoletwila Other [facility] Other 10-09-2023 15:30-0400Respiratory rate18 /minMaiknjalelba Yoelmercy Other [facility] Other 10-09-2023 15:30-8599HjZ8% (BldA) [Mass fraction]100 % Yamila Piero Other [facility] Other 10-09-2023 15:30-0400Systolic blood mm[Hg] Yamila Nicoletwila Other [facility] Other 08-23-2023 15:45-0400Body gjjukh032.18 cmTondra Mapus Other [facility] Other 08-23-2023 15:45-0400Body mass index (BMI) [Ratio] 45.34 kg/x0Sltwsb Mapus Other [facility] Other 08-23-2023 15:45-0400Body ifevco239.32 kgTondra Mapus Other [facility] Other 08-23-2023 15:45-0400Diastolic blood naliynkq96 mm[Hg] Tondra Mapus Other [facility] Other 08-23-2023 15:45-0400Respiratory rate18 /minTondra Mapus Other [facility] Other 08-23-2023 15:45-1348RpT0% (BldA) [Mass fraction]98 % Tondra Mapus Other [facility] Other 08-23-2023 15:45-0400Systolic blood cdlzerpm861 mm[Hg] Tondra Mapus Other [facility] Other 11-30-2022 16:15-0500Body cuzwdp071.18 cmTondra Mapus Other [facility] Other 11-30-2022 16:15-0500Body mass index (BMI) [Ratio] 46.09 kg/n9Vnufwa Mapus Other [facility] Other 11-30-2022 16:15-0500Body .49 kgTondra Mapus Other [facility] Other 11-30-2022 16:15-0500Diastolic blood rtlovtif19 mm[Hg] Tondra Mapus Other [facility] Other 11-30-2022 16:15-0500Respiratory rate18 /minTondra Mapus Other [facility] Other 11-30-2022 16:15-5020IiH0% (BldA) [Mass fraction]97 % Tondra Mapus Other [facility] Other 11-30-2022 16:15-0500Systolic blood lamymjmd459 mm[Hg] Tondra Mapus Other [facility] Other 11-08-2022 10:15-0500Body zuvskz088.18 cmCameron Ditty Other [facility] Other 11-08-2022 10:15-0500Body mass index (BMI) [Ratio] 46.36 kg/l0Fvhdgdi Ditty Other [facility] Other 11-08-2022 10:15-0500Body pkvjdi783.27 kgCameron Ditty Other [facility] Other 08-18-2022 22:52-0400Diastolic blood ylgafavt45 mm[Hg] DO Yamila Piero Work Phone: [facility]08-18-2022 22:52-0400 Heart rate80 /minDO Yamila Narayanan Work Phone: [facility]08-18-2022 22:52-0400 Respiratory rate18 /minDO Yamila Narayanan Work Phone: [facility]08-18-2022 22:52-0400 SaO2% (BldA) [Mass fraction]98 %DO Yamila Narayanan Work Phone: [facility]08-18-2022 22:52-0400 Systolic blood ysbfyjii308 mm[Hg]DO Yamila Narayanan Work Phone: 1(351)167-[address] [place], [place] 7166608-18-2022 17:07-0400 Body byjzvy449.18 cmDO Yamila Narayanan Work Phone: 1(836)971-[address] [place], [place] 7166608-18-2022 17:07-0400 Body cozhcrxixda00.1 [degF]DO Yamila Narayanan Work Phone: 1(392)574-[address] [place], [place] 7166608-18-2022 17:07-0400 Body gvjauc219.3 kgDO Yamila Narayanan Work Phone: 2(772)988-[address] [place], [place] 7166606-16-2022 10:20-0400 Body xddcys892.18 cmDawilliams Beck Other [facility] Other 06-16-2022 10:20-0400Body mass index (BMI) [Ratio] 45.42 kg/m2Dale Beck Other [facility] Other 06-16-2022 10:20-0400Body yfyqpg923.54 kgDale Beck Other [facility] Other 04-26-2022 16:30-0400Body cwvbub701.18 cmDaviobi Gimenez Other [facility] Other 04-26-2022 16:30-0400Body mass index (BMI) [Ratio] 45.42 kg/o9Zdvyu Hykes Other [facility] Other 04-26-2022 16:30-0400Body gncoec105.54 kgDapedro luis Gimenez Other [facility] Other 03-30-2022 16:30-0400Body spfpol694.18 cmMakinjalelba Narayanan Other [facility] Other 03-30-2022 16:30-0400Body mass index (BMI) [Ratio]45.1 kg/m8Gxlpcub Shanikacharbel Other [facility] Other 03-30-2022 16:30-0400Body .8 [degF] Yamila Nicoletwila Other [facility] Other 03-30-2022 16:30-0400Body .64 kgMattelba Narayanan Other [facility] Other 03-30-2022 16:30-0400Diastolic blood bgyuermo11 mm[Hg] Yamila Nicoletwila Other [facility] Other 03-30-2022 16:30-0400Respiratory rate18 /minMattelba Shanikacharbel Other [facility] Other 03-30-2022 16:30-0400Systolic blood bzfaogjs087 mm[Hg] Yamila Nicoletwila Other [facility] Other 02-15-2022 08:30-0500Body dilnap814.18 cmChuckie Edward Other [facility] Other 02-15-2022 08:30-0500Body mass index (BMI) [Ratio] 46.09 kg/s6Jqtzlg Cheyanne Other [facility] Other 02-15-2022 08:30-0500Body bfqzfu776.49 kgMannywilliam Lockediff Other [facility] Other 02-15-2022 08:30-0500Diastolic blood ruzhruzb90 mm[Hg] Chuckie Edward Other [facility] Other 02-15-2022 08:30-0500Respiratory rate18 /minDdaniella Edward Other [facility] Other 02-15-2022 08:30-4891RhF3% (BldA) [Mass fraction]99 % Chuckiewilliam Lockediff Other [facility] Other 02-15-2022 08:30-0500Systolic blood clocsruy916 mm[Hg] Chuckie Edward Other [facility] Other 01-24-2022 09:00-0500Body wvahgi190.18 cmMattelba Diallomercy Other [facility] Other 01-24-2022 09:00-0500Body mass index (BMI) [Ratio] 45.42 kg/x2Qmuqtct Yoelmercy Other [facility] Other 01-24-2022 09:00-0500Body .54 kgMattsebastiancecil Yoelmercy Other [facility] Other 01-24-2022 09:00-0500Diastolic blood cvuybcws52 mm[Hg] Yamila Narayanan Other [facility] Other 01-24-2022 09:00-0500Respiratory rate20 /minMattelba Narayanan Other [facility] Other 01-24-2022 09:00-3217CsE7% (BldA) [Mass fraction]98 % Yamila Narayanan Other [facility] Other 01-24-2022 09:00-0500Systolic blood jtdzzles705 mm[Hg] Yamila Narayanan Other [facility] Other 10-29-2021 08:30-0400Body .18 cmChuckie Edward Jr. Other [facility] Other 10-29-2021 08:30-0400Body mass index (BMI) [Ratio] 44.57 kg/e7AjbsrtChuckie Edward Jr. Other [facility] Other 10-29-2021 08:30-0400Body .09 kgChuckie Edward Jr. Other [facility] Other 10-29-2021 08:30-0400Diastolic blood loyokijf98 mm[Hg] Chuckie Edward Jr. Other [facility] Other 10-29-2021 08:30-0400Respiratory rate18 /John Edward Jr. Other [facility] Other 10-29-2021 08:30-8929ZyH1% (BldA) [Mass fraction]97 % Chuckie Edward Jr. Other [facility] Other 10-29-2021 08:30-0400Systolic blood mm[Hg] Chuckie Edward Jr. Other [facility] Other Encounters Encounter DateEncounter TypeCare ProviderFacilityStart: 01-17-2025 End: 33-32-7321bbebmfxsfgApxvqjs Braniecki DO Work Phone: [phone]-Jywqdeovr Health GastroStart: 01-17-2025 End: 62-10-9759Ttxweca encounter procedureArmando Voss MD-[facility] Work Phone: Start: 01-02-2025 End: 41-90-5878owwebryqjwWtpjzvf Braniecki DO Work Phone: [phone]-ZAKMPdkqn: 01-02-2025 End: 94-06-2180Awgymmy encounter procedureDex DRUMMOND-[facility] Work Phone: Start: 11-13-2024 End: 71-94-1271erhzpvhwvmOesaosh Braniecki DO Work Phone: [facility] Work Phone: Start: 11-13-2024 End: 59-40-3374Wdcksuk encounter procedureMakaty Narayanan DO-[facility] Work Phone: Start: 11-13-2024 End: 16-24-0777Sidhaos encounter statusMakaty Narayanan [facility] 11-08-2024 End: 82-28-1521Ntofbub encounter procedureDex [facility] 11-08-2024 End: 13-46-2370Agreobjy ReferredRedd Miramontes [facility] Start: 11-08-2024 End: 00-47-6200rltklfgufaUoiwzis Braniecki DO Work Phone: [facility] Work Phone: Start: 09-25-2024 End: 76-25-6335hwafscjybdKbqtled Braniecki DO Work Phone: [facility] Work Phone: Start: 09-25-2024 End: 78-48-2144Ezpimao encounter procedureDex Becky Mcclellan LPTA-C-[facility] Work Phone: Start: 08-28-2024 End: 31-42-3565Qjiifwn encounter procedureHattie Kerr APRNProvidence [facility] Work Phone: Start: 08-01-2024 End: 35-20-7945Cuxerj outpatient visit 25 minutesShell Linn MD Work Phone: [facility]oosaComment on above:Sinus tachycardia (Primary Dx); SVT (supraventricular tachycardia); Palpitations; Essential hypertension; Type 2 diabetes mellitus without complication, 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; Never smoked tobacco; BMI 45.0-49.9, adult (Multi); Obstructive sleep apnea (adult) (pediatric); Morbid obesity (Multi)Start: 08-01-2024 End: 47-00-3983qitklmmpvhPIXDAR M IBRMission [address] [facility] AmbulatoryStart: 07-31-2024 End: 51-59-7339Hegacng encounter procedureShell Huizar MD FACC[facility]: 07-31-2024 End: 61-70-6054fsvlmazydiVzfvns IbrahimFacility:[facility] Hospitaltart: 06-20-2024 End: 27-88-8610Misfmiold department patient visitMatthew Braniecki DO Work Phone: [facility]-Emergency Room Work Phone: Start: 06-12-2024 End: 86-75-4408arehqjzwcxPftqapr Branlukascki DO Work Phone: [facility] Work Phone: Start: 06-12-2024 End: 76-52-3879Lnpyxit encounter procedureMatthew Yoelcki DO Work Phone: [facility] Work Phone: Start: 05-17-2024 End: 62-88-5679Usisyka encounter procedureMatthew Yoelcki DO Work Phone: [facility]-Electrodiagnostics Work Phone: Start: 05-17-2024 End: 77-40-3658tykmmotjlqRxlvmmc Branlukascki DO Work Phone: [facility] Work Phone: Start: 05-10-2024 End: 70-53-9718Tqyble outpatient visit 25 minutesShell Linn MD Work Phone: [facility] on above:Sinus tachycardia (Primary Dx); Palpitations; Essential hypertension; Type 2 diabetes mellitus without complication, unspecified whether half-way insulin use (Multi); Obstructive sleep apnea syndrome; Never smoked tobacco; BMI 40.0-44.9, adult (Multi); Morbid obesity (Multi); Polycystic ovarian diseaseStart: 05-10-2024 End: 79-51-1842cifpootlmgQIOOVV M IBRAHIMFlower Hospital AmbulatoryStart: 05-07-2024 End: 48-07-8732Cdaglstha department patient visitMatthew Yoelcki DO Work Phone: [facility]-Emergency Room Work Phone: Start: 02-06-2024 End: 44-63-8334kfouiwmzjrWlnftnx BranieckiFacility:[facility] Hospitaltart: 01-23-2024 End: 96-85-6093Eitotat encounter procedureCorey Cristofer DO Work Phone: [facility] Work Phone: Start: 01-23-2024 End: 78-06-5250Skxcfjdf preventive med est patient 40-64yrsCorey Cristofer DO Work Phone: [facility] OBComment on above:Well woman exam with routine gynecological exam; Breast cancer screening by mammogram; Postmenopausal stateStart: 01-23-2024 End: 22-32-2654pgptxuzdrzMFFSV FAZIONot AvailableStart: 01-23-2024 End: 49-77-0250Jovkrj flowsheetCorey Cristofer DO Work Phone: [facility] OBStart: 01-23-2024 End: 44-18-9042Jnffra flowsheetCorey Cristofer DO Work Phone: [facility] OBStart: 01-23-2024 End: 53-47-0670Dvdxytvqk Result EncounterCorey Cristofer DO Work Phone: [facility] External Department UnsolicitedStart: 12-20-2023 End: 34-84-5428ewoqhdkobgXN Yamila Narayanan Work Phone: [facility] Work Phone: Start: 12-20-2023 End: 01-01-2716Nbpsxexeb for general adult medical examination without abnormal findingsDO Yamila Narayanan Work Phone: [facility]tart: 12-20-2023 End: 01-60-8676Mjfirvx encounter procedureDO Yamila Narayanan Work Phone: [facility] Work Phone: Start: 12-08-2023 End: 69-06-0529Rqjplwhi ReferredDO Yamila Narayanan Work Phone: [facility] PittsburghStart: 12-08-2023 End: 68-37-7891Gjgtlgl encounter procedureDO Yamila Narayanan Work Phone: [facility]tart: 12-08-2023 End: 52-75-9874yyfbcaigibGR Yamila Narayanan Work Phone: [place] [address] Work Phone: Start: 11-09-2023 End: 99-40-3747nwjolqpttaYJ Yamila Narayanan Work Phone: [place] [address] Work Phone: Start: 11-09-2023 End: 32-07-2458Cjkpdhd encounter procedureDO Yamila Narayanan Work Phone: [place] [address] Physician Group-[facility] Work Phone: Start: 11-03-2023 End: 23-32-4346Vbkrvnzpdo and management of inpatientDO Yamila Narayanan Work Phone: [facility] Work Phone: Start: 11-03-2023 End: 62-75-6728axkzqlunwog encounterDO Yamila Narayanan Work Phone: [place] [address] Ctr Work Phone: Start: 11-02-2023 End: 65-31-0557uslqwnaqqhYtgcywedqAultman [facility] Work Phone: Start: 11-02-2023 End: 71-79-7675Oadwoab encounter procedureDavis [facility] Work Phone: Start: 04-20-2023 End: 08-96-3403Lazcpcqywp RecurringDO Yamila Narayanan Work Phone: [facility] Work Phone: Start: 04-20-2023(DM) DiabetesDex McclellanDavis [facility] Medical Center Coordinated Care ClinicStart: 04-20-2023 End: 46-28-9700quhottwsoqSP Yamila Piero Work Phone: noPrivateCore Lateral SV Other Start: 02-04-2023 End: 96-89-1908rrttogvkwxQP Yamila Narayanan Work Phone: [facility] Work Phone: Start: 02-04-2023 End: 84-15-3416Ygwscla encounter procedureDO Yamilareagan Narayanan Work Phone: [facility] Work Phone: Start: 01-27-2023 End: 85-94-8001uzauokwpfdErtpdu Eleuterio Other [facility] Lateral [facility] Other Start: 21-20-0644Qjrmmnmep encounterTondra Mcclellan [facility] ClinicStart: 01-18-2023 End: 81-84-3865yiueovtfkhIuokhfp Ditty Other noPrivateCore [employer] Other Start: 60-99-0885Nenqdys encounter procedureArmando MillerG GastroenterologyStart: 12-20-2022 End: 84-52-2828sltqvlrvfxGeougcp Braniecki Other noPrivateCore [employer] Other Start: 73-10-4154Kceytwowz for general adult medical examination without abnormal findingsUnited Medical Center ClintonStart: 71-89-7183Bokjjqpb preventive med est patient 40-64yrsMattCentral Valley Medical Center ClintonStart: 12-17-2022 End: 17-32-6063Nqrprhuz ReferredDO Yamila Piero Work Phone: [facility]-Employee Benefit ScreeningStart: 12-07-2022 End: 51-71-2099mwbttbdcumWuqo Ponchoreza Other noTreSensa Other Start: 48-01-2353Yopnkzkp care educationDawn Ponchot [facility] Coordinated Care ClinicStart: 82-85-7477Ldynlnlark RecurringDO Yamlia Piero Work Phone: [facility] Work Phone: Start: 11-03-2022(DM) DiabetesTondra MapusTrihealth Care ClinicStart: 11-03-2022 End: 04-96-3884dhzbqvayxnYlvnmk Mapus Other [facility] [employer] Other Start: 11-02-2022 End: 86-95-8721svxekchecuTU Yamila Narayanan Work Phone: [facility] Work Phone: Start: 11-02-2022 End: 14-33-9702Epdqfig encounter procedureDO Yamila Piero Work Phone: [facility]-Lab [facility] [place] Work Phone: Start: 10-27-2022 End: 86-97-8193wnubnvsijmImsnofd Braniecki Other noTreSensa Other Start: 16-42-6596Yfustbfyq encounterMattsebastianw Piero [facility] ClintonStart: 07-22-2022 End: 96-65-7560nomhayssnhAeatjjs Piero Other noTreSensa Other Start: 70-75-9145Icjmyogsg encounterMatthew Braniecki FPG [facility] HospitalStart: 06-23-2022 End: 76-37-7972rehomxnpizGnncekc Braniecki Other nortInvenSense Other Start: 18-69-8776Umssdyvep encounterMatthew Branlukascki FPG [facility] HospitalStart: 05-13-2022 End: 18-65-7342ifcscrtifpDqbnpw Mapus Other noPrivateCore [employer] Other Start: 76-30-3219Nnjzjbzuf encounterTondra Alexisus [facility] ClinicStart: 04-29-2022 End: 00-59-7571twbzbvswkhIcwaed Mapus Other noPrivateCore [employer] Other Start: 76-83-1655Grkrtmpnd encounterTondra [facility] Care ClinicStart: 03-01-2022 End: 07-00-5689crpjmlkmlnIwhhbby Branlukascki Other nort L[employer] Other Start: 12-25-2692Hjhyqbeqk encounterMatthew Branlukascki [facility]Start: 02-10-2022(DM) DiabetesTondra [facility] ClinicStart: 02-10-2022 End: 93-35-7400wjeczshsyjBwmwes Mapus Other nort L[employer] Other Start: 01-19-2022 End: 01-91-7216myvulfeeczCyahwig Ditty Other noPrivateCore [employer] Other Start: 16-31-7362Qmpvody encounter procedureCameron DittyFPG GastroenterologyStart: 01-11-2022 End: 38-87-5923xuwcjdbouyLL PIYUSH FAZIOFacility:T9Tgjkb: 12-04-2021 End: 52-41-2278Juvntro encounter procedureDO Yamila Diallomercy Work Phone: [facility]-Lab [facility]tart: 12-04-2021 End: 35-76-1248Tybgdgqa ReferredDO Yamila Diallomercy Work Phone: [facility]-Employee Benefit ScreeningStart: 11-30-2021 End: 36-86-9288mtiycftkgnSvzkkwx Braniecki Other noPrivateCore [employer] Other Start: 99-30-1270Qrbsnueua encounterMakaty Narayanan [facility] ClintonStart: 10-29-2021 End: 99-97-6372Vbfikhizp department patient visitDO Yamila Piero Work Phone: [facility]-Emergency RoomStart: 45-41-4360Xczekxozdj RecurringDO Yamila Diallomercy Work Phone: [facility] Start: 10-26-2021 End: 15-74-4720jtipifqdrfYmfrrl Mapus Other noTreSensa Other Start: 72-26-7773Buhqvrgwg encounterTondra Eleuterio [facility] ClinicStart: 10-23-2021 End: 39-56-7052ivsdelgnnpUqydti Cundiff Other noTreSensa Other Start: 02-33-1518Tmfborzoo encounterChuckie Edward [facility] ClinicStart: 09-10-2021 End: 26-95-7488pafpwffbkiOyavai Taylor Other noTreSensa Other Start: 15-79-0533Pbalhp outpatient visit 5 minutes Porfirio YanezG [facility] Tracys Landing RoadStart: 08-27-2021 End: 90-18-3980zftgcymagvOvue Beck Other noPrivateCore Lateral SV Other start: 60-61-4932Xvgclc outpatient new [address] [facility] NeurosurgeryStart: 07-09-2021 End: 31-76-5628ufmabijcvnIuqhup Cundiff Other [facility] L[employer] Other Start: 54-99-4405Aqxrimuwq encounterChuckie Edward [facility] Coordinated Care ClinicStart: 07-07-2021 End: 47-79-5151ecghrsfafnTaszs Hykes Other noPrivateCore [employer] Other Start: 84-72-1233Rxstcf outpatient visit 25 minutes Demario Gallego GastroenterologyStart: 06-26-2021 End: 25-23-1086fwddwgqomeKnwrhy Cundiff Other [facility] [employer] Other Start: 62-33-6562Eclvmwcsd encounterChuckie Edward [facility] Coordinated Care ClinicStart: 06-19-2021 End: 71-53-9725vuxtdwcgrgYrzspzd Braniecki Other noPrivate[employer] Other Start: 76-97-1312Hvahiddhu encounterMatthececil Vossi [facility] Professional CoStart: 06-10-2021 End: 73-98-4427sxryfeusfaFylqxok Yoelcki Other noPrivateCore [employer] Other Start: 28-59-6245Bwhfmp outpatient visit 25 minutes Yamila TijerinaMartin Luther King Jr. - Harbor [facility] ClintonStart: 05-15-2021 End: 74-71-9788wlzdszbcmcAkqaedj Shanikai Other noTreSensa Other Start: 48-20-9893Myazhcgrq encounterMakaty Narayanan FPG Referral CoordinatorStart: 04-28-2021(DM) [address] [facility] Care ClinicStart: 04-28-2021 End: 89-31-4411jmculzjxjiMbceev Cundiff Other noTreSensa Other Start: 04-06-2021 End: 96-73-4847mgbpgsklbdRlervrf Braniecki Other noTreSensa Other Start: 44-34-3040Azgppx outpatient visit 25 minutes Yamial TijerinaMartin Luther King Jr. - Harbor Hospital ClintonStart: 03-16-2021([facility] C Vac) [facility] VaccineDCH [facility] Coordinated Care ClinicStart: 03-16-2021 End: 24-93-9321jezhvikeefXoui Fitt Other noTreSensa Other Start: 02-10-2021([facility] C Vac) [facility]id VaccineDCH [facility] Coordinated Care ClinicStart: 02-10-2021 End: 89-46-1105lrhnddbkwcWgds Fitt Other noTreSensa Other Start: 01-09-2021(DM) [facility] Edward Jr.FPG Endocrinology Procedures DateProcedureProcedure DetailPerforming ClinicianStart: 86-69-5934Hhide chest X-rayMattelba Narayanan DO Work Phone: Start: 03-27-8438Ufqyz cultureMattelba Narayanan DO Work Phone: Start: 43-99-2846Cuivy nucleic acid assayMattelba Narayanan DO Work Phone: start: 31-79-7680QDQ,APTIMA HPV,AGE GDLNCorey Cristofer DO Work Phone: Start: 70-33-3657Hmiejpufivj observation [Identifier] in Cervix by Cyto Susanne Linn MD Work Phone: Start: 44-33-6780Ftuct chest X-rayDO Yamila Narayanan Work Phone: Start: 17-29-9105Fntwu X-ray of left forearmDO Yamila Narayanan Work Phone: Start: 43-83-1266MpibrjskbgmVyvds Melon Work Phone: Start: 02-24-1634[place] mammography of bilateral breastsDO Yamila Narayanan Work Phone: Start: 64-39-6683Pmykhduovqv observation [Identifier] in Cervix by Cyto stainCorey Cristofer DO Work Phone: Start: 98-06-5369Wcra cerv/vag auto thin layer prep mnl screenCorey Melon Work Phone: Urine cultureDO Yamila Piero Work Phone: Plan of Treatment DateCare ActivityDetailAuthorStart: 18-87-5287Asrgtojck for malignant neoplasm of cervixNOCrittenton Behavioral HealthStart: 15-68-3350Rgfybpqob for malignant neoplasm of cervixRegency Hospital CompanyStart: 03-15-2025 End: 82-20-2154Kvlihim encounter rvlhiuogj48/02/2026 3:00 PM EST Office Visit [place] [address] [facility] [address] [place] [address] Shell Linn MD [address] [facility] [address] [place] [address] [facility]osaStart: 01-29-2025 End: 85-50-4600Hlymuva encounter kzaosdfwu72/18/2025 3:00 PM EST Office Visit [facility] [address] [place] [id number] Piyush Cleveland, DO [address] [place] [address] [facility] OBStart: 95-14-0966Fnaetoiaf vaccination Influenza Vaccine (Season Ended)[facility] CompanyStart: 08-01-2024 End: 56-75-8062Esovvgj encounter ovficufen67/21/2025 11:30 AM EDT [facility] [address] [facility] [address] [place] [address] Shell Linn MD [address] [facility] [place] [address] [facility]osaStart: 05-10-2024 End: 73-36-3043Poivbj monitor 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 Cardiac Services Routine Palpitations Expected: 05/10/2024 (Approximate), Expires: 05/10/2025[facility] Service Area Work Phone: Comment on above:Expected: 05/10/2024 (Approximate), Expires: 05/10/2025Start: 37-89-3769Jmhzk cultureProMedica Defiance Regional Hospitaltart: 42-37-4241Xugitbxx identified in Urine by CultureUrine Culture [facility] Hospitaltart: 17-94-4150Azptlohzq for malignant neoplasm of breastMammogramNOND HealthcareStart: 01-23-2024 End: 07-08-5262AAB Skeletal system Views for bone densityDEXA bone density Imaging Routine Postmenopausal state Expected: 01/23/2024 (Approximate), Expires:01/22/2025NOND HealthcareComment on above:Expected: 01/23/2024 (Approximate), Expires: 01/22/2025Start: 01-23-2024 End: 54-39-7046CY Breast - bilateral ScreeningBilateral screening mammogram Imaging Routine Breast cancer screening by mammogram Expected: 01/23/2024, Expires: 03/24/2025[facility] Work Phone: comment on above:Expected: 01/23/2024, Expires: 03/24/2025Start: 27-95-7924FSQTE-19 Vaccine ( season)COVID-19 Vaccine ( season)[facility]: 88-45-9297Suhzrpyka vaccinationInfluenza Vaccine (#1)[facility]Start: 11-03-2023 End: 05-25-1129PanetmifxProMedica Defiance Regional Hospitaltart: 82-16-2538Fogcrujt admissionProMedica Defiance Regional Hospitaltart: 43-18-9864ZtqgwxsweProMedica Defiance Regional Hospitaltart: 28-96-0315Vufjo chest X-rayXR chest 2V*[facility] Hospitaltart: 66-16-1766ZM Chest 2 ViewsMemorial Health System [facility] Start: 27-59-7022Gmpzm X-ray of left forearmXR forearm LT 2V*[facility] Hospitaltart: 57-95-3420RX Radius and Ulna - left 2 ViewsProMedica Defiance Regional Hospitaltart: 20-32-9937Uchxnd Vaccines (1 of 2)Zoster Vaccines (1 of 2)[facility]: 74-26-1477OqjxvhluoTrinity Health System Work Phone: Start: 91-98-4975UUD Vaccines (1 of 1 - Standard series)MMR Vaccines (1 of 1 - Standard series)[facility] Start: 27-80-3619GJjO/Tdap/Td Vaccines (1 - Tdap)DTaP/Tdap/Td Vaccines (1 - Tdap)[facility]: 37-49-6405Pbfctqbzo for malignant neoplasm of cervixHPV/CotestUnMemorial Hospital: 08[birth year]06-1991 Hepatitis A Vaccines (1 of 2 - Risk 2-dose series)Hepatitis A Vaccines (1 of 2 - Risk 2-dose series)[facility]: 60-76-9721Pkcgztjvl B Vaccines (1 of 3 - 19+ 3-dose series)Hepatitis B Vaccines (1 of 3 - 19+ 3-dose series)[facility]: 98-49-8522Dunudhthedsq vaccinationPneumococcal Vaccine (1 of 2 - PCV)[facility] Start: 52-22-8091Xsjqsacwa C screeningHepatitis C ScreeningUnSelect Medical Specialty Hospital - CantonStneedmore: 37-07-7387Gstbioxc screeningDiabetes: Retinopathy Screening [facility]: 15-05-3196Fsrgwcuiik A1c measurement Diabetes: Hemoglobin R0COlzxqzyyfgMemorial Hospital: 14-12-0614JAV screeningHIV ScreeningUnMemorial Hospital: 08-41-0207Uomkn panelLipid PanelUnMemorial Hospital: 52-66-8828Blzchcdbw for malignant neoplasm of colonAlvin J. Siteman Cancer Center: 32-20-9080Atuzn screening for proteinDiabetes: Urine Protein ScreeningUnMemorial Hospital: 78-56-0654Eknjhj Adult PhysicalYearly Adult PhysicalUnSelect Medical Specialty Hospital - CantonCalculated LDL cholesterol levelMemorial Health System Marietta [facility] Hospital Cholesterol.total/Cholesterol in HDL [Mass Ratio] in Serum or PlasmaMemorial Health System Marietta Memorial HospitalComprehensive metabolic 2000 panel - Serum or Plasma [facility] Memorial HospitalPatient EducationChildren'S Hospital For Rehabilitation Ctr Work Phone: Patient referralChildren'S Hospital For Rehabilitation Ctr Work Phone: THIN PREP TIS PAP AND HR HPV DNATHIN PREP TIS PAP AND HR HPV DNA Pathology and Cytology Routine Well woman exam with routine gynecol ogical exam Ordered: 01/23/2024[facility] WashingtonComment on above:Ordered: 01/23/2024VLDL cholesterol measurementLee [facility] Hospital Immunizations Immunization DateImmunizationNotesCare BvepwbcrMiqaphre43-78-8432olqfafats virus vaccine, unspecified formulationCorey Cristofer DO Work Phone: [facility] WashingtonGudxplcwcl59-57-9949ttkcsvvtg, seasonal, injectableMatthew Branlukascki Other [facility]01-03-2022COVID-19 PfizerDawn Fitt Other [facility]11-30-2021COVID-19 Ramirez Car Other [facility]10-12-2020santiago omalley injectableDonald Cundiff Jr. Other [facility] Payers DatePayer CategoryPayerPolicy [id number] Care (Private)[employer] [facility] [id number] Health InsuranceMEDICAL MUTUAL [id number] 2..1.522617.3.57[id number] 2..1.987756.3.57[id number] 2..1.523647.3.57[id number] 2.16.840.1.941894.3.579.[id number] 2.16.840.1.916495.19 [id number] 2.16.840.1.3[id number] 2.16.840.1.5[id number] 2.16.840.1.230015.3.579.2.531 [id number] 2.16.840.1.2[id number] 2.16.840.1.8[id number] 2.16.840.1.646117.3.579.2.531 [id number] 2.16.840.1.8[id number] 2.16.840.1.7[id number] 2.16.840.1.290309.3.579.2.531 KbgihgmMNS2388603ZL Social History DateTypeDetailFacilityUnknown if ever smokedAnthony Lateral [employer] Other Start: 01-18-2024 End: 85-73-1399Yym Assigned At [facility] [employer] Other Start: 10-29-2021 End: 81-54-5270Nfyvmgw smoking status NHISNever smoked tobacco (finding) [facility]tart: 72-21-0293Ooz Assigned At [facility] Hospitaltart: 01-03-2023 End: 00-23-8118Rleekwi use and exposureSmokeless tobacco non-userNOMS Healthcare Start: 01-23-2024 End: 19-36-6301Qdcudtbox beverage intakeLifetime non-drinker (finding)[facility] HealthcareStart: 01-18-2024 End: 25-39-8408Ybaykle of Social functionNOMS HealthcareStart: 38-15-0565Yrzgmjr Commentcaffeine: 1-2 cups some days , sodaNOMS HealthcareStart: 36-48-4687Lfj assigned at birthNot on fileNOND HealthcareStart: 05-07-2024 End: 12-20-8875MxhYoqbwm (finding)[facility] Hospitaltart: 64-23-1889Ebmmxu identityIdentifies as female gender (finding)[facility] Work Phone: Start: 04-30-2024 End: 73-51-3348Ypewiffn to SARS-CoV-2 (event)Not sureRegency Hospital CompanyNEGATED: Highlighted rowMemorial Health System Marietta Memorial Hospital Medical Equipment Procedure CodeEquipment CodeEquipment Original TextEquipment IdentifierDates Start: 32-50-8394Yig Needle, Diabetic (Bd Nicky 2nd Gen Pen Needle) 32 gauge x 5/32 needleStart: 38-37-6539Nho Needle, Diabetic (Bd Nicky 2nd Gen Pen Needle) 32 gauge x 5/32 needleStart: 01-30-2024 End: 28-89-0310Tfa Needle, Diabetic (Bd Nicky 2nd Gen Pen Needle) 32 gauge x 5/32 needleStart: 21-37-7259Pxv Needle, Diabetic (Bd Nicky 2nd Gen Pen Needle) 32 gauge x 5/32 needleStart: 01-30-2024 End: 61-91-1688Kqv Needle, Diabetic (Bd Nicky 2nd Gen Pen Needle) 32 gauge x 5/32 needleStart: 95-25-2859Jbm Needle, Diabetic (Bd Nicky 2nd Gen Pen Needle) 32 gauge x 5/32 needleStart: 01-30-2024 End: 41-05-0528Bdz Needle, Diabetic (Bd Nicky 2nd Gen Pen Needle) 32 gauge x 5/32 needleStart: 04-32-1394Rij Needle, Diabetic (Bd Nicky 2nd Gen Pen Needle) 32 gauge x 5/32 needleStart: 01-30-2024 End: 65-62-7771Lam Needle, Diabetic (Bd Nicky 2nd Gen Pen Needle) 32 gauge x 5/32 needleStart: 04-95-0969Pro Needle, Diabetic (Bd Nicky 2nd Gen Pen Needle) 32 gauge x 5/32 needleStart: 01-30-2024 End: 06-16-6431Fec Needle, Diabetic (Bd Nicky 2nd Gen Pen Needle) 32 gauge x 5/32 needleStart: 15-74-6199Hhb Needle, Diabetic (Bd Nicky 2nd Gen Pen Needle) 32 gauge x 5/32 needleStart: 01-30-2024 End: 37-92-6605Bwt Needle, Diabetic (Bd Nicky 2nd Gen Pen Needle) 32 gauge x 5/32 needleStart: 20-16-3624Xrq Needle, Diabetic (Bd Nicky 2nd Gen Pen Needle) 32 gauge x 5/32 needleStart: 01-30-2024 End: 36-75-7785Ilz Needle, Diabetic (Bd Nicky 2nd Gen Pen Needle) 32 gauge x 5/32 needleStart: 96-64-4780Gym Needle, Diabetic (Bd Nicky 2nd Gen Pen Needle) 32 gauge x 5/32 needleStart: 01-30-2024 End: 03-57-4238Pwk Needle, Diabetic (Bd Nicky 2nd Gen Pen Needle) 32 gauge x 5/32 needleStart: 01-30-2024 End: 41-16-4667Qhb Needle, Diabetic (Bd Nicky 2nd Gen Pen Needle) 32 gauge x 5/32 needleStart: 02-20-2024 End: 85-81-2944Haz Needle, Diabetic (Bd Nicky 2nd Gen Pen Needle) 32 gauge x 5/32 needleStart: 01-30-2024 End: 08-98-9250Vmt Needle, Diabetic (Bd Nicky 2nd Gen Pen Needle) 32 gauge x 5/32 needleStart: 02-20-2024 End: 01-02-2025 Goals DatePatient GoalDesired Activity/State Functional Status UigjCmzfcjjhkbTseymqYnxnladd10-72-5445Aacagluboz statusPatient at Baseline [facility] Work Phone: Mental Status FhinDbntdhtohaEkdsnyEbyrqmas63-19-0833Kwgisrtem functionCognitive Status Patient at BaselineTrinity Health System Work Phone: Clinical Notes 03-14-2019 to 11-13-2024 Note Date & HulgNvldJjphmukx91-71-2901 Evaluation note* Diagnosis Onset Date Resolution Status Admit Date Essential hypertension acuteSeptember 2024 8:15amGastroesophageal reflux diseaseacuteSeptember 2024 8:15amMixed hyperlipidemiaacuteSeptember 2024 8:15amObstructive sleep apneaacuteSeptember 2024 8:15amType 2 diabetes mellitus without complication, without long-term current usacuteSeptember 2024 8:15am Screening for colon cancernoneactiveSeptember 2024 8:15amEncounter for wellness examinationnoneactiveSeptember 2024 8:15amScreening for breast cancernoneactiveSeptember 2024 8:15amMixed hyperlipidemiaacuteOctober 2024 3:25pmObstructive sleep apneaacuteOctober 2024 3:25pmVitamin B 12 deficiencyacuteOctober 2024 3:25pmBMI 45.0-49.9, adultdeletedOctober 2024 3:25pmDiabetes mellitusdeletedOctober 2024 3:25pmDietary counseling and surveillancedeletedOctober 2024 3:25pmHTN (hypertension)deletedOctober 2024 3:25pm [facility] Work Phone: 1(748) 716-741709-02-2025 Evaluation note* Diagnosis Onset Date Resolution Status Admit Date Essential hypertension acuteSeptember 2024 8:15amGastroesophageal reflux diseaseacuteSeptember 2024 8:15amMixed hyperlipidemiaacuteSeptember 2024 8:15amObstructive sleep apneaacuteSeptember 2024 8:15amType 2 diabetes mellitus without complication, without long-term current usacuteSeptember 2024 8:15am Screening for colon cancernoneactiveSeptember 2024 8:15amEncounter for wellness examinationnoneactiveSeptember 2024 8:15amScreening for breast cancernoneactiveSeptember 2024 8:15amMixed hyperlipidemiaacuteOctober 2024 3:25pmObstructive sleep apneaacuteOctober 2024 3:25pmVitamin B 12 deficiencyacuteOctober 2024 3:25pmBMI 45.0-49.9, adultdeletedOctober 2024 3:25pmDiabetes mellitusdeletedOctober 2024 3:25pmDietary counseling and surveillancedeletedOctober 2024 3:25pmHTN (hypertension)deletedOctober 2024 3:25pmFatty liveracuteNovember 2024 2:42pmGastroesophageal reflux diseaseacuteNovember 2024 2:42pmIrritable bowel syndrome with diarrheaacuteNovember 2024 2:42pm [facility] Work Phone: 1(446) 618-148006-17-2025 Evaluation note* Diagnosis Onset Date Resolution Status Admit Date Essential hypertension acuteJune 2024 1:51pmIntolerance of continuous positive airway pressure (CPAP) ventilationacuteJune 2024 1:51pmMixed hyperlipidemiaacuteJune 2024 1:51pmObstructive sleep apneaacuteJune 2024 1:51pmType 2 diabetes mellitus without complication, without long-term current usacuteJune 2024 1:51pmBMI 45.0-49.9, adultdeletedJune 2024 1:51pmTachycardianoneactiveJune 2024 1:51pmMixed hyperlipidemiaacuteJuly 2024 3:22pmVitamin B 12 deficiencyacuteJuly 2024 3:22pmBMI 45.0-49.9, adultdeletedJuly 2024 3:22pmDiabetes mellitusdeletedJuly 2024 3:22pmDietary counseling and surveillancedeletedJuly 2024 3:22pmHTN (hypertension)deletedJuly 2024 3:22pm [facility] Work Phone: 1(661) 181-639006-17-2025 Evaluation note* Diagnosis Onset Date Resolution Status Admit Date Essential hypertension acuteJune 2024 1:51pmIntolerance of continuous positive airway pressure (CPAP) ventilationacuteJune 2024 1:51pmMixed hyperlipidemiaacuteJune 2024 1:51pmObstructive sleep apneaacuteJune 2024 1:51pmType 2 diabetes mellitus without complication, without long-term current usacuteJune 2024 1:51pmBMI 45.0-49.9, adultdeletedJune 2024 1:51pmTachycardianoneactiveJune 2024 1:51pmMixed hyperlipidemiaacuteJuly 2024 3:22pmObstructive sleep apneaacuteJuly 2024 3:22pmVitamin B 12 deficiencyacuteJuly 2024 3:22pmBMI 45.0-49.9, adultdeletedJuly 2024 3:22pmDiabetes mellitus deletedJuly 2024 3:22pmDietary counseling and surveillancedeletedly 2024 3:22pmHTN (hypertension)deletedJuly 2024 3:22pm [facility] Work Phone: 1(134) 611-743106-17-2025 Evaluation note* Diagnosis Onset Date Resolution Status Admit Date Essential hypertension acuteJune 2024 1:51pmIntolerance of continuous positive airway pressure (CPAP) ventilationacuteJune 2024 1:51pmMixed hyperlipidemiaacuteJune 2024 1:51pmObstructive sleep apneaacuteJune 2024 1:51pmType 2 diabetes mellitus without complication, without long-term current usacuteJune 2024 1:51pmBMI 45.0-49.9, adultdeletedJune 2024 1:51pmTachycardianoneactiveJune 2024 1:51pmMixed hyperlipidemiaacuteJuly 2024 3:22pmObstructive sleep apneaacuteJuly 2024 3:22pmVitamin B 12 deficiencyacuteJuly 2024 3:22pmBMI 45.0-49.9, adultdeletedJuly 2024 3:22pmDiabetes mellitus deletedJuly 2024 3:22pmDietary counseling and surveillancedeletedly 2024 3:22pmHTN (hypertension)deletedJuly 2024 3:22pmEssential hypertensionacuteSept2024 8:15amGastroesophageal reflux diseaseacute November 13, 2024 8:15amMixed hyperlipidemiaacuteSept2024 8:15am Obstructive sleep apneaacuteNovember 13, 2024 8:15amType 2 diabetes mellitus without complication, without long-term current usacuteSept2024 8:15amScreening for colon cancernoneactiveSept2024 8:15amEncounter for wellness examinationnoneactiveSe2024 8:15amScreening for breast cancernoneactiveSept2024 8:15am [facility] Work Phone: 1(471) 375-592105-21-2025 History of Present illness Narrative* Shell Linn MD - 08/01/2024 11:30 AM EDT Chief Complaint Patient presents with Follow-up KIMBER results Subjective Becki Messer is a 53 y.o. female HPI Patient is in the office to discuss results of 30-day event monitor we performed recently for palpitations. I reviewed the result with the patient. She had no major arrhythmias on the event monitor. She was having couple runs not exceeding 13 beats in a row of SVT which were for the most part asymptomatic. She was afraid to follow my advice of doubling the metoprolol up to 200 mg daily and remained on 100 mg daily. Heart rate today was 83 bpm. Blood pressure is normal since we have Exforge started for hypertension therapy. Her weight remains way above target and a BMI of 45.45 kg/m . She was supposed to have had sleep study which has not yet been scheduled. She is going to work on it. She is feeling better compared to the last time she was seen. And she wishes not to change her medicationfor the time being which I agreed with. There will be no need for further cardiac investigations. 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 30-day event monitor failed to demonstrate any significant arrhythmias. 2-essential hypertension, currently controlled. On 100 mg daily of metoprolol succinate and Exforge5/[facility] 60 mg daily which we will continue DASH diet was emphasized , weight loss with low calorie diet was recommended 3- morbid obesity, education on measures to bring her weight under control were discussed with the patient. She seemed to be motivated 4-type 2 diabetes on metformin and Victoza, her diabetes seems to be under control. She was reminded that proper diet and more weight loss will help get her diabetes under excellent control. 5-suspected sleep apnea for which the patient is being evaluated for a sleep study. Emphasized the need for more weight loss. 6-polycystic ovarian disease on spironolactone, presently stable Review of Systems All other systems reviewed and are negative. Vitals: 08/01/24 1144 BP: 128/82 BP Location: Left arm Patient Position: Sitting Pulse: 84 Weight: 132 kg (290 lb 3.2 oz) Height: 1.702 m (5' 7 ) Objective Physical Exam Constitutional: Appearance: Normal appearance. HENT: Nose: Nose normal. Neck: Vascular: No carotid bruit. Cardiovascular: Rate and Rhythm: Normal rate. Pulses: Normal pulses. Heart sounds: Normal heart sounds. Pulmonary: Effort: Pulmonary effort is normal. Abdominal: General: Bowel sounds are normal. Palpations: Abdomen is soft. Musculoskeletal: General: Normal range of motion. Cervical back: Normal range of motion. Right lower leg: No edema. Left lower leg: No edema. Skin: General: Skin is warm and dry. Neurological: General: No focal deficit present. Mental Status: She is alert. Psychiatric: Mood and Affect: Mood normal. Behavior: Behavior normal. Thought Content: Thought content normal. Judgment: Judgment normal. Allergies Patient has no known allergies. Current Medications Current Outpatient Medications Medication Instructions allopurinol (ZYLOPRIM) 100 mg, Daily amlodipine-valsartan (Exforge) 5-160 mg tablet 1 tablet, oral, Daily metFORMIN (GLUCOPHAGE) 1,000 mg, 2 times daily (morning and late afternoon) metoprolol succinate XL (TOPROL-XL) 100 mg, oral, Daily, Do not crush or chew. omeprazole (PRILOSEC) 20 mg, 2 times daily spironolactone (ALDACTONE) 50 mg, Daily sucralfate (CARAFATE) 1 g, Daily Victoza 3-Raza 0.6 mg, Daily Assessment/Plan 1. SVT (supraventricular tachycardia) Follow Up In Cardiology metoprolol succinate XL (Toprol-XL) 100 mg 24 hr tablet 2. Palpitations Follow Up In Cardiology metoprolol succinate XL (Toprol-XL) 100 mg 24 hr tablet 3. Essential hypertension metoprolol succinate XL (Toprol-XL) 100 mg 24 hr tablet 4. Type 2 diabetes mellitus without complication, unspecified whether half-way insulin use 5. Never smoked tobacco 6. BMI 45.0-49.9, adult (Multi) Scribe Attestation By signing my name below, I, Rachel Goff LPN , Geovanni attest that this documentation has been prepared under the direction and in the presence of Shell Linn MD. Provider Attestation - Scribe documentation All medical record entries made by the Scribe were at my direction and personally dictated by me. Ihave reviewed the chart and agree that the record accurately reflects my personal performance of the history, physical exam, discussion and plan. documented in this encounterReg[facility] Company Work Phone: 1(550) 943-769005-21-2025 Instructions* Patient Instructions* Rachel Cohen LPN - 08/01/2024 11:30 AM EDT Please bring all medicines, vitamins, and herbal supplements with you when you come to the office. Prescriptions will not be filled unless you are compliant with your follow up appointments or have a follow up appointment scheduled as per instruction of your physician. Refills should be requested at the time of your visit. BMI was above normal measurement. Current weight: 132 kg (290 lb 3.2 oz) Weight change since last visit (-) denotes wt loss 5.2 lbs Weight loss needed to achieve BMI 25: 130.9 Lbs Weight loss needed to achieve BMI 30: 99.1 Lbs Provided instructions on dietary changes Provided instructions on exercise. * Attachments The following attachments cannot be sent through Care Everywhere. * Diet and health (Wallisian) documented in this encounterRegency Hospital Company Work Phone: 1([phone]) 212-744404-01-2025 Evaluation note* Diagnosis Onset Date Resolution Status Admit Date Mixed hyperlipidemia acuteApril 2024 1:54pmVitamin B 12 deficiencyacuteApril 2024 1:54pmBMI 45.0-49.9, adultdeletedApril 2024 1:54pmDiabetes mellitusdeletedApril 2024 1:54pmDietary counseling and surveillancedeletedApril 2024 1:54pmHTN (hypertension)deletedApril 2024 1:54pm [facility] Work Phone: 1([phone]) 342-658802-27-2025 History of Present illness Narrative* Shell Linn MD - 05/10/2024 9:20 AM EST Subjective Becki Messer is a 53 y.o. female Chief Complaint Follow-up HPI 53-year-old white female who is in the office to discuss complaints of inappropriate tachycardia. The patient was seen in [address] Munson, the note from that visit was reviewed. The patient atthat time had similar complaints and he suggested 30-day event monitor and 24-hour urine collectionfor pheochromocytoma suspicion. She did not carry out these tests. She does have morbid obesity shaquille BMI of 44.6 kg/m . He is scheduled to be seen by the sleep lab staff in the near future. She has type 2 diabetes, she is not a smoker. She has hypertension and currently on metoprolol succinate 100mg daily. She continued to have an appropriate increase in heart rate with minimal activities that could last for a number of hours. She had no syncope and no symptomatic hypotension. She has no chest pain on exertion. 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 She had an echocardiogram October 20[facility] at [facility] revealing ejection fraction of 50-55%. Her cardiac examination was unremarkable, her lungs were clear and had no lower extremity edema. Assessment/recommendations: 1-inappropriate tachycardia suspected to be sinus tachycardia during mild activities. This could bedue to adrenal hypersensitivity versus some pathological arrhythmias such as SVT or atrial flutter.Echocardiogram 2023 revealed ejection fraction 50-55%. The cause of this yet to be identified. A 30- day event monitor is recommended and will be scheduled. In the meantime we will increase metoprololup to 200 mg daily. 2-essential hypertension, currently uncontrolled. Doubling the metoprolol might control blood pressure reading. DASH diet was recommended, weight loss with low calorie diet was recommended 3- morbid obesity, education on measures to bring her weight under control were discussed with the patient. She seemed to be motivated 4-type 2 diabetes on metformin and Victoza managed by PCP 5-suspected sleep apnea for which the patient is being evaluated for a sleep study. 6-polycystic ovarian disease on spironolactone Review of Systems Cardiovascular: Positive for palpitations. Vitals: 05/10/24 0916 BP: 144/90 BP Location: Left arm Patient Position: Sitting Pulse: 96 Weight: 129 kg (285 lb) Height: 1.702 m (5' 7 ) Objective Physical Exam Constitutional: Appearance: Normal appearance. HENT: Nose: Nose normal. Neck: Vascular: No carotid bruit. Cardiovascular: Rate and Rhythm: Normal rate. Pulses: Normal pulses. Heart sounds: Normal heart sounds. Pulmonary: Effort: Pulmonary effort is normal. Abdominal: General: Bowel sounds are normal. Palpations: Abdomen is soft. Musculoskeletal: General: Normal range of motion. Cervical back: Normal range of motion. Right lower leg: No edema. Left lower leg: No edema. Skin: General: Skin is warm and dry. Neurological: General: No focal deficit present. Mental Status: She is alert. Psychiatric: Mood and Affect: Mood normal. Behavior: Behavior normal. Thought Content: Thought content normal. Judgment: Judgment normal. Allergies Patient has no known allergies. Current Medications Current Outpatient Medications: allopurinol (Zyloprim) 100 mg tablet, Take 1 tablet (100 mg) by mouth once daily., Disp: , Rfl: metFORMIN (Glucophage) 1,000 mg tablet, Take 1 tablet (1,000 mg) by mouth 2 times daily (morning and late afternoon)., Disp: , Rfl: omeprazole (PriLOSEC) [address] capsule, Take 1 capsule (20 mg) by mouth 2 times a day., Disp: , Rfl: spironolactone (Aldactone) 50 mg tablet, Take 1 tablet (50 mg) by mouth once daily., Disp: , Rfl: sucralfate (Carafate) 1 gram tablet, Take 1 tablet (1 g) by mouth once daily., Disp: , Rfl: Victoza 3-Raza 0.6 mg/0.1 mL (18 mg/3 mL) injection, Inject 0.1 mL (0.6 mg) under the skin once daily., Disp: , Rfl: metoprolol succinate XL (Toprol XL) 200 mg 24 hr tablet, Take 1 tablet (200 mg) by mouth once daily. Do not crush or chew., Disp: 90 tablet, Rfl: 3 Assessment/Plan 1. 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 Palpitations Follow Up In Cardiology Holter Or Event Microphone Operator metoprolol succinate XL (Toprol XL) 200 mg 24 hr tablet 3. Essential hypertension 4. 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 Obstructive sleep apnea syndrome 6. Never smoked tobacco 7. BMI 40.0-44.9, adult (Multi) Scribe Attestation By signing my name below, IRachel LPN , Geovanni attest that this documentation has been prepared under the direction and in the presence of Shell Linn MD. Provider Attestation - Scribe documentation All medical record entries made by the Scribe were at my direction and personally dictated by me. Ihave reviewed the chart and agree that the record accurately reflects my personal performance of the history, physical exam, discussion and plan. documented in this [facility] Work Phone: 1([phone]) 325-695902-27-2025 Instructions* Patient Instructions* Rachel Cohen LPN - 05/10/2024 9:20 AM EST Please bring all medicines, vitamins, and herbal supplements with you when you come to the office. Prescriptions will not be filled unless you are compliant with your follow up appointments or have a follow up appointment scheduled as per instruction of your physician. Refills should be requested at the time of your visit. BMI was above normal measurement. Current weight: 129 kg (285 lb) Weight change since last visit (-) denotes wt loss -8 lbs Weight loss needed to achieve BMI 25: 125.7 Lbs Weight loss needed to achieve BMI 30: 93.9 Lbs Provided instructions on dietary changes Provided instructions on exercise. KIMBER Bhavesh Toprol Follow up documented in this [facility] Work Phone: 1([phone]) 213-866711-11-2024 History of Present illness Narrative* Milla Cedillo LPN - 01/23/2024 3:00 PM EST Reason for Appointment: Patient ID: Becki Messer is a 53 y.o. female who presents for Well Women Visit Patient presents today for Annual Exam. MEDICATIONS Current Outpatient Medications Medication Instructions allopurinol (ZYLOPRIM) 100 mg, Daily Continuous Blood Gluc Sensor (FreeStyle Riky 3 Sensor) misc 1 Units, 4 times daily metFORMIN (GLUCOPHAGE) 1,000 mg, 2 times daily with meals metoprolol succinate XL (TOPROL-XL) 100 mg, Daily omeprazole (PRILOSEC) 20 mg, 2 times daily spironolactone (ALDACTONE) 50 mg, Daily sucralfate (CARAFATE) 1 g, Daily Victoza 0.6 mg, Daily ALLERGIES No Known Allergies PROBLEMS Active Ambulatory Problems Diagnosis Date Noted No Active Ambulatory Problems Resolved Ambulatory Problems Diagnosis Date Noted No Resolved Ambulatory Problems Past Medical History: Diagnosis Date Dysmetabolic syndrome X Esophageal reflux Essential hypertension, benign (CMS/HCC) Gout, unspecified History of irregular menstrual bleeding History of medical treatment Hypertension (CMS/HCC) Impaired fasting glucose Iron deficiency anemia, unspecified Myalgia Myositis, unspecified Obesity, unspecified Obstructive sleep apnea (adult) (pediatric) Osteoarthritis of both knees Polycystic ovaries Premature beats Uterine polyp HISTORY PAST MEDICAL HISTORY SOCIAL HISTORY Past Medical History: Diagnosis Date Dysmetabolic syndrome X Esophageal reflux Essential hypertension, benign (CMS/HCC) Gout, unspecified History of irregular menstrual bleeding History of medical treatment PP curettage Hypertension (CMS/HCC) Impaired fasting glucose Iron deficiency anemia, unspecified Myalgia Unspecified Myositis, unspecified Obesity, unspecified Obstructive sleep apnea (adult) (pediatric) Osteoarthritis of both knees Polycystic ovaries Premature beats Uterine polyp Social History Tobacco Use Smoking status: Never Smokeless tobacco: Never Substance Use Topics Alcohol use: Never Comment: caffeine: 1-2 cups some days , soda Drug use: Never FAMILY HISTORY Family History Problem Relation Name Age of Onset Hypertension Mother Hypertension Maternal Grandmother Diabetes Maternal Grandmother Other (Tetralogy of Fallot) Daughter SURGICAL HISTORY Past Surgical History: Procedure Laterality Date CHOLECYSTECTOMY 2002 FERTILITY SURGERY In vitro x2 per Dr. Mora OTHER SURGICAL HISTORY PP cutterage STEROID INJECTION KNEE 2016 injections in knee- osteoarthritis VAGINAL DELIVERY LVB 7# 7 oz REVIEW OF SYSTEMS Review of Systems: Review of Systems All other systems reviewed and are negative. OBJECTIVE Objective: Physical Exam Constitutional: Appearance: Normal appearance. She is well-developed. Genitourinary: Vulva normal. Breasts: Breasts are soft. Right: Normal. Left: Normal. Cardiovascular: Rate and Rhythm: Normal rate and regular rhythm. Pulmonary: Effort: Pulmonary effort is normal. Breath sounds: Normal breath sounds. Abdominal: General: Bowel sounds are normal. There is no distension. Palpations: Abdomen is soft. Tenderness: There is no abdominal tenderness. There is no guarding or rebound. Musculoskeletal: General: No swelling. Normal range of motion. Right lower leg: No edema. Left lower leg: No edema. Neurological: Mental Status: She is alert and oriented to person, place, and time. Skin: General: Skin is warm and dry. Psychiatric: Mood and Affect: Mood normal. Behavior: Behavior normal. Vitals and nursing note reviewed. Exam conducted with a field supervisor seed production present. Vitals: Estimated body mass index is 45.55 kg/m as calculated from the following: Height as of 23: 5' 7 . Weight as of this encounter: 290 lb 12.8 oz. BP: 120/84 No LMP recorded. Patient is postmenopausal. ASSESSMENT & PLAN ICD-10-CM 1. Well woman exam with routine gynecological exam Z01.419 THIN PREP TIS PAP AND HR HPV DNA 2. Breast cancer screening by mammogram Z12.31 Bilateral screening mammogram Bilateral screening mammogram 3. Postmenopausal state Z78.0 DEXA bone density Annual: Patient presents today for an annual exam. Patient states she is doing well and has no complaints. Pap was obtained without difficulty and patient given mammogram & DEXA Scan order to have scheduled/obtained. Orders Placed This Encounter Procedures Bilateral screening mammogram DEXA bone density Follow Up: Patient is to return in one year for annual unless needed otherwise. Documented by Milla Cedillo LPN on behalf of: Piyush Cleveland DO documented in this encounterMercy Hospital [id number] History and physical note Author Ruiz Steward [facility] November 03, 2023 3:25amNote Date/TimeAugust 2023 2:23[place] [address] Hospitalist H&P Signed Patient: Becki Messer MR#: [id number] : 1970 Acct:[id number] Age/Sex: 53 / F Adm Date: 4 Loc: Room: [address] [place] [address] Type: ADM INOo Attending Dr: Ruiz Steward MD Copies to: DO Ruiz Garza MD Paula G Smith, WRITING MANAGER~ HPI DATE OF EXAMINATION: 11/03/23 CHIEF COMPLAINT: dog bite HISTORY OF PRESENT ILLNESS: Ms. Messer is a 53-year-old female with a PMH of T2DM, tachycardia, HTN, gout thatpresented to the emergency room for a dog bite to her left forearm. Patient states that her dog started fighting, 2 Tunisian ochoa's and she attempted to break them up and got bit on the arm. She denies chest pain, shortness of breath, fever or chills, nausea or vomiting. She states that she may have gotten worked upafter getting the dogs apart and running around [...] will be admitted as observation to the [facility] telemetry floor. Review of Systems Review of Systems Review of systems: A 10 point review of systems was obtained, negative unless noted in the HPI or below. [facility] Medical History BMI 45.0-49.9, adult Dietary counseling and surveillance Vitamin B 12 deficiency Mixed hyperlipidemia Sleep apnea Osteoarthritis Diabetes Gout Fibromyalgia Tachycardia HTN (hypertension) Surgical History Hx of cholecystectomy Family History Daughter Congenital anomaly of heart Tetralogy of fallot Father Family history of mental disorder Legacy FamHx Problem: Diagnosed with Mental Illness Mother Hypertension [...] tablet 1,000 mg PO BID.WITH.MEALS #180 tabs 08/18/23 [Rx Confirmed 11/03/23] allopurinol 100 mg tablet [...] (18 mg/3 mL) subcutaneous pen injector (Victoza 3- Raza)1.2 mg subcut .daily hs 11/03/23 [History Confirmed [...] % (Auto) 27.3 % (.) 11/02/23 22:44 [place] % (Auto) 4.3 % (.) 11/02/23 22:44 Eos % (Auto) 0.1 % (.) 11/02/23 22:44 Baso % (Auto) 0.7 % (.) 11/02/23 22:44 Nucleat RBC Rel Count 0.1 /100 WBC (0-0.5) 11/02/23 22:44 Neut # (Auto) 6.8 x10E3/uL (1.8-7.7) 11/02/23 22:44 Lymph # (Auto) 2.7 x10E3/uL (1.00-4.8) 11/02/23 22:44 [place] # (Auto) 0.4 x10E3/uL (0.0-0.8) 11/02/23 22:44 [...] pain. It was reported that the patient hadsome dyspnea on ambulation to x-ray while in [...] 1 Documented By: Joann Del Cid APRN 11/03/23 022 Signed By: <Electronically signed by XOCHILT Del Cid> 11/03/23 0315 <Electronically signed by Ruiz Steward MD> 11/03/23 0325 [facility] Work Phone: [phone] [id number] Evaluation note* Encounter Date Diagnosis Assessment Notes Treatment Notes Treatment Clinical Notes Apr, Hyperlipidemia, unspecified hype rlipidemia type (ICD-10 - E78.5) High cholesterol material was published 12/03 ldl 107, trig 200- above target- f/u with pcp for further recommendation. Apr,Type 2 diabetes mellitus without complication, without long-term current use of insulin (ICD-10 - E11.9)Managing type 2 diabetes material was published, Managing type 2 diabetes material was published 1. Controlled, a Type 2 diabetes with A1c of 7.0% 2. Blood glucose slightly higher. According to [employer] 3 cgm download 04/07/23- 04/20/23: Avg glucose 144. >250-0%, >180-6%, 70-180-94%. <70-0%, <54-0%. CV 16.7%. Reviewed download with pt, glucose stable. Pt is tolerating ozempic 0.6mg plus 4 extra clicks once daily. Recommend she increase 1extra click as tolerated until reaches 1.8mg once daily. Reviewed with pt target fasting am/meal tomeal glucose 90/130; 2 hours after meal 140-180; bedtime 120/150. Pt verbalizes understanding. 3. Patient is alert, oriented and receptive to making changes or counseling. Notes: Seen for an assessment of current glucose pattern, changes in treatment plan, counseling andcoordination of care related to diabetes, risks, and benefits of treatment, medications, side effects. Given handouts to reinforce concepts reviewed during counseling, see scanned notes. TOPICS REVIEWED: 1. Time was spent reviewing: a. Basic concepts of diabetes, progressive beta cell , concepts of basal/bolus/corrective insulin requirements. b. Nutrition: Concepts of healthy [...] hyperglycemia, or diabetes medication issues. 6. Prescriptions: [facility] [place]. DME: [facility] [place]. 7. With use of current diabetes medications could cause anomalies, demise if become .Recommend use of contraception during use of these [...] provider. Refills should be requested at the timeof your visit. 9. Reviewed cmp in meditech 01/04 gfr >60 Apr,Hypertension, unspecified type (ICD-10 - I10)Hypertension material was published f/u with pcp for further recommendation Apr,ietary counseling and surveillance (ICD-10 - Z71.3)Healthy eating material was published Apr,Vitamin B 12 deficiency (ICD-10 - E53.8)Good food sources of vitamin B12 material was published 11/03 vit b 12 322 Apr,MI 45.0-49.9, adult (ICD-10 - Z68.42)Setting weight-loss goals material was published [facility] Other 11-16-2023 Evaluation note* Encounter Date Diagnosis Assessment Notes Treatment Notes Treatment Clinical Notes Jan, Type 2 diabetes imelda itus without complication, without long-term current use of insulin (ICD-10 - E11.9) [facility] Other 11-07-2023 Evaluation note* Encounter Date Diagnosis Assessment Notes Treatment Notes Treatment Clinical Notes Jan, Gastroesophageal ref lux disease, esophagitis presence not specified (ICD-10 - K21.9) PATIENT DOING WELL WITH NO COMPLAINTS. PATIENT TO CONTINUE ON THE CRAFATE 1GM DAILY. Jan,Irritable bowel syndrome with diarrhea (ICD-10 - K58.0) [facility] Other 10-09-2023 Evaluation note* Encounter Date Diagnosis Assessment Notes Treatment Notes Treatment Clinical Notes Dec, Essential hypertension (ICD-10 - I10) Controlled. Continue current care. Dec,Wellness examination (ICD-10 - Z00.00) Patient encouraged to continue working on weight loss. Labs reviewed with patient. She is up to date on mammogram and Pap. 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 Dec,Mixed hyperlipidemia (ICD-10 - E78.2) Labs from [facility] screening reviewed -- TGs elevated but stable. Remainder of her labs essentially normal. She is aware of my recommendations to be on a statin, but she declines for now -- she will reconsider going forward. Dec,astroesophageal reflux disease, esophagitis presence not specified (ICD-10 - K21.9) Controlled with lifestyle modification. Continue current care. Dec,Obstructive sleep apnea (ICD-10 - G47.33) Contiue with CPAP. Weight loss strongly encouraged. Dec,Type 2 diabetes mellitus without complication, without long-term current use of insulin (ICD-10 - E11.9) Stable. 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 Continue with weight loss efforts. Yearlydilated eye exam. Check feet daily for sores/ulcers. She will notify me if i can be of any assistance. [facility] Other 08-23-2023 Evaluation note* Encounter Date Diagnosis Assessment Notes Treatment Notes Treatment Clinical Notes Oct, Hyperlipidemia, unspecified hype rlipidemia type (ICD-10 - E78.5) High cholesterol material was published 12/03 ldl 107, trig 200- above target- f/u with pcp for further recommendation. Oct,Type 2 diabetes mellitus without complication, without long-term current use of insulin (ICD-10 - E11.9)Managing type 2 diabetes material was published, Managing type 2 diabetes material was published 1. Controlled, a Type 2 diabetes with A1c of 6.8% 2. Blood glucose slightly higher. According to [employer] 3 cgm download 10/19/22- 11/01/22: Avg glucose 143. >250-0%, >180-5%, 70-180-95%. <70-0%, <54-0%. CV 15.3%. Reviewed download with pt, glucose stable. Pt is tolerating ozempic 0.6mg oncde daily. Recommend she increase 1 extra click as tolerated until reaches 1.8mg once daily. Reviewed with pt target fasting am/meal to meal glucose 90/130 ; 2 hours after meal 140-180; bedtime 120/150. Pt verbalizes understanding. 3. Patient is alert, oriented and receptive to making changes or counseling. Notes: Seen for an assessment of current glucose pattern, changes in treatment plan, counseling andcoordination of care related to diabetes, risks, and benefits of treatment, medications, side effects. Given handouts to reinforce concepts reviewed during counseling, see scanned notes. TOPICS REVIEWED: 1. Time was spent reviewing: a. Basic concepts of diabetes, progressive beta cell , concepts of basal/bolus/corrective insulin requirements. b. Nutrition: Concepts of healthy [...] hyperglycemia, or diabetes medication issues. 6. Prescriptions: [facility] [place]: Will call when needed. 7. With use of current diabetes medications could cause anomalies, demise if become .Recommend use of contraception during use of these [...] provider. Refills should be requested at the timeof your visit. Oct,Hypertension, unspecified type (ICD-10 - I10)Hypertension material was published f/u with pcp for further recommendation Oct,ietary counseling and surveillance (ICD-10 - Z71.3)Healthy eating material was published Oct,Vitamin B 12 deficiency (ICD-10 - E53.8)Good food sources of vitamin B12 material was published 11/03 vit b 12 322 Oct,[place] 45.0-49.9, adult (ICD-10 - Z68.42)Setting weight-loss goals material was published [facility] Other 08-16-2023 Evaluation note* Encounter Date Diagnosis Assessment Notes Treatment Notes Treatment Clinical Notes Oct, Essential hypertension (ICD-10 - I10) [facility] Other 05-11-2023 Evaluation note* Encounter Date Diagnosis Assessment Notes Treatment Notes Treatment Clinical Notes July, Tachycardia (ICD-10 - R00.0) [facility] Other 04-12-2023 Evaluation note* Encounter Date Diagnosis Assessment Notes Treatment Notes Treatment Clinical Notes Jun, Essential hypertension (ICD-10 - I10) [facility] Other 02-16-2023 Evaluation note* Encounter Date Diagnosis Assessment Notes Treatment Notes Treatment Clinical Notes Apr, Type 2 diabetes imelda itus without complication, without long-term current use of insulin (ICD-10 - E11.9) [facility] Other 12-19-2022 Evaluation note* Encounter Date Diagnosis Assessment Notes Treatment Notes Treatment Clinical Notes Feb, Essential hypertension (ICD-10 - I10) [facility] Other 11-30-2022 Evaluation note* Encounter Date Diagnosis Assessment Notes Treatment Notes Treatment Clinical Notes Jan, Hyperlipidemia, unspecified hype rlipidemia type (ICD-10 - E78.5) High cholesterol material was published 12/03 ldl 107, trig 200- above target- f/u with pcp for further recommendation. Jan,Type 2 diabetes mellitus without complication, without long-term current use of insulin (ICD-10 - E11.9)Managing type 2 diabetes material was published, Managing type 2 diabetes material was published 1. Controlled, a Type 2 diabetes with A1c of 6.7% 2. Blood glucose slightly higher. According to riky cgm download 01/28/22- 02/10/22: Avg glucose 148. >250-0%, >180-12%, 70-180-88%. <70-0%, <54-0%. Reviewed download with pt, readings above target from higher glycemic meal. Pt did not start victoza- she reports she thought she would beable to change her eating habits on her [...] glucose pattern, changes in treatment plan, counseling andcoordination of care related to diabetes, risks, and benefits of treatment, medications, side effects. Given handouts to reinforce concepts reviewed during counseling, see scanned notes. TOPICS REVIEWED: 1. Time was spent reviewing: a. Basic concepts of diabetes, progressive beta cell , concepts of basal/bolus/corrective insulin requirements. b. Nutrition: Concepts of healthy [...] or sores that do not appear to behealing. 4. Meter: Plan to check blood glucose: Please check blood glucose levels 4 times/day. Back to back meals reveal effectiveness of bolus dosing. 5. [facility] Contact office if any issues or concerns with patterns of hypoglycemia, hyperglycemia, or diabetes medication issues. 6. Prescriptions: [facility] [facility] sent riky 3 cgm. Pt reports she has victoza at home. 7. With use of current diabetes medications could cause anomalies, demise if become .Recommend use of contraception during use of these [...] provider. Refills should be requested at the timeof your visit. Jan,Hypertension, unspecified type (ICD-10 - I10)Hypertension material was published f/u with pcp for further recommendation Jan,ietary counseling and surveillance (ICD-10 - Z71.3)Healthy eating material was published Jan,Vitamin B 12 deficiency (ICD-10 - E53.8)Good food sources of vitamin B12 material was published 12/03 vit b 12 1181 Jan,MI 45.0-49.9, adult (ICD-10 - Z68.42)Setting weight-loss goals material was published [facility] Other 11-08-2022 Evaluation note* Encounter Date Diagnosis Assessment Notes Treatment Notes Treatment Clinical Notes Jan, Bile acid esophageal reflux (ICD -10 - K21.9) PATIENT STATES THAT SHE DOES TAKE THE CARAFATE AND NO PROBLEMS AT THIS TIME. Jan,Irritable bowel syndrome with diarrhea (ICD-10 - K58.0)PATIENT STATES THAT SHE IS DOING WELL AT THIS TIME. [facility] Other 09-19-2022 Evaluation note* Encounter Date Diagnosis Assessment Notes Treatment Notes Treatment Clinical Notes Nov, Essential hypertension (ICD-10 - I10) [facility] Other 06-30-2022 Evaluation note* Encounter Date Diagnosis Assessment Notes Treatment Notes Treatment Clinical Notes Aug, Contact with and (morgan spected) exposure to covid-19 (ICD-10 - Z20.822) covid pos, see above. Aug,OVID (ICD-10 - U07.1)Informed pt of POS covid test. They are to contact the covid employee hotline regarding quarantine and RTW instructions. Pt understood and agreed to tx plan. [facility] Other 06-16-2022 Evaluation note* Encounter Date Diagnosis Assessment Notes Treatment Notes Treatment Clinical Notes Aug, Degenerative disc disease, cervi narendra (ICD-10 - M50.30) Aug,ervical stenosis of spine (ICD-10 - M48.02)I have independently reviewed the MRI of the cervical spine and the plain x-ray of the cervical spine and reports. The patient has some canal narrowing but no cord compression, no cord signal change,foramen are overall adequate. Clinically the patient has no radicular symptoms, she has more muscular neck pain I recommend she consider anti-inflammatories. She was also previously given tizanidine which she has not taken. I see no evidence for surgical intervention I talked to her about what we do take care of I think she fully understands and agrees. If she ever desires, pain management could be an appropriate referral in the future. Aug,Neck pain (ICD-10 - M54.2) [facility] Other 04-28-2022 Evaluation note* Encounter Date Diagnosis Assessment Notes Treatment Notes Treatment Clinical Notes Jun, Type 2 diabetes imelda itus with hyperglycemia, without long-term current use of insulin (ICD-10 - E11.65) [facility] Other 04-26-2022 Evaluation note* Encounter Date Diagnosis Assessment Notes Treatment Notes Treatment Clinical Notes Jun, Irritable bowel syndrome with di arrhea (ICD-10 - K58.0) DOES EXPERIENCE SOME BLOATING UNDER RIBS NEVER A SOLID BOWEL MOVEMENT. Jun,GERD (gastroesophageal reflux disease) (ICD-10 - K21.9) Jun,LUQ abdominal pain (ICD-10 - R10.12) 26 Apr, 2022OtherWILL START MEDICATION PROCEED WITH EGD/COLON [facility] Other 03-30-2022 Evaluation note* Encounter Date Diagnosis Assessment Notes Treatment Notes Treatment Clinical Notes May, Abdominal pain (ICD-10 - R10.9) Patient has had abdominal and flank pain intermittently for the past several weeks. She is found tohave microscopic hematuria on UA. I have moderate suspicion for renal calculi, so I will send her for CT at this time. She is planning to see GI next month and I've encouraged her to keep that appt pending our findings. Immediate medical attention for change/worsening in the meantime. May,Hematuria, unspecified type (ICD-10 - R31.9) [facility] Other 02-15-2022 Evaluation note* Encounter Date Diagnosis Assessment Notes Treatment Notes Treatment Clinical Notes Apr, Type 2 diabetes imelda itus with hyperglycemia, without long-term current use of [...] diabetes, progressive beta cell , concepts of basal/bolus/corrective insulin requirements. b. Nutrition: Concepts of healthy [...] or sores that do not appear to behealing. 4. Meter: Plan to check blood glucose: Please check blood glucose levels 1-4 times/day. Back to back meals reveal effectiveness of bolus dosing. 5. [facility]. Contact office if any issues or concerns with patterns of hypoglycemia, hyperglycemia, or diabetes medication issues. 6. Prescriptions: Requests 90 day supply of Metformin to [facility]. Apr,Hypertension, unspecified type (ICD-10 - I10) Apr,Mixed hyperlipidemia (ICD-10 - E78.2) Apr,MI 40.0-44.9, adult (ICD-10 - Z68.41) Apr,Vitamin B12 deficiency (ICD-10 - E53.8) Apr,ietary counseling and surveillance (ICD-10 - Z71.3) Apr,Fatty liver (ICD-10 - K76.0) Apr,bstructive sleep apnea (ICD-10 - G47.33) Apr,Knee osteoarthritis (ICD-10 - M17.9) Apr,COS (polycystic ovarian syndrome) (ICD-10 - E28.2) Apr,Fibromyalgia (ICD-10 - M79.7) Apr,Metabolic syndrome (ICD-10 - E88.81) [facility] Other 01-24-2022 Evaluation note* Encounter Date Diagnosis Assessment Notes Treatment Notes Treatment Clinical Notes Mar, Essential hypertension (ICD-10 - I10) Controlled. Continue current care. Mar,Mixed hyperlipidemia (ICD-10 - E78.2) Labs from [facility] screening reviewed -- TGs elevatedbut stable. Remainder of her labs essentially normal. Mar,Gastroesophageal reflux disease, esophagitis presence not specified (ICD-10 - K21.9) Controlled with lifestyle modification. Continue current care. Mar,bstructive sleep apnea (ICD-10 - G47.33) Contiue with CPAP. Mar,Type 2 diabetes mellitus without complication, without long-term current use of insulin (ICD-10 - E11.9) Greatly improved under Dr. Edward's management (documentation from most recent visits reviewed). Continue with weight loss efforts. Yearly dilated eye exam. Check feet daily for sores/ulcers. She will notify me if i can be of any assistance. Mar,aresthesias (ICD-10 - R20.2) Patient is reporting episodes of intermittent dizziness, paresthesias, and weakness. She reports worsening frequency and severity. Exact etiology remains unclear. 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 [facility] Other 01-03-2022 Evaluation note* Encounter Date Diagnosis Assessment Notes Treatment Notes Treatment Clinical Notes Mar, Encounter for immunization (ICD- 10 - Z23) Patient presents for COVID-19 vaccination #2. Pre-screening form answers evaluated with patient. Patient denies current illness or allergic reaction to component of COVID-19 vaccine. Patient providedwith current copy of EUA. [facility] Other 11-30-2021 Evaluation note* Encounter Date Diagnosis Assessment Notes Treatment Notes Treatment Clinical Notes Jan, Encounter for immunization (ICD- 10 - Z23) Patient presents for COVID-19 vaccination #1. Pre-screening form answers evaluated with patient. Patient denies current illness or allergic reaction to component of COVID-19 vaccine. Patient providedwith current copy of EUA. PATIENT MONITORED FOR 15 MINUTES POST-VACCINATION WITHOUT ANY REACTION. [facility] Other 10-29-2021 Evaluation note* Encounter Date Diagnosis Assessment Notes Treatment Notes Treatment Clinical Notes Dec, Type 2 diabetes imelda itus with hyperglycemia, without long-term current use of [...] diabetes, progressive beta cell , concepts of basal/bolus/corrective insulin requirements. b. Nutrition: Concepts of healthy [...] or sores that do not appear to behealing. 4. Meter: Plan to check blood glucose: Please check blood glucose levels 1-4 times/day. Back to back meals reveal effectiveness of bolus dosing. 5. [facility]. Contact office if any issues or concerns with patterns of hypoglycemia, hyperglycemia, or diabetes medication issues. 6. Prescriptions: Metformin refill to [facility]. Dec,MI 40.0-44.9, adult (ICD-10 - Z68.41) Dec,Vitamin B12 deficiency (ICD-10 - E53.8) Dec,Hypertension, unspecified type (ICD-10 - I10) Dec,Mixed hyperlipidemia (ICD-10 - E78.2) Dec,COS (polycystic ovarian syndrome) (ICD-10 - E28.2) Dec,Fibromyalgia (ICD-10 - M79.7) Dec,Knee osteoarthritis (ICD-10 - M17.9) Dec,Fatty liver (ICD-10 - K76.0) Dec,ietary counseling and surveillance (ICD-10 - Z71.3) Dec,Obstructive sleep apnea (ICD-10 - G47.33) Dec,Metabolic syndrome (ICD-10 - E88.81) [facility] Other 01-01-2020 History general Narrative - Reported* Type Description Date Medical History DM II Medical HistoryHTNMedical HistoryGoutMedical HistoryFibromyalgiaMedical History AsthmaSurgical [id number] HistoryD&C003/2019Surgical AhpwjvoHlnwirbj73/27/2020Hospitalization Historykidney infection [facility] Other Chief complaint+Reason for visit Narrative* Reason for Visit Diabetes mellitus Dietary counseling and surveillance HTN (hypertension) Mixed hyperlipidemia Vitamin B 12 deficiency [facility] Work Phone: Evaluation noteNo InformationNortLankenau Medical Center [facility] Other Evaluation noteNo assessment information available [facility] Work Phone: Evaluation note* Diagnosis Onset Date Resolution Status Diabetes mellitus acuteDietary counseling and surveillanceacuteHTN (hypertension)acuteMixed hyperlipidemiaacuteVitamin B 12 deficiencyacute [facility] Work Phone: Evaluation note* Diagnosis Onset Date Resolution Status BMI 45.0-49.9, adult acuteDiabetes mellitusacuteDietary counseling and surveillanceacuteHTN (hypertension)acuteMixed hyperlipidemiaacuteVitamin B 12 deficiencyacuteDiabetes mellitusacuteDog biteacuteElevated troponinacuteHTN (hypertension)acute Tachycardiaacute [facility] Work Phone: Evaluation note* Diagnosis Onset Date Resolution Status BMI 45.0-49.9, adult acuteDiabetes mellitusacuteDietary counseling and surveillanceacuteHTN (hypertension)acuteMixed hyperlipidemiaacuteVitamin B 12 deficiencyacuteDiabetes mellitusacuteDog biteacuteDyspnea on exertionacuteElevated troponinacuteHTN (hypertension)acuteTachycardiaacute [facility] Work Phone: Evaluation note* Diagnosis Onset Date Resolution Status Mixed hyperlipidemia acuteVitamin B 12 deficiencyacuteDyspnea on exertionresolvedElevated troponin resolved [facility] Work Phone: Evaluation note* Diagnosis Onset Date Resolution Status Mixed hyperlipidemia acuteVitamin B 12 deficiencyacuteDyspnea on exertionresolvedElevated troponin resolvedTachycardiaresolvedTachycardiaresolvedElevated troponinnoneactive [facility] Work Phone: Evaluation note* Diagnosis Onset Date Resolution Status Mixed hyperlipidemia acuteVitamin B 12 deficiencyacuteDyspnea on exertionresolvedElevated troponin resolvedTachycardiaresolvedTachycardiaresolvedElevated troponinnoneactive Essential hypertensionacuteGastroesophageal reflux diseaseacuteMixed hyperlipidemiaacuteObstructive sleep [id number] for colon cancernoneactiveEncounter for wellness examinationnoneactiveScreening for breast cancernoneactive [facility] Work Phone: Evaluation note* Diagnosis Well woman exam with routine gynecological exam Routine gynecological examination Breast cancer screening by mammogram Postmenopausal state Asymptomatic postmenopausal status (age-related) (natural) [facility] Diagnosis Sinus tachycardia- Primary Other specified cardiac dysrhythmias Palpitations Essential hypertension Unspecified essential hypertension Type 2 diabetes mellitus without complication, unspecified whether half-way insulin use (Multi) Obstructive sleep apnea syndrome Obstructive sleep apnea (adult) (pediatric) Never smoked tobacco BMI 40.0-44.9, adult (Multi) Morbid obesity (Multi) Morbid obesity Polycystic ovarian disease Polycystic ovaries documented in this encounter [facility] Work Phone: Evaluation note* Diagnosis Onset Date Resolution Status Admit Date Mixed hyperlipidemia acuteApril 2024 1:54pmType 2 diabetes mellitus without complication, without long-term current usacuteApril 2024 1:54pmVitamin B 12 deficiency acuteApril 2024 1:54pmBMI 45.0-49.9, adultdeletedApril 2024 1:54pm Diabetes mellitusdeletedApril 2024 1:54pmDietary counseling and surveillancedeletedApril 2024 1:54pmHTN (hypertension)deletedApril 2024 1:54pm [facility] Work Phone: Evaluation note* Diagnosis Sinus tachycardia- Primary Other specified cardiac dysrhythmias SVT (supraventricular tachycardia) Other specified cardiac dysrhythmias Palpitations Essential hypertension Unspecified essential hypertension Type 2 diabetes mellitus without complication, unspecified whether half-way insulin use Never smoked tobacco BMI 45.0-49.9, adult (Multi) Obstructive sleep apnea (adult) (pediatric) Morbid obesity (Multi) Morbid obesity documented in this encounter [facility] Work Phone: Hospital Discharge instructions Additional Instructions Continue to monitor glucose levels as before Change dressing daily: left arm- allow vashe moistened gauze soak on wound for 5 min., wipe free loose debris, apply hydrogel to wound bed, top with adaptic, 4x4's and secure with conforming mtuzAs[facility] Work Phone: Hospital Discharge instructions Additional Instructions We evaluated you for your concern regarding your blood pressure. 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 Follow-up closely with your cardiology team as well as your primary doctor. Return to the emergency department if you develop any worsening or concerning symptoms.[facility] Work Phone: Reason for referral (narrative)No reason for referral information availableMer[facility] Health [facility] Work Phone: Reason for Referral Reason *FU 08/02 Frequent runs of sinus tachycardia Diagnosis 1 Tachycardia (R00.0) Referral Organization [facility] [place] [facility] Referring Provider First Name Yamila Referring Provider Last Name Piero Referring Provider Specialty Family Prac mac Referred Organization [facility] Referred Provider Maria Antonia Parra Referred Address [address],[address] Referred Provider Specialty Internal Med icine Referral Priority Routine General Notes Lizz Viramontes 12:56:28 PM >received today, notes locked, attachments made, referral faxed Reason Persistent dizz iness, paresthesias, and weakness Diagnosis 1 Paresthesias (R20.2) Referral Organization [place] [facility] Referring Provider First Name Yamila Referring Provider Last Name Piero Referring Provider Specialty Family Prac mac Referred Organization [facility] Referred Provider Bhupendra Evans Christophe r Referred Address [address] [place] [phone] Referred Provider Specialty Neurology Referral Priority Routine General Notes Lizz Viramontes 09:50:26 AM >received todayquinnLizz bright 04/06/2021 09:53:44 AM >attachments made, waiting for [...] Tachycardia Chief Complaint dog bite left arm [facility] f/u dog biteReason for VisitMixed hyperlipidemia Vitamin B 12 deficiency Dyspnea on exertion Elevated troponin Chief Complaint dog bite left arm [facility] [place] dog bite E11.9 E53.8 just b12 pillarsReason for VisitMixed hyperlipidemia Vitamin B 12 deficiency Dyspnea on exertion Elevated troponin Tachycardia Tachycardia Elevated troponin Chief Complaint dog bite left arm [facility] f/[place] dog bite E11.9 E53.8 just b12 pillars pillarsReason for VisitMixed hyperlipidemia Vitamin B 12 deficiency Dyspnea on exertion Elevated troponin Tachycardia Tachycardia Elevated troponin Essential hypertension Gastroesophageal reflux disease Mixed hyperlipidemia Obstructive sleep apnea [id number] Screening for colon cancer Encounter for wellness examination Screening for breast cancer Chief Complaint Admit Date racing heart May 07, 2024 1:44pm Chief Complaint Admit Date racing heart May 07, 2024 1:44pm I47.10 R00.2 May 17, 2024 12:5 3pm Chief Complaint Admit Date racing heart May 07, 2024 1:44pm I47.10 R00.2 May 17, 2024 12:5 3pm LM 12/08/23 June 12, 2024 1:54 pm Reason for Visit Admit Date Mixed hyperlipidemia June 12, 2024 1:5 4pm Type 2 diabetes mellitus wit hout complication, without long-term current us June 12, 2024 1:54pm Vitamin B 12 deficiency June 12, 2024 1:54pm BMI 45.0-49.9, adult June 12, 2024 1:5 4pm Diabetes mellitus June 12, 2024 1:54 pm Dietary counseling and surveillance Apri l 2024 1:54pm HTN (hypertension) June 12, 2024 1:54 pm Chief Complaint Admit Date racing heart May 07, 2024 1:44pm I47.10 R00.2 May 17, 2024 12:5 3pm LM 12/08/23 June 12, 2024 1:54 pm elevated bp June 20, 2024 10:5 2am Reason for Visit Admit Date Mixed hyperlipidemia June 12, 2024 1:5 4pm Vitamin B 12 deficiency June 12, 2024 1:54pm BMI 45.0-49.9, adult June 12, 2024 1:5 4pm Diabetes mellitus June 12, 2024 1:54 pm Dietary counseling and surveillance Apri l 2024 1:54pm HTN (hypertension) June 12, 2024 1:54 pm Chief Complaint Admit Date I10 July 31, 2024 7:11a m new patient/ previous YOVANY August 28 1:51pm 3 month / needs DSME for program September 252024 3:22pm Reason for Visit Admit Date Essential hypertension August 28, 2024 1 :51pm Intolerance of continuous po sitive airway pressure (CPAP) ventilation August 28, 2024 1:51pm Mixed hyperlipidemia August 28, 2024 1:5 1pm Obstructive sleep apnea August 28, 2024 1:51pm Type 2 diabetes mellitus wit hout complication, without long-term current us August 28, 2024 1:51pm BMI 45.0-49.9, adult August 28, 2024 1:5 1pm Tachycardia August 28, 2024 1:51 pm Mixed hyperlipidemia September 25, 2024 3:2 2pm Vitamin B 12 deficiency September 25, 2024 3:22pm BMI 45.0-49.9, adult September 25, 2024 3:2 2pm Diabetes mellitus September 25, 2024 3:22 pm Dietary counseling and surveillance September 25, 2024 3:22pm HTN (hypertension) September 25, 2024 3:22 pm Chief Complaint Admit Date new patient/ previous YOVANY August 28 1:51pm 3 month / needs DSME for program September 252024 3:22pm Pillars November 08, 2024 7: 24am Reason for Visit Admit Date Essential hypertension August 28, 2024 1 :51pm Intolerance of continuous po sitive airway pressure (CPAP) ventilation August 28, 2024 1:51pm Mixed hyperlipidemia August 28, 2024 1:5 1pm Obstructive sleep apnea August 28, 2024 1:51pm Type 2 diabetes mellitus wit hout complication, without long-term current us August 28, 2024 1:51pm BMI 45.0-49.9, adult August 28, 2024 1:5 1pm Tachycardia August 28, 2024 1:51 pm Mixed hyperlipidemia September 25, 2024 3:2 2pm Obstructive sleep apnea September 25, 2024 3:22pm Vitamin B 12 deficiency September 25, 2024 3:22pm BMI 45.0-49.9, adult September 25, 2024 3:2 2pm Diabetes mellitus September 25, 2024 3:22 pm Dietary counseling and surveillance September 25, 2024 3:22pm HTN (hypertension) September 25, 2024 3:22 pm Chief Complaint Admit Date new patient/ previous YOVANY August 28 1:51pm 3 month / needs DSME for program September 252024 3:22pm Pillars November 08, 2024 7: 24am E53.8,E11.9 November 08, 2024 7: 33am pillars November 13, 2024 8:15am Reason for Visit Admit Date Essential hypertension August 28, 2024 1 :51pm Intolerance of continuous po sitive airway pressure (CPAP) ventilation August 28, 2024 1:51pm Mixed hyperlipidemia August 28, 2024 1:5 1pm Obstructive sleep apnea August 28, 2024 1:51pm Type 2 diabetes mellitus wit hout complication, without long-term current us August 28, 2024 1:51pm BMI 45.0-49.9, adult August 28, 2024 1:5 1pm Tachycardia August 28, 2024 1:51 pm Mixed hyperlipidemia September 25, 2024 3:2 2pm Obstructive sleep apnea September 25, 2024 3:22pm Vitamin B 12 deficiency September 25, 2024 3:22pm BMI 45.0-49.9, adult September 25, 2024 3:2 2pm Diabetes mellitus September 25, 2024 3:22 pm Dietary counseling and surveillance September 25, 2024 3:22pm HTN (hypertension) September 25, 2024 3:22 pm Essential hypertension November 13 8:15am Gastroesophageal reflux disease [facility] 2024 8:15am Mixed hyperlipidemia November 13, 2024 8:15am Obstructive sleep apnea November 13 8:15am Type 2 diabetes mellitus wit hout complication, without long-term current November 13, 2024 8:15am Screening for colon cancer November 8:15am Encounter for wellness examination [facility] 2024 8:15am Screening for breast cancer November 8:15am Chief Complaint Admit Date Pillars November 08, 2024 7: 24am E53.8,E11.9 November 08, 2024 7: 33am pillars November 13, 2024 8:15am 3 month January 02, 2025 3 :25pm Reason for Visit Admit Date Essential hypertension November 13 8:15am Gastroesophageal reflux disease [facility] 2024 8:15am Mixed hyperlipidemia November 13, 2024 8:15am Obstructive sleep apnea November 13 8:15am Type 2 diabetes mellitus wit hout complication, without long-term current November 13, 2024 8:15am Screening for colon cancer November 8:15am Encounter for wellness examination [facility] 2024 8:15am Screening for breast cancer November 8:15am Mixed hyperlipidemia January 02, 2025 3:25pm Obstructive sleep apnea January 02 3:25pm Vitamin B 12 deficiency January 02 3:25pm BMI 45.0-49.9, adult January 02, 2025 3:25pm Diabetes mellitus January 02, 2025 3 :25pm Dietary counseling and surveillance Octo jeny 2024 3:25pm HTN (hypertension) January 02, 2025 3 :25pm Chief Complaint Admit Date Pillars November 08, 2024 7: 24am E53.8,E11.9 November 08, 2024 7: 33am pillars November 13, 2024 8:15am 3 month January 02, 2025 3 :25pm 1 year follow up-ibs-d January 17 2:42pm Reason for Visit Admit Date Essential hypertension November 13 8:15am [facility] 8:15am Mixed hyperlipidemia November 13, 2024 8:15am Obstructive sleep apnea November 13 8:15am Type 2 diabetes mellitus wit hout complication, without long-term current November 13, 2024 8:15am Screening for colon cancer November 8:15am [facility] wellness [facility] 8:15am Screening for breast cancer November 8:15am Mixed hyperlipidemia January 02, 2025 3:25pm Obstructive sleep apnea January 02 3:25pm Vitamin B 12 deficiency January 02 3:25pm BMI 45.0-49.9, adult January 02, 2025 3:25pm Diabetes mellitus January 02, 2025 3 :25pm Dietary counseling and surveillance Octo 2024 3:25pm HTN (hypertension) January 02, 2025 3 :25pm Fatty liver January 17, 2025 2 :42pm Gastroesophageal reflux disease January 17, 2025 2:42pm Irritable bowel syndrome with diarrhea N ovember 2024 2:42pm Advance Directives Advance Directive Response Recorded Date/ Time Advance Directives No January 10:18am Advance Directive Response Recorded Date/ Time Advance Directives No January 9:18am Advance Directive Response Recorded Date/ Time Advance Directives No September 19 1:53pm Advance Directive Response Recorded Date/ Time Advance Directives No September 19 12:53pm Summary Purpose Family History Relationship Condition Age at Onset Recorded Date/T jaime Not Specified No pertinent family history Unknown daughterCongenital anomaly of heartUnknownfatherDeceasedUnknownFamily history of mental disorderUnknownNot SpecifiedHypertensionUnknownNo Family History Records Found Additional Source Comments REASON FOR VISIT (unrecogniz ed section and content) ReasonCommentsWell Women WorbjEocgooDdxkebzmVqtvnj-chNgnvxhOfzgtwhvXeuzeg-bsADH resultsSpecialtyDiagnoses / ProceduresReferred By ContactReferred To Contact Cardiology Diagnoses SVT (supraventricular tachycardia) Palpitations Procedures Follow Up In Cardiology Shell Linn MD [address] [place] [address] 2, [address] [address] Phone: tel: fax: Shell Linn MD [address] [place] [address] [address], [address] [address] Phone: tel: fax: Referral IDStatusReasonStart DateExpiration DateVisits RequestedVisits [id number] Care Teams (unrecognized sec tion and content) Team Status: Active Member Role Status Dates Yamila Narayanan DO Primary Care Provider Active Team Status: Inactive Member Role Status Dates Yamila Narayanan DO Primary Care Provider Active Start: February 04, 2023 End: February 04, 2023Referral SelfAttending ProviderActiveStart: February 04, 2023 End: February 04, 2023 Team Status: Inactive Member Role Status Dates Yamila Narayanan DO Primary Care Provider Active Start: April 20, 2023 End: April 20Marysol Cortes ProviderActiveStart: April 20, 2023 End: April 20, 2023 Team Status: Active Member Role Status Dates Yamila Narayanan DO Primary Care Provider Active Marysol Mitchell ProviderActive Team Status: Inactive Member Role Status Dates Yamila Narayanan DO Primary Care Provider Active Redd Morales DO CHCAttending ProviderActive Team Status: Inactive Member Role Status Dates Yamila Narayanan DO Primary Care Provider Active Referral SelfAttending ProviderActive Team Status: Inactive Member Role Status Dates Yamila Narayanan , Primary Care Provider Active Tondra Becky Mcclellan APRNAttenhelen ProviderActive Team Status: Inactive Member Role Status Dates Yamila Narayanan , Primary Care Provider Active [place] ProviderActive Team Status: Active Member Role Status Dates Yamila Narayanan , Primary Care Provider Active Tondra Becky Mcclellan , APRNAttending ProviderActive Team Status: Inactive Member Role Status Dates Yamila Narayanan DO Primary Care Provider Active Start: November 02, 2023 End: November 02, 2023Tondra Becky Mcclellan , APRNAttending ProviderActiveStart: November 02, 2023 End: November 02, 2023 Team Status: Active Member Role Status Dates Yamila Narayanan DO Primary Care Provider Active Start: November 03, 2023 Alton Kevin ProviderActiveStart: November 03, 2023 Ruiz Steward MDAdmit Provider, Attending ProviderActiveStart: November 03, 2023 Team Status: Inactive Member Role Status Dates Yamila Narayanan DO Primary Care Provider Active Start: November 03, 2023 End: November 02Alton Jones ProviderActiveStart: November 03, 2023 End: November 03, 2023Ruiz Steward , MDAdmit ProviderActiveStart: November 03, 2023 End: November 03, 2023Denzel Lenz , MDAttending ProviderActiveStart: November 03, 2023 End: November 03, 2023 Team Status: Inactive Member Role Status Dates Yamila Narayanan DO Primary Care Prov ider, Attending Provider Active Start: November 09, 2023 End: November 09, 2023 Team Status: Active Member Role Status Dates Yamila Narayanan DO Primary Care Provider Active Start: December 08, 2023 Tondra Becky Mcclellan , APRNAttending ProviderActiveStart: December 08, 2023 Team Status: Inactive Member Role Status Dates Yamila Narayanan DO Primary Care Provider Active Start: December 08, 2023 End: December 07dimitri JUAREZ , DO CHCAttending ProviderActive Start: December 08, 2023 End: December 08, 2023 Team Status: Inactive Member Role Status Dates Yamila Narayanan DO Primary Care Provider Active Start: December 08, 2023 End: December 08, 2023Robert Donato ProviderActiveStart: December 08, 2023 End: December 08, 2023 Team Status: Inactive Member Role Status Dates Yamila Narayanan DO Primary Care Prov ider, Attending Provider Active Start: December 20, 2023 End: December 20, 2023Team MemberRelationshipSpecialtyStart DateEnd Date Yamila Narayanan MD NPI: [id number] [place] [id number] PCP - [facility]01/17/23Team MemberRelationshipSpecialtyStart DateEnd Date Yamila Narayanan MD NPI: [id number] [place] [id number] PCP - [facility]01/17/23 Team Status: Inactive Member Role Status Dates Yamila Narayanan DO Primary Care Provider Active Start: May 07, 2024 End: May 07, 2024Aaron Barnett ProviderActiveStart: May 07, 2024 End: May 07, 2024Team MemberRelationshipSpecialtyStart DateEnd Date Yamila Narayanan DO NPI: [id number] [place] [id number] PCP - [facility]11/28/18 Team Status: Inactive Member Role Status Dates Yamila Narayanan DO Primary Care Provider Active Start: May 17, 2024 End: May 17, 2024Shell Linn MDAttgila ProviderActiveStart: May 17, 2024 End: May 17, 2024 Team Status: Inactive Member Role Status Dates Yamila Narayanan DO Primary Care Provider Active Start: June 12, 2024 End: June 12, 2024Dex Mcclellan APRNAttenhelen ProviderActiveStart: June 12, 2024 End: June 12, 2024 Team Status: Inactive Member Role Status Dates Yamila Narayanan DO Primary Care Provider Active Start: June 20, 2024 End: June 20Yi Rowland ProviderActiveStart: June 20, 2024 End: June 20, 2024Team MemberRelationshipSpecialtyStart DateEnd Date Yamila Narayanan DO [address] [place] [id number] [facility] - [facility]11/28/18 Team Status: Inactive Member Role Status Dates Yamila Narayanan DO Primary Care Provider Active Start: July 31, 2024 End: July 31, 2024Haailyn Linn MDAttgila ProviderActiveStart: July 31, 2024 End: July 31, 2024 Team Status: Inactive Member Role Status Dates Yamila Narayanan DO Primary Care Provider Active Start: August 28, 2024 End: August 28DRU JaimeCAthema ProviderActiveStart: August 28, 2024 End: August 28, 2024 Team Status: Inactive Member Role Status Dates Yamila Narayanan DO Primary Care Provider Active Start: September 25, 2024 End: September 25, 2024Dex Mcclellan APRNAthema ProviderActiveStart: September 25, 2024 End: September 25, 2024 Team Status: Inactive Member Role Status Dates Yamila Narayanan DO Primary Care Provider Active Start: November 08, 2024 End: November 08dimitri JUAREZ DO CHCAttending ProviderActiveStart: November 08, 2024 End: November 08, 2024 Team Status: Active Member Role Status Dates Yamila Narayanan DO Primary Care Provider Active Start: November 08, 2024 Dex Mcclellan APRNAttenhelen ProviderActiveStart: November 08, 2024 Team Status: Inactive Member Role Status Dates Yamila Shanikacharbel Primary Care Provider Active Start: November 08, 2024 End: November 08, 2024Dex Mcclellan APRNAthema ProviderActiveStart: November 08, 2024 End: November 08, 2024 Team Status: Inactive Member Role Status Dates Yamila Coreylukasshanicecharbel DO Primary Care Provider Active Start: November 13, 2024 End: November 13, 2024Makaty Narayanan DOAttending ProviderActiveStart: November 13, 2024 End: November 13, 2024 Team Status: Active Member Role/Relationship Status Dates Yamila DO Piero Primary Care Provider Active Team Status: Inactive Member Role/Relationship Status Dates Yamila Piero Primary Care Provider Active Start: November 08, 2024 End: November 08dimitri Agees - CH[facility] , DO CHCAttending ProviderActiveStart: November 08, 2024 End: November 08, 2024 Team Status: Inactive Member Role/Relationship Status Dates Yamila Yoelmercy Primary Care Provider Active Start: November 08, 2024 End: November 08, 2024Tondra Becky Mcclellan , APRNAttending ProviderActiveStart: November 08, 2024 End: November 08, 2024 Team Status: Inactive Member Role/Relationship Status Dates Yamila Narayanan Primary Care Provider Active Start: November 13, 2024 End: November 13, 2024Mattelba Narayanan DOAttending ProviderActiveStart: November 13, 2024 End: November 13, 2024 Team Status: Inactive Member Role/Relationship Status Dates Yamila Yoelmercy Primary Care Provider Active Start: January 02, 2025 End: January 02, 2025Dex Mcclellan , APRNAttending ProviderActiveStart: January 02, 2025 End: January 02, 2025 Team Status: Inactive Member Role/Relationship Status Dates Yamila Shanikacharbel Primary Care Provider Active Start: January 17, 2025 End: January 17zuri Voss MDAttending ProviderActiveStart: January 17, 2025 End: January 17, 2025 Goals (unrecognized section and content) Goals may be documented in a n alternate section INFORMATION SOURCE (unrecogn ized section and content) DATE CREATED AUTHOR 01/17/2022 [facility] DATE CREATED AUTHOR AUTHOR'S SAWYER ARIAS 01/25/2024 [facility] DATE CREATED AUTHOR AUTHOR'S SAWYER ATNIMESH 08/08/2024 [facility] DATE CREATED AUTHOR AUTHOR'S ORGANZACHARIAH ATION 11/26/2024 [facility] FOR RECORDS PERTAINING TO PATIENTS WHO [...] BE BASED ON THE PRIMARY CLINICAL RECORDS. [facility] [employer] [facility]. provides no warranty or guarantee of the accuracy or completeness of information in this document.
== END 2025-01-29 20:12 | disposition home or self-care (01) ==
LOC: LAB 20:11
PROVIDERS: PCP Obstetrics & Gynecology; Visit Provider Obstetrics & Gynecology
DX: Z01.419 Encounter for gynecological examination (general) (routine) without abnormal findings (principal)
CPT/HCPCS: 87624; 88175